=== PATIENT | male | born 1995 | race Caucasian/White ===

== ENCOUNTER 2019-06-08 01:26 | Day surgery (SDC) | payer OTHER, SELFPAY ==
[2019-06-03 10:38] VITALS: BMI 21.7
[2019-06-08 06:44] VITALS: BP 123/73; PULSE 94; RESP 16; TEMP 36.6; O2SAT 100; BMI 21.8
[2019-06-08] MEDS: LACTATED RINGERS 1,000 ML 150 ML IV CONT (07:09)
[2019-06-08 07:13] LABS: Glucose Point of Care 96 (65-105)
--- NOTE | 2019-06-08 07:37 | P.PNAN_ITS ---
Anes - Initial Pre Proc Eval Procedure: Operation Date: 06/08/19 08:00 Proposed Procedures p Esophagogastroduodenoscopy & Colonoscopy - Raj Jara MD Date/Time: 06/08/19 07:37 Surgeon: aRj Jara MD Pre Op Diagnosis: bloody stools, epigastric pain Patient Data Age: 24 Gender: M Height: 5 ft 11 in Weight: 71 kg Last Vital Signs Temp 97.8 F 06/08/19 06:44 Pulse 94 06/08/19 06:44 Resp 16 06/08/19 06:44 BP 123/73 06/08/19 06:44 Pulse Ox 100 06/08/19 06:44 Allergies Allergy/AdvReac Type Severity Reaction Status Date / Time No Known Allergies Allergy Unverified 06/08/19 06:53 Home Medications Medication Instructions Recorded Confirmed Type insulin lispro [Humalog U-100 06/03/19 History Insulin] Laboratory Tests 06/08/19 07:05 POC Capillary Glucose 96 mg/dl mg/dl (65-105) Patient hx anesthesia problems: none Family hx anesthesia problems: none [facility] Past Medical History Medical History (Updated 06/08/19 @ 07:30 by Lamberto Santana MD) Diabetes GERD (gastroesophageal reflux disease) Anes - Eval Final PreProcedure Day of Procedure 06/08/19 07:37 Patient weight: normal Heart: regular rate and rhythm Lungs: clear to auscultation Airway: Mallampati scale class II Neurological: alert and oriented Last oral intake: >/= 8 hours ASA classification: II Emergent: no Anesthetic plan: proceed Anesthesia type and monitoring: general GIVS and standard monitoring Informed Consent: The patient's anesthetic plan and its attendant risks and benefits were discussed with the patient/family/POA. Questions were solicited and answers provided to the satisfaction of the patient/family/POA.
--- NOTE | 2019-06-08 07:52 | WPDGICN ---
Assessment and Plan Additional Plan This is a 24-year-old white male patient seen in evaluation at the request of Kesha Noe. Patient has history of diabetes mellitus. Patient has noticed 2 month history of diffuse abdominal pain associated with elevation of his glucose. He has noticed rectal bleeding initially bright red blood per rectum admixed with stool. States sometimes he has diarrhea. Occasional midepigastric pain. Diarrhea and bleeding has persisted and worsened over the last 2 weeks. He denies a fever. He has had no recent travel. He describes the pain as though it may be a and hunger pain past medical history diabetes mellitus. He had a normal colonoscopy at age 13 because of abdominal pain. Current medications include insulin, Humalog. Family history Is significant his uncle had Crohn's disease. Physical exam reveals patient be alert. Vital signs stable. HEENT exam unremarkable. Lungs are clear to auscultation and percussion. Heart is without murmur or extra sounds. Abdominal exam bowel sounds are present soft mild epigastric tenderness noted. No abdominal masses. Digital external rectal exam normal. Laboratory work reveals ultrasound of the right upper quadrant to be normal. CBC unremarkable. LFTs normal. CT scan was performed results are not available. Stool for wbc's is positive. Impression 1. Bloody stools. 2. Family history of Crohn's disease. 3. Epigastric pain. 4. Insulin-dependent diabetes mellitus. Plan is for GI endoscopy to include both colonoscopy an EGD. Further recommendations will be given after endoscopy. GI Consult Note Consult date/time: 06/08/19 07:52 HPI: Prosper Sosa III is a 24 year old male [facility] Past Medical History Medical History (Updated 06/08/19 @ 07:30 by Lamberto Santana MD) Diabetes GERD (gastroesophageal reflux disease) Meds Home Medications and Allergies Home Medications Medication Instructions Recorded Confirmed Type insulin lispro [Humalog U-100 06/03/19 History Insulin] Allergies Allergy/AdvReac Type Severity Reaction Status Date / Time No Known Allergies Allergy Unverified 06/08/19 06:53 Vital Signs Vital Signs - 24 hr 06/08/19 06:44 Temperature 36.6 C Pulse Rate 94 Respiratory Rate 16 Blood Pressure 123/73 Pulse Oximetry 100
[2019-06-08] MEDS: BENZOCAINE (*SP) 60 ML SPRAY CAN (HURRICAINE) 1 SPRAY MUCOUS MEM (08:03)
[2019-06-08 08:28] VITALS: BP 107/62; PULSE 81; RESP 17; O2SAT 99
[2019-06-08 08:38] VITALS: BP 112/57; PULSE 85; RESP 25; O2SAT 100
[2019-06-08 08:48] VITALS: BP 125/83; PULSE 81; RESP 20; O2SAT 100
[2019-06-08 09:00] LABS: Glucose Point of Care 102 (65-105)
== END 2019-06-08 09:18 | disposition home or self-care (01) ==
PROVIDERS: PCP Nurse Practitioner; Visit Provider Internal Medicine Gastroenterology
PROC: 0DJ08ZZ Inspection of Upper Intestinal Tract, Via Natural or Artificial Opening Endoscopic (ICD-10-PCS; CPT 43235; principal; 2019-06-08 08:00)
DX: K52.9 Noninfective gastroenteritis and colitis, unspecified (principal); K21.9 Gastro-esophageal reflux disease without esophagitis; Z83.79 Family history of other diseases of the digestive system; E11.9 Type 2 diabetes mellitus without complications; Z79.4 Long term (current) use of insulin
CPT/HCPCS: 45380; 43235; 88305; J2704; J7120

== ENCOUNTER 2020-01-12 08:00 | Observation (INO) | payer OTHER, SELFPAY ==
[2020-01-12] VITALS (35 sets, daily range): BP systolic 120–144; BP diastolic 67–79; PULSE 95–134; RESP 15–23; TEMP 36.1–37.1; O2SAT 96–100; BMI 20.6
[2020-01-12 08:15] LABS: Glucose Point of Care 388 (65-105)
--- NOTE | 2020-01-12 08:23 | PC.NURSE ---
Pt states he has been out of his insulin for a while. Hx of insulin dependent diabetes. Pt reports blood sugars have been running in the 200s-300s at home.
[2020-01-12 08:26] LABS: Basophils Absolute Auto 0.1 K/mm3 (0.0-0.1); Basophils Percent Auto 0.9 % (0.2-1.2); Eosinophils Absolute Auto 0.2 K/mm3 (0-0.3); Eosinophils Percent Auto 1.6 % (0-4.4); Hemoglobin 15.6 g/dL (14.0-18.0); Immature Granulocyte Absolute 0.06 K/mm3 (0.00-0.031); Immature Granulocyte Percent A 0.6 % (0-0.5); Lymphocytes Absolute Auto 1.44 K/mm3 (0.9-3.2); Mean Corpuscular HGB Conc 33.9 g/dl (32-36); Mean Corpuscular Hemoglobin 31.3 pg (26-34); Mean Corpuscular Volume 92.2 fl (80-100); Monocytes Absolute Auto 1.4 K/mm3 (0.1-0.6); Monocytes Percent Auto 13.3 % (2.6-8.5); Neutrophils Absolute Auto 7.2 K/mm3 (1.3-6.7); Neutrophils Percent Auto 69.6 % (45.5-73.1); Platelet Count Result 308 k/mm3 (150-375); Red Blood Count 4.99 M/mm3 (4.6-6.20); Red Cell Distribution Width 13.2 % (11.5-14.5); White Blood Count 10.3 K/mm3 (4.5-10.0)
[2020-01-12] MEDS: SODIUM CHLORIDE 0.9% IV 1,000 ML 999 ML IV CONT ×3 (08:33→11:08)
[2020-01-12 08:34] LABS: Add Urine Microscopic? YES; Appearance Urine Clear (Clear); Bilirubin Urine Negative (Negative); Blood Urine Negative (Negative); Color Urine Straw (Yellow); Glucose Urine UA 3+ mg/dL (Negative); Ketones Urine 2+ mg/dL (Negative); Leukocyte Esterase Ur Negative LEU/UL (Negative); Mucus Urine Rare /lpf; Nitrate Urine Negative (Negative); Protein Urine Negative (Negative); Specific Grav Ur 1.025 (1.001-1.035); Squamous Epithelial Cell Urine Rare /hpf (Few); Urobilinogen Urine Negative mg/dL (<2.0); WBC Urine 0-3 /hpf
[2020-01-12 08:35] LABS: Alanine Aminotransferase 40 U/L (4-50); Albumin Level 4.7 g/dL (3.5-5.1); Alkaline Phosphatase 171 U/L (38-126); Anion Gap 22 mmol/L (8-16); Aspartate Amino Transferase 29 U/L (17-59); Bilirubin,Total 0.8 mg/dL (0.2-1.3); Blood Urea Nitrogen 18 mg/dL (9-20); Calcium 9.7 mg/dL (8.4-10.2); Carbon Dioxide 16 mmol/L (22-30); Chloride 97 mmol/L (98-107); Estimated CRCL calculation 99 ml/min; Estimated Glomerular Filt Rate > 60; Glucose 381 mg/dL (75-110); Lipase 74 U/L (23-300); Potassium 4.3 mmol/L (3.4-5.0); Sodium 135 mmol/L (137-145)
[2020-01-12 08:55] LABS: Hemoglobin A1C 10.4 % (<5.7)
[2020-01-12 09:08] LABS: Base Excess ABG -9.4 mEq/l (+/-2.0); Device ROOM AIR; Fractional Inspired Oxygen 21 %; HCO3 ABG 14.6 mEq/l (22.0-26.0); Methemoglobin ABG 0.4 %THb (0-1.5); Oxygen Content ABG 19.4 %vol (16.0-22.0); Oxygen Saturation ABG 97.9 % (95.0-100.0); Oxyhemoglobin 96.1 % THb (90.0-100.0); PCO2 ABG 27.5 mmHg (35.0-45.0); PO2 ABG 109.8 mmHg (80.0-100.0); PO2 FiO2 Ratio Arterial Blood 5.23 %; Reduced Hemoglobin 2.5 %THb (0-5.0); Site Drawn LEFT BRACHIAL; Total Hemoglobin 14.3 g/dL (12.0-18.0); pH ABG 7.343 (7.350-7.450)
--- NOTE | 2020-01-12 09:47 | ED.ABDPAIN ---
HPI - Abdominal Pain General Chief Complaint: Abdominal Pain Stated Complaint: abd pain, bloody stool, hx ulcerative colitis Time Seen by Provider: 01/12/20 08:12 History of Present Illness HPI narrative: Patient is a 24-year-old male who presents ER with concerns for a flare of his ulcerative colitis. Reports over the last week he has been having crampy abdominal pain associated with loose stools that are mixed with blood. He takes mesalamine and is followed by Dr. Jara. No fevers/chills/sweats. He is w/o n/v. Related Data Home Medications Medication Instructions Recorded Confirmed cholecalciferol (vitamin D3) 1,250 mcg PO WEEKLY 01/12/20 01/12/20 mesalamine 1,200 mg PO BID 01/12/20 01/12/20 Allergies Allergy/AdvReac Type Severity Reaction Status Date / Time No Known Allergies Allergy Verified 01/12/20 13:11 Review of Systems Review of Systems: All systems reviewed & are unremarkable except as noted in HPI and below Constitutional: Constitutional: Denies chills, Reports fatigue and Denies fever(s) ENT: Denies nasal congestion and Denies sore throat Respiratory: Respiratory: Denies cough and Denies dyspnea Gastrointestinal: Gastrointestinal: Reports abdominal pain, Reports diarrhea, Denies nausea and Denies vomiting Comments: hematochezia Genitourinary: Genitourinary: Denies oliguria, Denies dysuria and Reports urinary frequency PMFSH Past Medical History Medical History (Updated 01/12/20 @ 19:31 by Damir Vanessa MD) Diabetes type 1 A1c 10.4 on 01/12/2020 Ulcerative colitis Surgical History Surgical History (Updated 01/12/20 @ 14:37 by Eveline Franklin NP) H/O eye surgery right eye H/O hand surgery on the right hand Family History Family History (Updated 01/12/20 @ 14:40 by Eveline Franklin NP) Father Acute myocardial infarction Sibling Asthma Mother Family history of thyroid problem Social History Social History Smoking status: Never smoker Second hand tobacco smoke exposure: Yes Alcohol intake: never Substance use: never Spiritual care concerns: No Exam Narrative: Exam Narrative: GENERAL: Well-appearing, smells of ketones, well-nourished, and in no acute distress. HEAD: Normocephalic, atraumatic. ENT: Mucous membranes moist. CHEST: Clear to auscultation. No respiratory distress. HEART: Tachycardic and regular. Normal peripheral pulses. ABDOMEN: Soft, nontender, nondistended. EXTREMITIES: Normal range of motion. No edema. SKIN: Warm, dry, no rash. NEURO: Alert and oriented x3. Course Course Emergency Course: Acidosis and gap should close with aggressive fluids. Admit to the hospital service. No need for ICU. Vital Signs Vital signs: Vital Signs Temperature 97.2 F L 01/12/20 08:08 Pulse Rate 116 H 01/12/20 08:08 Respiratory Rate 18 01/12/20 08:08 Blood Pressure 131/72 01/12/20 08:08 Pulse Oximetry 100 01/12/20 08:08 Temperature 96.8 F L 01/12/20 19:28 Pulse Rate 77 01/12/20 19:28 Respiratory Rate 20 01/12/20 19:28 Blood Pressure 103/55 L 01/12/20 19:28 Pulse Oximetry 100 01/12/20 19:28 MDM - Abdominal Pain Lab Data Result diagrams: 01/12/20 08:16 01/12/20 10:20 Labs: Lab Results 01/12/20 01/12/20 01/12/20 Range/Units 08:13 08:16 08:16 WBC 10.3 H (4.5-10.0) K/mm3 RBC 4.99 (4.6-6.20) M/mm3 Hgb 15.6 (14.0-18.0) g/dL Hct 46.0 (42.0-52.0) % MCV 92.2 (80-100) fl MCH 31.3 (26-34) pg MCHC 33.9 (32-36) g/dl RDW 13.2 (11.5-14.5) % Plt Count 308 (150-375) k/mm3 MPV 10.0 (7.4-10.4) fl Immature Gran % (Auto) 0.6 H (0-0.5) % Neut % (Auto) 69.6 (45.5-73.1) % Lymph % (Auto) 14.0 L (18.3-44.2) % [place] % (Auto) 13.3 H (2.6-8.5) % Eos % (Auto) 1.6 (0-4.4) % Baso % (Auto) 0.9 (0.2-1.2) % Lymph # (Auto) 1.44 (0.9-3.2) K/mm3 [place] # (Auto) 1.4 H (0.1-0.6) K/mm3 Eos # (Auto) 0.2 (0-0.3) K
[2020-01-12 10:42] LABS: Glucose Point of Care 243 (65-105)
[2020-01-12 10:43] LABS: Anion Gap 13 mmol/L (8-16); Blood Urea Nitrogen 15 mg/dL (9-20); Calcium 7.9 mg/dL (8.4-10.2); Carbon Dioxide 19 mmol/L (22-30); Chloride 103 mmol/L (98-107); Estimated CRCL calculation 122 ml/min; Estimated Glomerular Filt Rate > 60; Glucose 269 mg/dL (75-110); Potassium 3.8 mmol/L (3.4-5.0); Sodium 135 mmol/L (137-145)
--- NOTE | 2020-01-12 13:24 | ADMGEN ---
This patient, Prosper Sosa III, was admitted to IMU Room 201-01 on 01/12/2020 at 1300. Patient/family oriented to hospital policies and general routines including ID bracelet, bed and alarms, visiting hours, pain management, procedures, bathroom and other care routines, personal items, smoking policy, room service/diet, and visiting hours. Information on how to activate the Rapid Response Team has been discussed. Patient/Family are encouraged to report perceived risks to care and to ask questions if they do not understand what they are told or what they should do.
[2020-01-12 13:40] LABS: Glucose Point of Care 261 (65-105)
--- NOTE | 2020-01-12 14:23 | PM.IMHP ---
H&P: HPI History of Present Illness Date/Time: 01/12/20 14:23 Chief complaint: dka,ulcerative colitis flare Narrative: Prosper Sosa III is a 24 year old male Who has a history of diabetes type 1 he was diagnosed when he was 11 years old. The patient typically sees an seamer in [address] [place] [address]. However since the COVID pandemic the patient has not been able to see his seamer. Also the patient was fired from his job and recently started working at another job. He had an insulin pump at 1 time but it was not working correctly. He is been using some Humalog that he has at home. He was also using Lantus but ran out. He has not been able to obtain an appointment with his seamer until next year. The patient has been trying to manage his diabetes with his Humalog only and has been out of Lantus. The patient also had been without insurance for approximately 2 months as well. He states that he sees Dr. márquez for his ulcerative colitis and that his mesalamine seems to work usually. He said that he does have his medication for that at home and he has been taking it routinely. He did have an EGD and colonoscopy for Dr. márquez March of this year. The patient had been on steroids at that time and he said that his oldest diff colitis has been under control since then. However the patient stated the last week he has been having abdominal pain and blood in his stool. He has no fever or chills. He did not have any nausea vomiting down in the emergency room. The patient was given IV fluids and 7 units of regular insulin IV push x1. It looks like he has had 5 normal saline boluses and then a continuous rate on the IV fluids. They have been discontinued since his anion gap was down to 13. His initial blood sugar was 388 and is down to 261 now. His A1c was 10.4. patient is admitted for observation on the date of 01/12/2020. Review of Systems Review of Systems: All systems reviewed & are unremarkable except as noted in HPI and below Constitutional: Constitutional: Reports as per HPI and Reports no additional constitutional complaints Eyes: Eyes: Reports as per HPI and Reports no additional eye complaints ENT: Reports system reviewed and no additional complaints, except as documented and Reports Normal hearing present Cardiovascular: Cardiovascular: Reports no additional cardiovascular complaints Respiratory: Respiratory: Reports no additional respiratory complaints and Reports no additional respiratory complaints Gastrointestinal: Gastrointestinal: Reports as per HPI and Reports no additional gastrointestinal complaints Musculoskeletal: Musculoskeletal: Reports no additional musculoskeletal complaints Integumentary/Breasts: Skin/Breast: Reports system reviewed and no additional complaints, except as docu and Reports as per HPI Neurologic: Reports system reviewed and no additional complaints, except as documented, Reports as per HPI and Reports Normal hearing present Psychiatric: Psychiatric: Reports no additional psychiatric complaints and Reports as per HPI Endocrine: Endocrine: Reports no additional endocrine complaints Hematologic/Lymphatic: Hematologic/Lymphatic: Reports no additional hematologic/lymphatic complaints Allergic/Immunologic: Allergic/Immunologic: Reports no additional allergic/immunologic complaints [facility] Past Medical History Medical History (Updated 01/12/20 @ 14:37 by Eveline Franklin NP) Diabetes type 1 A1c 10.4 on 01/12/2020 Ulcerative colitis Surgical History Surgical History (Updated 01/12/20 @ 14:37 by Eveline Franklin NP) H/O eye surgery right eye H/O hand surgery on the right hand Family History Family History (Updated 01/12/20 @ 14:40 by Eveline Franklin NP) Father Acute myocardial infarction Sibling Asthma Mother Family history of thyroid problem Social History Social History Smoking status: Never smoker Second hand tobacco smoke exposure: Ye
[2020-01-12 17:08] LABS: Glucose Point of Care 432 (65-105)
[2020-01-12] MEDS: MESALAMINE 400 MG DELAYED RELEASE CAPSULE 2400 MG PO (17:28)
[2020-01-12] MEDS: INSULIN ASPART (*BKC) 100 UNITS/ML 10 UNITS SUB-Q (17:28)
[2020-01-12] MEDS: INSULIN GLARGINE (*BKC) 100 UNITS/ML 30 UNITS SUB-Q (20:11)
[2020-01-12 20:16] LABS: Glucose Point of Care 228 (65-105)
[2020-01-13] VITALS (12 sets, daily range): BP systolic 120–147; BP diastolic 75–85; PULSE 88–111; RESP 18–20; TEMP 36.1–37.1; O2SAT 95–100; BMI 20.6
--- NOTE | 2020-01-13 | ECHO_ITS ---
Patient Info Name: Prosper Sosa Age: 24 years : 1995 Gender: Male Ht: 71 in Wt: 148 lbs BSA: 1.83 m2 HR: 105 bpm BP: 137 / 85 mmHg Heart Rhythm: Tachycardia Technical Quality: Fair Exam Date: 01/13/2020 10:03 AM Exam Location: [facility] Patient Status: Inpatient Admit Date: 01/12/2020 Staff Ordering Physician: Cleve Kamara MD Construction Specialist: Efrain Drake RDCS Attending Provider: Shasta Alvarez MD Referring Physician: Asad DE LA PAZ; Exam Type: CA echo doppler color flow Study Info Indications R00.0 - Tachycardia, unspecified Complete two-dimensional, color flow and Doppler transthoracic echocardiogram is performed. History/Risk Factors T1DM w/ DKA and tachycardia. Summary 1. Complete two-dimensional, color flow and Doppler transthoracic echocardiogram is performed. 2. Left ventricular chamber dimension is normal. 3. Left ventricular systolic function is normal, estimated at 60-65%. 4. The left ventricular diastolic function is normal. 5. E/e' 5 is not elevated. 6. The aortic valve is not well visualized. Left Ventricle E/e' 5 is not elevated. Left ventricular chamber dimension is normal. Left ventricular systolic function is normal, estimated at 60-65%. The left ventricular diastolic function is normal. Right Ventricle Right ventricular chamber dimension is normal. Right ventricular systolic function is normal. Left Atria Left atrial chamber dimension is normal. Right Atria Right atrial chamber dimension is normal. Aortic Valve There is no aortic valve stenosis based on valve area and gradients. Cannot determine number of aortic valve leaflets. The aortic valve is not well visualized. There is no aortic valve regurgitation. Pulmonic Valve The pulmonic valve is not well visualized. Mitral Valve There is no mitral valve stenosis. There is no mitral valve regurgitation. Tricuspid Valve The tricuspid valve leaflets are not well visualized. There is no tricuspid valve regurgitation. Pericardium/Pleural There is no pericardial effusion. Inferior Vena Cava Normal inferior vena cava with >50% collapse upon inspiration consistent with normal right atrial pressure, 5 mmHg. Aorta The aortic root size at the sinus of Valsalva is not well visualized. Left Ventricular Outflow Tract Name Value Normal LVOT 2D LVOT Diameter 1.9 cm LVOT Doppler LVOT Peak Gradient 7 mmHg LVOT Mean Gradient 4 mmHg LVOT VTI 20 cm LVOT VTI/AV VTI Ratio 0.9 LVOT Stroke Volume 59 ml LVOT CO 6.4 l/min LVOT CI 3.5 l/min/m2 Mitral Valve Name Value Normal MV Doppler MV Decel [place]
[2020-01-13 03:05] LABS: Glucose Point of Care 301 (65-105)
[2020-01-13] MEDS: INSULIN ASPART (*BKC) 100 UNITS/ML SUB-Q ×4 (03:15→17:52)
[2020-01-13 05:03] LABS: Hematocrit 39.1 % (42.0-52.0); Hemoglobin 13.2 g/dL (14.0-18.0); Mean Corpuscular HGB Conc 33.8 g/dl (32-36); Mean Corpuscular Hemoglobin 30.6 pg (26-34); Mean Corpuscular Volume 90.7 fl (80-100); Platelet Count Result 236 k/mm3 (150-375); Red Blood Count 4.31 M/mm3 (4.6-6.20); Red Cell Distribution Width 12.9 % (11.5-14.5); White Blood Count 7.8 K/mm3 (4.5-10.0)
[2020-01-13 05:17] LABS: Alanine Aminotransferase 21 U/L (4-50); Albumin Level 3.5 g/dL (3.5-5.1); Alkaline Phosphatase 112 U/L (38-126); Anion Gap 14 mmol/L (8-16); Aspartate Amino Transferase 20 U/L (17-59); Bilirubin,Total 0.8 mg/dL (0.2-1.3); Blood Urea Nitrogen 8 mg/dL (9-20); Calcium 8.5 mg/dL (8.4-10.2); Carbon Dioxide 21 mmol/L (22-30); Chloride 100 mmol/L (98-107); Estimated CRCL calculation 115 ml/min; Estimated Glomerular Filt Rate > 60; Glucose 306 mg/dL (75-110); Magnesium 1.9 mg/dL (1.6-2.3); Potassium 3.9 mmol/L (3.4-5.0); Sodium 135 mmol/L (137-145)
[2020-01-13 06:03] LABS: Thyroid Stimulating Hormone Reflex 0.761 uIU/mL (0.465-4.68)
[2020-01-13 07:16] LABS: Band Neutrophils Percent 10 % (0-6); Eosinophils Absolute Manual 0.15 K/mm3 (0.02-0.5); Eosinophils Percent Manual 2 % (0-4); Lymphocytes Absolute Manual 1.95 K/mm3 (1.1-4.5); Monocytes Absolute Manual 0.93 K/mm3 (0.1-0.90); Monocytes Percent Manual 12 % (3-9); Neutrophils Absolute Manual 4.75 K/mm3 (1.3-6.7); Neutrophils Percent Manual 51 % (46-73); Total Cells Counted 100
[2020-01-13 07:18] LABS: Platelet Estimate Adequate (Adequate)
[2020-01-13 08:06] LABS: Glucose Point of Care 261 (65-105)
[2020-01-13] MEDS: MESALAMINE 400 MG DELAYED RELEASE CAPSULE 1200 MG PO ×2 (08:08→17:51)
[2020-01-13 12:10] LABS: Glucose Point of Care 356 (65-105)
[2020-01-13] MEDS: INSULIN ASPART (*BKC) 100 UNITS/ML 6 UNITS SUB-Q ×2 (12:10→17:52)
[2020-01-13] MEDS: METOPROLOL SUCCINATE EXT REL 25 MG TABCR PO (12:11)
--- NOTE | 2020-01-13 13:04 | WPDGICN ---
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 Limited form of ulcerative colitis. Previously good response to Lialda was noted. He has had increasing diarrhea with bloody stools over the last 1 week. Given his admission hospital with DKA and underlying diabetes. Steroids may be contraindicated. Steroids would help with his colitis for a brief interval but may aggravate his poorly controlled diabetes at this time. Plan is to continue Lialda but add rule weight is a enemas at this time as this should be effective in the procto sigmoid region. This will initially be performed daily but may be consider b.i.d. if necessary. Will follow with you during this hospital stay. (2) DKA (diabetic ketoacidosis): Code(s): E11.10 - Type 2 diabetes mellitus with ketoacidosis without coma Status: Acute (3) Diabetes: Code(s): E11.9 - Type 2 diabetes mellitus without complications Status: Chronic GI Consult Note Consult date/time: 01/13/20 13:04 HPI: Prosper Sosa III is a 24 year old male I am asked to see by the hospitalist service. Patient admitted the hospital with poor control of diabetes mellitus felt to have DKA. Patient was identified as having ulcerative colitis in May of 2019. At that time colonoscopy revealed left-sided ulcerative colitis from the sigmoid colon to the rectal area. He was placed on Lialda. This gave him very good response of symptoms. He has had minimal pain or bleeding until the last 1 week. Over the last 1 week has had increasing diarrhea and blood in his stools. He only has pain during a bowel movement described as a crampy in nature. Family history is significant for Crohn's disease Review of Systems Review of Systems: All systems reviewed & are unremarkable except as noted in HPI and below PMFSH Past Medical History Medical History (Updated 01/12/20 @ 19:31 by Damir Vanessa MD) Diabetes type 1 A1c 10.4 on 01/12/2020 Ulcerative colitis Surgical History Surgical History (Updated 01/12/20 @ 14:37 by Eveline Franklin NP) H/O eye surgery right eye H/O hand surgery on the right hand Family History Family History (Updated 01/12/20 @ 14:40 by Eveline Franklin NP) Father Acute myocardial infarction Sibling Asthma Mother Family history of thyroid problem Social History Social History Smoking status: Never smoker Second hand tobacco smoke exposure: Yes Alcohol intake: never Substance use: never Spiritual care concerns: No Meds Home Medications and Allergies Home Medications Medication Instructions Recorded Confirmed Type cholecalciferol (vitamin D3) 1,250 mcg PO WEEKLY 01/12/20 01/12/20 History mesalamine 1,200 mg PO BID 01/12/20 01/12/20 History Allergies Allergy/AdvReac Type Severity Reaction Status Date / Time No Known Allergies Allergy Verified 01/12/20 13:11 Vital Signs Vital Signs - 24 hr 01/12/20 13:10 01/12/20 14:00 01/12/20 16:00 Temperature 98.7 F Pulse Rate 104 H 102 H 106 H Respiratory Rate 20 Blood Pressure 138/67 Pulse Oximetry 98 01/12/20 18:00 01/12/20 19:28 01/12/20 20:00 Temperature 97.5 F L Pulse Rate 99 105 H 97 Respiratory Rate 18 Blood Pressure 144/77 H Pulse Oximetry 100 01/12/20 22:00 01/12/20 23:26 01/13/20 00:00 Temperature 97.0 F L Pulse Rate 95 97 94 Respiratory Rate 18 Blood Pressure 120/70 Pulse Oximetry 100 01/13/20 01:58 01/13/20 03:21 01/13/20 04:00 Temperature 97.5 F L Pulse Rate 88 88 97 Respiratory Rate 18 Blood Pressure 147/79 H Pulse Oximetry 95 01/13/20 06:00 01/13/20 08:00 01/13/20 10:00 Temperature 97.5 F L Pulse Rate 94 102 H 110 H Respiratory Rate 18 Blood Pressure 137/85 Pulse Oximetry 100 01/13/20 12:
[2020-01-13 14:21] LABS: Glucose Point of Care 342 (65-105)
[2020-01-13] MEDS: INSULIN HUMAN REGULAR (*BKC) 100 UNITS/ML 7 UNITS IV PUSH (14:52)
--- NOTE | 2020-01-13 15:11 | PM.IMPN ---
Progress Note: A&P Assessment and Plan (1) Ulcerative colitis: Code(s): K51.90 - Ulcerative colitis, unspecified, without complications Status: Chronic Assessment and Plan: Dr. márquez is evaluating.. The patient has had prednisone in the past. However his blood sugars are extremely high at this point. Will continue with his home medication mesalamine.. (2) Diabetes: Code(s): E11.9 - Type 2 diabetes mellitus without complications Status: Chronic Assessment and Plan: A1C 10.4. Lantus HS with scheduled NovoLog and sliding scalehigh dose sliding scale. Patient will need to follow-up with his pallet assembler. The patient stated that he will need a prescription for Lantus when he goes home. He may even need some Humalog as well. The patient had an insulin pump but had some nonfunctioning with the pump. He is type 1 and was diagnosed at the age of 11. (3) Tachycardia: Code(s): R00.0 - Tachycardia, unspecified Status: Acute Assessment and Plan: patient states that he has had tachycardia for years with minimal exertion. TSH is normal. Blood pressures toward the high side so will start low-dose beta-mathieu and check echo also (4) DKA (diabetic ketoacidosis): Code(s): E11.10 - Type 2 diabetes mellitus with ketoacidosis without coma Status: Acute Assessment and Plan: initial gap was 22 with CO2 of 16 and pH 7.34. No beta hydroxybutyrate was done. Gap is closed and CO2 of to 21 with IV intermittent and subcu heparin. Will continue aggressive treatment that way with the IV insulin intermittently as well as subcu. UC may be worse than he admits which may be aggravating his blood sugar also Subjective Date/time seen: 01/13/20 15:11 Interval history: date of visit 01/12. 24-year-old type 1 diabetic with UC admitted with uncontrolled diabetes when he ran out of his Lantus insulin. admitted and mild DKA and been treating with intermittent IV insulin and subcu insulin with fair response. No nausea no vomiting. Has had some cramping with his UC. No fever no chills feels better this a.m. after insulin and hydration Exam Narrative: Exam Narrative: blood pressure 140/78 pulse 98 afebrile pupil equal reactive to light sclera anicteric lungs clear CV tachy no murmurs abdomen soft nontender bowel sounds normal active extremities without edema distal pulses 2+ neuro alert cooperative no focal deficits Objective Data Vital Signs Vital Signs: Vital Signs - 24 hr 01/12/20 16:00 01/12/20 18:00 01/12/20 19:28 Temperature 37.1 C 36.4 C L Pulse Rate 106 H 99 105 H Respiratory Rate 20 18 Blood Pressure 138/67 144/77 H Pulse Oximetry 98 100 01/12/20 20:00 01/12/20 22:00 01/12/20 23:26 Temperature 36.1 C L Pulse Rate 97 95 97 Respiratory Rate 18 Blood Pressure 120/70 Pulse Oximetry 100 01/13/20 00:00 01/13/20 01:58 01/13/20 03:21 Temperature 36.4 C L Pulse Rate 94 88 88 Respiratory Rate 18 Blood Pressure 147/79 H Pulse Oximetry 95 01/13/20 04:00 01/13/20 06:00 01/13/20 08:00 Temperature 36.4 C L Pulse Rate 97 94 102 H Respiratory Rate 18 Blood Pressure 137/85 Pulse Oximetry 100 01/13/20 10:00 01/13/20 12:00 01/13/20 12:11 Temperature 36.2 C L Pulse Rate 110 H 109 H 101 H Respiratory Rate 18 Blood Pressure 140/78 Pulse Oximetry 99 01/13/20 14:00 Temperature Pulse Rate 99 Respiratory Rate Blood Pressure Pulse Oximetry Intake/Output Intake/Output: Intake & Output 01/10/20 01/11/20 01/12/20 01/13/20 23:59 23:59 23:59 23:59 Intake Total 4620 880 Output Total 700 Balance 3920 880 Meds/Results Medications: Active Medications Generic Name Dose Route Start Last Admin Trade Name Freq PRN Reason Stop Dose Admin Acetaminophen 650 mg 01/12/20 10:30 Acetaminophen 325 Mg Tablet PO Q4H PRN Mild Pain (1-3) or Fever Hydrocodone Bitart/A
[2020-01-13 16:21] LABS: Glucose Point of Care 265 (65-105)
[2020-01-13 16:22] LABS: Albumin Level 3.7 g/dL (3.5-5.1); Anion Gap 8 mmol/L (8-16); Blood Urea Nitrogen 9 mg/dL (9-20); Calcium 8.8 mg/dL (8.4-10.2); Carbon Dioxide 27 mmol/L (22-30); Chloride 103 mmol/L (98-107); Estimated CRCL calculation 131 ml/min; Estimated Glomerular Filt Rate > 60; Glucose 262 mg/dL (75-110); Potassium 4.3 mmol/L (3.4-5.0); Sodium 138 mmol/L (137-145)
--- NOTE | 2020-01-13 18:42 | PC.NURSE ---
This patient, Prosper Soas III, was transferred to [facility] on 01/13/20 at 1840. Personal belongings sent with patient. Report given to CHRISTOPHER George. Appropriate documentation sent with patient.
--- NOTE | 2020-01-13 18:45 | PC.NURSE ---
This patient, Prosper Sosa III, was received from IMU on 01/13/20 at 1845. Report received from Michelle WHITE. Patient/family oriented to unit policies and routines
[2020-01-13] MEDS: SODIUM PHOSPHATE 20 MM in DEXTROSE 5% IN WATER 250 ML 50 MM IVPB (19:04)
[2020-01-13] MEDS: INSULIN GLARGINE (*BKC) 100 UNITS/ML 35 UNITS SUB-Q (20:52)
[2020-01-13] MEDS: MESALAMINE ENEMA 4 GM/60 ML BOTTLE RECTAL (20:53)
[2020-01-13 22:48] LABS: Glucose Point of Care 295 (65-105)
[2020-01-14 06:00] VITALS: BP 122/77; PULSE 92; RESP 20; TEMP 36.6; O2SAT 98
[2020-01-14 06:37] LABS: Albumin Level 3.6 g/dL (3.5-5.1); Anion Gap 8 mmol/L (8-16); Blood Urea Nitrogen 7 mg/dL (9-20); Calcium 8.6 mg/dL (8.4-10.2); Carbon Dioxide 28 mmol/L (22-30); Chloride 104 mmol/L (98-107); Estimated CRCL calculation 131 ml/min; Estimated Glomerular Filt Rate > 60; Glucose 189 mg/dL (75-110); Phosphorus 3.5 mg/dL (2.5-4.5); Potassium 3.4 mmol/L (3.4-5.0); Sodium 140 mmol/L (137-145)
[2020-01-14 08:49] LABS: Glucose Point of Care 138 (65-105)
[2020-01-14] MEDS: POTASSIUM CHLORIDE 20 MEQ TABLET 40 MEQ PO (08:49)
[2020-01-14] MEDS: MESALAMINE 400 MG DELAYED RELEASE CAPSULE 1200 MG PO (08:50)
[2020-01-14] MEDS: MESALAMINE ENEMA 4 GM/60 ML BOTTLE RECTAL (08:50)
[2020-01-14 08:51] VITALS: PULSE 108
[2020-01-14] MEDS: METOPROLOL SUCCINATE EXT REL 25 MG TABCR PO (08:51)
[2020-01-14] MEDS: INSULIN ASPART (*BKC) 100 UNITS/ML 6 UNITS SUB-Q ×2 (08:55→12:21)
--- NOTE | 2020-01-14 08:55 | WPDGIPROGNO ---
Progress Note: A&P Additional Plan Patient feels much better at present. He denies any active rectal bleeding. States his abdominal pain has improved. Physical exam reveals him to be alert. Lungs are clear. Heart without murmur. Abdomen bowel sounds are present soft minimal tenderness. Labs reveal hemoglobin stable. Impression 1. Diabetes mellitus. 2. DKA. Appears resolved. 3. Ulcerative colitis. He has left-sided proctosigmoiditis. Plan is to continue mesalamine orally. Supplement this with mesalamine enema at bedtime. Prednisone will be avoided at this time because of poor control of his diabetes. Asked patient to follow up my office in 2 weeks at which time enema therapy will be reassessed. Subjective Date/time seen: 01/14/20 08:55 Objective Data Vital Signs Vital Signs: Vital Signs - 24 hr 01/13/20 10:00 01/13/20 12:00 01/13/20 12:11 Temperature 97.1 F L Pulse Rate 110 H 109 H 101 H Respiratory Rate 18 Blood Pressure 140/78 Pulse Oximetry 99 01/13/20 14:00 01/13/20 16:00 01/13/20 22:00 Temperature 97 F L 98.7 F Pulse Rate 99 98 94 Respiratory Rate 18 20 Blood Pressure 120/75 127/82 Pulse Oximetry 100 99 01/14/20 06:00 01/14/20 08:51 Temperature 97.8 F Pulse Rate 92 108 H Respiratory Rate 20 Blood Pressure 122/77 Pulse Oximetry 98 Intake/Output Intake/Output: Intake & Output 01/11/20 01/12/20 01/13/20 01/14/20 23:59 23:59 23:59 23:59 Intake Total 4620 1120 1256.7 Output Total 700 Balance 3920 1120 1256.7 Meds/Results Medications: Active Medications Generic Name Dose Route Start Last Admin Trade Name Freq PRN Reason Stop Dose Admin Acetaminophen 650 mg 01/12/20 10:30 Acetaminophen 325 Mg Tablet PO Q4H PRN Mild Pain (1-3) or Fever Dextrose 12.5 gm 01/12/20 14:21 Dextrose 50% 25 Gm/50 Ml Syringe IV PUSH PRN PRN Hypoglycemia Protocol Ergocalciferol 50,000 unit 01/16/20 09:00 Ergocalciferol 50,000 Unit Capsule PO Mo@0900 RADHA Glucagon 1 mg 01/12/20 14:21 Glucagon For Inj 1 Mg Vial IM PRN PRN Hypoglycemia Protocol Glucose 15 gm 01/12/20 14:21 Glucose Oral Gel 15 Gm Of Glucse In 37.5 Gm Tube PO PRN PRN Hypoglycemia Protocol Dextrose 1,000 mls @ 100 mls/hr 01/12/20 14:21 Dextrose 5% 1,000 Ml IVPB PRN PRN Hypoglycemia Protocol Insulin Aspart 6 units 01/13/20 12:00 01/13/20 17:52 Insulin Aspart (*Bkc) 100 Units/Ml 0.083 units/kg (6 units) 6 units SUB-Q Administration [facility] Insulin Aspart 2 - 5 units 01/13/20 12:00 01/14/20 08:54 Insulin Aspart (*Bkc) 100 Units/Ml SUB-Q Not Given [facility] Protocol Insulin Glargine 35 units 01/13/20 21:00 01/13/20 20:52 Insulin Glargine (*Bkc) 100 Units/Ml SUB-Q 35 units HS RADHA Administration Mesalamine 1,200 mg 01/13/20 09:00 01/14/20 08:50 Mesalamine 400 Mg Delayed Release Capsule PO 1,200 mg BID RADHA Administration Mesalamine 4 gm 01/13/20 21:00 01/14/20 08:50 Mesalamine Enema 4 Gm/60 Ml Bottle RECTAL 4 gm Q12HR RADHA Administration Metoprolol Succinate 25 mg 01/13/20 09:00 01/14/20 08:51 Metoprolol Succinate Ext Rel 25 Mg Tabcr PO 25 mg QAM RADHA Administration Morphine Sulfate 4 mg 01/12/20 10:30 Morphine Sulfate (*Crx) 4 Mg/Ml Inj IV PUSH Q2H PRN Pain Rated 7-10 Ondansetron HCl 4 mg 01/12/20 10:30 Ondansetron Inj 4 Mg/2 Ml Vial IV PUSH Q4H PRN Nausea Labs Labs: Laboratory Results - last 24 hr 01/13/20 01/13/20 01/13/20 12:03 14:17 16:02 Sodium 138 Potassium 4.3 Chloride 103 Carbon Dioxide 27 Anion Gap 8 BUN 9 Creatinine 0.70 Estim Creat Clear Calc 131 Estimated GFR > 60 Glucose 262 H POC Capillary Glucose 356 H 342 H Calcium 8.8 Phosphorus 2.0 L Albumin 3.7 01/13/20 01/13/20 01/14/20 16:06 20:51 05:44 Sodium
[2020-01-14 12:25] LABS: Glucose Point of Care 177 (65-105)
--- NOTE | 2020-01-15 18:39 | PM.DS ---
DS: Admitting Diagnosis Admitting Diagnosis Admitting Diagnosis: dka,ulcerative colitis flare DS: Discharge Diagnosis Discharge Diagnosis (1) Ulcerative colitis: Code(s): K51.90 - Ulcerative colitis, unspecified, without complications Status: Chronic Assessment and Plan: Dr. márquez followed while here... The patient has had prednisone in the past. However his blood sugars are extremely high at this point. Will continue with his home medication mesalamine.. And mesalamine enemas were added to his regime also. (2) Diabetes: Code(s): E11.9 - Type 2 diabetes mellitus without complications Status: Chronic Assessment and Plan: A1C 10.4. Lantus HS with scheduled NovoLog and sliding scalehigh dose sliding scale. Patient will need to follow-up with his [employer] senior officer. He was given a script for Lantus and Humalog. The patient had an insulin pump but had some nonfunctioning with the pump. He is type 1 and was diagnosed at the age of 11. Discharge with Lantus 35 units HS and Humalog 6 t.i.d. with meals with his sliding scale. (3) Tachycardia: Code(s): R00.0 - Tachycardia, unspecified Status: Acute Assessment and Plan: patient states that he has had tachycardia for years with minimal exertion. TSH is normal. Blood pressures toward the high side so will start low-dose beta-mathieu and echo Normal with normal EF and no LVH or valve abnormalities (4) DKA (diabetic ketoacidosis): Code(s): E11.10 - Type 2 diabetes mellitus with ketoacidosis without coma Status: Acute Assessment and Plan: initial gap was 22 with CO2 of 16 and ph 7.34 . treated with extra insulin and occasional IV push regular insulin and gap closed. He had no nausea or vomiting. Fasting sugar at discharge 189 with CO2 up to 28 and creatinine 0.7. DS: Summary Hospital Course Hospital Course: 24-year-old type 1 diabetic admitted with elevated blood sugar and mild DKA. Gap was 22 with CO2 the 16 and pH 7.34. Is treated with extra subcu insulin and intermittent IV push insulin and his gap closed and sugar return to reasonable range. DKA was precipitated by the fact that he had ran out of Lantus insulin and was trying to control his blood sugars with Humalog only At discharge the CO2 had climbed to 28. Is taking a diet and feeling much better on Lantus 35 HS with scheduled short-acting insulin with meals. He had had insulin pump in the past and will follow-up with endocrinology for possible restarting that in the future. He can return to work on the in the p.m.. Time Spent with Patient Time attestation: Total time spent providing and/or coordinating discharge services: 35 minutes Exam Narrative: Exam Narrative: condition on discharge blood pressure 122/76 pulse is 90 and regular lungs clear CV regular rate rhythm no murmur abdomen soft nontender bowel sounds normal active extremities without edema good distal pulses he was up in about taking a diet well with nausea feeling much better and stable able to be discharged home return to work on the p.m. Discharge Plan Discharge Attending physician on discharge: Cleve Kamara Consulting providers: Raj Márquez Discharging Clinician: Cleve Kamara Patient Disposition: Home, Self-Care Activity: as tolerated Diet: diabetic Patient Instructions: Antibiotic Form, Mesalamine (Into the rectum), Pain Management (DC), Diabetic Ketoacidosis (DC), Ulcerative Colitis (DC) Stand Alone Forms: General Discharge Information, Work/School Release IP Follow-up/Referrals: Raj Márquez MD [Physician] - 4 Weeks Discharge Medications: New Lantus U-100 Insulin 100 unit/mL Solution 35 units subcut HS Qty: 10 RF: 5 metoprolol succinate [Toprol XL] 25 mg Tablet Extended Release 24 Hr 25 mg PO QAM Qty: 30 RF: 1 mesalamine with cleansing wipe [Rowasa] 4 gram/60 mL Enema Kit 4 g
== END 2020-01-14 13:45 | disposition home or self-care (01) ==
LOC: ANHED 08:34 → ANHIMU 13:30 → ANH3MEDSUR 01-13 23:14 → ANHICU 01-17 13:28 → ANHIMU 01-17 13:28
PROVIDERS: Nurse Practitioner; Admitting Provider Family Medicine; Emergency Provider Emergency Medicine; PCP Nurse Practitioner; Visit Provider Internal Medicine
DX: K51.90 Ulcerative colitis, unspecified, without complications (principal); E10.10 Type 1 diabetes mellitus with ketoacidosis without coma; R00.0 Tachycardia, unspecified; Z79.4 Long term (current) use of insulin
CPT/HCPCS: 36415; 36600; 80048; 80053; 80069; 81001; 82375; 82805; 82948; 83036; 83050; 83690; 83735; 84100; 84443; 85025; 93306; 96360; 96361; 96365; 96366; 99285; A9270; G0378; J1815; J7030; J7060

== ENCOUNTER 2020-01-15 19:15 | Inpatient (IN) | payer OTHER, SELFPAY ==
--- NOTE | ~2020-01-15 | CT_ITS ---
EXAMINATION: CT abdomen pelvis w con EXAM DATE: 01/15/2020 20:42 INDICATION: Ulcerative colitis with lower abdominal pain . TECHNIQUE: Spiral CT of the abdomen and pelvis was performed following intravenous injection of 100 m L Omnipaque 350. Axial, coronal and sagittal images were reviewed. The dose-length product (DLP) fo r this examination was 261.56 mGy-cm. The exposure was tailored according to patient size (auto mA e xposure control), and iterative reconstruction (ASIR) was used as additional dose reduction technique . There is no prior study for comparison. FINDINGS: There is severe diffuse colonic wall edema, cobb colitis. No pneumatosis or abscess. The sma ll bowel is unremarkable. The liver, spleen, adrenal glands and pancreas are unremarkable. Gallblad navdeep is unremarkable. No biliary obstruction. Portal and splenic veins are patent. Kidneys enhance symmetrically. There is no hydronephrosis. The prostate is unremarkable. The bladder is unremarka ble. There is no retroperitoneal or pelvic lymphadenopathy. The appendix is normal. The stomach and small bowel are unremarkable. No free intraperitoneal gas. The heart is normal in size. There are no pericardial or pleural effusions. The lung bases are u nremarkable. The bones are unremarkable. IMPRESSION: Severe pancolitis. Reviewed, dictated and finalized at location A. IMPRESSION: Severe pancolitis.
[2020-01-15 19:20] VITALS: BP 140/98; PULSE 100; RESP 18; TEMP 36.7; O2SAT 100
--- NOTE | 2020-01-15 19:32 | ED.ABDPAIN ---
HPI - Abdominal Pain General Chief Complaint: Abdominal Pain Stated Complaint: bloody stool, abd pain Time Seen by Provider: 01/15/20 19:26 Source: patient Mode of arrival: ambulatory Limitations: no limitations History of Present Illness HPI narrative: 24 years old white male presents with lower abdominal cramps associated with frequent bloody bowel movements at least 4 episodes so far since glove cutter. Patient denies any fever, chills, nausea, vomiting. Patient had history of ulcerative colitis was hospitalized in our hospital for 3 days, got discharged yesterday. He was doing fine at the time of discharge, woke up this morning with the above symptoms. Related Data Home Medications Medication Instructions Recorded Confirmed cholecalciferol (vitamin D3) 1,250 mcg PO WEEKLY 01/12/20 01/12/20 mesalamine 1,200 mg PO BID 01/12/20 01/12/20 Allergies Allergy/AdvReac Type Severity Reaction Status Date / Time No Known Allergies Allergy Verified 01/12/20 13:11 Review of Systems Review of Systems: Narrative: CONSTITUTIONAL: Denies fever, chills, or sweats. EYES: Denies visual changes, redness, or discharge. ENT: Denies rhinorrhea, congestion, sore throat, or otalgia. CARDIOVASCULAR: Denies chest pain, palpitations, or edema. RESPIRATORY: Denies cough or dyspnea. GASTROINTESTINAL: Denies abdominal pain, nausea, vomiting, or diarrhea. GENITOURINARY: Denies dysuria or hematuria. SKIN: Denies rash or itching. MUSCULOSKELETAL: Denies back pain, joint pain, or myalgia. NEUROLOGIC: Denies headache, numbness, or weakness. PSYCHIATRIC: Denies anxiety or depression. [facility] Past Medical History Medical History Diabetes type 1 A1c 10.4 on 01/12/2020 Ulcerative colitis Surgical History Surgical History H/O eye surgery right eye H/O hand surgery on the right hand Family History Family History Father Acute myocardial infarction Sibling Asthma Mother Family history of thyroid problem Social History Social History Smoking status: Never smoker Second hand tobacco smoke exposure: Yes Alcohol intake: never Substance use: never Spiritual care concerns: No Exam Narrative: Exam Narrative: General appearance: Well-developed, well-nourished Skin: Normal color Neck: Supple, nontender Chest and respiratory: Airway patent, no respiratory distress, no accessory muscle use Heart: Regular rate/rhythm Abdomen: Soft, nontender, no organomegaly, hyperactive bowel sounds Vascular: Normal peripheral pulses, normal capillary refill. Musculoskeletal: Normal range of motion, nontender back Neurologic: Alert and oriented ?3, HEAD OF RESEARCH & INSIGHTS is normal as tested, no gross motor deficit Course Course Emergency Course: Stable Consultations Consultation #1: Dr. Jara Admit to hospitalist, start Solu-Medrol 40 mg every 8 hours Date: 01/15/20 Time: 21:42 Vital Signs Vital signs: Vital Signs Temperature 36.7 C 01/15/20 19:20 Pulse Rate 100 01/15/20 19:20 Respiratory Rate 18 01/15/20 19:20 Blood Pressure 140/98 H 01/15/20 19:20 Pulse Oximetry 100 01/15/20 19:20 Temperature 36.7 C 01/15/20 19:20 Pulse Rate 105 H 01/15/20 20:02 Respiratory Rate 18 01/15/20 20:02 Blood Pressure 132/89 01/15/20 20:02 Pulse Oximetry 99 01/15/20 20:02 MDM - Abdominal Pain MDM Narrative Medical decision making narrative: Patient had history of ulcerative colitis, was discharged from our hospital 2 days ago, back to the emergency room w
[2020-01-15 20:02] VITALS: BP 132/89; PULSE 105; RESP 18; O2SAT 99
[2020-01-15 20:08] LABS: Basophils Absolute Auto 0.1 K/mm3 (0.0-0.1); Basophils Percent Auto 0.7 % (0.2-1.2); Eosinophils Absolute Auto 0.2 K/mm3 (0-0.3); Eosinophils Percent Auto 2.2 % (0-4.4); Hematocrit 40.5 % (42.0-52.0); Hemoglobin 13.8 g/dL (14.0-18.0); Immature Granulocyte Absolute 0.03 K/mm3 (0.00-0.031); Immature Granulocyte Percent A 0.3 % (0-0.5); Lymphocytes Absolute Auto 1.23 K/mm3 (0.9-3.2); Lymphocytes Percent Auto 14.1 % (18.3-44.2); Mean Corpuscular HGB Conc 34.1 g/dl (32-36); Mean Corpuscular Hemoglobin 31.3 pg (26-34); Mean Corpuscular Volume 91.8 fl (80-100); Mean Platelet Volume 9.8 fl (7.4-10.4); Monocytes Absolute Auto 1.3 K/mm3 (0.1-0.6); Monocytes Percent Auto 14.5 % (2.6-8.5); Neutrophils Percent Auto 68.2 % (45.5-73.1); Platelet Count Result 255 k/mm3 (150-375); Red Blood Count 4.41 M/mm3 (4.6-6.20); Red Cell Distribution Width 13.2 % (11.5-14.5); White Blood Count 8.8 K/mm3 (4.5-10.0)
[2020-01-15 20:12] LABS: Add Urine Microscopic? YES; Appearance Urine Clear (Clear); Bilirubin Urine Negative (Negative); Blood Urine Negative (Negative); Color Urine Yellow (Yellow); Glucose Urine UA 3+ mg/dL (Negative); Ketones Urine Negative (Negative); Leukocyte Esterase Ur Negative LEU/UL (Negative); Mucus Urine Rare /lpf; Nitrate Urine Negative (Negative); Protein Urine Negative (Negative); RBC Urine 0-2 /hpf (0-2); Urobilinogen Urine Negative mg/dL (<2.0); WBC Urine 0-3 /hpf
[2020-01-15] MEDS: SODIUM CHLORIDE 0.9% IV 1,000 ML 999 ML IV CONT (20:15)
[2020-01-15 20:19] LABS: Alanine Aminotransferase 23 U/L (4-50); Albumin Level 3.7 g/dL (3.5-5.1); Alkaline Phosphatase 106 U/L (38-126); Anion Gap 4 mmol/L (8-16); Aspartate Amino Transferase 30 U/L (17-59); Bilirubin,Total 0.3 mg/dL (0.2-1.3); Blood Urea Nitrogen 10 mg/dL (9-20); Calcium 9.2 mg/dL (8.4-10.2); Carbon Dioxide 35 mmol/L (22-30); Chloride 101 mmol/L (98-107); Estimated CRCL calculation 122 ml/min; Estimated Glomerular Filt Rate > 60; Glucose 127 mg/dL (75-110); Lipase 42 U/L (23-300); Potassium 3.8 mmol/L (3.4-5.0); Sodium 140 mmol/L (137-145)
[2020-01-15 21:10] VITALS: BP 103/85; PULSE 103; RESP 18; O2SAT 100
[2020-01-15] MEDS: methylPREDNISolone SOD SUCC 40 MG VIAL IV PUSH ×2 (21:54→22:22)
--- NOTE | 2020-01-15 22:17 | PM.IMHP ---
H&P: HPI History of Present Illness Date/Time: 01/15/20 22:17 Chief complaint: Pancolitis Narrative: This is a 24 year old Diabetic male who is well known to our Hospitalist service as he was just discharged home yesterday after he was just treated for acute DKA and ulcerative colitis. The patient reports that he started to have worsening diffuse lower abdominal cramping and dark bloody stools today. He reports having 7-8 loose stools. Today he denies any fever, chills, vomiting although he did feel nauseated earlier. CT abd/pelvis obtained in the ER today demonstrated severe pancolitis. Routine labs were unremarkable. ER provider has consulted Senior Procurement Specialist, Dr. Jara and the patient has been started on IV solumedrol. No other complaints. Review of Systems Review of Systems: All systems reviewed & are unremarkable except as noted in HPI and below PMFSH Past Medical History Medical History Diabetes type 1 A1c 10.4 on 01/12/2020 Ulcerative colitis Surgical History Surgical History H/O eye surgery right eye H/O hand surgery on the right hand Family History Family History Father Acute myocardial infarction Sibling Asthma Mother Family history of thyroid problem Social History Social History Smoking status: Never smoker Second hand tobacco smoke exposure: Yes Alcohol intake: never Substance use: never Substance use type: does not use Living arrangements: with friend(s) Occupation/Education: occupation Gender identity (if verbalized by the patient): Male Sexual Orientation (if Verbalized by the Patient): Straight or Heterosexual Spiritual care concerns: No Meds Home Medications and Allergies Home Medications Medication Instructions Recorded Confirmed Type cholecalciferol (vitamin D3) 1,250 mcg PO WEEKLY 01/12/20 01/15/20 History mesalamine 1,200 mg PO BID 01/12/20 01/15/20 History blood sugar diagnostic [Blood #10 ea 01/14/20 01/15/20 Rx Glucose Test] blood sugar diagnostic [OneTouch #1 pkg 01/14/20 01/15/20 Rx Verio test strips] insulin glargine [Lantus U-100 35 units SUBCUT HS #10 ml 01/14/20 01/15/20 Rx Insulin] insulin lispro [Humalog U-100 6 unit SUBCUT TID #10 ml 01/14/20 01/15/20 Rx Insulin] mesalamine with cleansing wipe 4 g MI HS #30 ea 01/14/20 01/15/20 Rx [Rowasa] metoprolol succinate [Toprol XL] 25 mg PO QAM #30 tablet 01/14/20 01/15/20 Rx Allergies Allergy/AdvReac Type Severity Reaction Status Date / Time No Known Allergies Allergy Verified 01/12/20 13:11 Vital Signs Vital Signs - 24 hr 01/15/20 19:20 01/15/20 20:02 01/15/20 21:10 Temperature 36.7 C Pulse Rate 100 105 H 103 H Respiratory Rate 18 18 18 Blood Pressure 140/98 H 132/89 103/85 Pulse Oximetry 100 99 100 Exam Const: General: cooperative, alert and awake Nutritional Appearance: thin Orientation/consciousness: patient oriented x3 HENMT: Head: normal to inspection General nose exam: Normal external nose present Face and sinus: normal facial exam Mouth: Yes Normal oral and palatal mucosa present and Yes oropharynx normal Eyes: Pupils: Equal, round and reactive pupils present EOM: EOMs intact bilaterally Neck: Neck: supple and no JVD Thyroid: thyroid normal Lymphatic: lymphadenopathy not noted Resp: Effort & Inspection: normal respiratory effort Auscultation: clear to auscultation bilaterally Cardio: Rate: regular rate Rhythm: regular rhythm Heart sounds: no murmurs GI: Inspection: normal to inspection GI Palp: Yes abdominal tenderness (Lower abd b/l++ ) Auscultation: normal bowel sounds Rectal Exam: deferred Skin: General skin exam: normal color and no rashes or lesions noted Neuro: General: patient oriented x3 Cranial nerves:
[2020-01-15] MEDS: ONDANSETRON INJ 4 MG/2 ML VIAL IV PUSH (22:28)
[2020-01-15] MEDS: HYDROmorphone HCL INJ (*CRX) 1 MG/ML SYR 0.5 MG IV PUSH (22:28)
[2020-01-15 22:36] VITALS: BP 129/83; PULSE 108; RESP 18; O2SAT 97
[2020-01-15 22:50] VITALS: BP 149/80; PULSE 100; RESP 20; TEMP 37.1; O2SAT 100; BMI 20.9
--- NOTE | 2020-01-15 23:07 | ADMGEN ---
This patient, Prosper Sosa III, was admitted to [facility] Surg Room 303-01. Patient/family oriented to hospital policies and general routines including ID bracelet, bed and alarms, visiting hours, pain management, procedures, bathroom and other care routines, personal items, smoking policy, room service/diet, and visiting hours. Information on how to activate the Rapid Response Team has been discussed. Patient/Family are encouraged to report perceived risks to care and to ask questions if they do not understand what they are told or what they should do.
[2020-01-15] MEDS: SODIUM CHLORIDE 0.9% IV 1,000 ML 125 ML IV CONT (23:16)
[2020-01-15 23:50] LABS: Glucose Point of Care 89 (65-105)
[2020-01-16 02:00] VITALS: BP 119/66; PULSE 89; RESP 20; TEMP 36.2; O2SAT 98
[2020-01-16] MEDS: MORPHINE SULFATE (*CRX) 4 MG/ML INJ IV PUSH (04:09)
[2020-01-16 05:38] VITALS: BP 121/71; PULSE 85; RESP 16; TEMP 36.8; O2SAT 98
[2020-01-16] MEDS: SODIUM CHLORIDE 0.9% IV 1,000 ML 125 ML IV CONT ×3 (05:50→22:09)
[2020-01-16] MEDS: methylPREDNISolone SOD SUCC 40 MG VIAL IV PUSH ×3 (05:50→21:26)
[2020-01-16] MEDS: INSULIN ASPART (*BKC) 100 UNITS/ML SUB-Q ×4 (05:52→23:16)
[2020-01-16 05:54] LABS: Glucose Point of Care 299 (65-105)
[2020-01-16 06:14] LABS: Basophils Percent Auto 0.3 % (0.2-1.2); Hematocrit 37.4 % (42.0-52.0); Hemoglobin 12.6 g/dL (14.0-18.0); Immature Granulocyte Absolute 0.03 K/mm3 (0.00-0.031); Immature Granulocyte Percent A 0.4 % (0-0.5); Lymphocytes Absolute Auto 0.56 K/mm3 (0.9-3.2); Lymphocytes Percent Auto 8.1 % (18.3-44.2); Mean Corpuscular HGB Conc 33.7 g/dl (32-36); Mean Corpuscular Hemoglobin 30.5 pg (26-34); Mean Corpuscular Volume 90.6 fl (80-100); Mean Platelet Volume 10.1 fl (7.4-10.4); Monocytes Absolute Auto 0.2 K/mm3 (0.1-0.6); Monocytes Percent Auto 3.5 % (2.6-8.5); Neutrophils Absolute Auto 6.1 K/mm3 (1.3-6.7); Neutrophils Percent Auto 87.7 % (45.5-73.1); Platelet Count Result 242 k/mm3 (150-375); Red Blood Count 4.13 M/mm3 (4.6-6.20); Red Cell Distribution Width 13.2 % (11.5-14.5); White Blood Count 6.9 K/mm3 (4.5-10.0)
[2020-01-16 06:23] LABS: Anion Gap 7 mmol/L (8-16); Blood Urea Nitrogen 8 mg/dL (9-20); Calcium 8.2 mg/dL (8.4-10.2); Carbon Dioxide 27 mmol/L (22-30); Chloride 102 mmol/L (98-107); Estimated CRCL calculation 153 ml/min; Estimated Glomerular Filt Rate > 60; Glucose 316 mg/dL (75-110); Potassium 4.5 mmol/L (3.4-5.0); Sodium 136 mmol/L (137-145)
--- NOTE | 2020-01-16 09:11 | WPDGICN ---
Assessment and Plan Assessment and plan (1) Ulcerative colitis: Code(s): K51.90 - Ulcerative colitis, unspecified, without complications Status: Acute Assessment and Plan: Patient appears to have an ongoing flare of ulcerative colitis. Manifested by bloody diarrhea and abdominal pain. Patient has not tolerated mesalamine enemas very well. Plan is to start Solu-Medrol intravenously. Continue mesalamine orally. Avoid nonsteroidal anti-inflammatory agents. There is a concern that steroids will cause his glucose level to rise. Plan is for close monitoring of his glucose in treatment with supplemental insulin as needed. Patient is status post recent admission for diabetic ketoacidosis. Will follow with you during his hospital stay. We may need to consider adding Imuran if he were to require steroids long-term however. (2) Diabetes: Qualifiers: Diabetes mellitus type: type 1 Diabetes mellitus complication status: without complication Qualified Code(s): E10.9 - Type 1 diabetes mellitus without complications Code(s): E11.9 - Type 2 diabetes mellitus without complications Status: Chronic GI Consult Note Consult date/time: 01/16/20 09:11 HPI: Prosper Sosa III is a 24 year old male Seen in evaluation at the request of the emergency room. Patient has an history of ulcerative colitis. This was stable until the last several weeks when he began to have loose stools and some blood mixed with stools. He had vague lower abdominal pain. Recently admitted to the hospital with diabetic ketoacidosis. During that hospital stay his mesalamine orally was supplemented with a mesalamine enemas. He was discharged however at home experience prompt recurrence of diarrhea abdominal pain and bloody stools. Last evening he presented the emergency room CT scan revealed cobb colitis. At the present time he no longer is acidotic. Glucose appears under better control. Patient admitted for further evaluation and therapy. Review of Systems Review of Systems: All systems reviewed & are unremarkable except as noted in HPI and below PMFSH Past Medical History Medical History Diabetes type 1 A1c 10.4 on 01/12/2020 Ulcerative colitis Surgical History Surgical History H/O eye surgery right eye H/O hand surgery on the right hand Family History Family History Father Acute myocardial infarction Sibling Asthma Mother Family history of thyroid problem Social History Social History Smoking status: Never smoker Second hand tobacco smoke exposure: Yes Alcohol intake: never Substance use: never Substance use type: does not use Living arrangements: with friend(s) Occupation/Education: occupation Gender identity (if verbalized by the patient): Male Sexual Orientation (if Verbalized by the Patient): Straight or Heterosexual Spiritual care concerns: No Meds Home Medications and Allergies Home Medications Medication Instructions Recorded Confirmed Type cholecalciferol (vitamin D3) 1,250 mcg PO WEEKLY 01/12/20 01/15/20 History mesalamine 1,200 mg PO BID 01/12/20 01/15/20 History blood sugar diagnostic [Blood #10 ea 01/14/20 01/15/20 Rx Glucose Test] blood sugar diagnostic [OneTouch #1 pkg 01/14/20 01/15/20 Rx Verio test strips] insulin glargine [Lantus U-100 35 units SUBCUT HS #10 ml 01/14/20 01/15/20 Rx Insulin] insulin lispro [Humalog U-100 6 unit SUBCUT TID #10 ml 01/14/20 01/15/20 Rx Insulin] mesalamine with cleansing wipe 4 g [place] HS #30 ea 01/14/20 01/15/20 Rx [Rowasa] metoprolol succinate [Toprol XL] 25 mg PO QAM #30 tablet 01/14/20 01/15/20 Rx Allergies Allergy/AdvReac Type Severity Reaction Status Date / Time No Known Allergies Allergy
[2020-01-16] MEDS: MESALAMINE 400 MG DELAYED RELEASE CAPSULE 800 MG PO ×3 (10:14→17:25)
--- NOTE | 2020-01-16 11:07 | PM.IMPN ---
Progress Note: A&P Assessment and Plan (1) Ulcerative colitis: Code(s): K51.90 - Ulcerative colitis, unspecified, without complications Status: Acute Assessment and Plan: Patient presented with bloody diarrhea and abdominal pain. Consistent with acute ulcerative colitis flare. GI has been consulted and recommendations are appreciated. Continue IV solu-medrol. Continue oral mesalamine. Analgesics as needed for pain control. Monitor symptoms closely Continue full liquid diet. (2) Diabetes: Qualifiers: Diabetes mellitus complication status: without complication Diabetes mellitus type: type 1 Qualified Code(s): E10.9 - Type 1 diabetes mellitus without complications Code(s): E11.9 - Type 2 diabetes mellitus without complications Status: Chronic Assessment and Plan: A1c is 10.4 (01/12/20). Patient recently admitted 01/11-01/14/20 for episode of DKA after running out of lantus. Blood sugars are improved from recent admission. No anion gap. Home regimen consists of 35 units lantus HS and 6 units humalog TID. Continue Accuchecks, SSI Coverage, and hypoglycemic protocol. Reduce home lantus by 30%. Begin 25 units lantus. Adjust as needed based on blood sugars. Monitor blood sugars closely in light of IV steroids. Subjective Date/time seen: 01/16/20 11:07 Interval history: Date of service: 01/16/2020 Prosper Sosa III is a 24 year old male with a history of ulcerative colitis and diabetes with recent hospital admission 01/11-01/14 for DKA who is seen in follow up for a UC flare. His abdominal pain is improving and he currently rates it as 5/10. He has had two episodes of painless bright red bleeding per rectum today. Denies abdominal cramping or distention. No nausea or vomiting. No fevers or chills. He has not eaten anything yet today and reports he is hungry and anxiously awaiting to eat. He denies shortness of breath, chest pain, or palpitations. He is a little anxious about being hospitalized and missing work. Review of Systems Review of Systems: Narrative: 12 systems reviewed with pertinent positives and negatives as per HPI. Exam Narrative: Exam Narrative: Mr. Sosa is a thin, well-nourished 24-year-old male who is lying supine in bed. He appears comfortable and is in NARD. HR 85, BP 121/71, RR 16, T 98.3, 98% on room air Neuro: awake, alert and oriented x4, speech clear, no focal neuro deficits noted HEENMT: normocephalic, atraumatic, EOMI, sclerae anicteric, moist oral mucosa, tongue midline, nares patent Neck: supple, no lymphadenopathy Respiratory: clear to auscultation bilaterally, nonlabored breathing Cardio: regular rate, regular rhythm with S1-S2 Abdomen: nondistended, normoactive bowel sounds, soft, nontender to palpation, no rigidity or guarding, no rebound tenderness Extremities: no edema, erythema, cyanosis, clubbing, or tenderness to palpation, DP pulses 2+ bilaterally Skin: no rashes or lesions, warm and dry Psych: appropriate mood and affect, judgment and insight intact Objective Data Vital Signs Vital Signs: Vital Signs - 24 hr 01/15/20 19:20 01/15/20 20:02 01/15/20 21:10 Temperature 98.0 F Pulse Rate 100 105 H 103 H Respiratory Rate 18 18 18 Blood Pressure 140/98 H 132/89 103/85 Pulse Oximetry 100 99 100 01/15/20 22:36 01/15/20 22:50 01/16/20 02:00 Temperature 98.8 F 97.2 F L Pulse Rate 108 H 100 89 Respiratory Rate 18 20 20 Blood Pressure 129/83 149/80 H 119/66 Pulse Oximetry 97 100 98 01/16/20 05:38 Temperature 98.3 F Pulse Rate 85 Respiratory Rate 16 Blood Pressure 121/71 Pulse Oximetry 98 Intake/Output Intake/Output: Intake & Output 01/13/20 01/14/20 01/15/20 01/16/20 23:59 23:59 23:59 23:59 Intake Total 1000 1000 Output Total 750 Balance 1000 250 Meds/Results Medications: Active Medications Generic Name Dose Route Start Last Admin Trade Name Freq PRN Reason Stop
[2020-01-16 12:36] LABS: Glucose Point of Care 225 (65-105)
[2020-01-16 15:00] VITALS: BP 132/74; PULSE 100; RESP 16; TEMP 36.6; O2SAT 97
[2020-01-16 17:35] LABS: Glucose Point of Care 400 (65-105)
[2020-01-16 21:53] VITALS: BP 126/88; PULSE 104; RESP 16; TEMP 36.7; O2SAT 100
[2020-01-16] MEDS: INSULIN GLARGINE (*BKC) 100 UNITS/ML 25 UNITS SUB-Q (23:15)
[2020-01-16 23:30] LABS: Glucose Point of Care 281 (65-105)
[2020-01-17] MEDS: INSULIN ASPART (*BKC) 100 UNITS/ML SUB-Q ×6 (05:41→23:10)
[2020-01-17] MEDS: methylPREDNISolone SOD SUCC 40 MG VIAL IV PUSH (05:43)
[2020-01-17 06:00] VITALS: BP 106/66; PULSE 94; RESP 16; TEMP 36.4; O2SAT 100
[2020-01-17 06:10] LABS: Glucose Point of Care 246 (65-105)
[2020-01-17] MEDS: SODIUM CHLORIDE 0.9% IV 1,000 ML 125 ML IV CONT (06:12)
[2020-01-17 06:29] LABS: Hematocrit 38.2 % (42.0-52.0); Hemoglobin 12.5 g/dL (14.0-18.0); Mean Corpuscular HGB Conc 32.7 g/dl (32-36); Mean Corpuscular Volume 94.8 fl (80-100); Mean Platelet Volume 10.2 fl (7.4-10.4); Platelet Count Result 275 k/mm3 (150-375); Red Blood Count 4.03 M/mm3 (4.6-6.20); Red Cell Distribution Width 13.2 % (11.5-14.5); White Blood Count 7.1 K/mm3 (4.5-10.0)
[2020-01-17 06:36] LABS: Anion Gap 9 mmol/L (8-16); Blood Urea Nitrogen 13 mg/dL (9-20); Calcium 8.7 mg/dL (8.4-10.2); Carbon Dioxide 28 mmol/L (22-30); Chloride 100 mmol/L (98-107); Estimated CRCL calculation 153 ml/min; Estimated Glomerular Filt Rate > 60; Glucose 265 mg/dL (75-110); Potassium 4.6 mmol/L (3.4-5.0); Sodium 137 mmol/L (137-145)
[2020-01-17] MEDS: MESALAMINE 400 MG DELAYED RELEASE CAPSULE 800 MG PO ×3 (08:18→18:03)
--- NOTE | 2020-01-17 11:21 | PM.IMPN ---
Progress Note: A&P Assessment and Plan (1) Ulcerative colitis: Code(s): K51.90 - Ulcerative colitis, unspecified, without complications Status: Acute Assessment and Plan: Patient presented with bloody diarrhea and abdominal pain. Consistent with acute ulcerative colitis flare. He is having loose stools today with no episodes of bleeding. Abdominal pain is improved. GI has been consulted and recommendations are appreciated. Continue IV solu-medrol. Continue oral mesalamine. Analgesics as needed for pain control. Monitor symptoms closely Continue full liquid diet. Advance per GI recommendations. (2) Diabetes: Qualifiers: Diabetes mellitus type: type 1 Diabetes mellitus complication status: without complication Qualified Code(s): E10.9 - Type 1 diabetes mellitus without complications Code(s): E11.9 - Type 2 diabetes mellitus without complications Status: Chronic Assessment and Plan: A1c is 10.4 (01/12/20). Patient recently admitted 01/11-01/14/20 for episode of DKA after running out of lantus. Blood sugars are improved from recent admission. No anion gap. Home regimen consists of 35 units lantus HS and 6 units humalog TID. Blood sugars have been elevated, which is expected due to IV steroids, but generally fair. He had one reading of 400 last night which was promptly corrected. Continue Accuchecks, SSI Coverage, and hypoglycemic protocol. Continue Lantus at 30% reduced dose of 25 units qHS. Adjust as needed based on blood sugars. Will add 5 units novolog scheduled with meals for improved control Monitor blood sugars closely in light of IV steroids. Subjective Date/time seen: 01/17/20 11:21 Interval history: Date of service: 01/17/2020 Prosper Sosa III is a 24 year old male with a history of ulcerative colitis and diabetes with recent hospital admission 01/11-01/14 for DKA who is seen in follow up for a UC flare. He is feeling much better today. He denies abdominal pain. He has had several loose stools but no episodes of bloody stools or rectal bleeding. No abdominal cramping or bloating. He has been tolerating full liquids and denies nausea or vomiting. He is eager to advance to solid foods. He is requesting information for [employer] paperwork. He denies SOB, cough, dizziness, lightheadedness, chest pain, palpitations, or bleeding. Review of Systems Review of Systems: All systems reviewed & are unremarkable except as noted in HPI and below Exam Narrative: Exam Narrative: Mr. Sosa is a thin, well-nourished 24-year-old male who is lying supine in bed. He appears comfortable and is in NARD. HR 94, BP 106/66, RR 16, T 97.6, 100% on room air Neuro: awake, alert and oriented x4, speech clear, no focal neuro deficits noted HEENMT: normocephalic, atraumatic, EOMI, sclerae anicteric, moist oral mucosa, tongue midline, nares patent Neck: supple, no lymphadenopathy Respiratory: clear to auscultation bilaterally, nonlabored breathing Cardio: regular rate, regular rhythm with S1-S2 Abdomen: nondistended, normoactive bowel sounds, soft, nontender to palpation, no rigidity or guarding, no rebound tenderness Extremities: no edema, erythema, cyanosis, clubbing, or tenderness to palpation, DP pulses 2+ bilaterally Skin: no rashes or lesions, warm and dry Psych: appropriate mood and affect, judgment and insight intact Objective Data Vital Signs Vital Signs: Vital Signs - 24 hr 01/16/20 15:00 01/16/20 21:53 01/17/20 06:00 Temperature 97.8 F 98.0 F 97.6 F Pulse Rate 100 104 H 94 Respiratory Rate 16 16 16 Blood Pressure 132/74 126/88 106/66 Pulse Oximetry 97 100 100 Intake/Output Intake/Output: Intake & Output 01/14/20 01/15/20 01/16/20 01/17/20 23:59 23:59 23:59 23:59 Intake Total 1000 4030 1920 Output Total 750 1950 Balance 1000 3280 -30 Meds/Results Medications: Active Medications Generic Name Dose Route Start Last Admin Trade Name
--- NOTE | 2020-01-17 11:31 | WPDGIPROGNO ---
Progress Note: A&P Additional Plan Patient reports feeling better today. He has received several doses of IV Solu-Medrol. States he had a formed stool with no blood. He denies abdominal pain currently. Anxious to eat more than liquid diet. Physical exam reveals Vital Signs Nava to be stable. Lungs are clear. Heart without murmur. Abdomen bowel sounds are present soft nontender no organomegaly. Labs reveal hemoglobin 12.5, hematocrit 38.2 is stable. Impression 1. Ulcerative colitis. Bloody diarrhea noted on admission. Pancolitis on CT scan. Now on IV Solu-Medrol. Plan is to change to oral prednisone with a tapering dose. Continue mesalamine orally as well. Advance diet as tolerated. Outpatient follow-up in my office in 2 weeks advised. 2. Diabetes mellitus. patient had recent admission for DKA. Glucose levels likely to fluctuate as steroid doses adjusted. Patient should monitor glucose closely after discharge as dose of insulin may need to be adjusted. Subjective Date/time seen: 01/17/20 11:31 Objective Data Vital Signs Vital Signs: Vital Signs - 24 hr 01/16/20 15:00 01/16/20 21:53 01/17/20 06:00 Temperature 97.8 F 98.0 F 97.6 F Pulse Rate 100 104 H 94 Respiratory Rate 16 16 16 Blood Pressure 132/74 126/88 106/66 Pulse Oximetry 97 100 100 Intake/Output Intake/Output: Intake & Output 01/14/20 01/15/20 01/16/20 01/17/20 23:59 23:59 23:59 23:59 Intake Total 1000 4030 1920 Output Total 750 1950 Balance 1000 3280 -30 Meds/Results Medications: Active Medications Generic Name Dose Route Start Last Admin Trade Name Freq PRN Reason Stop Dose Admin Dextrose 12.5 gm 01/15/20 22:36 Dextrose 50% 25 Gm/50 Ml Syringe IV PUSH PRN PRN Hypoglycemia Protocol Glucagon 1 mg 01/15/20 22:36 Glucagon For Inj 1 Mg Vial IM PRN PRN Hypoglycemia Protocol Dextrose 1,000 mls @ 100 mls/hr 01/15/20 22:36 Dextrose 5% 1,000 Ml IVPB PRN PRN Hypoglycemia Protocol Insulin Aspart 2 - 5 units 01/16/20 00:00 01/17/20 05:41 Insulin Aspart (*Bkc) 100 Units/Ml SUB-Q 2 units Q6HR RADHA Administration Protocol Insulin Aspart 5 units 01/17/20 12:00 Insulin Aspart (*Bkc) 100 Units/Ml SUB-Q TIDWM RADHA Insulin Glargine 25 units 01/16/20 21:00 01/16/20 23:15 Insulin Glargine (*Bkc) 100 Units/Ml SUB-Q 25 units HS RADHA Administration Mesalamine 800 mg 01/16/20 09:00 01/17/20 08:18 Mesalamine 400 Mg Delayed Release Capsule PO 800 mg TID RADHA Administration Methylprednisolone Sodium Succinate 40 mg 01/15/20 21:45 01/17/20 05:43 Methylprednisolone Sod Succ 40 Mg Vial IV PUSH 40 mg Q8H RADHA Administration Radiology Results: ITS Impressions Abdomen/Pelvis CT 01/15/20 20:45 IMPRESSION: Severe pancolitis. Labs Labs: Laboratory Results - last 24 hr 01/16/20 01/16/20 01/16/20 12:22 17:24 23:14 WBC RBC Hgb Hct MCV MCH MCHC RDW Plt Count MPV Sodium Potassium Chloride Carbon Dioxide Anion Gap BUN Creatinine Estim Creat Clear Calc Estimated GFR Glucose POC Capillary Glucose 225 H 400 H 281 H Calcium 01/17/20 01/17/20 01/17/20 05:39 05:41 05:41 WBC 7.1 RBC 4.03 L Hgb 12.5 L Hct 38.2 L MCV 94.8 MCH 31.0 MCHC 32.7 RDW 13.2 Plt Count 275 MPV 10.2 Sodium 137 Potassium 4.6 Chloride 100 Carbon Dioxide 28 Anion Gap 9 BUN 13 D Creatinine 0.60 L Estim Creat Clear Calc 153 Estimated GFR > 60 Glucose 265 H POC Capillary Glucose 246 H Calcium 8.7
[2020-01-17 12:27] LABS: Glucose Point of Care 261 (65-105)
[2020-01-17 15:00] VITALS: BP 120/69; PULSE 94; RESP 20; TEMP 36.3; O2SAT 99
[2020-01-17 22:00] VITALS: BP 105/56; PULSE 101; RESP 16; TEMP 36.9; O2SAT 100
[2020-01-17 23:05] LABS: Glucose Point of Care 295 (65-105)
[2020-01-17] MEDS: INSULIN GLARGINE (*BKC) 100 UNITS/ML 25 UNITS SUB-Q (23:09)
[2020-01-17 23:53] LABS: Glucose Point of Care 222 (65-105)
[2020-01-18 05:58] VITALS: BP 109/65; PULSE 65; RESP 16; TEMP 36.4; O2SAT 100
[2020-01-18 06:00] LABS: Hematocrit 37.7 % (42.0-52.0); Hemoglobin 12.6 g/dL (14.0-18.0); Mean Corpuscular HGB Conc 33.4 g/dl (32-36); Mean Corpuscular Hemoglobin 31.1 pg (26-34); Mean Corpuscular Volume 93.1 fl (80-100); Platelet Count Result 258 k/mm3 (150-375); Red Blood Count 4.05 M/mm3 (4.6-6.20); Red Cell Distribution Width 13.2 % (11.5-14.5); White Blood Count 8.5 K/mm3 (4.5-10.0)
[2020-01-18 06:12] LABS: Anion Gap 5 mmol/L (8-16); Blood Urea Nitrogen 14 mg/dL (9-20); Calcium 8.5 mg/dL (8.4-10.2); Carbon Dioxide 32 mmol/L (22-30); Chloride 101 mmol/L (98-107); Estimated CRCL calculation 118 ml/min; Estimated Glomerular Filt Rate > 60; Glucose 249 mg/dL (75-110); Potassium 3.8 mmol/L (3.4-5.0); Sodium 138 mmol/L (137-145)
--- NOTE | 2020-01-18 08:12 | WPDGIPROGNO ---
Progress Note: A&P Additional Plan Patient feels better today. Smaller amount of blood noted in stools. Diarrhea has improved. Abdominal pain has improved. Tolerating diet. Physical exam reveals Vital Signs to be stable. He patient is afebrile and anicteric. Lungs are clear. Heart without murmur. Abdomen bowel sounds present soft nontender. No organomegaly. Labs reveal WBC 8.5, hemoglobin 12.6, impression 1. Ulcerative colitis. Pancolitis by CT scan. Plan is for oral prednisone 30 mg p.o. daily. Tapering by 5 mg weekly after discharge. Continue mesalamine orally as well. Follow up in the office in 2 weeks is suggested. We can discharge today if others agree. 2. Diabetes mellitus. Patient may need to adjust insulin dose. Steroids will be decreased. This could change his glucose level. Close monitoring of glucose after discharge. Follow up with primary care or endocrine is suggested for this. Subjective Date/time seen: 01/18/20 08:12 Objective Data Vital Signs Vital Signs: Vital Signs - 24 hr 01/17/20 15:00 01/17/20 22:00 01/18/20 05:58 Temperature 97.4 F L 98.4 F 97.6 F Pulse Rate 94 101 H 65 Respiratory Rate 20 16 16 Blood Pressure 120/69 105/56 L 109/65 Pulse Oximetry 99 100 100 Intake/Output Intake/Output: Intake & Output 01/15/20 01/16/20 01/17/20 01/18/20 23:59 23:59 23:59 23:59 Intake Total 1000 4030 2400 480 Output Total 750 1950 Balance 1000 3280 450 480 Meds/Results Medications: Active Medications Generic Name Dose Route Start Last Admin Trade Name Freq PRN Reason Stop Dose Admin Dextrose 12.5 gm 01/15/20 22:36 Dextrose 50% 25 Gm/50 Ml Syringe IV PUSH PRN PRN Hypoglycemia Protocol Glucagon 1 mg 01/15/20 22:36 Glucagon For Inj 1 Mg Vial IM PRN PRN Hypoglycemia Protocol Dextrose 1,000 mls @ 100 mls/hr 01/15/20 22:36 Dextrose 5% 1,000 Ml IVPB PRN PRN Hypoglycemia Protocol Insulin Aspart 5 units 01/17/20 12:00 01/17/20 18:08 Insulin Aspart (*Bkc) 100 Units/Ml SUB-Q 5 units TIDWM RADHA Administration Insulin Aspart 2 - 5 units 01/18/20 08:00 Insulin Aspart (*Bkc) 100 Units/Ml SUB-Q [facility] Protocol Insulin Glargine 25 units 01/16/20 21:00 01/17/20 23:09 Insulin Glargine (*Bkc) 100 Units/Ml SUB-Q 25 units HS RADHA Administration Mesalamine 800 mg 01/16/20 09:00 01/17/20 18:03 Mesalamine 400 Mg Delayed Release Capsule PO 800 mg TID RADHA Administration Prednisone 20 mg/ Prednisone 30 mg 01/18/20 08:00 10 mg PO DAILY@0800 [facility] Radiology Results: ITS Impressions Abdomen/Pelvis CT 01/15/20 20:45 IMPRESSION: Severe pancolitis. Labs Labs: Laboratory Results - last 24 hr 01/17/20 01/17/20 01/17/20 12:12 18:02 23:07 WBC RBC Hgb Hct MCV MCH MCHC RDW Plt Count MPV Sodium Potassium Chloride Carbon Dioxide Anion Gap BUN Creatinine Estim Creat Clear Calc Estimated GFR Glucose POC Capillary Glucose 261 H 295 H 222 H Calcium 01/18/20 01/18/20 05:41 05:41 WBC 8.5 RBC 4.05 L Hgb 12.6 L Hct 37.7 L MCV 93.1 MCH 31.1 MCHC 33.4 RDW 13.2 Plt Count 258 MPV 10.0 Sodium 138 Potassium 3.8 Chloride 101 Carbon Dioxide 32 H Anion Gap 5 L BUN 14 Creatinine 0.80 Estim Creat Clear Calc 118 Estimated GFR > 60 Glucose 249 H POC Capillary Glucose Calcium 8.5
[2020-01-18 09:01] LABS: Glucose Point of Care 209 (65-105)
[2020-01-18 09:17] LABS: Glucose Point of Care 244 (65-105)
[2020-01-18] MEDS: MESALAMINE 400 MG DELAYED RELEASE CAPSULE 800 MG PO ×2 (09:20→12:33)
[2020-01-18] MEDS: INSULIN ASPART (*BKC) 100 UNITS/ML SUB-Q ×3 (09:20→12:36)
--- NOTE | 2020-01-18 10:22 | PM.DS ---
DS: Admitting Diagnosis Admitting Diagnosis Admitting Diagnosis: Pancolitis DS: Discharge Diagnosis Discharge Diagnosis (1) Ulcerative colitis: Code(s): K51.90 - Ulcerative colitis, unspecified, without complications Status: Acute Assessment and Plan: Patient presented with bloody diarrhea and abdominal pain. CT a/p showed severe pancolitis. Consistent with acute ulcerative colitis flare. He was seen by Dr. Jara (GI). He was started on IV solu-medrol which was tapered to oral prednisone. He will continue with an oral prednisone taper starting at 30mg and decreasing by 5 mg weekly. Oral mesalamine dose was adjusted to 800 mg tid. Diet was advanced to regular solids and he tolerated it well. His abdominal pain resolved and his rectal bleeding improved. He will follow up with Dr. Jara in 2 weeks. (2) Diabetes: Qualifiers: Diabetes mellitus complication status: without complication Diabetes mellitus type: type 1 Qualified Code(s): E10.9 - Type 1 diabetes mellitus without complications Code(s): E11.9 - Type 2 diabetes mellitus without complications Status: Chronic Assessment and Plan: A1c is 10.4 (01/12/20). Patient recently admitted 01/11-01/14/20 for episode of DKA after running out of lantus. Blood sugars improved from recent admission. No anion gap. His blood sugars were elevated which was expected in light of IV steroids. He was covered with SSI in addition to basal and bolus regimen. Home regimen consists of 35 units lantus HS and 6 units humalog TID which he should continue. We discussed the importance of closely monitoring blood sugars, especially while on extended steroid taper. He is in the process of being referred to endocrinology. (3) Tachycardia: Code(s): R00.0 - Tachycardia, unspecified Status: Acute Assessment and Plan: Upon last admission, patient was in sinus tachycardia and reported that he was frequently tachycardic for many years. TSH was normal. He had a normal echo with no LVH or valvular disease. He was started on metoprolol succinate at his last discharge on 01/13. His heart rate was generally well controlled throughout stay. He should continue metoprolol. DS: Summary Hospital Course Hospital Course: Date of admission: 01/15/2020 Date of discharge: 01/18/2020 Prosper Sosa III is a 24 year old male with a history of ulcerative colitis and diabetes with recent hospital admission 01/11-01/14 for DKA who presented to the emergency department on 01/15/2020 with complaints of lower abdominal cramping and bloody stools. At presentation, vital signs stable, he was afebrile, H&H slightly low at 13.8 and 40.5, electrolytes stable, glucose 127, and CT a/p showed severe pancolitis. She was admitted to the hospitalist service and was seen in consultation by gastroenterology. He was treated with IV steroids and oral mesalamine. His abdominal pain resolved and his bloody stools lessened. His blood sugars were monitored closely in light of IV steroids and were generally well controlled. He will continue his home insulin regimen and we discussed the importance of careful glucose monitoring, especially while on slow steroid taper. He began feeling much better and was eager for discharge home. Given his overall improvement, he was determined to no longer require inpatient care and was felt to be stable for discharge. He is in the process of completing [facility] paperwork and requested a note for work that expressly disclosed his medical diagnoses with his employer, which was provided. We discussed worrisome signs and symptoms for which to return and he was educated on his medications. He will follow-up with Dr. Jara in 2 weeks. He was discharged in hemodynamically stable condition on 01/18/2020. Status at Discharge Functional status at discharge: independent ambulation Overall status at discharge: patient is progressing back to baseline Time Spent with Pat
[2020-01-18 12:00] VITALS: BP 145/62; PULSE 76; RESP 18; TEMP 36.7; O2SAT 100
[2020-01-18] MEDS: predniSONE 20 MG, predniSONE 10 MG 30 MG PO (12:33)
[2020-01-18 12:47] LABS: Glucose Point of Care 172 (65-105)
--- NOTE | 2020-01-18 14:34 | PC.NURSE ---
Pt is A&O x 4. Pt has had IV removed, and discharge paperwork reviewed. Pt exhibited a good understanding of discharge instructions and had no questions. Pt taken to the front of the building to meet his ride.
== END 2020-01-18 14:00 | disposition home or self-care (01) | DRG 387 ==
LOC: ANHED 21:39 → ANH3MEDSUR 22:31
PROVIDERS: Physician Assistant; Admitting Provider Family Medicine; Emergency Provider Emergency Medicine; PCP Nurse Practitioner; Visit Provider Family Medicine
DX: K51.00 Ulcerative (chronic) pancolitis without complications (principal); E10.9 Type 1 diabetes mellitus without complications; R00.0 Tachycardia, unspecified
CPT/HCPCS: 36415; 74177; 80048; 80053; 81001; 83690; 85025; 85027; 96361; 96374; 96375; 96376; 99285; A9270; G0378; J1170; J1815; J2270; J2405; J2920; J7030; J7512; Q9967

== ENCOUNTER 2020-03-19 07:18 | Emergency (ER) | payer OTHER, SELFPAY ==
--- NOTE | ~2020-03-19 | CT_ITS ---
EXAMINATION: CT abdomen pelvis w con EXAM DATE: 03/19/2020 08:39 INDICATION: Ulcerative colitis, abdominal pain, diarrhea for several days. TECHNIQUE: Spiral CT of the abdomen and pelvis was performed following intravenous injection of 100 m L Omnipaque 350. Axial, coronal and sagittal images were reviewed. The dose-length product (DLP) fo r this examination was 260.56 mGy-cm. The exposure was tailored according to patient size (auto mA e xposure control), and iterative reconstruction (ASIR) was used as additional dose reduction technique . Comparison is made to prior examination from 01/15/2020. FINDINGS: The liver, spleen, adrenal glands and pancreas are unremarkable. Gallbladder is unremarkab le. No biliary obstruction. Portal and splenic veins are patent. Kidneys enhance symmetrically. T here is no hydronephrosis. The prostate is unremarkable. The bladder is unremarkable. There is no retroperitoneal or pelvic lymphadenopathy. The appendix is normal. The stomach and small bowel are unremarkable. There is moderate diffuse col onic wall edema (was severely edematous 2 months ago). Consider inflammatory bowel disease, infectiou s colitis is possible etiologies. Small pericecal lymph nodes. No evidence of abdominal abscess. Ruston dyan fluid, diarrhea. No free intraperitoneal gas. The heart is normal in size. There are no tenzin cardial or pleural effusions. The lung bases are unremarkable. There are no osteoblastic or osteoly tic lesions identified. IMPRESSION: Moderate pancolitis. Diarrhea. Reviewed, dictated and finalized at location [facility]
[2020-03-19 07:42] VITALS: BP 142/92; PULSE 87; RESP 14; TEMP 36.9; O2SAT 96
[2020-03-19] MEDS: SODIUM CHLORIDE 0.9% IV 1,000 ML 999 ML IV CONT (07:58)
[2020-03-19 08:00] LABS: Basophils Percent Auto 0.3 % (0.2-1.2); Eosinophils Absolute Auto 0.3 K/mm3 (0-0.3); Eosinophils Percent Auto 2.6 % (0-4.4); Hematocrit 44.9 % (42.0-52.0); Hemoglobin 15.4 g/dL (14.0-18.0); Immature Granulocyte Absolute 0.05 K/mm3 (0.00-0.031); Immature Granulocyte Percent A 0.4 % (0-0.5); Lymphocytes Absolute Auto 1.05 K/mm3 (0.9-3.2); Lymphocytes Percent Auto 7.9 % (18.3-44.2); Mean Corpuscular HGB Conc 34.3 g/dl (32-36); Mean Corpuscular Hemoglobin 30.6 pg (26-34); Mean Corpuscular Volume 89.3 fl (80-100); Mean Platelet Volume 10.1 fl (7.4-10.4); Monocytes Absolute Auto 1.4 K/mm3 (0.1-0.6); Monocytes Percent Auto 10.8 % (2.6-8.5); Neutrophils Absolute Auto 10.3 K/mm3 (1.3-6.7); Platelet Count Result 281 k/mm3 (150-375); Red Blood Count 5.03 M/mm3 (4.6-6.20); Red Cell Distribution Width 11.8 % (11.5-14.5); White Blood Count 13.2 K/mm3 (4.5-10.0)
[2020-03-19 08:03] LABS: Add Urine Microscopic? YES; Appearance Urine Clear (Clear); Bilirubin Urine Negative (Negative); Blood Urine Negative (Negative); Color Urine Yellow (Yellow); Glucose Urine UA 3+ mg/dL (Negative); Ketones Urine Negative (Negative); Leukocyte Esterase Ur Negative LEU/UL (Negative); Mucus Urine Rare /lpf; Nitrate Urine Negative (Negative); Protein Urine 1+ mg/dL (Negative); RBC Urine 0-2 /hpf (0-2); Specific Grav Ur 1.023 (1.001-1.035); Urobilinogen Urine Negative mg/dL (<2.0); WBC Urine 0-3 /hpf
[2020-03-19 08:12] LABS: Platelet Estimate Adequate (Adequate); Stomatocytes 1+ (NORMAL)
[2020-03-19 08:15] LABS: Alanine Aminotransferase 14 U/L (4-50); Albumin Level 4.1 g/dL (3.5-5.1); Alkaline Phosphatase 82 U/L (38-126); Anion Gap 9 mmol/L (8-16); Aspartate Amino Transferase 42 U/L (17-59); Bilirubin,Total 0.5 mg/dL (0.2-1.3); Blood Urea Nitrogen 10 mg/dL (9-20); Calcium 9.3 mg/dL (8.4-10.2); Carbon Dioxide 30 mmol/L (22-30); Chloride 98 mmol/L (98-107); Estimated Glomerular Filt Rate > 60; Glucose 322 mg/dL (75-110); Lipase 93 U/L (23-300); Potassium 4.2 mmol/L (3.4-5.0); Sodium 137 mmol/L (137-145)
[2020-03-19] MEDS: MORPHINE SULFATE (*CRX) 4 MG/ML INJ IV PUSH (08:23)
[2020-03-19] MEDS: ONDANSETRON INJ 4 MG/2 ML VIAL IV PUSH (08:23)
--- NOTE | 2020-03-19 08:57 | ED.ABDPAIN ---
HPI - Abdominal Pain General Chief Complaint: Abdominal Pain Stated Complaint: ulcerative colititis acting up Time Seen by Provider: 03/19/20 07:34 Source: patient Mode of arrival: ambulatory Limitations: no limitations History of Present Illness HPI narrative: 25 years old white male presents with diffuse abdominal pain started 7 days ago, intermittent, associated with diarrhea, lately with diarrhea become more bloody than usual. History of ulcerative colitis. Patient denies any fever, chills, nausea, vomiting, exposure to anybody known having COVID-19 Related Data Home Medications Medication Instructions Recorded Confirmed cholecalciferol (vitamin D3) 1,250 mcg PO WEEKLY 01/12/20 01/15/20 Allergies Allergy/AdvReac Type Severity Reaction Status Date / Time No Known Allergies Allergy Verified 01/17/20 10:54 Review of Systems Review of Systems: Narrative: CONSTITUTIONAL: Denies fever, chills, or sweats. EYES: Denies visual changes, redness, or discharge. ENT: Denies rhinorrhea, congestion, sore throat, or otalgia. CARDIOVASCULAR: Denies chest pain, palpitations, or edema. RESPIRATORY: Denies cough or dyspnea. GASTROINTESTINAL: Denies abdominal pain, nausea, vomiting, or diarrhea. GENITOURINARY: Denies dysuria or hematuria. SKIN: Denies rash or itching. MUSCULOSKELETAL: Denies back pain, joint pain, or myalgia. NEUROLOGIC: Denies headache, numbness, or weakness. PSYCHIATRIC: Denies anxiety or depression. [facility] Past Medical History Medical History Diabetes type 1 A1c 10.4 on 01/12/2020 Ulcerative colitis Surgical History Surgical History H/O eye surgery right eye H/O hand surgery on the right hand Family History Family History Father Acute myocardial infarction Sibling Asthma Mother Family history of thyroid problem Social History Social History Smoking status: Never smoker Second hand tobacco smoke exposure: Yes Alcohol intake: never Substance use: never Substance use type: does not use Gender identity (if verbalized by the patient): Male Spiritual care concerns: No Exam Narrative: Exam Narrative: General appearance: Well-developed, well-nourished Skin: Normal color Head: Normocephalic, nontraumatic Eyes: Clear conjunctiva ENT: Oropharynx normal, ears normal, nose normal Neck: Supple, nontender Chest and respiratory: Airway patent, no respiratory distress, no accessory muscle use Heart: Regular rate/rhythm Abdomen: Soft, slight diffuse tenderness, no organomegaly, quiet bowel sounds Vascular: Normal peripheral pulses, normal capillary refill. Musculoskeletal: Normal range of motion, nontender back Neurologic: Alert and oriented ?3, PATTERN GRADER is normal as tested, no gross motor deficit Course Course Emergency Course: Stable Consultations Consultation #1: Dr. Clement. Patient can go home on prednisone 40 mg once a day for 7 days. To follow-up with Dr. Jara. Date: 03/19/20 Time: 09:28 Vital Signs Vital signs: Vital Signs Temperature 36.9 C 03/19/20 07:42 Pulse Rate 87 03/19/20 07:42 Respiratory Rate 14 03/19/20 07:42 Blood Pressure 142/92 H 03/19/20 07:42 Pulse Oximetry 96 03/19/20 07:42 Temperature 36.9 C 03/19/20 07:42 Pulse Rate 87 03/19/20 07:42 Respiratory Rate 14 03/19/20 07:42 Blood Pressure 142/92 H 03/19/20 07:42 Pulse Oximetry 96 03/19/20 07:42 MDM - Abdominal Pain MDM Narrative Medical decision making narrative: History of ulcerative
[2020-03-19 09:25] VITALS: BP 114/65; PULSE 89; RESP 12; O2SAT 96
== END 2020-03-19 09:48 | disposition home or self-care (01) ==
PROVIDERS: Emergency Provider Emergency Medicine
DX: K51.919 Ulcerative colitis, unspecified with unspecified complications (principal); E10.9 Type 1 diabetes mellitus without complications; Z79.4 Long term (current) use of insulin
CPT/HCPCS: 36415; 74177; 80053; 81001; 83690; 85025; 96361; 96374; 96375; 99284; J2270; J2405; J7030; Q9967

== ENCOUNTER 2020-03-27 22:48 | Inpatient (IN) | payer OTHER, SELFPAY ==
[2020-03-27 22:58] VITALS: BP 140/76; PULSE 100; RESP 18; TEMP 36.5; O2SAT 98
--- NOTE | 2020-03-27 23:17 | ED.NAVMDI ---
HPI - Nausea/Vomiting/Diarrhea General Chief complaint: Nausea/Vomiting/Diarrhea Stated complaint: UC flair Time Seen by Provider: 03/27/20 23:07 Source: patient Mode of arrival: ambulatory Limitations: no limitations History of Present Illness HPI Narrative: A 25-year-old male presents to the ED tonight with complaints of abdominal pain and diarrhea. Patient does endorse a history of ulcerative colitis. He states that this has been uncontrolled for the last several weeks. Patient was recently hospitalized for this. He states that at that time he was discharged with a prednisone taper. Patient stated that worked for a brief while but then very quickly stopped working. He states that he has had several bloody bowel movements today. Patient notes to have again he went to the restroom and had a large bloody bowel movement. Related Data Home Medications Medication Instructions Recorded Confirmed cholecalciferol (vitamin D3) 1,250 mcg PO WEEKLY 01/12/20 01/15/20 Allergies Allergy/AdvReac Type Severity Reaction Status Date / Time No Known Allergies Allergy Verified 03/27/20 23:02 Review of Systems Review of Systems: Narrative: CONSTITUTIONAL: Denies fever, chills, or sweats. EYES: Denies visual changes, redness, or discharge. ENT: Denies rhinorrhea, congestion, sore throat, or otalgia. CARDIOVASCULAR: Denies chest pain, palpitations, or edema. RESPIRATORY: Denies cough or dyspnea. GASTROINTESTINAL: Patient endorses generalized abdominal pain and hematochezia. GENITOURINARY: Denies dysuria or hematuria. SKIN: Denies rash or itching. MUSCULOSKELETAL: Denies back pain, joint pain, or myalgia. NEUROLOGIC: Denies headache, numbness, dizziness, or weakness. PSYCHIATRIC: Denies anxiety or depression. [facility] Past Medical History Medical History Diabetes type 1 A1c 10.4 on 01/12/2020 Ulcerative colitis Surgical History Surgical History H/O eye surgery right eye H/O hand surgery on the right hand Family History Family History Father Acute myocardial infarction Sibling Asthma Mother Family history of thyroid problem Social History Social History Smoking status: Never smoker Second hand tobacco smoke exposure: Yes Alcohol intake: never Substance use: never Substance use type: does not use Gender identity (if verbalized by the patient): Male Sexual Orientation (if Verbalized by the Patient): Straight or Heterosexual Spiritual care concerns: No Exam Narrative: Exam Narrative: GENERAL: Well-appearing, well-nourished, and in no acute distress. HEAD: Normocephalic, atraumatic. EYES: PERRLA and EOMI. ENT: Nares clear, no rhinorrhea or epistaxis. Mucous membranes moist. Oropharynx without tonsillar hypertrophy exudate or other lesions. Bilateral TMs pearly damon nonbulging NECK: Supple. No adenopathy or masses. No carotid bruits or JVD CHEST: Clear to auscultation. No respiratory distress. No wheezes rales or rhonchi HEART: Regular rate and rhythm. No murmur heard. Normal peripheral pulses. ABDOMEN: Soft, nontender, generalized tenderness, normal active bowel sounds. EXTREMITIES: Normal range of motion. No edema. SKIN: Warm, dry, no rash. NEURO: No focal deficits. Alert and oriented x3. PSYCH: Normal mood and affect. Course Consultations Consultation #1: Case presentation, work-up and labs discussed with patient's home care scheduler, Dr. Jara. He recommends admitting the patient for IV steroids and he will see the patient in the morning. Date: 03/28/20 Time: 00:57 Consultation #2: Case discussed with Dr Thurman, hospitalist who agrees to accept the patient for observation. Dr Jara to consult. Date: 03/28/20 Time: 01:01 Vital Signs Vital signs: Vital Signs Temperature 36.5 C
[2020-03-27] MEDS: ONDANSETRON INJ 4 MG/2 ML VIAL IV PUSH (23:28)
[2020-03-27] MEDS: methylPREDNISolone SOD SUCC 125 MG VIAL IV PUSH (23:29)
[2020-03-27] MEDS: MORPHINE SULFATE (*CRX) 4 MG/ML INJ IV PUSH (23:29)
[2020-03-27 23:43] LABS: Basophils Absolute Auto 0.1 K/mm3 (0.0-0.1); Basophils Percent Auto 0.3 % (0.2-1.2); Eosinophils Absolute Auto 0.3 K/mm3 (0-0.3); Eosinophils Percent Auto 2.2 % (0-4.4); Hematocrit 37.4 % (42.0-52.0); Hemoglobin 12.4 g/dL (14.0-18.0); Immature Granulocyte Absolute 0.06 K/mm3 (0.00-0.031); Immature Granulocyte Percent A 0.4 % (0-0.5); Lymphocytes Absolute Auto 1.32 K/mm3 (0.9-3.2); Lymphocytes Percent Auto 8.6 % (18.3-44.2); Mean Corpuscular HGB Conc 33.2 g/dl (32-36); Mean Corpuscular Hemoglobin 29.7 pg (26-34); Mean Corpuscular Volume 89.7 fl (80-100); Monocytes Absolute Auto 1.3 K/mm3 (0.1-0.6); Monocytes Percent Auto 8.3 % (2.6-8.5); Neutrophils Absolute Auto 12.3 K/mm3 (1.3-6.7); Neutrophils Percent Auto 80.2 % (45.5-73.1); Platelet Count Result 268 k/mm3 (150-375); Red Blood Count 4.17 M/mm3 (4.6-6.20); Red Cell Distribution Width 11.4 % (11.5-14.5); White Blood Count 15.3 K/mm3 (4.5-10.0)
[2020-03-27 23:53] LABS: Alanine Aminotransferase 11 U/L (4-50); Albumin Level 3.3 g/dL (3.5-5.1); Alkaline Phosphatase 74 U/L (38-126); Anion Gap 3 mmol/L (8-16); Aspartate Amino Transferase 15 U/L (17-59); Bilirubin,Total 0.3 mg/dL (0.2-1.3); Blood Urea Nitrogen 10 mg/dL (9-20); Calcium 8.2 mg/dL (8.4-10.2); Carbon Dioxide 33 mmol/L (22-30); Chloride 97 mmol/L (98-107); Estimated CRCL calculation 122 ml/min; Estimated Glomerular Filt Rate > 60; Glucose 328 mg/dL (75-110); Lipase 123 U/L (23-300); Potassium 3.8 mmol/L (3.4-5.0); Sodium 133 mmol/L (137-145)
[2020-03-28 00:20] LABS: Fractional Inspired Oxygen 21 %; PCO2 VBG 46.8 mmHg (42.0-48.0); PO2 VBG 29.9 mmHg (35.0-45.0); pH VBG 7.362 (7.300-7.400)
[2020-03-28 00:21] LABS: Device ROOM AIR
[2020-03-28 00:26] LABS: Beta-Hydroxybutyrate/Acetoacetate 0.35 mmol/L (0.02-0.27)
[2020-03-28 00:38] LABS: Add Urine Microscopic? YES; Appearance Urine Clear (Clear); Bilirubin Urine Negative (Negative); Blood Urine Negative (Negative); Color Urine Straw (Yellow); Glucose Urine UA 3+ mg/dL (Negative); Ketones Urine Trace mg/dL (Negative); Leukocyte Esterase Ur Negative LEU/UL (Negative); Mucus Urine Rare /lpf; Nitrate Urine Negative (Negative); Protein Urine Negative (Negative); RBC Urine 0-2 /hpf (0-2); Specific Grav Ur 1.026 (1.001-1.035); Urobilinogen Urine Negative mg/dL (<2.0); WBC Urine 0-3 /hpf
[2020-03-28 01:11] VITALS: BP 138/84; PULSE 94; RESP 18; TEMP 36.7; O2SAT 100
--- NOTE | 2020-03-28 01:45 | ADMGEN ---
This patient, Prosper Sosa III, was admitted to Medical Room 346-01. Patient/family oriented to hospital policies and general routines including ID bracelet, bed and alarms, visiting hours, pain management, procedures, bathroom and other care routines, personal items, smoking policy, room service/diet, and visiting hours. Information on how to activate the Rapid Response Team has been discussed. Patient/Family are encouraged to report perceived risks to care and to ask questions if they do not understand what they are told or what they should do.
[2020-03-28 01:51] VITALS: BP 143/82; PULSE 88; RESP 16; TEMP 36.7; O2SAT 100
[2020-03-28 02:05] VITALS: BMI 20.3
--- NOTE | 2020-03-28 02:11 | PM.IMHP ---
H&P: HPI History of Present Illness Date/Time: 03/28/20 02:11 Chief Complaint: abdominal pain Narrative: This is a 24 year old Diabetic male who is well known to our Hospitalist service due to previous admissions for acute DKA and ulcerative colitis. The patient tonight return to the emergency room with severe mid and lower abdominal pain with associated bloody bowel movements. The patient has had the symptoms for approximately 1 week now and was last seen in the emergency room on the 19 of March when he was diagnosed with pancolitis on CT scan. The patient tells me he was sent home with oral prednisone and believes that his not been effective. Since he has been home now he continues to have 6-7 loose bloody bowel stools daily and significant abdominal pain. He denies any fevers or chills as well as chest pain, shortness of breath, vomiting, dysuria, hematuria, syncope, palpitations, lightheadedness, lower extremity pain, swelling, or focal neurological symptoms. He has been eating very little during the day this past week and has had mild nausea but denies any vomiting. He called his sporting goods salesperson, Dr. Jimenez a office yesterday and was told to come to the hospital for evaluation. The patient was evaluated emergency room this evening and his pain responded very well to IV narcotic medication. The patient verbalized that he did not want to go home because he was afraid that the pain would come back. Routine labs were obtained in the emergency room today which demonstrated an elevation in his white blood cell count which is to be expected since he has been on prednisone. ER provider did not perform a CT abdomen pelvis. On my encounter with the patient he is currently asymptomatic and states he feels much better. ER provider treated the patient emergency room with 1 dose of morphine, Zofran, and Solu-Medrol. Dr. Jara was consulted by ER provider and has specifically asked that we admit the patient to the hospital and he will evaluate the patient in the morning. Review of Systems Review of Systems: All systems reviewed & are unremarkable except as noted in HPI and below PMFSH Past Medical History Medical History Diabetes type 1 A1c 10.4 on 01/12/2020 Ulcerative colitis Surgical History Surgical History H/O eye surgery right eye H/O hand surgery on the right hand Family History Family History Father Acute myocardial infarction Sibling Asthma Diabetes mellitus Mother Family history of thyroid problem Grandparent Acute Crohn's disease Diabetes mellitus Social History Social History Smoking status: Never smoker Second hand tobacco smoke exposure: Yes Alcohol intake: never Substance use: never Substance use type: does not use Gender identity (if verbalized by the patient): Male Sexual Orientation (if Verbalized by the Patient): Straight or Heterosexual Spiritual care concerns: No Meds Home Medications and Allergies Home Medications Medication Instructions Recorded Confirmed Type Lantus U-100 Insulin 35 units SUBCUT HS #10 ml 01/14/20 03/28/20 Rx insulin lispro [Humalog U-100 6 unit SUBCUT TID #10 ml 01/14/20 03/28/20 Rx Insulin] mesalamine [Delzicol] 1,200 mg PO BID 03/28/20 03/28/20 History Allergies Allergy/AdvReac Type Severity Reaction Status Date / Time No Known Allergies Allergy Verified 03/28/20 02:12 Vital Signs Vital Signs - 24 hr 03/27/20 22:58 03/28/20 01:11 03/28/20 01:51 Temperature 36.5 C 36.7 C 36.7 C Pulse Rate 100 94 88 Respiratory Rate 18 18 16 Blood Pressure 140/76 138/84 143/82 H Pulse Oximetry 98 100 100 Exam Const: General: cooperative, no acute distress, alert, awake and other (pale appearing) Nut
[2020-03-28 02:26] LABS: Glucose Point of Care 229 (65-105)
[2020-03-28] MEDS: SODIUM CHLORIDE 0.9% IV 1,000 ML 150 ML IV CONT (02:27)
[2020-03-28] MEDS: INSULIN ASPART (*BKC) 100 UNITS/ML SUB-Q ×3 (06:41→17:11)
[2020-03-28] MEDS: methylPREDNISolone SOD SUCC 125 MG VIAL 60 MG IV PUSH (06:41)
[2020-03-28 06:46] VITALS: BP 123/67; PULSE 90; RESP 16; TEMP 36.2; O2SAT 98
--- NOTE | 2020-03-28 09:52 | WPDGICN ---
Assessment and Plan Assessment and plan (1) Ulcerative colitis: Code(s): K51.90 - Ulcerative colitis, unspecified, without complications Status: Chronic Assessment and Plan: Patient with known history of ulcerative colitis. 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 Most recent CT scan 1 week ago in the emergency room suggested pancolitis. Patient has been maintained on mesalamine. Previously improved with oral steroids. But has not followed up in the office. Plan is to change IV Solu-Medrol which was begun in the emergency room to oral prednisone start with 40 mg and taper by 5 mg weekly. Mesalamine will be continued. TPMT level will be obtained in anticipation that he may require Imuran therapy. Should patient fail to improve with steroids he may require biologic agents such as Humira this can be arranged as an outpatient in the office. Patient should follow up in the GI office approximately 2 weeks after discharge. current leukocytosis likely related to steroid therapy. Should diarrhea persists stool cultures are also advised. (2) Diabetes: Qualifiers: Diabetes mellitus type: type 1 Diabetes mellitus complication status: without complication Qualified Code(s): E10.9 - Type 1 diabetes mellitus without complications Code(s): E11.9 - Type 2 diabetes mellitus without complications Status: Chronic Assessment and Plan: Patient has a history of diabetes. Previous admission with diabetic ketoacidosis. This may be a concern with his current steroid use. Close monitoring of his blood sugar is advised. Primary care service will need to follow this closely as well after discharge per GI Consult Note Consult date/time: 03/28/20 09:52 HPI: Prosper Sosa III is a 25 year old male Seen in evaluation at the request of the emergency room. Patient admitted with bloody diarrhea stools. Patient initially presented in May of 2019. At that time endoscopy confirmed proctosigmoiditis. Consistent with ulcerative colitis. Patient given mesalamine enemas and started on Lialda. In December of 2019 patient mid the hospital with DKA. Also identified as having a flare of ulcerative colitis. His diabetes treatment was adjusted. He was given a steroid taper with oral prednisone and continued on mesalamine orally. He was instructed to follow up in the office several weeks after discharge but this was not accomplished. Patient apparently did well remaining on Lialda type mesalamine until the last several weeks. He presented to the emergency room 1 week ago with bloody stools that have been present for 1 week. Given prednisone 40 mg p.o. daily which was taken for 1 week. But diarrhea is and bloody stools probably recurred upon stopping this medication. Last evening he presented to the emergency room with abdominal pain and bloody stools. He was noted to have elevated WBC related to his steroids. His hemoglobin is relatively stable. He was admitted for evaluation and further therapy. Patient has intermittent abdominal pain. Not present at time of examination this morning. Patient denies any fevers. No one else in the hospital has been ill. He does relate up to 6 stools a day over the last week. Review of Systems Review of Systems: All systems reviewed & are unremarkable except as noted in HPI and below PMFSH Past Medical History Medical History Diabetes type 1 A1c 10.4 on 01/12/2020 Ulcerative colitis Surgical History Surgical History H/O eye surgery right eye H/O hand surgery on the right hand Family History Family History Father Acute myocardial infarction Sibling Asthma Diabetes mellitus Mother Family history of thyroid problem Grandparent Acute Crohn's disease Diabetes mellitus So
[2020-03-28] MEDS: predniSONE 20 MG TABLET 40 MG PO (10:16)
[2020-03-28 10:19] LABS: Hematocrit 36.6 % (42.0-52.0); Hemoglobin 12.4 g/dL (14.0-18.0)
--- NOTE | 2020-03-28 12:04 | PM.IMPN ---
Progress Note: A&P Assessment and Plan (1) Pancolitis: Code(s): K51.00 - Ulcerative (chronic) pancolitis without complications Status: Acute Assessment and Plan: Patient has a history of UC and appears to be in a flare -he was not tolerating oral prednisone outpatient and was admitted for IV Solu-Medrol -today he is feeling much better and we are going to try to transition him to oral steroids -continue mesalamine -he is starting a full liquid diet at lunch and will see how he does with that -the diarrhea has resolved, no signs of infection -leukocytosis likely due to steroid therapy -he plans to follow Dr. Jara who is going to see him in the office and possibly start a biologic -hopefully discharge in 1-2 days (2) Diabetes mellitus with hyperglycemia: Qualifiers: Diabetes mellitus type: type 1 Qualified Code(s): E10.65 - Type 1 diabetes mellitus with hyperglycemia Code(s): E11.65 - Type 2 diabetes mellitus with hyperglycemia Status: Chronic Assessment and Plan: Patient has type 1 diabetes last glucose 229 -he is usually on 6 units of Humalog with meals and 35 units of long-acting -will restart Lantus tonight -increase sliding scale (3) Leukocytosis: Qualifiers: Leukocytosis type: unspecified Qualified Code(s): D72.829 - Elevated white blood cell count, unspecified Code(s): D72.829 - Elevated white blood cell count, unspecified Status: Acute Assessment and Plan: Secondary to colitis and steroid therapy. Monitor CBCd. (4) Normocytic anemia: Code(s): D64.9 - Anemia, unspecified Status: Acute Assessment and Plan: Last hemoglobin 12.4 -stable, likely worsened due to bloody diarrhea (5) Dehydration: Code(s): E86.0 - Dehydration Status: Acute Assessment and Plan: Resolved Time Spent With Patient Time with patient: 25 - 35 minutes Subjective Date/time seen: 03/28/20 12:04 Interval history: Pt is a 25-year-old male here for ulcerative colitis. Patient is feeling much better today than he did yesterday. He has intermittent cramps but overall doing okay. He has not had any diarrhea today. He has not eaten but plans to try a full liquid for lunch. He denies nausea, vomiting, fevers, chills, chest pain, shortness of breath or leg swelling. Review of Systems Review of Systems: All systems reviewed & are unremarkable except as noted in HPI and below Exam Narrative: Exam Narrative: General: Well developed well nourished patient in NAD HEENT: normocephalic Neck: supple Neuro: Alert and oriented x4 CV:RRR Resp:CTA Abd: Pain to palpation diffusely through the abdomen. No acute abdomen signs or symptoms. Extremities: No swelling, erythema, or pain to palpation. Objective Data Vital Signs Vital Signs: Vital Signs - 24 hr 03/27/20 22:58 03/28/20 01:11 03/28/20 01:51 Temperature 97.7 F 98.0 F 98.0 F Pulse Rate 100 94 88 Respiratory Rate 18 18 16 Blood Pressure 140/76 138/84 143/82 H Pulse Oximetry 98 100 100 03/28/20 06:46 Temperature 97.1 F L Pulse Rate 90 Respiratory Rate 16 Blood Pressure 123/67 Pulse Oximetry 98 Intake/Output Intake/Output: Intake & Output 03/25/20 03/26/20 03/27/20 03/28/20 23:59 23:59 23:59 23:59 Intake Total 543 Output Total 550 Balance -7 Meds/Results Medications: Active Medications Generic Name Dose Route Start Last Admin Trade Name Freq PRN Reason Stop Dose Admin Dextrose 12.5 gm 03/28/20 02:22 Dextrose 50% 25 Gm/50 Ml Syringe IV PUSH PRN PRN Hypoglycemia Protocol Glucagon 1 mg 03/28/20 02:22 Glucagon For Inj 1 Mg Vial IM PRN PRN Hypoglycemia Protocol Dextrose 1,000 mls @ 100 mls/hr 03/28/20 02:22 Dextrose 5% 1,000 Ml IVPB PRN PRN Hypoglycemia Protocol Acetaminophen 1,000 mg in 100 mls @ 400 mls/hr 03/28/20 02:24 Shahzad
[2020-03-28 12:10] LABS: Glucose Point of Care 274 (65-105)
[2020-03-28 12:10] LABS: Glucose Point of Care 315 (65-105)
[2020-03-28] MEDS: MESALAMINE 400 MG DELAYED RELEASE CAPSULE 800 MG PO ×2 (12:15→17:10)
[2020-03-28 14:36] VITALS: BP 119/63; PULSE 86; RESP 16; TEMP 36.4; O2SAT 100
[2020-03-28 16:10] LABS: Hematocrit 38.4 % (42.0-52.0); Hemoglobin 12.8 g/dL (14.0-18.0)
[2020-03-28 17:09] LABS: Glucose Point of Care 369 (65-105)
[2020-03-28] MEDS: INSULIN GLARGINE (*BKC) 100 UNITS/ML 15 UNITS SUB-Q (21:37)
[2020-03-28 21:55] LABS: Glucose Point of Care 457 (65-105)
[2020-03-28 22:00] VITALS: BP 119/85; PULSE 103; RESP 21; TEMP 36.6; O2SAT 100
[2020-03-28 22:03] LABS: Hematocrit 37.8 % (42.0-52.0); Hemoglobin 12.6 g/dL (14.0-18.0)
[2020-03-28] MEDS: INSULIN ASPART (*BKC) 100 UNITS/ML 6 UNITS SUB-Q (22:17)
[2020-03-28] MEDS: DICYCLOMINE HCL 10 MG CAPSULE 20 MG PO (22:18)
[2020-03-29 00:49] LABS: Glucose Point of Care 362 (65-105)
[2020-03-29 02:13] LABS: Glucose Point of Care 362 (65-105)
[2020-03-29] MEDS: INSULIN ASPART (*BKC) 100 UNITS/ML SUB-Q ×5 (02:25→16:58)
[2020-03-29 06:00] VITALS: BP 131/73; PULSE 93; RESP 21; TEMP 36.1; O2SAT 100
[2020-03-29 06:51] LABS: Glucose Point of Care 296 (65-105)
[2020-03-29 06:52] LABS: Basophils Percent Auto 0.2 % (0.2-1.2); Eosinophils Absolute Auto 0.1 K/mm3 (0-0.3); Eosinophils Percent Auto 0.9 % (0-4.4); Hematocrit 39.5 % (42.0-52.0); Hemoglobin 13.1 g/dL (14.0-18.0); Immature Granulocyte Absolute 0.11 K/mm3 (0.00-0.031); Immature Granulocyte Percent A 0.7 % (0-0.5); Lymphocytes Absolute Auto 1.73 K/mm3 (0.9-3.2); Lymphocytes Percent Auto 10.6 % (18.3-44.2); Mean Corpuscular HGB Conc 33.2 g/dl (32-36); Mean Corpuscular Hemoglobin 29.8 pg (26-34); Mean Corpuscular Volume 89.8 fl (80-100); Monocytes Absolute Auto 1.9 K/mm3 (0.1-0.6); Monocytes Percent Auto 11.5 % (2.6-8.5); Neutrophils Absolute Auto 12.5 K/mm3 (1.3-6.7); Neutrophils Percent Auto 76.1 % (45.5-73.1); Platelet Count Result 375 k/mm3 (150-375); Red Cell Distribution Width 11.4 % (11.5-14.5); White Blood Count 16.4 K/mm3 (4.5-10.0)
--- NOTE | 2020-03-29 07:04 | WPDGIPROGNO ---
Progress Note: A&P Assessment and Plan (1) Ulcerative colitis: Code(s): K51.90 - Ulcerative colitis, unspecified, without complications Status: Chronic Assessment and Plan: Ulcerative colitis known because of recent colonoscopy in May. Also confirmed by CT scan suggesting pancolitis. Bloody diarrhea suggest exacerbation of his ulcerative colitis. Plan to culture stool to exclude infection precipitating flare. Will continue oral steroids. 40 mg of prednisone p.o. daily taper by 5 mg each week after bleeding has subsided. Mesalamine will be continued. Currently on Delzicol variety of mesalamine. Patient previously has failed to follow-up for his ulcerative colitis after recent discharge. Close follow-up after discharge will be strongly encouraged. (2) Diabetes: Qualifiers: Diabetes mellitus type: type 1 Diabetes mellitus complication status: without complication Qualified Code(s): E10.9 - Type 1 diabetes mellitus without complications Code(s): E11.9 - Type 2 diabetes mellitus without complications Status: Chronic Assessment and Plan: Patient has underlying history of diabetes mellitus. Has a prior history of diabetic ketoacidosis. Patient now on steroids. We need to watch for signs of elevation of his serum glucose. He appears to have had poor control of his diabetes in the past. Subjective Date/time seen: 03/29/20 07:04 Patient remains anxious this morning. Continues to describe blood admixed with stool. States it is liquidy. Perhaps are 6 or 7 during the days time period he denies abdominal pain at present. But notes some vague abdominal discomfort in the epigastric area variously described as cramping and burning. Not related to diet. He is tolerating low residue diet without difficulty. Able to ambulate in the room without difficulty. Denies any weakness. Exam Narrative: Exam Narrative: Physical exam reveals patient's vital signs to be stable. He is afebrile. Anicteric. Lungs are clear. Heart without murmur. Abdomen bowel sounds are present soft nontender no organomegaly noted. Rectal exam deferred at this time. Objective Data Vital Signs Vital Signs: Vital Signs - 24 hr 03/28/20 14:36 03/28/20 22:00 Temperature 97.5 F L 97.8 F Pulse Rate 86 103 H Respiratory Rate 16 21 H Blood Pressure 119/63 119/85 Pulse Oximetry 100 100 Intake/Output Intake/Output: Intake & Output 01/07/1103/27/20 03/28/20 03/29/20 23:59 23:59 23:59 23:59 Intake Total 1573 Output Total 1500 550 Balance 73 -550 Meds/Results Medications: Active Medications Generic Name Dose Route Start Last Admin Trade Name Freq PRN Reason Stop Dose Admin Dextrose 12.5 gm 03/28/20 02:22 Dextrose 50% 25 Gm/50 Ml Syringe IV PUSH PRN PRN Hypoglycemia Protocol Dicyclomine HCl 20 mg 03/28/20 21:43 03/28/20 22:18 Dicyclomine Hcl 10 Mg Capsule PO 20 mg QID PRN Administration Abdominal Cramping Glucagon 1 mg 03/28/20 02:22 Glucagon For Inj 1 Mg Vial IM PRN PRN Hypoglycemia Protocol Dextrose 1,000 mls @ 100 mls/hr 03/28/20 02:22 Dextrose 5% 1,000 Ml IVPB PRN PRN Hypoglycemia Protocol Insulin Aspart 3 - 6 units 03/28/20 17:00 03/28/20 17:11 Insulin Aspart (*Bkc) 100 Units/Ml SUB-Q 6 units TIDWM RADHA Administration Protocol Insulin Glargine 15 units 03/28/20 21:00 03/28/20 21:37 Insulin Glargine (*Bkc) 100 Units/Ml SUB-Q 15 units HS RADHA Administration Mesalamine 800 mg 03/28/20 13:00 03/28/20 17:10 Mesalamine 400 Mg Delayed Release Capsule PO 800 mg TID RADHA Administration Prednisone 40 mg 03/29/20 08:00 Prednisone 20 Mg Tablet PO DAILY@0800 [facility] Labs Labs: Laboratory Results - last 24 hr 03/28/20 03/28/20 03/28/20 06:37 09:57 12:08 WBC RBC Hgb 12.4 L Hct 36.6 L MCV MCH MCHC RDW Plt Count MPV Immature
[2020-03-29 07:12] LABS: Anion Gap 12 mmol/L (8-16); Blood Urea Nitrogen 19 mg/dL (9-20); CRP 2.3 mg/dL (<1.0); Calcium 8.6 mg/dL (8.4-10.2); Carbon Dioxide 21 mmol/L (22-30); Chloride 102 mmol/L (98-107); Estimated CRCL calculation 113 ml/min; Estimated Glomerular Filt Rate > 60; Glucose 292 mg/dL (75-110); Sodium 135 mmol/L (137-145)
[2020-03-29] MEDS: predniSONE 20 MG TABLET 40 MG PO (07:25)
[2020-03-29] MEDS: SODIUM CHLORIDE 0.9% IV 1,000 ML 100 ML IV CONT ×2 (08:12→18:17)
[2020-03-29] MEDS: MESALAMINE 400 MG DELAYED RELEASE CAPSULE 800 MG PO ×3 (08:15→16:56)
[2020-03-29] MEDS: DICYCLOMINE HCL 10 MG CAPSULE 20 MG PO (08:16)
[2020-03-29 12:39] LABS: Glucose Point of Care 431 (65-105)
[2020-03-29] MEDS: INSULIN ASPART (*BKC) 100 UNITS/ML 10 UNITS SUB-Q (13:08)
--- NOTE | 2020-03-29 13:33 | PM.IMPN ---
Progress Note: A&P Assessment and Plan (1) Pancolitis: Code(s): K51.00 - Ulcerative (chronic) pancolitis without complications Status: Acute Assessment and Plan: Patient has a history of UC and appears to be in a flare -he was not tolerating oral prednisone outpatient and was admitted for IV Solu-Medrol -today he is feeling much better and has transitioned to oral steroids. -continue mesalamine -he is tolerating his diet. -the diarrhea has resolved, no signs of infection -leukocytosis likely due to steroid therapy -he plans to follow Dr. Jara who is going to see him in the office and possibly start a biologic -hopefully discharge in 1-2 days (2) Diabetes mellitus with hyperglycemia: Qualifiers: Diabetes mellitus type: type 1 Qualified Code(s): E10.65 - Type 1 diabetes mellitus with hyperglycemia Code(s): E11.65 - Type 2 diabetes mellitus with hyperglycemia Status: Chronic Assessment and Plan: Patient has type 1 diabetes last glucose 431 -pt in transition to a new insulin pump regimen -Will restart lantus at home dose since he is getting steroids and will likely run high -Will do scheduled insulin with meals in addition to SSI -I have added a diabetic diet to his regimen as well -gap 12 this AM. Fluids started. Repeat again at 1330. -Pt has a hx of DKA, will monitor for reoccurrence -will watch overnight and can be discharged once glucose is more stable (3) Leukocytosis: Qualifiers: Leukocytosis type: unspecified Qualified Code(s): D72.829 - Elevated white blood cell count, unspecified Code(s): D72.829 - Elevated white blood cell count, unspecified Status: Acute Assessment and Plan: Secondary to colitis and steroid therapy. Monitor CBCd. (4) Normocytic anemia: Code(s): D64.9 - Anemia, unspecified Status: Acute Assessment and Plan: Last hemoglobin 13.1 -Stable (5) Dehydration: Code(s): E86.0 - Dehydration Status: Acute Assessment and Plan: Resolved Subjective Date/time seen: 03/29/20 13:33 Interval history: Pt is a 25-year-old male here for ulcerative colitis. Pt continues to do well with no complaints today. He is eating and drinking okay without any issue and his appetite is back and he is eating regularly. He states he was just placed back on his insulin pump at home but doesn't know his new settings but his old basal was 1.4u/hr. He isn't sure how much bolus insulin he takes since it varies depending on what he eats. He understands the steroids are making it worse. He has no further abdominal pain or diarrhea. He denies nausea, vomiting, fevers, chills, chest pain, shortness of breath or leg swelling. Exam Narrative: Exam Narrative: General: Well developed well nourished patient in NAD HEENT: normocephalic Neck: supple Neuro: Alert and oriented x4 CV:RRR Resp:CTA Abd: No pain to palpation to the abdomen. No distention or guarding. No acute abdomen signs or symptoms. Extremities: No swelling, erythema, or pain to palpation. Objective Data Vital Signs Vital Signs: Vital Signs - 24 hr 03/28/20 14:36 03/28/20 22:00 03/29/20 06:00 Temperature 97.5 F L 97.8 F 97.0 F L Pulse Rate 86 103 H 93 Respiratory Rate 16 21 H 21 H Blood Pressure 119/63 119/85 131/73 Pulse Oximetry 100 100 100 Intake/Output Intake/Output: Intake & Output 03/26/20 03/27/20 03/28/20 03/29/20 23:59 23:59 23:59 23:59 Intake Total 1573 1440 Output Total 1500 1050 Balance 73 390 Meds/Results Medications: Active Medications Generic Name Dose Route Start Last Admin Trade Name Freq PRN Reason Stop Dose Admin Dextrose 12.5 gm 03/28/20 02:22 Dextrose 50% 25 Gm/50 Ml Syringe IV PUSH PRN PRN Hypoglycemia Protocol Dicyclomine HCl 20 mg 03/28/20 21:43 03/29/20 08:16 Dicyclomine Hcl 10 Mg Capsule PO 20 mg QID PRN Administration
[2020-03-29 13:42] VITALS: BP 126/73; PULSE 93; RESP 18; TEMP 36.4; O2SAT 100
[2020-03-29 14:32] LABS: Anion Gap 11 mmol/L (8-16); Blood Urea Nitrogen 17 mg/dL (9-20); Calcium 8.3 mg/dL (8.4-10.2); Carbon Dioxide 25 mmol/L (22-30); Chloride 97 mmol/L (98-107); Estimated CRCL calculation 101 ml/min; Estimated Glomerular Filt Rate > 60; Glucose 493 mg/dL (75-110); Sodium 133 mmol/L (137-145)
[2020-03-29 16:14] LABS: Glucose Point of Care 280 (65-105)
[2020-03-29 16:15] VITALS: BP 134/78; PULSE 89; RESP 22; TEMP 36.8; O2SAT 100
[2020-03-29] MEDS: INSULIN ASPART (*BKC) 100 UNITS/ML 6 UNITS SUB-Q (16:59)
[2020-03-29 17:20] LABS: Glucose Point of Care 269 (65-105)
[2020-03-29 20:01] VITALS: BP 121/70; PULSE 86; RESP 14; TEMP 36.4; O2SAT 99
[2020-03-29] MEDS: INSULIN GLARGINE (*BKC) 100 UNITS/ML 35 UNITS SUB-Q (20:01)
[2020-03-29 20:12] LABS: Glucose Point of Care 248 (65-105)
[2020-03-30] MEDS: SODIUM CHLORIDE 0.9% IV 1,000 ML 100 ML IV CONT (04:17)
[2020-03-30 05:22] VITALS: BP 131/73; PULSE 82; RESP 16; TEMP 36.2; O2SAT 99
[2020-03-30 05:47] LABS: Basophils Percent Auto 0.3 % (0.2-1.2); Eosinophils Absolute Auto 0.2 K/mm3 (0-0.3); Eosinophils Percent Auto 1.4 % (0-4.4); Hematocrit 38.4 % (42.0-52.0); Hemoglobin 12.5 g/dL (14.0-18.0); Immature Granulocyte Absolute 0.04 K/mm3 (0.00-0.031); Immature Granulocyte Percent A 0.4 % (0-0.5); Lymphocytes Absolute Auto 1.62 K/mm3 (0.9-3.2); Mean Corpuscular HGB Conc 32.6 g/dl (32-36); Mean Corpuscular Hemoglobin 29.8 pg (26-34); Mean Corpuscular Volume 91.6 fl (80-100); Mean Platelet Volume 9.7 fl (7.4-10.4); Monocytes Absolute Auto 1.4 K/mm3 (0.1-0.6); Monocytes Percent Auto 12.7 % (2.6-8.5); Neutrophils Absolute Auto 7.6 K/mm3 (1.3-6.7); Neutrophils Percent Auto 70.2 % (45.5-73.1); Platelet Count Result 296 k/mm3 (150-375); Red Blood Count 4.19 M/mm3 (4.6-6.20); Red Cell Distribution Width 11.5 % (11.5-14.5); White Blood Count 10.8 K/mm3 (4.5-10.0)
[2020-03-30 06:08] LABS: Anion Gap 5 mmol/L (8-16); Blood Urea Nitrogen 13 mg/dL (9-20); Calcium 7.8 mg/dL (8.4-10.2); Carbon Dioxide 27 mmol/L (22-30); Chloride 104 mmol/L (98-107); Estimated CRCL calculation 128 ml/min; Estimated Glomerular Filt Rate > 60; Glucose 235 mg/dL (75-110); Potassium 3.6 mmol/L (3.4-5.0); Sodium 136 mmol/L (137-145)
--- NOTE | 2020-03-30 06:59 | WPDGIPROGNO ---
Progress Note: A&P Assessment and Plan (1) Ulcerative colitis: Qualifiers: Digestive disease complication type: with rectal bleeding Ulcerative colitis location: ulcerative pancolitis Qualified Code(s): K51.011 - Ulcerative (chronic) pancolitis with rectal bleeding Code(s): K51.90 - Ulcerative colitis, unspecified, without complications Status: Acute Assessment and Plan: Patient with exacerbation of ulcerative colitis. Stool cultures negative to date. Currently on prednisone and mesalamine. Plan to continue mesalamine after discharge. Prednisone 40 mg p.o. daily to be tapered by 5 mg every week. I will have patient follow up in the office in 3-4 weeks. We may need to consider adding Imuran. To this end TPMT level is obtained. This will be considered as an outpatient follow-up. Additionally I have discussed with possible implementation of biologic agents such as Humira. that will be implemented in the office should he fail to respond to steroids. (2) Diabetes: Qualifiers: Diabetes mellitus type: type 1 Diabetes mellitus complication status: without complication Qualified Code(s): E10.9 - Type 1 diabetes mellitus without complications Code(s): E11.9 - Type 2 diabetes mellitus without complications Status: Chronic Assessment and Plan: Patient has underlying diabetes mellitus. Elevated glucose noted with his current steroid dose. Dose of insulin will need to be adjusted and monitor during his treatment with steroids. Additional Plan Hopefully patient can be discharged today fall agree. Plan to increase diet and activity. Outpatient follow-up in 3-4 weeks. Subjective Date/time seen: 03/30/20 06:59 Patient feeling better today. Anxious to increase his activity. He states his diarrhea has subsided. Continues to notice a small amount of blood in his stool. He denies any abdominal pain. Review of Systems Review of Systems: All systems reviewed & are unremarkable except as noted in HPI and below Exam Narrative: Exam Narrative: Physical exam reveals patient to be alert comfortable at rest. HEENT exam unremarkable. Lungs are clear. Heart without murmur. Abdomen bowel sounds present soft nontender with no organomegaly. Rectal exam deferred today. Extremities reveal significant tattoos. Objective Data Vital Signs Vital Signs: Vital Signs - 24 hr 03/29/20 13:42 03/29/20 16:15 03/29/20 20:01 Temperature 97.6 F 98.2 F 97.6 F Pulse Rate 93 89 86 Respiratory Rate 18 22 H 14 Blood Pressure 126/73 134/78 121/70 Pulse Oximetry 100 100 99 03/30/20 05:22 Temperature 97.2 F L Pulse Rate 82 Respiratory Rate 16 Blood Pressure 131/73 Pulse Oximetry 99 Intake/Output Intake/Output: Intake & Output 03/27/20 03/28/20 03/29/20 03/30/20 23:59 23:59 23:59 23:59 Intake Total 1573 3520 1250 Output Total 1500 2500 Balance 73 1020 1250 Meds/Results Medications: Active Medications Generic Name Dose Route Start Last Admin Trade Name Freq PRN Reason Stop Dose Admin Acetaminophen 650 mg 03/29/20 16:41 Acetaminophen 325 Mg Tablet PO Q6H PRN Mild Pain (1-3) or Headache Dextrose 12.5 gm 03/28/20 02:22 Dextrose 50% 25 Gm/50 Ml Syringe IV PUSH PRN PRN Hypoglycemia Protocol Dicyclomine HCl 20 mg 03/28/20 21:43 03/29/20 08:16 Dicyclomine Hcl 10 Mg Capsule PO 20 mg QID PRN Administration Abdominal Cramping Glucagon 1 mg 03/28/20 02:22 Glucagon For Inj 1 Mg Vial IM PRN PRN Hypoglycemia Protocol Dextrose 1,000 mls @ 100 mls/hr 03/28/20 02:22 Dextrose 5% 1,000 Ml IVPB PRN PRN Hypoglycemia Protocol Sodium Chloride 1,000 mls @ 100 mls/hr 03/29/20 07:55 03/30/20 04:17 Normal Saline Iv IV CONT 100 mls/hr .Q10H RADHA Administration Insulin Aspart 2 - 5 units 03/29/20 08:00 03/29/20 16:58 Insulin Aspart (*Bkc) 100 Units/Ml SUB-Q 3 units TIDWM RADHA
[2020-03-30] MEDS: INSULIN ASPART (*BKC) 100 UNITS/ML SUB-Q (07:21)
[2020-03-30] MEDS: INSULIN ASPART (*BKC) 100 UNITS/ML 6 UNITS SUB-Q (07:21)
[2020-03-30] MEDS: predniSONE 20 MG TABLET 40 MG PO (07:22)
[2020-03-30 07:23] LABS: Glucose Point of Care 235 (65-105)
[2020-03-30] MEDS: MESALAMINE 400 MG DELAYED RELEASE CAPSULE 800 MG PO (09:05)
--- NOTE | 2020-03-30 09:26 | PM.DS ---
DS: Admitting Diagnosis Admitting Diagnosis Admitting Diagnosis: Ulcerative colitis flare DS: Discharge Diagnosis Discharge Diagnosis (1) Pancolitis: Code(s): K51.00 - Ulcerative (chronic) pancolitis without complications Status: Acute Assessment and Plan: Patient has a history of UC and appears to be in a flare -he was not tolerating oral prednisone outpatient and was admitted for IV Solu-Medrol -today he is feeling much better and has transitioned to oral steroids -he is to continue 40 mg p.o. daily and decrease by 5 mg every week -continue mesalamine -he is tolerating his diet. -the diarrhea has resolved, no signs of infection -leukocytosis likely due to steroid therapy -he plans to follow Dr. Jara who is going to see him in the office and possibly start a biologic (2) Diabetes mellitus with hyperglycemia: Qualifiers: Diabetes mellitus type: type 1 Qualified Code(s): E10.65 - Type 1 diabetes mellitus with hyperglycemia Code(s): E11.65 - Type 2 diabetes mellitus with hyperglycemia Status: Chronic Assessment and Plan: Patient has type 1 diabetes last glucose 235 -anion gap 5 -pt in transition to a new insulin pump regimen -patient educated that steroids will likely worsen his glucose at home and he may need higher levels of insulin. He understands as he has been on steroids in the past (3) Leukocytosis: Qualifiers: Leukocytosis type: unspecified Qualified Code(s): D72.829 - Elevated white blood cell count, unspecified Code(s): D72.829 - Elevated white blood cell count, unspecified Status: Acute Assessment and Plan: Secondary to colitis and steroid therapy. Monitor CBCd. (4) Normocytic anemia: Code(s): D64.9 - Anemia, unspecified Status: Acute Assessment and Plan: Last hemoglobin 12.5 -Stable (5) Dehydration: Code(s): E86.0 - Dehydration Status: Acute Assessment and Plan: Resolved DS: Summary Hospital Course Hospital Course: Patient is a 25-year-old male with a past medical history of type 1 diabetes and ulcerative colitis who presented emergency room for worsening abdominal pain and bloody diarrhea with inability to take oral prednisone. Vitals in the ER were stable. Initial white blood cell count 15.3, hemoglobin 12.4, hematocrit 37.4, platelets 268. BMP showed sodium 133, potassium 3.8, chloride 97, carbon dioxide 33, BUN 10, creatinine 0.8, glucose 328. He had a CT prior to admission which showed cobb colitis and diarrhea on 03/19/2020. No further imaging was required. Patient was admitted to the hospitalist service on 03/27/20 for IV steroids and IV fluids. The patient improved on this treatment. Day of discharge he no longer had any abdominal pain, bloody diarrhea, or uncontrolled glucose levels. He was able to transition to a regular diet during his stay and was able to tolerate multiple days of oral steroids. He understands that his glucose will run higher during the prednisone taper but has done this in the past and will adjust his insulin at home. He plans to follow-up with Dr. Jara outpatient although he has a history of noncompliance with this. Overall, the patient had much improvement and was ready to go home. He was educated about the worrisome signs and symptoms to come back to emergency room for was discharged stable condition. He is to follow-up with GI in 3-4 weeks and call their office for an appointment. Status at Discharge Functional status at discharge: independent ambulation Overall status at discharge: patient is back to baseline Time Spent with Patient Time attestation: Total time spent providing and/or coordinating discharge services:40 min Exam Narrative: Exam Narrative: General: Well developed well nourished patient in NAD HEENT: normocephalic Neck: supple Neuro: Alert and oriented x4 CV:RRR Resp:CTA Abd: No pain to palpatio
[2020-03-30 09:55] VITALS: O2SAT 98
--- NOTE | 2020-04-03 13:16 | PC.NURSE ---
Stool cx is negative.
[2020-04-06 12:47] LABS: TPMT Activity 16
== END 2020-03-30 11:21 | disposition home or self-care (01) | DRG 387 ==
LOC: ANHED 03-28 01:11 → ANH3MED 03-28 01:20
PROVIDERS: Internal Medicine Gastroenterology; Physician Assistant; Admitting Provider Family Medicine; Emergency Provider Emergency Medicine; PCP Physician Assistant; Visit Provider Internal Medicine
DX: K51.011 Ulcerative (chronic) pancolitis with rectal bleeding (principal); E10.65 Type 1 diabetes mellitus with hyperglycemia; E86.0 Dehydration; D64.9 Anemia, unspecified; D72.829 Elevated white blood cell count, unspecified; T38.0X5A Adverse effect of glucocorticoids and synthetic analogues, initial encounter; Z28.21 Immunization not carried out because of patient refusal; Z79.4 Long term (current) use of insulin
CPT/HCPCS: 36415; 80048; 80053; 81001; 82010; 82657; 82803; 83690; 85014; 85018; 85025; 86140; 87045; 87046; 87427; 89055; 96361; 96374; 96375; 99285; A9270; G0378; J1815; J2270; J2405; J2930; J7030; J7512

== ENCOUNTER 2020-04-08 07:08 | Inpatient (IN) | payer OTHER, SELFPAY ==
[2020-04-08] VITALS (8 sets, daily range): BP systolic 115–133; BP diastolic 66–93; PULSE 55–105; RESP 16–20; TEMP 36.5–37.3; O2SAT 98–100; BMI 19.3
--- NOTE | ~2020-04-08 | CT_ITS ---
EXAMINATION: CT abdomen pelvis w con DATE: 04/08/2020 08:50 INDICATION: Abdomen pain TECHNIQUE: Computed tomography (CT) of the abdomen and pelvis was performed with 100 cc Omnipaque 350 intravenous contrast. The dose-length product was 190.20 mGy-cm. Automated exposure control and iter ative reconstruction technique were employed. COMPARISON: CT dated 03/19/2020. FINDINGS: Lung bases are unremarkable. Heart size normal. No pleural or pericardial effusion. No sign ificant vascular abnormality. The liver, spleen, pancreas, adrenal glands are unremarkable. There are nonobstructing bilateral izabel l stones. No hydronephrosis. Gallbladder is contracted. There is diffuse abnormal thickening of the colon. Mildly prominent pericecal lymph nodes, likely ashley ctive. No evidence for perforation or abscess. No acute osseous abnormality. IMPRESSION: 1. Progression of diffuse abnormal thickening of the colon, compatible with pancolitis. Reviewed, dictated and finalized at location A. UNT MANAGER B2B IMPRESSION: 1. Progression of diffuse abnormal thickening of the colon, compatible with cobb colitis.
[2020-04-08 07:28] LABS: Hematocrit 40.5 % (42.0-52.0); Hemoglobin 13.4 g/dL (14.0-18.0); Mean Corpuscular HGB Conc 33.1 g/dl (32-36); Mean Corpuscular Hemoglobin 29.9 pg (26-34); Mean Corpuscular Volume 90.4 fl (80-100); Mean Platelet Volume 9.3 fl (7.4-10.4); Platelet Count Result 460 k/mm3 (150-375); Red Blood Count 4.48 M/mm3 (4.6-6.20); Red Cell Distribution Width 11.7 % (11.5-14.5); White Blood Count 17.9 K/mm3 (4.5-10.0)
--- NOTE | 2020-04-08 07:29 | ED.ABDPAIN ---
HPI - Abdominal Pain General Chief Complaint: Abdominal Pain Stated Complaint: abd pain Time Seen by Provider: 04/08/20 07:15 Source: patient History of Present Illness HPI narrative: Patient is a 25 y/o male complaining of intermittent generalized abdominal pain for last 1-2 weeks. He describes his pain as sharp and rates it as 10/10, but has no pain at this time. Eating aggravates his pain. He also has nause, but no vomiting. He has been having bloody diarrhea. Related Data Home Medications Medication Instructions Recorded Confirmed mesalamine [Delzicol] 1,200 mg PO BID 03/28/20 04/08/20 Allergies Allergy/AdvReac Type Severity Reaction Status Date / Time No Known Allergies Allergy Verified 04/08/20 07:16 Review of Systems Constitutional: Constitutional: Denies chills, Denies fever(s), Denies headache(s) and Denies weakness Eyes: Eyes: Denies blurry vision ENT: Denies headache(s) and Denies neck pain Cardiovascular: Cardiovascular: Denies chest pain and Denies dyspnea Respiratory: Respiratory: Denies cough and Denies dyspnea Gastrointestinal: Gastrointestinal: Reports abdominal pain, Reports hematochezia, Reports diarrhea, Reports nausea and Denies vomiting Genitourinary: Genitourinary: Denies hematuria and Denies dysuria Musculoskeletal: Musculoskeletal: Denies back pain and Denies neck pain Neurologic: Denies headache(s) and Denies weakness PMFSH Past Medical History Medical History Diabetes type 1 A1c 10.4 on 01/12/2020 Ulcerative colitis Surgical History Surgical History H/O eye surgery right eye H/O hand surgery on the right hand Family History Family History Father Acute myocardial infarction Sibling Asthma Diabetes mellitus Mother Family history of thyroid problem Grandparent Acute Crohn's disease Diabetes mellitus Social History Social History Smoking status: Never smoker Second hand tobacco smoke exposure: Yes Alcohol intake: never Substance use: never Substance use type: does not use Gender identity (if verbalized by the patient): Male Spiritual care concerns: No Exam Const: General: no acute distress and well developed Orientation/consciousness: oriented to person, oriented to place, oriented to time and patient oriented x3 HENMT: Head: normocephalic Ears: external ears normal General nose exam: Normal external nose present Eyes: General: appearance normal, both eyes and all related structures Conjunctivae: conjunctivae normal Neck: Neck: normal visual inspection and full ROM Chest: Chest palpation & inspection: normal inspection of the chest and no tenderness Resp: Effort & Inspection: normal respiratory effort Auscultation: clear to auscultation bilaterally Cardio: Rate: tachycardic Rhythm: regular rhythm GI: GI Palp: No abdominal tenderness and Yes Soft to palpation Skin: General skin exam: normal color and turgor normal Neuro: General: oriented to person, oriented to place, oriented to time and patient oriented x3 Cognition (Neuro): normal cognition Extrem: General: normal to inspection, full ROM and no pedal edema Psych: Appearance: grossly normal Mental Status: mental status grossly normal Affect: normal affect Course Consultations Consultation #1: Discussed with Dr. Diaz, who agrees to admit. Date: 04/08/20 Time: 09:55 Consultation #2: Discussed with Dr. Jara, who agrees to consult. Date: 04/08/20 Time: 10:24 Vital Signs Vital signs: Vital Signs Temperature 36.5 C 04/08/20 07:13 Pulse Rate 105 H 04/08/20 07:13 Respiratory Rate 20 04/08/20 07:13 Blood Pressure 133/93 H 04/08/20 07:13 Pulse Oximetry 100 04/08/20 07:13 Temperature 36.5 C 04/08/20 07:13 Pulse Rate 86 04/08/20 10:13
[2020-04-08 07:41] LABS: Add Urine Microscopic? YES; Appearance Urine Clear (Clear); Bilirubin Urine Negative (Negative); Blood Urine Negative (Negative); Color Urine Yellow (Yellow); Glucose Urine UA 1+ mg/dL (Negative); Ketones Urine Negative (Negative); Leukocyte Esterase Ur 1+ LEU/UL (Negative); Mucus Urine Few /lpf; Nitrate Urine Negative (Negative); Protein Urine 1+ mg/dL (Negative); Specific Grav Ur 1.014 (1.001-1.035); Squamous Epithelial Cell Urine Rare /hpf (Few); Urobilinogen Urine Negative mg/dL (<2.0); WBC Urine 31-50 /hpf
[2020-04-08 07:42] LABS: Alanine Aminotransferase 12 U/L (4-50); Albumin Level 3.6 g/dL (3.5-5.1); Alkaline Phosphatase 69 U/L (38-126); Anion Gap 4 mmol/L (8-16); Aspartate Amino Transferase 13 U/L (17-59); Band Neutrophils Percent 6 % (0-6); Bilirubin,Total 0.5 mg/dL (0.2-1.3); Blood Urea Nitrogen 9 mg/dL (9-20); CRP 2.3 mg/dL (<1.0); Calcium 9.1 mg/dL (8.4-10.2); Carbon Dioxide 35 mmol/L (22-30); Chloride 94 mmol/L (98-107); Eosinophils Absolute Manual 0.53 K/mm3 (0.02-0.5); Eosinophils Percent Manual 3 % (0-4); Estimated CRCL calculation 109 ml/min; Estimated Glomerular Filt Rate > 60; Glucose 219 mg/dL (75-110); Lymphocytes Absolute Manual 2.14 K/mm3 (1.1-4.5); Monocytes Absolute Manual 1.43 K/mm3 (0.1-0.90); Monocytes Percent Manual 8 % (3-9); Neutrophils Absolute Manual 13.78 K/mm3 (1.3-6.7); Neutrophils Percent Manual 71 % (46-73); Platelet Estimate Adequate (Adequate); Potassium 3.8 mmol/L (3.4-5.0); Sodium 133 mmol/L (137-145); Total Cells Counted 100
[2020-04-08 07:43] LABS: Anisocytosis 1+ (NORMAL); Stomatocytes 1+ (NORMAL)
[2020-04-08 07:56] LABS: Erythrocyte Sedimentation Rate 39 mm/hr (0-20)
[2020-04-08] MEDS: SODIUM CHLORIDE 0.9% IV 1,000 ML 999 ML IV CONT (08:11)
[2020-04-08] MEDS: MORPHINE SULFATE (*CRX) 2 MG/ML INJ IV PUSH (10:08)
[2020-04-08] MEDS: methylPREDNISolone SOD SUCC 40 MG VIAL IV PUSH ×3 (10:08→20:43)
[2020-04-08] MEDS: metroNIDAZOLE 500 MG/ISO 100ML 500 MG/100 ML BAG 100 MG IVPB (10:10)
--- NOTE | 2020-04-08 11:05 | ADMGEN ---
This patient, Prosper Sosa III, was admitted to Medical Room 348-01. Patient/family oriented to hospital policies and general routines including ID bracelet, bed and alarms, visiting hours, pain management, procedures, bathroom and other care routines, personal items, smoking policy, room service/diet, and visiting hours. Information on how to activate the Rapid Response Team has been discussed. Patient/Family are encouraged to report perceived risks to care and to ask questions if they do not understand what they are told or what they should do.
[2020-04-08] MEDS: CIPROFLOXACIN 400 MG/D5W 200ML 200 ML 200 MG IVPB (11:10)
[2020-04-08 12:09] LABS: Glucose Point of Care 120 (65-105)
--- NOTE | 2020-04-08 14:05 | PM.IMHP ---
H&P: HPI History of Present Illness Date/Time: 04/08/20 14:05 Chief Complaint: Abdominal pain Narrative: Prosper Sosa III is a 25 year old male who has a history of ulcerative colitis. The patient was discharged from here on 03/30/2020. With ulcerative pancolitis. The patient was given steroids IV here at the time and then he was sent home on oral prednisone and was wean down on his prednisone at home. He also was taken his mesalamine without any problems. The patient has not yet seen his GI specialist outpatient blair. There was some talk about the patient getting started on Humira and Imuran but has not yet been prescribed that. The patient does have diabetes type 1 so his blood sugars to become affected by the steroids at times. 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 The patient stated that his pain was so severe last night that he had to leave work. The more that he moves the worse that he gets. He noticed blood in his stool as well. The patient stated he has an appointment with Dr. márquez for later on but could not wait until that appointment. The patient stated that he cannot eat or drink anything without causing some discomfort. The patient stated that he tried to eat bland food in that still did not help. As progression of diffuse abdominal thickening of the colon compatible with pancolitis. The patient was given Cipro and Flagyl IV fluids and morphine. The patient stated that his blood sugars have been in the lower 100s. That is why he took his insulin pump off. He has had DKA in the past. Patient is being admitted to observation on the date of service of 04/08/2020. Review of Systems Review of Systems: All systems reviewed & are unremarkable except as noted in HPI and below Constitutional: Constitutional: Reports as per HPI and Reports no additional constitutional complaints Eyes: Eyes: Reports as per HPI and Reports no additional eye complaints ENT: Reports system reviewed and no additional complaints, except as documented and Reports Normal hearing present Cardiovascular: Cardiovascular: Reports no additional cardiovascular complaints Respiratory: Respiratory: Reports no additional respiratory complaints and Reports no additional respiratory complaints Gastrointestinal: Gastrointestinal: Reports as per HPI and Reports no additional gastrointestinal complaints Musculoskeletal: Musculoskeletal: Reports no additional musculoskeletal complaints Integumentary/Breasts: Skin/Breast: Reports system reviewed and no additional complaints, except as docu and Reports as per HPI Neurologic: Reports system reviewed and no additional complaints, except as documented, Reports as per HPI and Reports Normal hearing present Psychiatric: Psychiatric: Reports no additional psychiatric complaints and Reports as per HPI Endocrine: Endocrine: Reports no additional endocrine complaints Hematologic/Lymphatic: Hematologic/Lymphatic: Reports no additional hematologic/lymphatic complaints Allergic/Immunologic: Allergic/Immunologic: Reports no additional allergic/immunologic complaints [facility] Past Medical History Medical History Diabetes type 1 A1c 10.4 on 01/12/2020 Ulcerative colitis Surgical History Surgical History H/O eye surgery right eye H/O hand surgery on the right hand Family History Family History Father Acute myocardial infarction Sibling Asthma Diabetes mellitus Mother Family history of thyroid problem Grandparent Acute Crohn's disease Diabetes mellitus Social History Social History (Updated 04/08/20 @ 14:18 by Eveline Franklin NP) Social History: [employer]
[2020-04-08] MEDS: SODIUM CHLORIDE 0.9% IV 1,000 ML 100 ML IV CONT (14:54)
[2020-04-08] MEDS: INSULIN ASPART (*BKC) 100 UNITS/ML SUB-Q (17:05)
[2020-04-08 17:06] LABS: Glucose Point of Care 286 (65-105)
[2020-04-08] MEDS: MESALAMINE 400 MG DELAYED RELEASE CAPSULE 1200 MG PO (17:07)
[2020-04-08 20:48] LABS: Glucose Point of Care 396 (65-105)
[2020-04-09] MEDS: methylPREDNISolone SOD SUCC 40 MG VIAL IV PUSH ×5 (00:27→23:16)
[2020-04-09] MEDS: INSULIN GLARGINE (*BKC) 100 UNITS/ML 35 UNITS SUB-Q ×2 (00:35→20:10)
[2020-04-09] MEDS: SODIUM CHLORIDE 0.9% IV 1,000 ML 100 ML IV CONT ×3 (01:01→21:23)
[2020-04-09 06:00] VITALS: BP 118/63; PULSE 89; RESP 16; TEMP 36.9; O2SAT 100
[2020-04-09 06:07] LABS: Basophils Absolute Auto 0.1 K/mm3 (0.0-0.1); Basophils Percent Auto 0.4 % (0.2-1.2); Eosinophils Percent Auto 0.1 % (0-4.4); Hematocrit 35.5 % (42.0-52.0); Hemoglobin 11.4 g/dL (14.0-18.0); Immature Granulocyte Absolute 0.05 K/mm3 (0.00-0.031); Immature Granulocyte Percent A 0.4 % (0-0.5); Lymphocytes Absolute Auto 0.73 K/mm3 (0.9-3.2); Lymphocytes Percent Auto 6.5 % (18.3-44.2); Mean Corpuscular HGB Conc 32.1 g/dl (32-36); Mean Corpuscular Hemoglobin 29.5 pg (26-34); Mean Corpuscular Volume 91.7 fl (80-100); Mean Platelet Volume 9.6 fl (7.4-10.4); Monocytes Percent Auto 8.7 % (2.6-8.5); Neutrophils Absolute Auto 9.4 K/mm3 (1.3-6.7); Neutrophils Percent Auto 83.9 % (45.5-73.1); Platelet Count Result 371 k/mm3 (150-375); Red Blood Count 3.87 M/mm3 (4.6-6.20); Red Cell Distribution Width 11.6 % (11.5-14.5); White Blood Count 11.2 K/mm3 (4.5-10.0)
[2020-04-09 06:18] LABS: Alanine Aminotransferase 9 U/L (4-50); Albumin Level 2.9 g/dL (3.5-5.1); Alkaline Phosphatase 75 U/L (38-126); Anion Gap 5 mmol/L (8-16); Aspartate Amino Transferase 13 U/L (17-59); Bilirubin,Total 0.2 mg/dL (0.2-1.3); Blood Urea Nitrogen 10 mg/dL (9-20); Carbon Dioxide 27 mmol/L (22-30); Chloride 103 mmol/L (98-107); Estimated CRCL calculation 140 ml/min; Estimated Glomerular Filt Rate > 60; Glucose 256 mg/dL (75-110); Magnesium 2.1 mg/dL (1.6-2.3); Potassium 4.1 mmol/L (3.4-5.0); Sodium 135 mmol/L (137-145)
[2020-04-09 07:07] LABS: Thyroid Stimulating Hormone Reflex 0.131 uIU/mL (0.465-4.68)
[2020-04-09 07:35] LABS: Glucose Point of Care 240 (65-105)
[2020-04-09 07:54] LABS: Free T4 Free Thyroxine Reflex 1.21 ng/dL (0.78-2.19)
[2020-04-09] MEDS: MESALAMINE 400 MG DELAYED RELEASE CAPSULE 1200 MG PO ×2 (08:16→17:29)
[2020-04-09] MEDS: ENOXAPARIN 40 MG/0.4 ML SYRINGE SUB-Q (08:17)
[2020-04-09] MEDS: INSULIN ASPART (*BKC) 100 UNITS/ML SUB-Q ×3 (08:17→21:39)
--- NOTE | 2020-04-09 08:30 | WPDGICN ---
Assessment and Plan Assessment and plan (1) Ulcerative colitis: Code(s): K51.90 - Ulcerative colitis, unspecified, without complications Status: Chronic Assessment and Plan: Patient with ongoing flare of ulcerative colitis. He recently has been started on prednisone with tapering results. He continues mesalamine orally. He has ongoing diarrhea and rectal bleeding. Plan will be to start Humira. In the interim patient will be started on Imuran 100 mg p.o. daily. TMP T level suggesting would tolerate this well. But intermittent monitoring of WBC count is suggested. Stool cultures will be obtained to exclude concomitant infection. And a brief trial of antibiotics may have some benefit. (2) Diabetes mellitus with hyperglycemia: Qualifiers: Diabetes mellitus type: type 1 Qualified Code(s): E10.65 - Type 1 diabetes mellitus with hyperglycemia Code(s): E11.65 - Type 2 diabetes mellitus with hyperglycemia Status: Chronic Assessment and Plan: Patient has underlying history of diabetes mellitus. Steroid therapy has been associated with poor glucose control. Plan to monitor glucose closely after during hospital stay. Consider endocrinology consult this patient. GI Consult Note Consult date/time: 04/09/20 08:30 HPI: Prosper Sosa III is a 25 year old male I am asked to see because of bloody diarrhea and abdominal pain. Patient known to me from recent admissions. He initially was diagnosed as having ulcerative colitis since May of 2019. 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 He was initially started on mesalamine enemas as well as Lialda. He did have a flare of his diabetes with DKA. And discontinued the steroid therapy. He recently was admitted the hospital and restarted on Delzicol along with prednisone currently being tapered. Discharge from the hospital about 1 week ago. He continues to have bloody stools at home. He presented to the emergency room last evening complaining of rather vague diffuse abdominal pain and ongoing blood in his stools. Patient's current medications include prednisone 35 mg p.o. daily with tells a call type mesalamine product. At the time of last admission TMPT level was performed found to be normal. It was discussed starting Humira. Was anticipated this would be started as an outpatient and has not yet been implemented. Patient's family history is noncontributory. Review of Systems Review of Systems: All systems reviewed & are unremarkable except as noted in HPI and below PMFSH Past Medical History Medical History Diabetes type 1 A1c 10.4 on 01/12/2020 Ulcerative colitis Surgical History Surgical History H/O eye surgery right eye H/O hand surgery on the right hand Family History Family History Father Acute myocardial infarction Sibling Asthma Diabetes mellitus Mother Family history of thyroid problem Grandparent Acute Crohn's disease Diabetes mellitus Social History Social History (Updated 04/08/20 @ 14:18 by Eveline Franklin NP) Social History: The patient lives with his girlfriend and they are expecting a child in about 4 months. He has no other children. 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 The patient is a full code and he would like for his mother to be the durable power civil attorney for healthcare. Smoking status: Never smoker Second hand tobacco smoke exposure: Yes Alcohol intake: never Substance use: never Substance use type: does not use Gender identity (if verbalized by the patient): Male Spiritual care concerns: No Meds Home Medications and Allergies Home Medications Medication Instructions Recorded Confirmed Type Lantus U-100 Insulin 35 units SUBCUT HS #10 ml 01/14/20 04/08/20 Rx insulin lispro [Humalog
[2020-04-09 08:35] LABS: Total Triiodothyronine (T3) 1.18 NG/ML (0.97-1.69)
[2020-04-09] MEDS: azaTHIOprine 50 MG TABLET 100 MG PO (09:55)
[2020-04-09] MEDS: TUBERCULIN, PPD INJ 5 TU/0.1 ML INTRADERM (09:55)
--- NOTE | 2020-04-09 10:22 | PM.IMPN ---
Progress Note: A&P Assessment and Plan (1) Ulcerative (chronic) pancolitis with rectal bleeding: Code(s): K51.011 - Ulcerative (chronic) pancolitis with rectal bleeding Status: Acute Assessment and Plan: Evidence of progression of diffuse abnormal thickening of the colon, compatible with pancolitis. Patient had associated bloody stools and diffuse abdominal pain with poor PO intake prior to arrival. Symptoms have improved today. Dr. Jara consulted and appreciate recommendations. Appears he has been started on Imuran and Humira has been ordered. He continues on IV steroids and mesalamine. Diabetic diet has been ordered, but patient reluctant to advancing diet too fast; appetite has not been ideal either. Clinically appears to have improved Continue mesalamine and steroids for now Imuran and Humira have been ordered per GI recommendations Will defer antibiotics and further steroid therapy to GI Diet per GI recommendations [employer] consulted given low-normal BMI Lovenox for VTE ppx given hypercoagulable state Continue with pain control as needed. Will transition to PO tylenol; will try to limit narcotics if tolerable - IV morphine for breakthrough pain. 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 He was started on his long acting 35 units QHS and a correctional insulin. Continue with lantus 35 u QHS Accuchecks ACHS, hypoglycemia protocol, correctional insulin, diabetic diet A1c ordered Monitor and adjust regimen as oral intake increases (3) Normocytic anemia: Code(s): D64.9 - Anemia, unspecified Status: Acute Assessment and Plan: Hgb 11.4 this morning; near his baseline. He notes his bloody stools have improved since admission Continue to monitor transfuse Prn Subjective Date/time seen: 04/09/20 10:22 Interval history: Patient is a 25 yo M with history of DMI and UC recently admitted and discharged here from 03/27-03/30 for UC flare who is seen in follow up for persistent symptoms related to UC and evidence of pancolitis on CT imaging. Patient states he feels better today. Pain has significantly improved. BMs without blood this morning. States his pain is diffuse and intermittent. His appetite has been poor recently, as well. No other complaints at the moment. Denies current f/c/s, headaches, dizziness, lightheadedness, cp/palpitations, sob/cough, n/v, dysuria, hematuria, cloudy urine, calf pain/swelling. Review of Systems Review of Systems: All systems reviewed & are unremarkable except as noted in HPI and below Exam Narrative: Exam Narrative: General: Patient resting supine in bed in no acute distress. HEENT: Normocephalic, EOMI, oral mucosa moist. Cardiovascular: Rate and rhythm are regular. No notable murmur, rub, or gallop. Respiratory: Lungs clear to auscultation all gusman. Non-labored breathing. Abdomen: Soft, mild ttp diffusely, slightly guarding, non-distended, bowel sounds present. Extremities: Peripheral pulses intact. No edema. NTTP b/l calves Neuro: No focal neurological deficits. Speech is clear. Objective Data Vital Signs Vital Signs: Last Vital Signs Temp 98.5 F 04/09/20 06:00 Pulse 89 04/09/20 06:00 Resp 16 04/09/20 06:00 BP 118/63 04/09/20 06:00 Pulse Ox 97 04/09/20 10:27 Intake/Output Intake/O
[2020-04-09 10:27] VITALS: O2SAT 97
[2020-04-09 10:28] LABS: Hepatitis B Surface Antigen Negative (Negative)
[2020-04-09 11:56] LABS: Glucose Point of Care 293 (65-105)
[2020-04-09 13:12] VITALS: BMI 19.3
[2020-04-09 14:00] VITALS: BP 115/63; PULSE 85; RESP 16; TEMP 36.7; O2SAT 99
[2020-04-09 16:47] LABS: Glucose Point of Care 406 (65-105)
[2020-04-09] MEDS: INSULIN ASPART (*BKC) 100 UNITS/ML 15 UNITS SUB-Q (17:29)
[2020-04-09 20:46] LABS: Glucose Point of Care 302 (65-105)
[2020-04-09 21:56] VITALS: BP 129/64; PULSE 79; RESP 16; TEMP 36.3; O2SAT 98
[2020-04-10] MEDS: methylPREDNISolone SOD SUCC 40 MG VIAL IV PUSH (05:31)
[2020-04-10 05:50] LABS: Hematocrit 33.6 % (42.0-52.0); Hemoglobin 10.8 g/dL (14.0-18.0); Mean Corpuscular HGB Conc 32.1 g/dl (32-36); Mean Corpuscular Hemoglobin 28.9 pg (26-34); Mean Corpuscular Volume 89.8 fl (80-100); Mean Platelet Volume 9.5 fl (7.4-10.4); Platelet Count Result 388 k/mm3 (150-375); Red Blood Count 3.74 M/mm3 (4.6-6.20); Red Cell Distribution Width 11.4 % (11.5-14.5); White Blood Count 9.9 K/mm3 (4.5-10.0)
[2020-04-10 06:00] VITALS: BP 135/72; PULSE 70; RESP 16; TEMP 36.3; O2SAT 99
[2020-04-10 06:03] LABS: Hemoglobin A1C 9.8 % (<5.7)
[2020-04-10 06:11] LABS: Anion Gap 0 mmol/L (8-16); Blood Urea Nitrogen 9 mg/dL (9-20); Calcium 8.1 mg/dL (8.4-10.2); Carbon Dioxide 32 mmol/L (22-30); Chloride 103 mmol/L (98-107); Estimated CRCL calculation 122 ml/min; Estimated Glomerular Filt Rate > 60; Glucose 231 mg/dL (75-110); Magnesium 2.1 mg/dL (1.6-2.3); Potassium 4.3 mmol/L (3.4-5.0); Sodium 135 mmol/L (137-145)
[2020-04-10 06:40] LABS: Band Neutrophils Percent 12 % (0-6); Lymphocytes Absolute Manual 0.39 K/mm3 (1.1-4.5); Metamyelocytes Percent 1 %; Monocytes Absolute Manual 0.19 K/mm3 (0.1-0.90); Monocytes Percent Manual 2 % (3-9); Neutrophils Percent Manual 81 % (46-73); Platelet Estimate Adequate (Adequate); Total Cells Counted 100
[2020-04-10] MEDS: SODIUM CHLORIDE 0.9% IV 1,000 ML 100 ML IV CONT ×2 (06:51→16:21)
[2020-04-10 06:58] LABS: Glucose Point of Care 190 (65-105)
--- NOTE | 2020-04-10 07:58 | WPDGIPROGNO ---
Progress Note: A&P Assessment and Plan (1) Ulcerative colitis: Qualifiers: Digestive disease complication type: with rectal bleeding Ulcerative colitis location: ulcerative pancolitis Qualified Code(s): K51.011 - Ulcerative (chronic) pancolitis with rectal bleeding Code(s): K51.90 - Ulcerative colitis, unspecified, without complications Status: Acute Assessment and Plan: Patient with known ulcerative colitis. Pancolitis by CT scan. Patient has had some rectal bleeding and intermittent abdominal pain. I have discussed this with the patient. It is expected that the bleeding and pain will slowly resolve but not immediately. Patient remains on mesalamine with steroids. IV Solu-Medrol will be changed to oral prednisone today. Imuran will be started. We have started the process to place patient on Humira however this will likely not be accomplished till he is an outpatient. Outpatient follow-up strongly encourage for this patient. (2) Diabetes mellitus with hyperglycemia: Qualifiers: Diabetes mellitus type: type 1 Qualified Code(s): E10.65 - Type 1 diabetes mellitus with hyperglycemia Code(s): E11.65 - Type 2 diabetes mellitus with hyperglycemia Status: Chronic Assessment and Plan: Patient with underlying diabetes. History of DKA. Now the patient is on steroids close monitoring of glucose advised. As steroids will make his glucose level high. Subjective Date/time seen: 04/10/20 07:58 Patient remains quite anxious. Passing less stool. Had small amount of abdominal pain last night. Review of Systems Review of Systems: All systems reviewed & are unremarkable except as noted in HPI and below Exam Narrative: Exam Narrative: Physical exam reveals patient be somewhat anxious. HEENT exam reveals no icterus. Lungs are clear. Heart without murmur. Abdomen scaphoid flat bowel sounds are present soft nontender no organomegaly. Rectal exam deferred at this time. Extremities with many tattoos. Objective Data Vital Signs Vital Signs: Vital Signs - 24 hr 04/09/20 10:27 04/09/20 14:00 04/09/20 21:56 Temperature 98.0 F 97.4 F L Pulse Rate 85 79 Respiratory Rate 16 16 Blood Pressure 115/63 129/64 Pulse Oximetry 97 99 98 04/10/20 06:00 Temperature 97.3 F L Pulse Rate 70 Respiratory Rate 16 Blood Pressure 135/72 Pulse Oximetry 99 Intake/Output Intake/Output: Intake & Output 01/04/08/20 04/09/20 04/10/20 23:59 23:59 23:59 23:59 Intake Total 2330 5140 1000 Output Total 600 900 Balance 1730 4240 1000 Meds/Results Medications: Active Medications Generic Name Dose Route Start Last Admin Trade Name Freq PRN Reason Stop Dose Admin Acetaminophen 650 mg 04/09/20 10:42 Acetaminophen 325 Mg Tablet PO Q6H PRN Pain or Fever Azathioprine 100 mg 04/09/20 09:00 04/09/20 09:55 Azathioprine 50 Mg Tablet PO 100 mg DAILY RADHA Administration Dextrose 12.5 gm 04/08/20 14:11 Dextrose 50% 25 Gm/50 Ml Syringe IV PUSH PRN PRN Hypoglycemia Protocol Dicyclomine HCl 20 mg 04/08/20 14:28 Dicyclomine Hcl 10 Mg Capsule PO QID PRN Abdominal Cramping Enoxaparin Sodium 40 mg 04/09/20 09:00 04/09/20 08:17 Enoxaparin 40 Mg/0.4 Ml Syringe SUB-Q 40 mg DAILY RADHA Administration Glucagon 1 mg 04/08/20 14:11 Glucagon For Inj 1 Mg Vial IM PRN PRN Hypoglycemia Protocol Glucose 15 gm 04/08/20 14:11 Glucose Oral Gel 15 Gm Of Glucse In 37.5 Gm Tube PO PRN PRN Hypoglycemia Protocol Dextrose 1,000 mls @ 100 mls/hr 04/08/20 14:11 Dextrose 5% 1,000 Ml IVPB PRN PRN Hypoglycemia Protocol Sodium Chloride 1,000 mls @ 100 mls/hr 04/08/20 14:35 04/10/20 06:51 Normal Saline Iv IV CONT 100 mls/hr .Q10H RADHA Administration Insulin Aspart 3 - 6 units 04/09/20 17:00 04/10/20 06:54 Insulin Aspart (*Bkc) 100 Units/Ml SUB-Q Not
[2020-04-10] MEDS: azaTHIOprine 50 MG TABLET 100 MG PO (08:16)
[2020-04-10] MEDS: MESALAMINE 400 MG DELAYED RELEASE CAPSULE 1200 MG PO ×2 (08:16→16:17)
[2020-04-10] MEDS: ENOXAPARIN 40 MG/0.4 ML SYRINGE SUB-Q (08:16)
[2020-04-10 11:32] LABS: Glucose Point of Care 378 (65-105)
--- NOTE | 2020-04-10 11:36 | PM.IMPN ---
Progress Note: A&P Assessment and Plan (1) Ulcerative (chronic) pancolitis with rectal bleeding: Code(s): K51.011 - Ulcerative (chronic) pancolitis with rectal bleeding Status: Acute Assessment and Plan: Evidence of progression of diffuse abnormal thickening of the colon, compatible with pancolitis. Patient with history of ulcerative colitis. He was just discharged on 03/30/2020 with similar symptoms. Patient reports a few days after discharge he had recurrence of his pain with associated bloody stools and poor PO intake worsening prior to arrival. Dr. Jara consulted and switched IV Solu-Medrol to oral prednisone today. He started the patient on Imuran. Plan is to put the patient on Humira as an outpatient which will be set up through his office. At this time will continue oral prednisone, mesalamine and Imuran. Will recheck CBC in the morning since starting Imuran. Diet per GI recommendations Oil Extractor consulted given low-normal BMI Lovenox for VTE ppx given hypercoagulable state Continue with pain control as needed. Will transition to PO tylenol; will try to limit narcotics if tolerable - IV morphine for breakthrough pain. Monitor closely (2) Diabetes: Qualifiers: Diabetes mellitus type: type 1 Diabetes mellitus complication status: without complication Qualified Code(s): E10.9 - Type 1 diabetes mellitus without complications Code(s): E11.9 - Type 2 diabetes mellitus without complications Status: Chronic Assessment and Plan: Patient follows an operations examiner and has an insulin pump, although he has removed this given his poor appetite recently and has been managing his diabetes with injectable insulin regimen with short acting and long acting insulin. He was started on his long acting 35 units QHS and a correctional insulin. Continue with lantus 35 u QHS Accuchecks ACHS, hypoglycemia protocol, correctional insulin, diabetic diet A1c is 9.8%, not well controlled, but has been on steroids for UC. Needs follow up with Field Service Coordinator after discharge. Monitor and adjust regimen as oral intake increases (3) Normocytic anemia: Code(s): D64.9 - Anemia, unspecified Status: Acute Assessment and Plan: Hgb 10.8 this morning; near his baseline. He notes his bloody stools have improved since admission Continue to monitor transfuse Prn Time Spent With Patient Time with patient: 25 - 35 minutes Subjective Date/time seen: 04/10/20 11:36 Interval history: Patient is a 25 yo M with history of DMI and UC recently admitted and discharged here from 03/27-03/30 for UC flare who is seen in follow up for persistent symptoms related to UC and evidence of pancolitis on CT imaging. Date of Service 04/10/2020: Patient states he is feeling better today. He reports having bowel movements x5 so far this morning, with pain with having a bowel movement. He denies any more blood or melena in his stools at this time. Abdominal pain has improved and has been able to eat some food today. But eating does increases abdominal pain. No other complaints at the moment. Denies current f/c/s, headaches, dizziness, lightheadedness, cp/palpitations, sob/cough, n/v, dysuria, hematuria, cloudy urine, calf pain/swelling. Review of Systems Review of Systems: All systems reviewed & are unremarkable except as noted in HPI and below Exam Narrative: Exam Narrative: General: 25-year-old man laying flat in bed, watching TV. Appears comfortable. In no acute distress. Skin: No jaundice or cyanosis. Good skin turgor. Neck: Full range of motion. Supple. Respiratory: Lungs are clear to auscultation bilaterally. No bony chest wall tenderness. Cardiovascular: The heart has a regular rate and rhythm without murmur. Lower extremities: No lower extremity edema. Distal pulses are easily p
[2020-04-10] MEDS: INSULIN ASPART (*BKC) 100 UNITS/ML SUB-Q ×2 (11:55→16:54)
[2020-04-10 14:00] VITALS: BP 116/69; PULSE 77; RESP 16; TEMP 36.4; O2SAT 99
[2020-04-10] MEDS: ACETAMINOPHEN 325 MG TABLET 650 MG PO (16:20)
[2020-04-10] MEDS: DICYCLOMINE HCL 10 MG CAPSULE 20 MG PO (16:20)
[2020-04-10 16:36] LABS: Glucose Point of Care 290 (65-105)
[2020-04-10 21:30] VITALS: BP 117/73; PULSE 80; RESP 16; TEMP 36.4; O2SAT 100
[2020-04-10 21:37] LABS: Glucose Point of Care 310 (65-105)
[2020-04-10] MEDS: INSULIN GLARGINE (*BKC) 100 UNITS/ML 35 UNITS SUB-Q (21:38)
[2020-04-11] MEDS: INSULIN ASPART (*BKC) 100 UNITS/ML SUB-Q ×3 (00:06→17:41)
[2020-04-11] MEDS: DICYCLOMINE HCL 10 MG CAPSULE 20 MG PO ×2 (00:08→06:24)
[2020-04-11] MEDS: ACETAMINOPHEN 325 MG TABLET 650 MG PO ×2 (00:09→06:24)
[2020-04-11] MEDS: SODIUM CHLORIDE 0.9% IV 1,000 ML 100 ML IV CONT (02:23)
[2020-04-11 05:27] VITALS: BP 121/68; PULSE 89; RESP 17; TEMP 36.8; O2SAT 100
[2020-04-11 05:55] LABS: Hematocrit 36.6 % (42.0-52.0); Hemoglobin 11.7 g/dL (14.0-18.0); Mean Corpuscular Hemoglobin 29.2 pg (26-34); Mean Corpuscular Volume 91.3 fl (80-100); Mean Platelet Volume 9.3 fl (7.4-10.4); Platelet Count Result 339 k/mm3 (150-375); Red Blood Count 4.01 M/mm3 (4.6-6.20); Red Cell Distribution Width 11.7 % (11.5-14.5); White Blood Count 12.6 K/mm3 (4.5-10.0)
[2020-04-11 07:47] LABS: Glucose Point of Care 66 (65-105)
--- NOTE | 2020-04-11 07:53 | WPDGIPROGNO ---
Progress Note: A&P Assessment and Plan (1) Ulcerative (chronic) pancolitis with rectal bleeding: Code(s): K51.011 - Ulcerative (chronic) pancolitis with rectal bleeding Status: Acute Assessment and Plan: Patient with ulcerative pancolitis. Patient now on steroids. Will increase dose to60mg of prednisone p.o. daily. Taper as tolerated. Continue mesalamine daily. Imuran 100 mg p.o. daily was added yesterday. It will take some time for the effect of these medicines to be clear. Humira is anticipated but likely will take some time for approval. Anticipate that this will get started as an outpatient. Frequent monitoring of CBC anticipated We will add mesalamine enemas because of patient's anxiety about blood in his stool. (2) Diabetes mellitus with hyperglycemia: Qualifiers: Diabetes mellitus type: type 1 Qualified Code(s): E10.65 - Type 1 diabetes mellitus with hyperglycemia Code(s): E11.65 - Type 2 diabetes mellitus with hyperglycemia Status: Chronic Assessment and Plan: Need to closely watch his serum glucose given his steroid use. Patient does have a history of poorly controlled diabetes. Had DKA 1 time the past. (3) Anxiety: Code(s): F41.9 - Anxiety disorder, unspecified Status: Acute Assessment and Plan: Patient exhibits rather significant anxiety. May benefit from anxiolytics Subjective Date/time seen: 04/11/20 07:53 Patient remains quite anxious. Continues to have intermittent blood in his stools. Intermittent abdominal pain. Review of Systems Review of Systems: All systems reviewed & are unremarkable except as noted in HPI and below Exam Narrative: Exam Narrative: Physical exam reveals patient be quite anxious. HEENT exam unremarkable. Vital signs are stable. Lungs are clear. Heart without murmur. Abdomen soft flat nontender. No masses appreciated. Extremities with many tattoos. Objective Data Vital Signs Vital Signs: Vital Signs - 24 hr 04/10/20 14:00 04/10/20 21:30 04/11/20 05:27 Temperature 97.6 F 97.6 F 98.2 F Pulse Rate 77 80 89 Respiratory Rate 16 16 17 Blood Pressure 116/69 117/73 121/68 Pulse Oximetry 99 100 100 Intake/Output Intake/Output: Intake & Output 04/08/20 04/09/20 04/10/20 04/11/20 23:59 23:59 23:59 23:59 Intake Total 2330 5140 3520 1753 Output Total 600 900 Balance 1730 4240 3520 1753 Meds/Results Medications: Active Medications Generic Name Dose Route Start Last Admin Trade Name Freq PRN Reason Stop Dose Admin Acetaminophen 650 mg 04/09/20 10:42 04/11/20 06:24 Acetaminophen 325 Mg Tablet PO 650 mg Q6H PRN Administration Pain or Fever Azathioprine 100 mg 04/09/20 09:00 04/10/20 08:16 Azathioprine 50 Mg Tablet PO 100 mg DAILY RADHA Administration Dextrose 12.5 gm 04/08/20 14:11 Dextrose 50% 25 Gm/50 Ml Syringe IV PUSH PRN PRN Hypoglycemia Protocol Dicyclomine HCl 20 mg 04/08/20 14:28 04/11/20 06:24 Dicyclomine Hcl 10 Mg Capsule PO 20 mg QID PRN Administration Abdominal Cramping Enoxaparin Sodium 40 mg 04/09/20 09:00 04/10/20 08:16 Enoxaparin 40 Mg/0.4 Ml Syringe SUB-Q 40 mg DAILY RADHA Administration Glucagon 1 mg 04/08/20 14:11 Glucagon For Inj 1 Mg Vial IM PRN PRN Hypoglycemia Protocol Glucose 15 gm 04/08/20 14:11 Glucose Oral Gel 15 Gm Of Glucse In 37.5 Gm Tube PO PRN PRN Hypoglycemia Protocol Dextrose 1,000 mls @ 100 mls/hr 04/08/20 14:11 Dextrose 5% 1,000 Ml IVPB PRN PRN Hypoglycemia Protocol Sodium Chloride 1,000 mls @ 100 mls/hr 04/08/20 14:35 04/11/20 06:26 Normal Saline Iv IV CONT 100 mls/hr .Q10H RADHA Infusion Insulin Aspart 6 - 9 units 04/10/20 12:00 04/10/20 16:54 Insulin Aspart (*Bkc) 100 Units/Ml SUB-Q 7 units TIDWM RADHA Administration Protocol Insulin Glargine 35 units 04/09/20 21:00 04/10/20 21:38
[2020-04-11] MEDS: azaTHIOprine 50 MG TABLET 100 MG PO (08:32)
[2020-04-11] MEDS: ENOXAPARIN 40 MG/0.4 ML SYRINGE SUB-Q (08:32)
[2020-04-11] MEDS: predniSONE 20 MG TABLET 60 MG PO (08:32)
[2020-04-11] MEDS: MESALAMINE 400 MG DELAYED RELEASE CAPSULE 1200 MG PO ×2 (08:33→17:42)
[2020-04-11 08:45] LABS: Glucose Point of Care 160 (65-105)
--- NOTE | 2020-04-11 11:04 | PM.IMPN ---
Progress Note: A&P Assessment and Plan (1) Ulcerative (chronic) pancolitis with rectal bleeding: Code(s): K51.011 - Ulcerative (chronic) pancolitis with rectal bleeding Status: Acute Assessment and Plan: Evidence of progression of diffuse abnormal thickening of the colon, compatible with pancolitis. Patient with history of ulcerative colitis. He was just discharged on 03/30/2020 with similar symptoms. Patient reports a few days after discharge he had recurrence of his pain with associated bloody stools and poor PO intake worsening prior to arrival. 04/10/2020: Dr. Jara consulted and switched IV Solu-Medrol to oral prednisone. He started the patient on Imuran. Plan is to put the patient on Humira as an outpatient which will be set up through his office. 04/11/2020: Patient's bloody diarrhea returned as well as abdominal discomfort. GI increased his oral prednisone to 60 mg daily, continue Imuran, continued Mesalamine PO BID and added Mesalamine to Rectal HS. Diet per GI recommendations Adaptive Physical Education Specialist consulted given low-normal BMI Lovenox for VTE ppx given hypercoagulable state Continue with pain control as needed. Will transition to PO tylenol; will try to limit narcotics if tolerable - IV morphine for breakthrough pain. 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 He was started on his long acting 35 units QHS and a correctional insulin. Glucose this morning was 66, he was asymptomatic. Will decrease Lantus to 25 Units HS to prevent hypoglycemia in the AM. Accuchecks ACHS, hypoglycemia protocol, correctional insulin, diabetic diet A1c is 9.8%, not well controlled, but has been on steroids for UC. Needs follow up with Urologic Nurse after discharge. Monitor and adjust regimen as oral intake increases (3) Normocytic anemia: Code(s): D64.9 - Anemia, unspecified Status: Acute Assessment and Plan: Hgb 11.7 this morning; near his baseline. He notes his bloody stools have improved since admission Continue to monitor transfuse Prn Time Spent With Patient Time with patient: 25 - 35 minutes Subjective Date/time seen: 04/11/20 11:04 Interval history: Patient is a 25 yo M with history of DMI and UC recently admitted and discharged here from 03/27-03/30 for UC flare who is seen in follow up for persistent symptoms related to UC and evidence of pancolitis on CT imaging. Date of Service 04/11/2020: Patient state last night he began developing recurrence of his abdominal pain and hematochezia. He reports having multiple bowel movements overnight with these symptoms. He has been eating some this morning but it is decreased. No other complaints at the moment. Denies current f/c/s, headaches, dizziness, lightheadedness, cp/palpitations, sob/cough, n/v, dysuria, hematuria, cloudy urine, calf pain/swelling. Review of Systems Review of Systems: All systems reviewed & are unremarkable except as noted in HPI and below Exam Narrative: Exam Narrative: General: 25-year-old man laying flat in bed on his right side taking a nap. Appears comfortable. In no acute distress. Skin: No jaundice or cyanosis. Good skin turgor. Neck: Full range of motion. Supple. Respiratory: Lungs are clear to auscultation bilaterally. No bony chest wall tenderness. Cardiovascular: The heart has a reg
[2020-04-11 11:50] LABS: Glucose Point of Care 210 (65-105)
[2020-04-11 14:00] VITALS: BP 118/70; PULSE 85; RESP 18; TEMP 36.7; O2SAT 100
[2020-04-11 17:15] LABS: Glucose Point of Care 317 (65-105)
[2020-04-11 20:42] VITALS: BP 124/70; PULSE 86; RESP 18; TEMP 36.8; O2SAT 100
[2020-04-11 20:47] LABS: Glucose Point of Care 313 (65-105)
[2020-04-11] MEDS: INSULIN GLARGINE (*BKC) 100 UNITS/ML 25 UNITS SUB-Q (20:48)
[2020-04-11] MEDS: MESALAMINE ENEMA 4 GM/60 ML BOTTLE RECTAL (21:41)
[2020-04-12 04:32] VITALS: BP 109/63; PULSE 84; RESP 18; TEMP 36.3; O2SAT 98
[2020-04-12 05:40] LABS: Hematocrit 34.7 % (42.0-52.0); Hemoglobin 11.2 g/dL (14.0-18.0)
--- NOTE | 2020-04-12 07:27 | WPDGIPROGNO ---
Progress Note: A&P Assessment and Plan (1) Anxiety: Code(s): F41.9 - Anxiety disorder, unspecified Status: Acute (2) Ulcerative colitis: Code(s): K51.90 - Ulcerative colitis, unspecified, without complications Status: Chronic Assessment and Plan: Ulcerative colitis with some rectal bleeding. Pain appears to be spastic in nature. Plan is to stop the morphine. Continue antispasmodic agents. Will taper prednisone. Continue mesalamine. Imuran recently started will continue. Humira will need to be started as an outpatient. Plan to see in the office as soon as he can be discharged to arrange this. (3) Diabetes: Qualifiers: Diabetes mellitus type: type 1 Diabetes mellitus complication status: without complication Qualified Code(s): E10.9 - Type 1 diabetes mellitus without complications Code(s): E11.9 - Type 2 diabetes mellitus without complications Status: Chronic Assessment and Plan: Continue to monitor glucose closely. Steroid use will undoubtedly cause elevated glucose. Patient does have a history of DKA. Subjective Date/time seen: 04/12/20 07:27 Patient continues to notice intermittent abdominal pain. Appears to be intermittent. He continues to take morphine. Only a small amount of bright red blood noted on stools. Denies any fever. Ambulating in room. Tolerating diet. Review of Systems Review of Systems: All systems reviewed & are unremarkable except as noted in HPI and below Exam Narrative: Exam Narrative: Physical exam reveals patient be alert. Comfortable at rest. He is anicteric. Lungs are clear. Heart without murmur. Abdomen is scaphoid flat nontender with no organomegaly. Objective Data Vital Signs Vital Signs: Vital Signs - 24 hr 04/11/20 14:00 04/11/20 20:42 04/12/20 04:32 Temperature 98.0 F 98.2 F 97.3 F L Pulse Rate 85 86 84 Respiratory Rate 18 18 18 Blood Pressure 118/70 124/70 109/63 Pulse Oximetry 100 100 98 Intake/Output Intake/Output: Intake & Output 04/09/20 04/10/20 04/11/20 04/12/20 23:59 23:59 23:59 23:59 Intake Total 5140 3520 4780 350 Output Total 900 1800 Balance 4240 3520 2980 350 Meds/Results Medications: Active Medications Generic Name Dose Route Start Last Admin Trade Name Freq PRN Reason Stop Dose Admin Acetaminophen 650 mg 04/09/20 10:42 04/11/20 06:24 Acetaminophen 325 Mg Tablet PO 650 mg Q6H PRN Administration Pain or Fever Azathioprine 100 mg 04/09/20 09:00 04/11/20 08:32 Azathioprine 50 Mg Tablet PO 100 mg DAILY RADHA Administration Dextrose 12.5 gm 04/08/20 14:11 Dextrose 50% 25 Gm/50 Ml Syringe IV PUSH PRN PRN Hypoglycemia Protocol Dicyclomine HCl 20 mg 04/08/20 14:28 04/11/20 06:24 Dicyclomine Hcl 10 Mg Capsule PO 20 mg QID PRN Administration Abdominal Cramping Enoxaparin Sodium 40 mg 04/09/20 09:00 04/11/20 08:32 Enoxaparin 40 Mg/0.4 Ml Syringe SUB-Q 40 mg DAILY RADHA Administration Glucagon 1 mg 04/08/20 14:11 Glucagon For Inj 1 Mg Vial IM PRN PRN Hypoglycemia Protocol Glucose 15 gm 04/08/20 14:11 Glucose Oral Gel 15 Gm Of Glucse In 37.5 Gm Tube PO PRN PRN Hypoglycemia Protocol Dextrose 1,000 mls @ 100 mls/hr 04/08/20 14:11 Dextrose 5% 1,000 Ml IVPB PRN PRN Hypoglycemia Protocol Insulin Aspart 6 - 9 units 04/10/20 12:00 04/11/20 17:41 Insulin Aspart (*Bkc) 100 Units/Ml SUB-Q 8 units TIDWM RADHA Administration Protocol Insulin Glargine 25 units 04/11/20 21:00 04/11/20 20:48 Insulin Glargine (*Bkc) 100 Units/Ml SUB-Q 25 units HS RADHA Administration Mesalamine 1,200 mg 04/08/20 17:00 04/11/20 17:42 Mesalamine 400 Mg Delayed Release Capsule PO 1,200 mg BID RADHA Administration Mesalamine 4 gm 04/11/20 21:00 04/11/20 21:41 Mesalamine Enema 4 Gm/60 Ml Bottle RECTAL 4 gm HS RADHA Administration Morphin
[2020-04-12 07:41] LABS: Glucose Point of Care 129 (65-105)
[2020-04-12] MEDS: MESALAMINE 400 MG DELAYED RELEASE CAPSULE 1200 MG PO (08:42)
[2020-04-12] MEDS: ENOXAPARIN 40 MG/0.4 ML SYRINGE SUB-Q (08:43)
[2020-04-12] MEDS: predniSONE 20 MG TABLET 40 MG PO (08:43)
[2020-04-12] MEDS: DICYCLOMINE HCL 10 MG CAPSULE 20 MG PO (08:43)
[2020-04-12] MEDS: azaTHIOprine 50 MG TABLET 100 MG PO (08:44)
--- NOTE | 2020-04-12 11:03 | PM.DS ---
DS: Admitting Diagnosis Admitting Diagnosis Admitting Diagnosis: Abdominal pain DS: Discharge Diagnosis Discharge Diagnosis (1) Ulcerative (chronic) pancolitis with rectal bleeding: Code(s): K51.011 - Ulcerative (chronic) pancolitis with rectal bleeding Status: Acute Assessment and Plan: Evidence of progression of diffuse abnormal thickening of the colon, compatible with pancolitis. Patient with history of ulcerative colitis. He was just discharged on 03/30/2020 with similar symptoms. Patient reports a few days after discharge he had recurrence of his pain with associated bloody stools and poor PO intake worsening prior to arrival. 04/10/2020: Dr. Jara consulted and switched IV Solu-Medrol to oral prednisone. He started the patient on Imuran. Plan is to put the patient on Humira as an outpatient which will be set up through his office. 04/11/2020: Patient's bloody diarrhea returned as well as abdominal discomfort. GI increased his oral prednisone to 60 mg daily, continue Imuran, continued Mesalamine PO BID and added Mesalamine to Rectal HS. 04/12/2020: Patient is feeling better today. He continues to have symptoms but they are tolerable and able for him to go home and continue on oral medications. He will be discharged on prednisone taper 40 mg for 7 days, then to continue his prednisone taper that after leaving the hospital 03/30/2020. He will be given Imuran, mesalamine, Bentyl for pain Dr. kellogg as an outpatient next week to trying get on Humira. Patient understands and agrees the plan all questions answered. 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 He was started on his long acting 35 units QHS and a correctional insulin. Glucose this morning was 129, improved. Will have him continue on his home regimen and following up with his surface grinding machine hand so that he can set up his insulin pump which is not use for 1 year. A1c is 9.8% (3) Normocytic anemia: Code(s): D64.9 - Anemia, unspecified Status: Acute Assessment and Plan: Hgb 11.2 this morning; near his baseline. He notes his bloody stools have improved since admission DS: Summary Hospital Course Hospital Course: Patient is a 25-year-old man with a history of ulcerative colitis and diabetes, presented to the emergency department with continued abdominal pain, hematochezia, and diarrhea which has been ongoing since being discharged from the hospital with an ulcerative colitis flare on 03/30/2020. At that time he did see the GI specialist and he was started on more medications. He states after being discharged his pain returned within 24 hours and he was trying to control at home but his symptoms became worse and he returned back to the ER. Initial vitals showed he was afebrile, slightly tachycardic at 105, respiratory rate 20, blood pressure 133/93, oxygen saturation 100% on room air. Initial labs showed leukocytosis at 17,900 (most likely from steroids), normocytic anemia with a hemoglobin of 13, hematocrit 40%, slight hyponatremia at 133, glucose 219, normal LFTs, CRP elevated at 2.3. Urine showed no signs of acute infection. CT abdomen showed progression of diffuse abnormal thickening of the colon, compatible with cobb colitis. He was admitted into the hospital and started on IV prednisone and consult to GI specialist. Stool cultures
[2020-04-12 23:22] LABS: Lactoferrin, Stool Positive (Negative)
[2020-04-14 18:52] LABS: Calprotectin, Stool 3330 mcg/g
== END 2020-04-12 14:00 | disposition home or self-care (01) | DRG 387 ==
LOC: ANHED 07:34 → ANH3MED 10:42
PROVIDERS: Internal Medicine Gastroenterology; Nurse Practitioner; Physician Assistant; Admitting Provider Family Medicine; Emergency Provider Emergency Medicine; PCP Physician Assistant; Visit Provider Physician Assistant
DX: K51.011 Ulcerative (chronic) pancolitis with rectal bleeding (principal); E10.65 Type 1 diabetes mellitus with hyperglycemia; D64.9 Anemia, unspecified; F41.9 Anxiety disorder, unspecified
CPT/HCPCS: 36415; 74177; 80048; 80053; 81001; 83036; 83630; 83735; 83993; 84439; 84443; 84480; 85014; 85018; 85025; 85027; 85652; 86140; 87045; 87046; 87086; 87324; 87340; 87427; 96361; 96365; 96367; 96372; 96374; 96375; 96376; 99285; A9270; G0378; J0744; J1650; J1815; J2270; J2920; J7030; J7512; Q9967

== ENCOUNTER 2020-09-12 11:56 | Emergency (ER) | payer OTHER, SELFPAY ==
[2020-09-12 11:59] VITALS: BP 138/99; PULSE 104; RESP 18; O2SAT 98
[2020-09-12 12:05] LABS: Glucose Point of Care 499 mg/dl (65-105)
[2020-09-12] MEDS: SODIUM CHLORIDE 0.9% IV 1,000 ML 999 ML IV CONT ×2 (12:15→13:05)
[2020-09-12] MEDS: TETANUS,DIPHTHERIA,AC PERTUSSIS ADULT (0.5 ML) BOOSTRIX IM (12:19)
[2020-09-12] MEDS: LIDOCAINE, EPINEPHRINE, TETRACAINE VISCOUS SOLN 3 ML TOPICAL (12:20)
[2020-09-12 12:43] LABS: Basophils Percent Auto 0.7 % (0.2-1.2); Eosinophils Absolute Auto 0.1 K/mm3 (0-0.3); Eosinophils Percent Auto 1.8 % (0-4.4); Hematocrit 40.4 % (42.0-52.0); Hemoglobin 12.8 g/dL (14.0-18.0); Immature Granulocyte Absolute 0.01 K/mm3 (0.00-0.031); Immature Granulocyte Percent A 0.2 % (0-0.5); Lymphocytes Absolute Auto 1.03 K/mm3 (0.9-3.2); Lymphocytes Percent Auto 22.8 % (18.3-44.2); Mean Corpuscular HGB Conc 31.7 g/dl (32-36); Mean Corpuscular Volume 78.9 fl (80-100); Mean Platelet Volume 10.6 fl (7.4-10.4); Monocytes Absolute Auto 0.3 K/mm3 (0.1-0.6); Monocytes Percent Auto 7.5 % (2.6-8.5); Platelet Count Result 208 k/mm3 (150-375); Red Blood Count 5.12 M/mm3 (4.6-6.20); Red Cell Distribution Width 20.1 % (11.5-14.5); White Blood Count 4.5 K/mm3 (4.5-10.0)
[2020-09-12 12:45] LABS: Add Urine Microscopic? YES; Appearance Urine Clear (Clear); Bilirubin Urine Negative (Negative); Blood Urine Negative (Negative); Color Urine Colorless (Yellow); Glucose Urine UA 3+ mg/dL (Negative); Ketones Urine 2+ mg/dL (Negative); Leukocyte Esterase Ur Negative LEU/UL (Negative); Mucus Urine Rare /lpf; Nitrate Urine Negative (Negative); Protein Urine Negative (Negative); Specific Grav Ur 1.024 (1.001-1.035); Urobilinogen Urine Negative mg/dL (<2.0); WBC Urine 0-3 /hpf
[2020-09-12 12:51] LABS: Alanine Aminotransferase 18 U/L (4-50); Alkaline Phosphatase 91 U/L (38-126); Anion Gap 14 mmol/L (8-16); Aspartate Amino Transferase 26 U/L (17-59); Bilirubin,Total 0.7 mg/dL (0.2-1.3); Blood Urea Nitrogen 14 mg/dL (9-20); Carbon Dioxide 21 mmol/L (22-30); Chloride 99 mmol/L (98-107); Estimated CRCL calculation 109 ml/min; Estimated Glomerular Filt Rate > 60; Glucose 537 mg/dL (75-110); Sodium 134 mmol/L (137-145)
[2020-09-12] MEDS: INSULIN HUMAN REGULAR (*BKC) 100 UNITS/ML 10 UNITS SUB-Q (13:05)
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
[2020-09-12 14:17] VITALS: BP 140/93; PULSE 74; RESP 19; O2SAT 98
[2020-09-12 14:21] LABS: Glucose Point of Care 426 mg/dl (65-105)
[2020-09-12 15:52] VITALS: BP 132/89; PULSE 87; RESP 16; O2SAT 99
== END 2020-09-12 15:53 | disposition home or self-care (01) ==
PROVIDERS: Emergency Medicine Emergency Medical Services; Emergency Provider Emergency Medicine; PCP Physician Assistant
DX: S01.511A Laceration without foreign body of lip, initial encounter (principal); E10.9 Type 1 diabetes mellitus without complications; Z23 Encounter for immunization; V49.40XA Driver injured in collision with unspecified motor vehicles in traffic accident, initial encounter
CPT/HCPCS: 12013; 36415; 80053; 81001; 82948; 85025; 90471; 90715; 96361; 96365; 99284; J0131; J1815; J7030

== ENCOUNTER 2021-01-05 11:26 | Emergency (ER) | payer OTHER, SELFPAY ==
[2021-01-05 11:33] VITALS: BP 138/87; PULSE 104; RESP 18; TEMP 37.1; O2SAT 100
[2021-01-05 11:53] LABS: Glucose Point of Care 55 mg/dl (65-105)
--- NOTE | 2021-01-05 12:03 | PC.NURSE ---
pt notes that he is T1D, pt stated that he has not been eating for the last few days and has not been checking his BG. bedside BG completed, pt hypoglycemic, given two cups of orange juice.
[2021-01-05 12:29] LABS: Basophils Percent Auto 0.4 % (0.2-1.2); Eosinophils Absolute Auto 0.2 K/mm3 (0-0.3); Eosinophils Percent Auto 2.5 % (0-4.4); Hematocrit 43.6 % (42.0-52.0); Hemoglobin 15.1 g/dL (14.0-18.0); Immature Granulocyte Absolute 0.03 K/mm3 (0.00-0.031); Immature Granulocyte Percent A 0.3 % (0-0.5); Lymphocytes Absolute Auto 1.33 K/mm3 (0.9-3.2); Lymphocytes Percent Auto 14.2 % (18.3-44.2); Mean Corpuscular HGB Conc 34.6 g/dl (32-36); Mean Corpuscular Hemoglobin 30.3 pg (26-34); Mean Corpuscular Volume 87.6 fl (80-100); Mean Platelet Volume 10.1 fl (7.4-10.4); Monocytes Absolute Auto 0.9 K/mm3 (0.1-0.6); Neutrophils Absolute Auto 6.8 K/mm3 (1.3-6.7); Neutrophils Percent Auto 72.6 % (45.5-73.1); Platelet Count Result 237 k/mm3 (150-375); Red Blood Count 4.98 M/mm3 (4.6-6.20); Red Cell Distribution Width 11.3 % (11.5-14.5); White Blood Count 9.4 K/mm3 (4.5-10.0)
[2021-01-05 12:40] LABS: Alanine Aminotransferase 20 U/L (4-50); Albumin Level 4.7 g/dL (3.5-5.1); Alkaline Phosphatase 67 U/L (38-126); Anion Gap 12 mmol/L (8-16); Aspartate Amino Transferase 25 U/L (17-59); Bilirubin,Total 0.4 mg/dL (0.2-1.3); Blood Urea Nitrogen 8 mg/dL (9-20); Calcium 9.3 mg/dL (8.4-10.2); Carbon Dioxide 28 mmol/L (22-30); Chloride 103 mmol/L (98-107); Estimated CRCL calculation 135 ml/min; Estimated Glomerular Filt Rate > 60; Glucose 72 mg/dL (65-110); Potassium 3.5 mmol/L (3.4-5.0); Sodium 143 mmol/L (137-145)
--- NOTE | 2021-01-05 13:11 | ED.GENADULT ---
HPI - General Adult General Chief complaint: Unspecified Stated complaint: left sided body pain Time Seen by Provider: 01/05/21 12:21 Source: patient Mode of arrival: ambulatory Limitations: no limitations History of Present Illness HPI narrative: Patient is 25 years old white male presented to the ED complaining of waking up this morning with left hand pain, left hip pain and pain at the back of the neck. Patient denies any trauma. 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 Patient denies any new physical activity lately. Patient also denies any fever, chills, nausea, vomiting, diarrhea, constipation, headache. History of type 1 diabetes and ulcerative colitis patient on insulin shots, history of fluctuation of the blood glucose, scheduled to see an pediatric care coordinator in 2 days. Blood glucose on arrival to the emergency room is 50. Related Data Home Medications Medication Instructions Recorded Confirmed ferrous gluconate 324 mg PO DAILY 01/05/21 01/05/21 fluoxetine 40 mg PO DAILY 01/05/21 01/05/21 Allergies Allergy/AdvReac Type Severity Reaction Status Date / Time No Known Allergies Allergy Verified 01/05/21 11:35 Review of Systems Review of Systems: CONSTITUTIONAL: Denies fever, chills, or sweats. EYES: Denies visual changes, redness, or discharge. ENT: Denies rhinorrhea, congestion, sore throat, or otalgia. CARDIOVASCULAR: Denies chest pain, palpitations, or edema. RESPIRATORY: Denies cough or dyspnea. GASTROINTESTINAL: Denies abdominal pain, nausea, vomiting, or diarrhea. GENITOURINARY: Denies dysuria or hematuria. SKIN: Denies rash or itching. MUSCULOSKELETAL: Denies back pain, joint pain, or myalgia. NEUROLOGIC: Denies headache, numbness, or weakness. PSYCHIATRIC: Denies anxiety or depression. [facility] Past Medical History Medical History Diabetes type 1 A1c 10.4 on 01/12/2020 Ulcerative colitis Surgical History Surgical History H/O eye surgery right eye H/O hand surgery on the right hand Family History Family History Father Acute myocardial infarction Sibling Asthma Diabetes mellitus Mother Family history of thyroid problem Grandparent Acute Crohn's disease Diabetes mellitus Social History Social History Social History: The patient lives with his girlfriend and they are expecting a child in about 4 months. He has no other children. 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 The patient is a full code and he would like for his mother to be the durable power securities attorney for healthcare. Smoking status: Never smoker Second hand tobacco smoke exposure: Yes Alcohol intake: never Substance use: never Substance use type: does not use Gender identity (if verbalized by the patient): Male Sexual Orientation (if Verbalized by the Patient): Straight or Heterosexual Spiritual care concerns: No Exam Narrative: General appearance: Well-developed, well-nourished Skin: Normal color Head: Normocephalic, nontraumatic Eyes: Clear conjunctiva ENT: Oropharynx normal, ears normal, nose normal Neck: Supple, nontender Chest and respiratory: Airway patent, no respiratory distress, no accessory muscle use Heart: Regular rate/rhythm Abdomen: Soft, nontender, no organomegaly, quiet bowel sounds Vascular: Normal peripheral pulses, normal capillary refill. Musculoskeletal: Normal range of motion, nontender back Neurologic: Alert and oriented ?3, TIRE DUSTER is normal as tested, no gross motor deficit
[2021-01-05 14:50] VITALS: BP 129/84; PULSE 84; RESP 18; O2SAT 99
== END 2021-01-05 14:51 | disposition home or self-care (01) ==
PROVIDERS: Emergency Provider Emergency Medicine; PCP Physician Assistant
DX: M79.642 Pain in left hand (principal); E10.649 Type 1 diabetes mellitus with hypoglycemia without coma; Z79.4 Long term (current) use of insulin
CPT/HCPCS: 36415; 80053; 82948; 85025; 99283

== ENCOUNTER 2021-01-21 03:51 | Emergency (ER) | payer OTHER, SELFPAY ==
--- NOTE | ~2021-01-21 | CT_ITS ---
EXAMINATION: CT brain wo con EXAM DATE: 01/21/2021 05:27 INDICATION: Headache. TECHNIQUE: Spiral CT of the head was performed without contrast. Axial, coronal and sagittal images were reviewed. The dose-length product (DLP) for this examination was 605.33 mGy-cm. The exposure w as tailored according to patient size, and iterative reconstruction (ASIR) was used as additional dos e reduction technique. There is no prior study for comparison. FINDINGS: There is no acute intraparenchymal hemorrhage. No evidence of intraparenchymal brain mass lesion. No evidence of acute infarction. There is no mass effect or midline shift. The ventricles are normal in size. There are no extra-axial collections. There are no acute calvarial fractures. T he orbits are unremarkable. Soft tissue is unremarkable. Early completely opacified ethmoid sinuses . Most of the left maxillary sinus is opacified. There is moderate opacity within the frontal sinuses , sphenoid sinuses, right maxillary sinus. Fluid is seen within most of the sinuses. Clinical correla te for sinusitis. IMPRESSION: 1. No acute intracranial findings. 2. Extensive sinus opacity with air-fluid levels, suspicious for sinusitis. Reviewed, dictated and finalized at location A.
[2021-01-21 03:57] VITALS: BP 143/92; PULSE 104; RESP 18; TEMP 36.4; O2SAT 99
[2021-01-21] MEDS: SODIUM CHLORIDE 0.9% IV 1,000 ML 999 ML IV CONT (04:20)
[2021-01-21] MEDS: METOCLOPRAMIDE HCL INJ 10 MG/2 ML VIAL IV PUSH (04:21)
[2021-01-21] MEDS: KETOROLAC 30 MG/ML VIAL (*BKC) IV PUSH (04:22)
[2021-01-21] MEDS: diphenhydrAMINE HCl INJ 50 MG/ML VIAL 25 MG IV PUSH (04:22)
[2021-01-21 05:59] VITALS: BP 132/89; PULSE 74; RESP 16; O2SAT 98
--- NOTE | 2021-01-21 06:33 | ED.HA ---
HPI - Headache General Chief Complaint: Headache Stated Complaint: pain behind left eye/headache x 3 days Time Seen by Provider: 01/21/21 04:06 History of Present Illness HPI Narrative: Patient is a 25-year-old male who presents ER with headache. Left-sided. Has had pain behind his eye associate with this. Takes Tylenol with improvement but tonight it worsened. No fevers or chills or sweats. Does have sinus congestion. No cough. Reports he had similar headaches about a month ago and at that time he had some weakness in his left arm. He is unsure if it is related. No previous CT scan of the brain. No formal diagnosis of migraine headache. Related Data Home Medications Medication Instructions Recorded Confirmed ferrous gluconate 324 mg PO DAILY 01/05/21 01/05/21 fluoxetine 40 mg PO DAILY 01/05/21 01/05/21 Allergies Allergy/AdvReac Type Severity Reaction Status Date / Time No Known Allergies Allergy Verified 01/05/21 11:35 Review of Systems Review of Systems: All systems reviewed & are unremarkable except as noted in HPI and below Constitutional: Constitutional: Denies chills, Denies fever(s) and Denies weakness Eyes: Eyes: Denies change in vision and Reports photophobia ENT: Reports nasal congestion and Denies sore throat Gastrointestinal: Gastrointestinal: Reports nausea and Denies vomiting Neurologic: Denies syncope, Reports headache(s), Denies focal weakness and Denies numbness PMFSH Past Medical History Medical History Diabetes type 1 A1c 10.4 on 01/12/2020 Ulcerative colitis Surgical History Surgical History H/O eye surgery right eye H/O hand surgery on the right hand Family History Family History Father Acute myocardial infarction Sibling Asthma Diabetes mellitus Mother Family history of thyroid problem Grandparent Acute Crohn's disease Diabetes mellitus Social History Social History Social History: The patient lives with his girlfriend and they are expecting a child in about 4 months. He has no other children. 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 The patient is a full code and he would like for his mother to be the durable power dog handler for healthcare. Smoking status: Never smoker Second hand tobacco smoke exposure: Yes Alcohol intake: never Substance use: never Substance use type: does not use Gender identity (if verbalized by the patient): Male Sexual Orientation (if Verbalized by the Patient): Straight or Heterosexual Spiritual care concerns: No Exam Narrative: GENERAL: Uncomforatble-appearing, well-nourished, and in no acute distress. HEAD: Normocephalic, atraumatic. ENT: Mucous membranes moist. CHEST: Clear to auscultation. No respiratory distress. HEART: Regular rate and rhythm. Normal peripheral pulses. EXTREMITIES: Normal range of motion. No edema. NEURO: No focal deficits. Alert and oriented x3. PSYCH: Normal mood and affect. Course Course Emergency Course: Headache resolved with Reglan/Benadryl/Toradol. Informed results and discussed that symptoms are likely related to his sinusitis. Discussed treatment plan and patient verbalized understanding. Vital Signs Vital signs: Vital Signs Temperature 97.6 F 01/21/21 03:57 Pulse Rate 104 H 01/21/21 03:57 Respiratory Rate 18 01/21/21 03:57 Blood Pressure 143/92 H 01/21/21 03:57 Pulse Oximetry 99 01/21/21 03:57 Temperature 97.6 F 01/21/21 03:57 Pulse Rate 74 01/21/21 05:59 Respiratory Rate 16 01/21/21 05:59 Blood Pressure 132/89 01/21/21 05:59 Pulse Oximetry 98 01/21/21 05:59 MDM - Headache Imaging Data Radiologist's impression: CT brain: No evidence of acute intracranial hemorrhage. No mass-effect or midline shift. Ventricular vol
[2021-01-21 06:45] VITALS: BP 122/89; PULSE 73; RESP 16; O2SAT 98
== END 2021-01-21 06:46 | disposition home or self-care (01) ==
PROVIDERS: Emergency Provider Emergency Medicine; PCP Physician Assistant
DX: J32.9 Chronic sinusitis, unspecified (principal); E10.9 Type 1 diabetes mellitus without complications; K51.90 Ulcerative colitis, unspecified, without complications; Z79.4 Long term (current) use of insulin
CPT/HCPCS: 70450; 96361; 96374; 96375; 99284; J1200; J1885; J2765; J7030

== ENCOUNTER 2021-04-12 13:28 | Inpatient (IN) | payer OTHER, SELFPAY ==
--- NOTE | ~2021-04-12 | CT_ITS ---
EXAMINATION: CT abdomen pelvis w con EXAM DATE: 04/12/2021 16:05 INDICATION: Ulcerative colitis. Diffuse pain with hematochezia. TECHNIQUE: Spiral CT of the abdomen and pelvis was performed following intravenous injection of 100 m L Omnipaque 350. Axial, coronal and sagittal images of the abdomen and pelvis were reviewed. The do se-length product (DLP) for this examination was 221.92 mGy-cm. The exposure was tailored according to patient size (auto mA exposure control), and iterative reconstruction (ASIR) was used as additiona l dose reduction technique. Comparison is made to prior examination from 04/08/2020. FINDINGS: The liver, spleen, adrenal glands and pancreas are unremarkable. Gallbladder is unremarkab le. No biliary obstruction. Portal and splenic veins are patent. Kidneys enhance symmetrically. T here is no hydronephrosis. There are punctate bilateral nonobstructing calyceal stones. The prostate is unremarkable. The bladder is unremarkable. There is no retroperitoneal or pelvic lymphadenopath y. There is pancolitis, moderately thickened colonic wall to the rectosigmoid, along with colonic fluid. Prior study also had pancolitis, with the colon more edematous than the on today's exam. The appendi x is normal. The stomach and small bowel are unremarkable. No free intraperitoneal gas. The hear t is normal in size. There are no pericardial or pleural effusions. The lung bases are unremarkable . There are no osteoblastic or osteolytic lesions identified. IMPRESSION: Recurrent pancolitis and diarrhea. Could be ulcerative colitis given history provided. Reviewed, dictated and finalized at location B. PATIONAL HEALTH NURSING DIRECTOR IMPRESSION: Recurrent pancolitis and diarrhea. Could be ulcerative colitis give n history provided.
[2021-04-12 13:36] VITALS: BP 96/62; PULSE 107; RESP 24; TEMP 41.6; O2SAT 100
[2021-04-12 13:41] LABS: Glucose Point of Care 450 mg/dl (65-105)
[2021-04-12 14:13] LABS: Basophils Percent Auto 0.2 % (0.2-1.2); Hematocrit 43.8 % (42.0-52.0); Hemoglobin 14.3 g/dL (14.0-18.0); Immature Granulocyte Absolute 0.06 K/mm3 (0.00-0.031); Immature Granulocyte Percent A 0.5 % (0-0.5); Lymphocytes Absolute Auto 0.97 K/mm3 (0.9-3.2); Lymphocytes Percent Auto 7.6 % (18.3-44.2); Mean Corpuscular HGB Conc 32.6 g/dl (32-36); Mean Corpuscular Hemoglobin 29.1 pg (26-34); Mean Corpuscular Volume 89.2 fl (80-100); Mean Platelet Volume 10.1 fl (7.4-10.4); Monocytes Absolute Auto 0.8 K/mm3 (0.1-0.6); Monocytes Percent Auto 6.1 % (2.6-8.5); Neutrophils Absolute Auto 10.9 K/mm3 (1.3-6.7); Neutrophils Percent Auto 85.6 % (45.5-73.1); Platelet Count Result 424 k/mm3 (150-375); Red Blood Count 4.91 M/mm3 (4.6-6.20); Red Cell Distribution Width 13.2 % (11.5-14.5); White Blood Count 12.7 K/mm3 (4.5-10.0)
--- NOTE | 2021-04-12 14:19 | ED.NAVMDI ---
HPI - Nausea/Vomiting/Diarrhea General Chief complaint: Nausea/Vomiting/Diarrhea Stated complaint: dont feel good Time Seen by Provider: 04/12/21 14:06 Source: patient Mode of arrival: ambulatory Limitations: no limitations History of Present Illness HPI Narrative: 26-year-old male with a history of T1DM and ulcerative colitis presents to the ED with diffuse abdominal pain, nausea, vomiting, tenesmus, and bright red blood per rectum. The patient states his appetite has been very minimal for approximately 2 weeks. He experiences the frequent urge to have a bowel movement however only passes a small amount of blood. He believes the last time he passed any actual stool material was 1 week ago. He began to experience worsening diffuse abdominal pain upon waking today. Patient recently lost his job and has been out of insurance, therefore has not taken his Lantus in 2 to 3 days. Given decreased oral intake he has been using his NovoLog very sporadically as well. He last underwent Remicade infusion several months ago. He is currently only taking Xeljanz for ulcerative colitis at this time. No recent history of documented fever, hematemesis, dysuria, or hematuria. No abdominal surgical history. Related Data Home Medications Medication Instructions Recorded Confirmed ferrous gluconate 324 mg PO DAILY 01/05/21 01/05/21 fluoxetine 40 mg PO DAILY 01/05/21 01/05/21 Lantus U-100 Insulin 40 units SUBCUT HS 04/12/21 Allergies Allergy/AdvReac Type Severity Reaction Status Date / Time No Known Allergies Allergy Verified 04/12/21 14:13 Review of Systems Review of Systems: CONSTITUTIONAL: Fatigue, decreased appetite EYES: Denies visual changes, redness, or discharge. ENT: Denies rhinorrhea, congestion, sore throat, or otalgia. CARDIOVASCULAR: Denies chest pain, palpitations, or edema. RESPIRATORY: Denies cough or dyspnea. GASTROINTESTINAL: Diffuse abdominal pain, blood in stool, nausea, vomiting. GENITOURINARY: Denies dysuria or hematuria. SKIN: Denies rash or itching. MUSCULOSKELETAL: Denies back pain, joint pain, or myalgia. NEUROLOGIC: Denies headache, numbness, dizziness, or weakness. PSYCHIATRIC: Denies anxiety or depression. All systems reviewed & are unremarkable except as noted in HPI and below PMFSH Past Medical History Medical History Diabetes type 1 A1c 10.4 on 01/12/2020 Ulcerative colitis Surgical History Surgical History H/O eye surgery right eye H/O hand surgery on the right hand Family History Family History Father Acute myocardial infarction Sibling Asthma Diabetes mellitus Mother Family history of thyroid problem Grandparent Acute Crohn's disease Diabetes mellitus Social History Social History Social History: The patient lives with his girlfriend and they are expecting a child in about 4 months. He has no other children. 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 The patient is a full code and he would like for his mother to be the durable power workers compensation attorney for healthcare. Smoking status: Never smoker Second hand tobacco smoke exposure: Yes Alcohol intake: never Substance use: never Substance use type: does not use Gender identity (if verbalized by the patient): Male Sexual Orientation (if Verbalized by the Patient): Straight or Heterosexual Spiritual care concerns: No Exam Narrative: GENERAL: Thin; mildly fatigued appearing. HEAD: Normocephalic, atraumatic. EYES: PERRLA and EOMI. ENT: Tacky mucous membranes. Nares clear, no rhinorrhea or epistaxis. Oropharynx without tonsillar hypertrophy exudate or other lesions. Bilateral TMs pearly damon nonbulging NECK: Supple. No adenopathy or masses. No carotid bruits or JVD CHEST: Clear to auscult
[2021-04-12] MEDS: SODIUM CHLORIDE 0.9% IV 1,000 ML 999 ML IV CONT (14:23)
[2021-04-12] MEDS: ONDANSETRON INJ 4 MG/2 ML VIAL IV PUSH (14:23)
[2021-04-12 15:33] LABS: Fractional Inspired Oxygen 21 %; HCO3 VBG 10.5 mEq/l (24.0-30.0); PCO2 VBG 45.5 mmHg (42.0-48.0); PO2 VBG 38.1 mmHg (35.0-45.0)
[2021-04-12 15:34] LABS: Device ROOM AIR; pH VBG 6.979 (7.300-7.400)
[2021-04-12 15:46] LABS: Alanine Aminotransferase 14 U/L (4-50); Albumin Level 3.9 g/dL (3.5-5.1); Alkaline Phosphatase 114 U/L (38-126); Anion Gap 20 mmol/L (8-16); Aspartate Amino Transferase 19 U/L (17-59); Bilirubin,Total 0.5 mg/dL (0.2-1.3); Blood Urea Nitrogen 15 mg/dL (9-20); Calcium 8.2 mg/dL (8.4-10.2); Carbon Dioxide 14 mmol/L (22-30); Chloride 100 mmol/L (98-107); Estimated CRCL calculation 95 ml/min; Estimated Glomerular Filt Rate > 60; Glucose 365 mg/dL (65-110); Lipase 27 U/L (23-300); Potassium 4.8 mmol/L (3.4-5.0); Sodium 134 mmol/L (137-145)
[2021-04-12 16:21] LABS: Add Urine Microscopic? YES; Appearance Urine Clear (Clear); Bilirubin Urine Negative (Negative); Blood Urine Negative (Negative); Color Urine Straw (Yellow); Glucose Urine UA 3+ mg/dL (Negative); Ketones Urine 2+ mg/dL (Negative); Leukocyte Esterase Ur Negative LEU/UL (Negative); Mucus Urine Rare /lpf; Nitrate Urine Negative (Negative); Protein Urine Negative (Negative); RBC Urine 0-2 /hpf (0-2); Specific Grav Ur 1.018 (1.001-1.035); Urobilinogen Urine Negative mg/dL (<2.0)
[2021-04-12 16:28] LABS: Glucose Point of Care 341 mg/dl (65-105)
[2021-04-12] MEDS: INSULIN HUMAN REGULAR (*BKC) 100 UNITS in SODIUM CHLORIDE 0.9% IV 99 ML 6.1 UNITS IV CONT (16:32)
[2021-04-12] MEDS: SODIUM CHLORIDE 0.9% IV 1,000 ML 150 ML IV CONT (16:33)
[2021-04-12 17:02] LABS: Beta-Hydroxybutyrate/Acetoacetate 7.42 mmol/L (0.02-0.27)
[2021-04-12 17:11] LABS: Anion Gap 22 mmol/L (8-16); Blood Urea Nitrogen 15 mg/dL (9-20); Calcium 8.4 mg/dL (8.4-10.2); Carbon Dioxide 12 mmol/L (22-30); Chloride 102 mmol/L (98-107); Estimated CRCL calculation 95 ml/min; Estimated Glomerular Filt Rate > 60; Glucose 371 mg/dL (65-110); Magnesium 1.9 mg/dL (1.6-2.3); Phosphorus 3.9 mg/dL (2.5-4.5); Potassium 4.9 mmol/L (3.4-5.0); Sodium 136 mmol/L (137-145)
[2021-04-12 17:40] LABS: Anion Gap 21 mmol/L (8-16); Blood Urea Nitrogen 13 mg/dL (9-20); Calcium 8.5 mg/dL (8.4-10.2); Carbon Dioxide 13 mmol/L (22-30); Chloride 100 mmol/L (98-107); Estimated CRCL calculation 105 ml/min; Estimated Glomerular Filt Rate > 60; Glucose 340 mg/dL (65-110); Potassium 4.7 mmol/L (3.4-5.0); Sodium 134 mmol/L (137-145)
[2021-04-12 17:45] LABS: Hemoglobin A1C 9.5 % (<5.7)
[2021-04-12 17:57] LABS: Glucose Point of Care 291 mg/dl (65-105)
[2021-04-12] MEDS: SODIUM BICARBONATE 8.4% 50 MEQ/50 ML SYRINGE IV PUSH (18:39)
[2021-04-12 19:01] LABS: Glucose Point of Care 255 mg/dl (65-105)
[2021-04-12 19:13] VITALS: BP 126/59; PULSE 84; RESP 20; O2SAT 100
--- NOTE | 2021-04-12 20:11 | PM.IMHP ---
H&P: HPI History of Present Illness Date/Time: 04/12/21 20:11 Chief Complaint: Abdominal pain Narrative: This is a 18-year-old male with past medical history significant for ulcerative colitis, type 1 diabetes mellitus. Patient presents to the emergency room due to abdominal pain, tenesmus, bright red blood per rectum, nausea and vomiting. Patient denies any fevers any rigors any chills has been out of insurance and has not been able to get his infusion for his ulcerative colitis therefore has had a relapse for the last 2 weeks or so. Preliminary workup was significant for CT of abdomen and pelvis that shows pancolitis. Patient was also found to have a beta hydroxybutyrate of 7. Patient denies any cough, sputum production. Abdominal pain is diffusely localized, nonradiating. Patient has been admitted for further evaluation, management and treatment. Review of Systems Review of Systems: Abdominal pain, hematochezia, nausea vomiting. Constitutional: Constitutional: Denies chills, Denies fatigue, Denies fever(s), Denies malaise, Denies night sweats, Reports poor appetite and Denies weakness Eyes: Eyes: Denies change in vision ENT: Denies dysphagia, Denies vertigo, Denies dizziness, Denies mouth lesions, Denies mouth pain, Denies nasal congestion, Denies nasal discharge, Denies nasal obstruction and Denies odynophagia Cardiovascular: Cardiovascular: Denies pedal edema, Denies irregular heart rhythm, Denies claudication, Denies lightheadedness, Denies radiating jaw, neck or arm pain, Denies palpitations, Denies dyspnea on exertion and Denies orthopnea Respiratory: Respiratory: Denies cough, Denies excessive phlegm production and Denies dyspnea Gastrointestinal: Gastrointestinal: Reports abdominal pain, Reports hematochezia, Reports GI cramping, Reports nausea and Reports vomiting Genitourinary: Genitourinary: Reports no additional male genitourinary complaints and Reports as per HPI Musculoskeletal: Musculoskeletal: Denies arthralgias, Denies joint swelling and Denies muscle weakness Integumentary/Breasts: Skin/Breast: Denies rash Neurologic: Denies focal weakness and Denies Sensory deficit (Neuro) Psychiatric: Psychiatric: Reports no additional psychiatric complaints and Reports as per HPI Endocrine: Endocrine: Denies cold intolerance, Denies fatigue, Denies flushing, Denies heat intolerance, Reports polyphagia, Reports polydipsia, Reports polyuria and Denies palpitations Hematologic/Lymphatic: Hematologic/Lymphatic: Reports no additional hematologic/lymphatic complaints and Reports as per HPI Allergic/Immunologic: Allergic/Immunologic: Reports no additional allergic/immunologic complaints and Reports as per HPI [facility] Past Medical History Medical History Diabetes type 1 A1c 10.4 on 01/12/2020 Ulcerative colitis Surgical History Surgical History H/O eye surgery right eye H/O hand surgery on the right hand Family History Family History Father Acute myocardial infarction Sibling Asthma Diabetes mellitus Mother Family history of thyroid problem Grandparent Acute Crohn's disease Diabetes mellitus Social History Social History Social History: The patient lives with his girlfriend and they are expecting a child in about 4 months. He has no other children. 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 The patient is a full code and he would like for his mother to be the durable power research spec for healthcare. Smoking status: Never smoker Second hand tobacco smoke exposure: Yes Alcohol intake: never Substance use: never Substance use type: does not use Gender identity (if verbalized by the patient): Male Sexual Orientation (if Verbalized by the Patient): Straight or Heterosexua
[2021-04-12 20:13] LABS: Glucose Point of Care 219 mg/dl (65-105)
[2021-04-12 20:43] VITALS: BMI 19.9
[2021-04-12 20:53] VITALS: BP 123/72; PULSE 81; RESP 17; TEMP 36.7; O2SAT 97
[2021-04-12] MEDS: KCL 20 MEQ/D5/0.45% SOD CHL 1,000 ML 150 ML IV CONT (21:00)
[2021-04-12 21:11] LABS: Glucose Point of Care 191 mg/dl (65-105)
[2021-04-12 22:00] VITALS: BP 117/71; PULSE 82; PULSE 95; RESP 16; O2SAT 98
[2021-04-12 22:11] LABS: Glucose Point of Care 187 mg/dl (65-105)
[2021-04-12 22:45] LABS: Anion Gap 9 mmol/L (8-16); Blood Urea Nitrogen 11 mg/dL (9-20); Carbon Dioxide 22 mmol/L (22-30); Chloride 106 mmol/L (98-107); Estimated CRCL calculation 124 ml/min; Estimated Glomerular Filt Rate > 60; Glucose 178 mg/dL (65-110); Potassium 3.8 mmol/L (3.4-5.0); Sodium 137 mmol/L (137-145)
[2021-04-12 23:09] LABS: Glucose Point of Care 158 mg/dl (65-105)
[2021-04-13] VITALS (10 sets, daily range): BP systolic 102–130; BP diastolic 66–72; PULSE 68–89; RESP 14–19; TEMP 36.3–36.5; O2SAT 97–100
[2021-04-13] MEDS: INSULIN GLARGINE (*BKC) 100 UNITS/ML 40 UNITS SUB-Q ×2 (00:10→20:35)
[2021-04-13 00:50] LABS: Glucose Point of Care 173 mg/dl (65-105)
[2021-04-13 01:30] LABS: Glucose Point of Care 135 mg/dl (65-105)
[2021-04-13 04:25] LABS: Basophils Percent Auto 0.4 % (0.2-1.2); Eosinophils Absolute Auto 0.4 K/mm3 (0-0.3); Hematocrit 37.2 % (42.0-52.0); Hemoglobin 12.2 g/dL (14.0-18.0); Immature Granulocyte Absolute 0.03 K/mm3 (0.00-0.031); Immature Granulocyte Percent A 0.3 % (0-0.5); Lymphocytes Absolute Auto 1.38 K/mm3 (0.9-3.2); Lymphocytes Percent Auto 13.5 % (18.3-44.2); Mean Corpuscular HGB Conc 32.8 g/dl (32-36); Mean Corpuscular Hemoglobin 29.1 pg (26-34); Mean Corpuscular Volume 88.8 fl (80-100); Mean Platelet Volume 9.4 fl (7.4-10.4); Monocytes Absolute Auto 1.1 K/mm3 (0.1-0.6); Monocytes Percent Auto 10.9 % (2.6-8.5); Neutrophils Absolute Auto 7.3 K/mm3 (1.3-6.7); Neutrophils Percent Auto 70.9 % (45.5-73.1); Platelet Count Result 385 k/mm3 (150-375); Red Blood Count 4.19 M/mm3 (4.6-6.20); Red Cell Distribution Width 13.2 % (11.5-14.5); White Blood Count 10.2 K/mm3 (4.5-10.0)
[2021-04-13] MEDS: metroNIDAZOLE 500 MG/ISO 100ML 500 MG/100 ML BAG 100 MG IVPB ×3 (04:30→22:14)
[2021-04-13 04:32] LABS: Alanine Aminotransferase 11 U/L (4-50); Albumin Level 3.5 g/dL (3.5-5.1); Alkaline Phosphatase 84 U/L (38-126); Anion Gap 8 mmol/L (8-16); Aspartate Amino Transferase 24 U/L (17-59); Bilirubin,Total 0.5 mg/dL (0.2-1.3); Blood Urea Nitrogen 9 mg/dL (9-20); Carbon Dioxide 23 mmol/L (22-30); Chloride 106 mmol/L (98-107); Estimated CRCL calculation 110 ml/min; Estimated Glomerular Filt Rate > 60; Glucose 106 mg/dL (65-110); Potassium 3.9 mmol/L (3.4-5.0); Sodium 137 mmol/L (137-145)
[2021-04-13] MEDS: SODIUM CHLORIDE 0.9% IV 1,000 ML 75 ML IV CONT (04:32)
[2021-04-13 07:41] LABS: Glucose Point of Care 134 mg/dl (65-105)
[2021-04-13] MEDS: FLUoxetine HCL 20 MG CAPSULE 40 MG PO (07:47)
[2021-04-13] MEDS: ONDANSETRON INJ 4 MG/2 ML VIAL IV PUSH ×2 (07:47→11:53)
[2021-04-13] MEDS: MESALAMINE 400 MG DELAYED RELEASE CAPSULE 800 MG PO ×3 (07:48→16:41)
[2021-04-13 09:06] LABS: Partial Thromboplastin Time 25.3 SECONDS (22.3-36.8)
[2021-04-13] MEDS: INSULIN ASPART (*BKC) 100 UNITS/ML SUB-Q ×2 (12:08→16:41)
[2021-04-13 12:20] LABS: Glucose Point of Care 252 mg/dl (65-105)
--- NOTE | 2021-04-13 12:46 | WPDCNINT ---
Assessment and Plan Assessment and plan (1) DKA (diabetic ketoacidosis): Qualifiers: Diabetes mellitus complication detail: without coma Diabetes mellitus type: type 1 Qualified Code(s): E10.10 - Type 1 diabetes mellitus with ketoacidosis without coma Code(s): E11.10 - Type 2 diabetes mellitus with ketoacidosis without coma Status: Acute Assessment and Plan: Patient presented with nausea, vomiting, abdominal pain, rectal bleed, decreased appetite. He lost his job recently and is out of insurance so has not been taking his Lantus -patient was given adequate IV fluids, started on insulin infusion and transferred to the ICU. -overnight his anion gap had closed, blood sugars x2 were within normal limits, patient was transition to Lantus 40 units subQ HS and high-dose sliding scale. Patient was started on clear liquid diabetic diet, advanced as tolerated -patient's hemoglobin A1c is 9.5 this admission (2) Dehydration: Code(s): E86.0 - Dehydration Status: Acute Assessment and Plan: Decreased p.o. intake and appetite patient was adequately fluid-resuscitated (3) Ulcerative (chronic) pancolitis with rectal bleeding: Code(s): K51.011 - Ulcerative (chronic) pancolitis with rectal bleeding Status: Acute Assessment and Plan: Patient with ulcerative pancolitis with rectal bleeding -hemoglobin has been stable -PTT and INR normal -GI has been consulted and await their recommendations -Xeljanz was continued by hospitalist -he was also started on Flagyl and levofloxacin which will continue (4) DKA, type 1: Code(s): E10.10 - Type 1 diabetes mellitus with ketoacidosis without coma Status: Acute Assessment and Plan: Hemoglobin A1c is 9.5 this admission -will have certified lactation educator and nutrition evaluate the patient (5) DVT prophylaxis: Code(s): Z29.9 - Encounter for prophylactic measures, unspecified Status: Acute Assessment and Plan: SCDs Additional Plan Code status: Full code Critical care time spent: 41 minutes This dictation may have been done utilizing a voice recognition system. Attempts have been made to correct errors. However, there may be uncorrected grammatical, spelling, and recognition errors present. Due to a high probability of clinically significant, life threatening deterioration, the patient required my highest level of preparedness to intervene emergently and I personally spent this critical care time directly and personally managing the patient. This critical care time included obtaining a history; examining the patient; pulse oximetry; ordering and review of studies; arranging urgent treatment with development of a management plan; evaluation of patient's response to treatment; frequent reassessment; and discussions with other providers. It was exclusive of separately billable procedures and treating other patients and teaching time. Please see Assessment and Plan section and the rest of the note for further information on patient assessment and treatment Government Instructor Consult Note Consult date: 04/13/21 Time Seen: 07:04 Reason for consult: Diabetic ketoacidosis, colitis with nausea, vomiting and diarrhea HPI: Prosper Sosa III is a 26 year old male with past medical history of type 1 diabetes, ulcerative colitis presented the ED on 04/12/2021 with chief complaints of nausea, vomiting and diarrhea. Patient was also complaining of diffuse abdominal pain and tenesmus with bright red blood per rectum. He also had decreased appetite for approximately 2 weeks. Patient has not been taking his Lantus for 2-3 days as he lost his job and is been out of his insurance. According the records patient is on Xeljanz for his ulcerative colitis and follows with a doctor at [facility]. Patient found to be in diabetic ketoacidosis with elevated blood sugars, significant anion gap metabolic acidosis the pH of 6.9. Patient was given m
--- NOTE | 2021-04-13 13:22 | WPDGICN ---
Assessment and Plan Assessment and plan (1) DKA, type 1: Code(s): E10.10 - Type 1 diabetes mellitus with ketoacidosis without coma Status: Acute Assessment and Plan: due to lack of insulin for 2-3 days (had problem with insurance and could not refill lantus on time) treated in icu and acidosis resolved, doing better (2) Ulcerative (chronic) pancolitis with rectal bleeding: Code(s): K51.011 - Ulcerative (chronic) pancolitis with rectal bleeding Status: Acute Assessment and Plan: unfortunately he could not continue infusion with inflectra for over 2 months and has been symptomatic again for same period of time, he does not think that symptoms are worse now, just few days ago his new GI doctor at [facility] started xeljanz but too early to see any meaningful result. He is hoping in near future to be back on inflectra again continue in the meantime with mesalamine, antibiotics. Instead of iv steroids will use budesonide (less systemic absorption and interference with diabetes) get inflammatory markers advance diet as tolerated (3) Diabetes mellitus with hyperglycemia: Qualifiers: Diabetes mellitus type: type 1 Qualified Code(s): E10.65 - Type 1 diabetes mellitus with hyperglycemia Code(s): E11.65 - Type 2 diabetes mellitus with hyperglycemia Status: Chronic Assessment and Plan: back on insulin and better (4) Dehydration: Code(s): E86.0 - Dehydration Status: Acute Assessment and Plan: resolved after medical treatment GI Consult Note Consult date/time: 04/13/21 13:22 Reason for consult: pancolitis h/o UC HPI: Prosper Sosa III is a 26 year old male who was 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 Initially was on mesalamine and finally on inflectra that used for almost 6 months which controlled his symptoms, finally started having normal bowel movements without blood or pain, unfortunately lost his job and he did not get any treatment for more than 2 months, in the interim he established with GI at [facility] (it was more convenient for him) and less than a week ago was started on xeljanx which is the only medication that he is using for UC now, he says that has been symptomatic again for last few weeks after discontinued infusion with 5-6 loose stools with blood and abdominal discomfort and urgency. He also has h/o DM on insulin, he failed to refill his lantus and did not get any dose for almost 3 days. Last 2-3 days with nausea, vomiting and abdominal pain. He says that tenesmus and diarrhea similar for last few weeks. He was found to have metabolic acidosis with DKA, admitted to ICU for insulin gtt. CT scan a/p reviewed, showed pancolitis. Started on iv antibiotics, mesalamine. He is doing better, acidosis resolved. He did not get iv steroids since was admitted with uncontrolled DM. Review of Systems Constitutional: Constitutional: Denies chills Eyes: Eyes: Reports no additional eye complaints ENT: Reports Normal hearing present Cardiovascular: Cardiovascular: Denies chest pain Respiratory: Respiratory: Denies dyspnea Gastrointestinal: Gastrointestinal: Reports abdominal pain and Reports diarrhea Genitourinary: Genitourinary: Denies dysuria Musculoskeletal: Musculoskeletal: Denies neck pain Integumentary/Breasts: Skin/Breast: Denies dry skin Neurologic: Denies headache(s) Psychiatric: Psychiatric: Reports no additional psychiatric complaints [facility] Past Medical History Medical History Diabetes type 1 A1c 10.4 on 01/12/2020 Ulcerative colitis Surgical History Surgical History H/O eye surgery right eye H/O hand surgery on the right hand Family History Family History Fa
[2021-04-13 16:29] LABS: Glucose Point of Care 216 mg/dl (65-105)
--- NOTE | 2021-04-13 17:16 | PM.IMPN ---
Progress Note: A&P Assessment and Plan (1) DKA (diabetic ketoacidosis): Qualifiers: Diabetes mellitus complication detail: without coma Diabetes mellitus type: type 1 Qualified Code(s): E10.10 - Type 1 diabetes mellitus with ketoacidosis without coma Code(s): E11.10 - Type 2 diabetes mellitus with ketoacidosis without coma Status: Acute Assessment and Plan: Resolved diabetic ketoacidosis. Patient initially presented with nausea, vomiting, abdominal pain, rectal bleed, decreased appetite. He lost his job recently and is out of insurance so has not been taking his Lantus -patient was given adequate IV fluids, started on insulin infusion and transferred to the ICU. -overnight his anion gap had closed, blood sugars x2 were within normal limits, patient was transition to Lantus 40 units subQ HS and high-dose sliding scale. Patient was started on clear liquid diabetic diet, advanced as tolerated -patient's hemoglobin A1c is 9.5 this admission. -patient sees a primary care physician. He has an appointment with endocrine at [place] next month. (2) Dehydration: Code(s): E86.0 - Dehydration Status: Acute Assessment and Plan: RESOLVED Decreased p.o. intake and appetite patient was adequately fluid-resuscitated (3) Ulcerative (chronic) pancolitis with rectal bleeding: Code(s): K51.011 - Ulcerative (chronic) pancolitis with rectal bleeding Status: Acute Assessment and Plan: Patient with ulcerative pancolitis with rectal bleeding -hemoglobin has been stable -PTT and INR normal - appreciate GI evaluation and recommendations. Continue mesalamine, Levofloxacin,metronidazole. No systemic steroids because of uncontrolled diabetes. -Xeljanz was continued by hospitalist - GI also recommended that he follows with his regular GI doctor at [facility]. (4) DKA, type 1: Code(s): E10.10 - Type 1 diabetes mellitus with ketoacidosis without coma Status: Acute Assessment and Plan: Hemoglobin A1c is 9.5 this admission -will have museum educator and nutrition evaluate the patient (5) DVT prophylaxis: Code(s): Z29.9 - Encounter for prophylactic measures, unspecified Status: Acute Assessment and Plan: SCDs, no chemoprophylaxis secondary to bleeding per rectum Additional Plan discussed with patient updated with his condition and plan of care. I also updated him with his new hemoglobin A1c level. Code status: Full code Subjective Date/time seen: 04/13/21 17:16 Narrative: This is a 18-year-old male with past medical history significant for ulcerative colitis, type 1 diabetes mellitus. Patient presents to the emergency room due to abdominal pain, tenesmus, bright red blood per rectum, nausea and vomiting. Patient denies any fevers any rigors any chills has been out of insurance and has not been able to get his infusion for his ulcerative colitis therefore has had a relapse for the last 2 weeks or so. Preliminary workup was significant for CT of abdomen and pelvis that shows pancolitis. Patient was also found to have a beta hydroxybutyrate of 7. Patient denies any cough, sputum production. Abdominal pain is diffusely localized, nonradiating. Patient has been admitted for further evaluation, management and treatment. s: Patient was seen and examined at the bedside. He is feeling a lot better. He reports intermittent mild epigastric discomfort. Well intake is improving. He ate 50% of his meal. Exam Narrative: General: Patient is awake, alert in no distress at this time HEENT: Pupils equal and reactive, no thyromegaly or cervical lymphadenopathy Neck: Supple Respiratory: Clear to auscultation bilaterally Cardiac: S1-S2 normal, regular rate and rhythm Abdomen: Soft nontender, nondistended, normoactive bowel sounds Extremities: Pedal pulses palpable, no edema Neuro: Patient is awake, alert, oriented, nonfocal Skin: Warm and
[2021-04-13 20:32] LABS: Glucose Point of Care 209 mg/dl (65-105)
[2021-04-14 04:53] LABS: Alanine Aminotransferase 10 U/L (4-50); Albumin Level 3.4 g/dL (3.5-5.1); Alkaline Phosphatase 82 U/L (38-126); Anion Gap 7 mmol/L (8-16); Aspartate Amino Transferase 15 U/L (17-59); Bilirubin,Total 0.3 mg/dL (0.2-1.3); Blood Urea Nitrogen 4 mg/dL (9-20); CRP 2.8 mg/dL (<1.0); Calcium 8.2 mg/dL (8.4-10.2); Carbon Dioxide 27 mmol/L (22-30); Chloride 103 mmol/L (98-107); Estimated CRCL calculation 110 ml/min; Estimated Glomerular Filt Rate > 60; Glucose 275 mg/dL (65-110); Potassium 3.8 mmol/L (3.4-5.0); Sodium 137 mmol/L (137-145)
[2021-04-14] MEDS: metroNIDAZOLE 500 MG/ISO 100ML 500 MG/100 ML BAG 100 MG IVPB ×3 (06:00→21:18)
[2021-04-14 08:00] VITALS: BP 136/82; PULSE 68; RESP 16; TEMP 36.8; O2SAT 99
[2021-04-14 08:13] LABS: Erythrocyte Sedimentation Rate > 140 mm/hr (0-20)
[2021-04-14] MEDS: BUDESONIDE 3 MG CAP.SR.24H 6 MG PO (08:40)
[2021-04-14] MEDS: FLUoxetine HCL 20 MG CAPSULE 40 MG PO (08:41)
[2021-04-14] MEDS: MESALAMINE 400 MG DELAYED RELEASE CAPSULE 800 MG PO ×3 (08:41→17:06)
[2021-04-14] MEDS: INSULIN GLARGINE (*BKC) 100 UNITS/ML SUB-Q (08:43)
[2021-04-14] MEDS: INSULIN ASPART (*BKC) 100 UNITS/ML SUB-Q ×3 (08:44→16:52)
[2021-04-14 10:13] LABS: Glucose Point of Care 208 mg/dl (65-105)
--- NOTE | 2021-04-14 10:43 | WPDGIPROGNO ---
Progress Note: A&P Assessment and Plan (1) DKA, type 1: Code(s): E10.10 - Type 1 diabetes mellitus with ketoacidosis without coma Status: Acute Assessment and Plan: resolved, no more acidosis and normalization of AG (cause was lack of insulin at home) tolerating diet and back on insulin (2) Ulcerative (chronic) pancolitis with rectal bleeding: Code(s): K51.011 - Ulcerative (chronic) pancolitis with rectal bleeding Status: Acute Assessment and Plan: on medical management, no more blood in stools and abdominal pain resolved, tolerating diet inflammatory markers abnormal c/w uncontrolled UC he will have follow-up with his GI doctor at [facility] soon, he was recently started on xeljanz he can go home with mesalamine, budesonide and short course of antibiotics (did not use systemic steroids because presentation with uncontrolled DM and DKA) (3) Dehydration: Code(s): E86.0 - Dehydration Status: Acute Assessment and Plan: resolved (4) Abdominal pain: Code(s): R10.9 - Unspecified abdominal pain Status: Acute Subjective Date/time seen: 04/14/21 10:43 Interval history: no more nausea today and able to have breakfast, overall feeling much better. Still with loose stools but no more blood. Review of Systems Review of Systems: All systems reviewed & are unremarkable except as noted in HPI and below Exam Const: General: comfortable and no acute distress HENMT: General nose exam: Normal nares present Eyes: General: appearance normal, both eyes and all related structures Neck: Neck: no JVD Resp: Auscultation: clear to auscultation bilaterally Cardio: Rate: regular rate Rhythm: regular rhythm GI: Inspection: non-distended GI Palp: Yes Soft to palpation and No Guarding due to palpation present (GI) Auscultation: normal bowel sounds Skin: General skin exam: normal color Neuro: General: gait normal Speech: normal speech Extrem: General: normal to inspection Psych: Mental Status: mental status grossly normal Objective Data Vital Signs Vital Signs: Vital Signs - 24 hr 04/13/21 14:24 04/13/21 16:00 04/13/21 20:00 Temperature 97.3 F L Pulse Rate 68 Respiratory Rate 16 Blood Pressure 102/68 Pulse Oximetry 100 100 100 04/13/21 23:19 04/14/21 08:00 Temperature 98.3 F Pulse Rate 76 68 Respiratory Rate 16 16 Blood Pressure 118/70 136/82 Pulse Oximetry 99 99 Intake/Output Intake/Output: Intake & Output 04/11/21 04/12/21 04/13/21 04/14/21 23:59 23:59 23:59 23:59 Intake Total 1000 1280 500 Output Total 600 Balance 1000 680 500 Meds/Results Medications: Active Medications Generic Name Dose Route Start Last Admin Trade Name Freq PRN Reason Stop Dose Admin Budesonide 6 mg 04/14/21 09:00 04/14/21 08:40 Budesonide 3 Mg Cap.Sr.24h PO 6 mg QAM RADHA Administration Dextrose 12.5 gm 04/12/21 23:58 Dextrose 50% 25 Gm/50 Ml Syringe IV PUSH PRN PRN Hypoglycemia Protocol Fluoxetine HCl 40 mg 04/13/21 09:00 04/14/21 08:41 Fluoxetine Hcl 20 Mg Capsule PO 40 mg DAILY RADHA Administration Glucagon 1 mg 04/12/21 23:58 Glucagon For Inj 1 Mg Vial IM PRN PRN Hypoglycemia Protocol Glucose 15 gm 04/12/21 23:58 Glucose Oral Gel 15 Gm Of Glucse In 37.5 Gm Tube PO PRN PRN Hypoglycemia Protocol Dextrose 1,000 mls @ 100 mls/hr 04/12/21 23:58 Dextrose 5% 1,000 Ml IVPB PRN PRN Hypoglycemia Protocol Metronidazole 500 mg in 100 mls @ 100 mls/hr 04/13/21 03:00 04/14/21 07:00 Flagyl 500 Mg/Iso Soln 100 Ml IVPB Infused Q8HR RADHA Infusion Levofloxacin/Dextrose 750 mg in 150 mls @ 100 mls/hr 04/13/21 02:00 04/14/21 00:46 Levaquin 750 Mg/D5w 150 Ml IVPB Infused DAILY@2200 RADHA Infusion Insulin Aspart 4 - 8 units 04/13/21 08:00 04/14/21 08:44 Insulin Aspart (*Bkc) 100 Units/Ml SUB-Q 4 units TIDWM [facility] Administrati
--- NOTE | 2021-04-14 11:45 | PM.IMPN ---
Progress Note: A&P Assessment and Plan (1) DKA (diabetic ketoacidosis): Qualifiers: Diabetes mellitus complication detail: without coma Diabetes mellitus type: type 1 Qualified Code(s): E10.10 - Type 1 diabetes mellitus with ketoacidosis without coma Code(s): E11.10 - Type 2 diabetes mellitus with ketoacidosis without coma Status: Acute Assessment and Plan: RESOLVED Patient presented with nausea, vomiting, abdominal pain, rectal bleed, decreased appetite. He lost his job recently and is out of insurance so has not been taking his Lantus -patient was given adequate IV fluids, started on insulin infusion and transferred to the ICU. -overnight his anion gap had closed, blood sugars x2 were within normal limits, patient was transition to Lantus 40 units subQ HS and high-dose sliding scale. Patient was started on clear liquid diabetic diet, advanced as tolerated -patient's hemoglobin A1c is 9.5 this admission (2) Dehydration: Code(s): E86.0 - Dehydration Status: Acute Assessment and Plan: RESOLVED Decreased p.o. intake and appetite patient was adequately fluid-resuscitated (3) Ulcerative (chronic) pancolitis with rectal bleeding: Code(s): K51.011 - Ulcerative (chronic) pancolitis with rectal bleeding Status: Acute Assessment and Plan: Patient with ulcerative pancolitis with rectal bleeding -hemoglobin has been stable -PTT and INR normal - appreciate GI evaluation and recommendations. Continue mesalamine, Levofloxacin,metronidazole. No systemic steroids because of uncontrolled diabetes. -Xeljanz was continued by hospitalist - GI also recommended that he follows with his regular GI doctor at [facility]. (4) DKA, type 1: Code(s): E10.10 - Type 1 diabetes mellitus with ketoacidosis without coma Status: Acute Assessment and Plan: Hemoglobin A1c is 9.5 this admission -will have community health educator and nutrition evaluate the patient (5) DVT prophylaxis: Code(s): Z29.9 - Encounter for prophylactic measures, unspecified Status: Acute Assessment and Plan: SCDs, no chemoprophylaxis secondary to bleeding per rectum Additional Plan discussed with patient updated with his condition and plan of care. I also updated him with his new hemoglobin A1c level. Code status: Full code This dictation may have been done utilizing a voice recognition system. Attempts have been made to correct errors. However, there may be uncorrected grammatical, spelling, and recognition errors present. Due to a high probability of clinically significant, life threatening deterioration, the patient required my highest level of preparedness to intervene emergently and I personally spent this critical care time directly and personally managing the patient. This critical care time included obtaining a history; examining the patient; pulse oximetry; ordering and review of studies; arranging urgent treatment with development of a management plan; evaluation of patient's response to treatment; frequent reassessment; and discussions with other providers. It was exclusive of separately billable procedures and treating other patients and teaching time. Please see Assessment and Plan section and the rest of the note for further information on patient assessment and treatment Subjective Date/time seen: 04/14/21 11:45 Interval history: 26 old gentleman with past medical history of ulcerative colitis and diabetes type 1 presented the ED on 04/12/2021 with nausea, vomiting, diarrhea, diffuse abdominal pain, bright red blood rectum and decreased appetite for approximately 2 weeks. He was found to be in DKA which was treated with insulin infusion and resolved, patient was transition to long-acting insulin Lantus and sliding scale insulin with Accu-Cheks. He also had diarrhea with bright blood per rectum which was thought to be secondary to flare of ulcerative colitis.
[2021-04-14 12:34] LABS: Glucose Point of Care 202 mg/dl (65-105)
[2021-04-14 16:48] LABS: Glucose Point of Care 221 mg/dl (65-105)
[2021-04-14 17:43] VITALS: BP 123/68; PULSE 74; RESP 14; TEMP 36.1; O2SAT 100
[2021-04-14] MEDS: INSULIN GLARGINE (*BKC) 100 UNITS/ML 45 UNITS SUB-Q (20:00)
[2021-04-14 20:14] VITALS: BP 119/75; PULSE 69; RESP 17; TEMP 36.2; O2SAT 100
[2021-04-14 21:28] LABS: Glucose Point of Care 232 mg/dl (65-105)
[2021-04-15 03:40] VITALS: BP 129/79; PULSE 74; RESP 16; TEMP 36.4; O2SAT 99
[2021-04-15] MEDS: metroNIDAZOLE 500 MG/ISO 100ML 500 MG/100 ML BAG 100 MG IVPB ×2 (05:25→13:39)
[2021-04-15 07:49] LABS: Glucose Point of Care 66 mg/dl (65-105)
[2021-04-15] MEDS: MESALAMINE 400 MG DELAYED RELEASE CAPSULE 800 MG PO ×2 (08:42→12:42)
[2021-04-15] MEDS: BUDESONIDE 3 MG CAP.SR.24H 6 MG PO (08:42)
[2021-04-15] MEDS: FLUoxetine HCL 20 MG CAPSULE 40 MG PO (09:35)
--- NOTE | 2021-04-15 10:42 | WPDGIPROGNO ---
Progress Note: A&P Assessment and Plan (1) Ulcerative (chronic) pancolitis with rectal bleeding: Code(s): K51.011 - Ulcerative (chronic) pancolitis with rectal bleeding Status: Acute Assessment and Plan: on medical management, no more blood in stools and abdominal pain resolved, tolerating diet inflammatory markers abnormal c/w uncontrolled UC he can go home today with mesalamine, budesonide and short course of antibiotics (did not use systemic steroids because presentation with uncontrolled DM and DKA) he will follow-up with his GI doctor at [facility] (he is on biologic now- xeljanx) (2) DKA, type 1: Code(s): E10.10 - Type 1 diabetes mellitus with ketoacidosis without coma Status: Acute Assessment and Plan: resolved glucose better continue with insulin (3) Dehydration: Code(s): E86.0 - Dehydration Status: Acute Assessment and Plan: resolved (4) Abdominal pain: Code(s): R10.9 - Unspecified abdominal pain Status: Acute Subjective Date/time seen: 04/15/21 10:42 Interval history: he moved to regular floor, doing much better and tolerating diet, still diarrhea but near baseline, no abdominal pain and denies blood in stool Review of Systems Review of Systems: All systems reviewed & are unremarkable except as noted in HPI and below Exam Const: General: comfortable and no acute distress HENMT: General nose exam: Normal nares present Eyes: General: appearance normal, both eyes and all related structures Neck: Neck: no JVD Resp: Auscultation: clear to auscultation bilaterally Cardio: Rate: regular rate Rhythm: regular rhythm GI: Inspection: non-distended GI Palp: Yes Soft to palpation Skin: General skin exam: normal color Neuro: General: gait normal Speech: normal speech Extrem: General: normal to inspection Psych: Mental Status: mental status grossly normal Objective Data Vital Signs Vital Signs: Vital Signs - 24 hr 04/14/21 17:43 04/14/21 20:14 04/15/21 03:40 Temperature 97.0 F L 97.2 F L 97.6 F Pulse Rate 74 69 74 Respiratory Rate 14 17 16 Blood Pressure 123/68 119/75 129/79 Pulse Oximetry 100 100 99 Intake/Output Intake/Output: Intake & Output 04/12/21 04/13/21 04/14/2104/15/22 23:59 23:59 23:59 23:59 Intake Total 1000 1280 1800 640 Output Total 600 Balance 7122 879 7343 640 Meds/Results Medications: Active Medications Generic Name Dose Route Start Last Admin Trade Name Freq PRN Reason Stop Dose Admin Budesonide 6 mg 04/14/21 09:00 04/15/21 08:42 Budesonide 3 Mg Cap.Sr.24h PO 6 mg QAM RADHA Administration Dextrose 12.5 gm 04/12/21 23:58 Dextrose 50% 25 Gm/50 Ml Syringe IV PUSH PRN PRN Hypoglycemia Protocol Fluoxetine HCl 40 mg 04/13/21 09:00 04/15/21 09:35 Fluoxetine Hcl 20 Mg Capsule PO 40 mg DAILY RADHA Administration Glucagon 1 mg 04/12/21 23:58 Glucagon For Inj 1 Mg Vial IM PRN PRN Hypoglycemia Protocol Glucose 15 gm 04/12/21 23:58 Glucose Oral Gel 15 Gm Of Glucse In 37.5 Gm Tube PO PRN PRN Hypoglycemia Protocol Dextrose 1,000 mls @ 100 mls/hr 04/12/21 23:58 Dextrose 5% 1,000 Ml IVPB PRN PRN Hypoglycemia Protocol Metronidazole 500 mg in 100 mls @ 100 mls/hr 04/13/21 03:00 04/15/21 06:25 Flagyl 500 Mg/Iso Soln 100 Ml IVPB Infused Q8HR RADHA Infusion Levofloxacin/Dextrose 750 mg in 150 mls @ 100 mls/hr 04/13/21 02:00 04/14/21 22:48 Levaquin 750 Mg/D5w 150 Ml IVPB Infused DAILY@2200 RADHA Infusion Insulin Aspart 4 - 8 units 04/13/21 08:00 04/15/21 07:52 Insulin Aspart (*Bkc) 100 Units/Ml SUB-Q Not Given TIDWM [facility] Protocol Insulin Glargine 45 units 04/14/21 21:00 04/14/21 20:00 Insulin Glargine (*Bkc) 100 Units/Ml SUB-Q 45 units HS RADHA Administration Mesalamine 800 mg 04/13/21 09:00 04/15/21 08:42 Mesalamine 400 Mg Delayed Re
--- NOTE | 2021-04-15 10:44 | PM.DS ---
DS: Admitting Diagnosis Discharge Date 04/15/2021 Admitting Diagnosis (1) DKA, type 1: (2) Acute ulcerative pancolitis: (3) Diabetes: DS: Discharge Diagnosis Discharge Diagnosis (1) DKA (diabetic ketoacidosis): Qualifiers: Diabetes mellitus complication detail: without coma Diabetes mellitus type: type 1 Qualified Code(s): E10.10 - Type 1 diabetes mellitus with ketoacidosis without coma Code(s): E11.10 - Type 2 diabetes mellitus with ketoacidosis without coma Status: Acute Assessment and Plan: Resolved diabetic ketoacidosis. Patient initially presented with nausea, vomiting, abdominal pain, rectal bleed, decreased appetite. He lost his job recently and is out of insurance so has not been taking his Lantus -patient was given adequate IV fluids, started on insulin infusion and transferred to the ICU. -overnight his anion gap had closed, blood sugars x2 were within normal limits, patient was transition to Lantus 40 units subQ HS and high-dose sliding scale. Patient was started on clear liquid diabetic diet, advanced as tolerated -patient's hemoglobin A1c is 9.5 this admission. -patient sees a primary care physician. He has an appointment with endocrine at [facility] next month. (2) Dehydration: Code(s): E86.0 - Dehydration Status: Acute Assessment and Plan: RESOLVED Decreased p.o. intake and appetite patient was adequately fluid-resuscitated (3) Ulcerative (chronic) pancolitis with rectal bleeding: Code(s): K51.011 - Ulcerative (chronic) pancolitis with rectal bleeding Status: Acute Assessment and Plan: Patient with ulcerative pancolitis with rectal bleeding -hemoglobin has been stable -PTT and INR normal - appreciate GI evaluation and recommendations. Continue mesalamine, Levofloxacin,metronidazole. No systemic steroids because of uncontrolled diabetes. -Xeljanz was continued by hospitalist - GI also recommended that he follows with his regular GI doctor at [facility]. (4) DKA, type 1: Code(s): E10.10 - Type 1 diabetes mellitus with ketoacidosis without coma Status: Acute Assessment and Plan: Hemoglobin A1c is 9.5 this admission -will have patient educator and nutrition evaluate the patient (5) DVT prophylaxis: Code(s): Z29.9 - Encounter for prophylactic measures, unspecified Status: Acute Assessment and Plan: SCDs, no chemoprophylaxis secondary to bleeding per rectum DS: Summary Hospital Course Hospital Course: Please refer to admission H and P. Briefly, this is a 18-year-old male with past medical history significant for ulcerative colitis, type 1 diabetes mellitus, who presents to the emergency room due to abdominal pain, tenesmus, bright red blood per rectum, nausea and vomiting. Patient denies any fevers any rigors any chills has been out of insurance and has not been able to get his infusion for his ulcerative colitis therefore has had a relapse for the last 2 weeks or so. Preliminary workup was significant for CT of abdomen and pelvis that shows pancolitis. Patient was also found to have a beta hydroxybutyrate of 7. Patient denies any cough, sputum production. Abdominal pain is diffusely localized, nonradiating. Patient has been admitted for further evaluation, management and treatment. (1) DKA (diabetic ketoacidosis): Patient presented with nausea, vomiting, abdominal pain, rectal bleed, decreased appetite. He lost his job recently and is out of insurance so has not been taking his Lantus -patient was given adequate IV fluids, started on insulin infusion and transferred to the ICU. -overnight his anion gap had closed, blood sugars x2 were within normal limits, patient was transition to Lantus 40 units subQ HS and high-dose sliding scale. Patient was started on clear liquid diabetic diet, advanced as tolerated. Patient's hemoglobin A1c is 9.5 this admission. Patient Accu-Cheks were within acceptable
[2021-04-15 11:26] LABS: Glucose Point of Care 85 mg/dl (65-105)
[2021-04-15 11:41] LABS: Glucose Point of Care 154 mg/dl (65-105)
[2021-04-15 14:15] VITALS: BMI 19.6
--- NOTE | 2021-04-15 15:32 | PC.NURSE ---
This patient, Prosper Sosa III, was transferred to PACU overflow on 04/15/21 at 1532. Personal belongings sent with patient. Report given to Myranda WHITE. Appropriate documentation sent with patient.
[2021-04-15 15:41] VITALS: BP 124/82; PULSE 68; RESP 16; TEMP 36.9; O2SAT 99
--- NOTE | 2021-04-15 15:42 | PC.NURSE ---
This patient, Prosper Sosa III, was received from [CHRISTOPHER Amaral. ] on 04/15/21 at 1019. Patient/family oriented to unit policies and routines
[2021-04-15 16:35] LABS: Glucose Point of Care 161 mg/dl (65-105)
--- NOTE | 2021-04-15 16:41 | PC.NURSE ---
Called Dr. Cross about patient's BG and she is going to put in discharge orders.
--- NOTE | 2021-05-02 15:48 | PM.EVENT ---
Event Note Event Note Event Note: DIABETES TYPE 1
== END 2021-04-15 17:30 | disposition home or self-care (01) | DRG 420 ==
LOC: ANHED 16:51 → ANHICU 18:32 → ANH2MED 04-14 14:18 → ANHSUROVER 04-15 14:51
PROVIDERS: Internal Medicine; Internal Medicine Gastroenterology; Physician Assistant; Admitting Provider Internal Medicine; Emergency Provider Emergency Medicine; PCP Physician Assistant; Visit Provider Internal Medicine
DX: E10.10 Type 1 diabetes mellitus with ketoacidosis without coma (principal); K51.011 Ulcerative (chronic) pancolitis with rectal bleeding; E86.0 Dehydration; Z91.14 Patient's other noncompliance with medication regimen
CPT/HCPCS: 36415; 74177; 80048; 80053; 81001; 82010; 82803; 82948; 83036; 83690; 83735; 84100; 85025; 85610; 85652; 85730; 86140; 96361; 96365; 96375; 99285; A9270; J1815; J1956; J2405; J3480; J7030; Q9967

== ENCOUNTER 2021-05-09 14:18 | Emergency (ER) | payer MEDICAID, SELFPAY ==
--- NOTE | ~2021-05-09 | CT_ITS ---
EXAMINATION: CT abdomen pelvis w con EXAM DATE: 05/09/2021 15:24 INDICATION: colitis, abd pain, sent in to r/o perf . TECHNIQUE: Spiral CT of the abdomen and pelvis was performed following intravenous injection of 100 m L Omnipaque 350. Axial, coronal and sagittal images of the abdomen and pelvis were reviewed. The do se-length product (DLP) for this examination was 214.06 mGy-cm. The exposure was tailored according to patient size (auto mA exposure control), and iterative reconstruction (ASIR) was used as additiona l dose reduction technique. Comparison is made to prior examination from 04/12/2021. FINDINGS: There is severe cobb colitis, diarrhea, differential diagnosis includes ulcerative colitis, inflammatory bowel disease. Bowel wall appears more inflamed and thickened than on prior study. No pn eumatosis, perforation or free intraperitoneal air. Mesenteric lymph nodes are upper limits of normal in size, with interval increase. The liver, spleen, adrenal glands and pancreas are unremarkable. Gallbladder is unremarkable. No bi liary obstruction. Portal and splenic veins are patent. Kidneys enhance symmetrically. There is no hydronephrosis. The prostate is unremarkable. The bladder is unremarkable. There are no findings to suggest appendicitis. The stomach and small bowel are unremarkable. The heart is normal in size. There are no pericardial or pleural effusions. The lung bases are unremark able. The bones are unremarkable. IMPRESSION: Progression of cobb colitis and development of reactive mesenteric lymph nodes. Diarrhea. Consider infectious etiology or inflammatory bowel disease. Reviewed, dictated and finalized at location G. L SHEET ROLLER OPERATOR IMPRESSION: Progression of cobb colitis and development of reactive mesenteric l ymph nodes. Diarrhea. Consider infectious etiology or inflammatory bowel diseas e.
[2021-05-09 14:23] VITALS: BP 141/94; PULSE 127; RESP 20; TEMP 36.9; O2SAT 99
[2021-05-09 14:50] LABS: Hematocrit 41.3 % (42.0-52.0); Hemoglobin 13.4 g/dL (14.0-18.0); Mean Corpuscular HGB Conc 32.4 g/dl (32-36); Mean Corpuscular Hemoglobin 28.4 pg (26-34); Mean Corpuscular Volume 87.5 fl (80-100); Mean Platelet Volume 9.4 fl (7.4-10.4); Platelet Count Result 373 k/mm3 (150-375); Red Blood Count 4.72 M/mm3 (4.6-6.20); Red Cell Distribution Width 13.5 % (11.5-14.5); White Blood Count 11.7 K/mm3 (4.5-10.0)
[2021-05-09 14:59] LABS: Add Urine Microscopic? YES; Alanine Aminotransferase 12 U/L (4-50); Albumin Level 4.2 g/dL (3.5-5.1); Alkaline Phosphatase 98 U/L (38-126); Anion Gap 8 mmol/L (8-16); Appearance Urine Clear (Clear); Aspartate Amino Transferase 20 U/L (17-59); Bilirubin Urine Negative (Negative); Bilirubin,Total 0.5 mg/dL (0.2-1.3); Blood Urea Nitrogen 7 mg/dL (9-20); Calcium 9.3 mg/dL (8.4-10.2); Carbon Dioxide 29 mmol/L (22-30); Chloride 97 mmol/L (98-107); Color Urine Yellow (Yellow); Estimated CRCL calculation 112 ml/min; Estimated Glomerular Filt Rate > 60; Glucose 168 mg/dL (65-110); Glucose Urine UA Negative (Negative); Ketones Urine Trace mg/dL (Negative); Leukocyte Esterase Ur Trace LEU/UL (Negative); Lipase 17 U/L (23-300); Mucus Urine Heavy /lpf; Nitrate Urine Negative (Negative); Potassium 3.9 mmol/L (3.4-5.0); Protein Urine 1+ mg/dL (Negative); RBC Urine 0-2 /hpf (0-2); Sodium 134 mmol/L (137-145); Specific Grav Ur 1.019 (1.001-1.035); Squamous Epithelial Cell Urine Rare /hpf (Few); Urobilinogen Urine Negative mg/dL (<2.0)
[2021-05-09 15:08] LABS: Blood Urine Negative (Negative)
[2021-05-09 15:24] LABS: Band Neutrophils Percent 21 % (0-6); Eosinophils Absolute Manual 0.35 K/mm3 (0.02-0.5); Eosinophils Percent Manual 3 % (0-4); Lymphocytes Absolute Manual 1.75 K/mm3 (1.1-4.5); Monocytes Absolute Manual 1.17 K/mm3 (0.1-0.90); Monocytes Percent Manual 10 % (3-9); Neutrophils Absolute Manual 8.42 K/mm3 (1.3-6.7); Neutrophils Percent Manual 51 % (46-73); Platelet Estimate Adequate (Adequate); Total Cells Counted 100
--- NOTE | 2021-05-09 15:44 | ED.ABDPAIN ---
HPI - Abdominal Pain General Chief Complaint: Abdominal Pain Stated Complaint: abd pain Time Seen by Provider: 05/09/21 14:31 Source: patient, RN notes reviewed and old records reviewed Mode of arrival: ambulatory Limitations: no limitations History of Present Illness HPI narrative: 26-year-old male with history of colitis presents to the emergency department complaining of increased left-sided abdominal pain and increased bloody diarrhea. Patient had completed his Xeljanz approximately 1 week ago. Patient had a Remicade infusion approximately 4 weeks ago. Patient states last week he began developing increased pain and had blood in his stool. Patient states over the last 2 days the symptoms have continued to worsen. Patient does report decreased p.o. intake. Patient is diabetic but states this his blood sugars have been better controlled than his last visit. Patient did have contact with his GI physician and [facility], Dr. Orantes, and was referred to the emergency department for evaluation. Related Data Home Medications Medication Instructions Recorded Confirmed fluoxetine 40 mg PO DAILY 01/05/21 04/12/21 Lantus U-100 Insulin 40 units SUBCUT HS 04/12/21 04/12/21 tofacitinib 20 mg PO DAILY 04/12/21 04/12/21 Allergies Allergy/AdvReac Type Severity Reaction Status Date / Time No Known Allergies Allergy Verified 04/12/21 14:13 Review of Systems Review of Systems: CONSTITUTIONAL: Denies fever, chills, or sweats. EYES: Denies visual changes, redness, or discharge. ENT: Denies rhinorrhea, congestion, sore throat, or otalgia. CARDIOVASCULAR: Denies chest pain, palpitations, or edema. RESPIRATORY: Denies cough or dyspnea. GASTROINTESTINAL: Abdominal pain with associated nausea and decreased p.o. intake. Does report rectal bleeding GENITOURINARY: Denies dysuria or hematuria. SKIN: Denies rash or itching. MUSCULOSKELETAL: Denies back pain, joint pain, or myalgia. NEUROLOGIC: Denies headache, numbness, or weakness. PSYCHIATRIC: Denies anxiety or depression. [facility] Past Medical History Medical History (Updated 05/09/21 @ 17:16 by Toan Gomes MD) Abdominal pain Diabetes type 1 A1c 10.4 on 01/12/2020 Ulcerative colitis Surgical History Surgical History H/O eye surgery right eye H/O hand surgery on the right hand Family History Family History Father Acute myocardial infarction Sibling Asthma Diabetes mellitus Mother Family history of thyroid problem Grandparent Acute Crohn's disease Diabetes mellitus Social History Social History Social History: The patient lives with his girlfriend and they are expecting a child in about 4 months. He has no other children. 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 The patient is a full code and he would like for his mother to be the durable power contract attorney for healthcare. Smoking status: Never smoker Second hand tobacco smoke exposure: Yes Alcohol intake: never Substance use: never Substance use type: does not use Gender identity (if verbalized by the patient): Male Sexual Orientation (if Verbalized by the Patient): Straight or Heterosexual Spiritual care concerns: No Exam Narrative: APPEARANCE: Well appearing, no pain, no distress, well-nourished. HEAD: normocephalic, atraumatic. EYES: PERRLA/EOMI, conjunctivae clear. RESPIRATORY: Airway patent, respirations nonlabored. Clear to auscultation bilaterally, no rales, rhonchi, wheezing. CARDIOVASCULAR: Regular rate and rhythm without murmurs rubs or gallops. ABDOMINAL: Soft, mild tenderness, normal bowel sounds, MUSCULOSKELETAL: Moves all extremities. Strength/ROM intact, No edema, No calf tenderness. Course Course Emergency Course: Patient was updated on the results of his labs and CTs. Patient does feel improved with treatm
[2021-05-09] MEDS: HYDROmorphone HCL INJ (*CRX) 1 MG/ML SYR 0.5 MG IV PUSH (16:14)
[2021-05-09] MEDS: ONDANSETRON INJ 4 MG/2 ML VIAL IV PUSH (16:16)
[2021-05-09] MEDS: SODIUM CHLORIDE 0.9% IV 1,000 ML 999 ML IV CONT (16:19)
[2021-05-09 17:32] VITALS: BP 132/79; PULSE 64; RESP 18; O2SAT 97
== END 2021-05-09 17:35 | disposition home or self-care (01) ==
PROVIDERS: Emergency Provider Emergency Medicine; PCP Physician Assistant
DX: K51.00 Ulcerative (chronic) pancolitis without complications (principal); E11.9 Type 2 diabetes mellitus without complications; Z79.4 Long term (current) use of insulin
CPT/HCPCS: 36415; 74177; 80053; 81001; 83690; 85025; 87086; 87088; 96361; 96374; 96375; 99284; J1170; J2405; J7030; Q9967

== ENCOUNTER 2021-06-14 08:26 | Emergency (ER) | payer OTHER, SELFPAY ==
[2021-06-14] VITALS (60 sets, daily range): BP systolic 98–134; BP diastolic 60–86; PULSE 91–132; RESP 11–26; TEMP 36.4; O2SAT 96–100
--- NOTE | ~2021-06-14 | CT_ITS ---
EXAMINATION: CT abdomen pelvis w con INDICATION: Postoperative nausea, vomiting, and abdominal pain TECHNIQUE: Computed tomographic images of the abdomen and pelvis were obtained after the administrati on of 100 cc of Omnipaque 350 intravenous contrast. The dose-length product (DLP) was 395.53 mGy-cm. Automated exposure control and iterative reconstruction technique were employed. COMPARISON: 05/09/2021 FINDINGS: The lung bases are clear. The heart size is normal. The liver, spleen, pancreas, gallbladde r, and adrenal glands are normal. Nonobstructing stones of the left kidney measure up to 4 mm. There is patchy perfusion of the kidneys. No pathologically enlarged abdominal or pelvic lymph nodes are id entified. There are changes of interval colectomy with ileostomy formation in the right lower quadran t. The rectum is still present and demonstrates circumferential wall thickening, consistent with hist ory of ulcerative colitis. There is a large volume of free intraperitoneal gas. There are markedly di lated loops of proximal small bowel in the left abdomen. There is a relative transition point in righ t lower quadrant beyond which most of the small bowel loops are decompressed. There is a moderate vol ume of pelvic ascites. A small amount of fluid and gas are seen insinuating into the musculature of t he right anterior abdominal wall. IMPRESSION: 1. Dilated small bowel, consistent with ileus versus partial obstruction. 2. Greater than expected volume of postoperative free intraperitoneal gas and pelvic ascites, etiolog y unclear 3. Patchy perfusion of the kidneys which could reflect pyelonephritis.. Reviewed, dictated and finalized at location B. IMPRESSION: 1. Dilated small bowel, consistent with ileus versus partial obstruction. 2. Greater than expected volume of postoperative free intraperitoneal gas and p elvic ascites, etiology unclear 3. Patchy perfusion of the kidneys which could reflect pyelonephritis..
--- NOTE | ~2021-06-14 | XR_ITS ---
XR chest 2V DATE: 06/14/2021 08:50 INDICATION: Diaphoresis. Weakness, left-sided abdominal pain, nausea, vomiting. Recent colon surgery. TECHNIQUE: AP and lateral views COMPARISON: None FINDINGS: There is a moderate amount of free air under both leaves of the diaphragm. Pneumoperitoneum might be due to recent abdominal surgery. Ruptured hollow abdominal viscus is not excluded. Clinical correlation is advised. Normal heart size. No hilar or mediastinal enlargement. No pulmonary infiltrate or consolidation, ple ural effusion or pulmonary vascular congestion or pneumothorax. Included skeletal structures are unremarkable. IMPRESSION: Moderate pneumoperitoneum; differential diagnosis includes postoperative pneumoperitoneum versus ruptured hollow abdominal viscus No active cardiopulmonary disease Reviewed, dictated and finalized at location A. IMPRESSION: Moderate pneumoperitoneum; differential diagnosis includes postoper ative pneumoperitoneum versus ruptured hollow abdominal viscus No active cardiopulmonary disease
--- NOTE | 2021-06-14 08:22 | ECG_ITS ---
Measurements Intervals [place] Rate: 88 P: 69 [place]: 116 QRS: 90 QRSD: 104 T: 73 QT: 375 QTc: 456 Interpretive Statements SINUS RHYTHM WITH SHORT [place] INTERVAL NONSPECIFIC T-WAVE ABNORMALITY ST-ELEVATION, CONSIDER PERICARDITIS, EARLY REPOLARIZATION ABNORMAL ECG NO PREVIOUS ECG AVAILABLE FOR COMPARISON Electronically Signed On 06-14-2021 16:21:14 CDT by Jason Mensah M.D.
[2021-06-14 08:31] LABS: Glucose Point of Care 204 mg/dl (65-105)
[2021-06-14] MEDS: SODIUM CHLORIDE 0.9% IV 1,000 ML 999 ML IV CONT ×2 (08:39→09:33)
--- NOTE | 2021-06-14 08:41 | PC.NURSE ---
pt to xray at this time.
[2021-06-14 08:49] LABS: Basophils Percent Auto 0.2 % (0.2-1.2); Eosinophils Absolute Auto 0.1 K/mm3 (0-0.3); Eosinophils Percent Auto 0.6 % (0-4.4); Hematocrit 33.3 % (42.0-52.0); Hemoglobin 10.1 g/dL (14.0-18.0); Immature Granulocyte Percent A 0.6 % (0-0.5); Lymphocytes Absolute Auto 0.34 K/mm3 (0.9-3.2); Mean Corpuscular HGB Conc 30.3 g/dl (32-36); Mean Corpuscular Hemoglobin 25.9 pg (26-34); Mean Corpuscular Volume 85.4 fl (80-100); Mean Platelet Volume 8.4 fl (7.4-10.4); Monocytes Absolute Auto 0.8 K/mm3 (0.1-0.6); Monocytes Percent Auto 4.6 % (2.6-8.5); Neutrophils Absolute Auto 15.4 K/mm3 (1.3-6.7); Platelet Count Result 791 k/mm3 (150-375); Red Cell Distribution Width 15.2 % (11.5-14.5); White Blood Count 16.7 K/mm3 (4.5-10.0)
[2021-06-14 09:07] LABS: Lactic Acid Reflex 2.7 mmol/L (0.7-2.1)
[2021-06-14 09:08] LABS: Alanine Aminotransferase 15 U/L (4-50); Albumin Level 3.7 g/dL (3.5-5.1); Alkaline Phosphatase 94 U/L (38-126); Anion Gap 9 mmol/L (8-16); Aspartate Amino Transferase 20 U/L (17-59); Bilirubin,Total 0.3 mg/dL (0.2-1.3); Blood Urea Nitrogen 12 mg/dL (9-20); Calcium 8.7 mg/dL (8.4-10.2); Carbon Dioxide 27 mmol/L (22-30); Chloride 102 mmol/L (98-107); Estimated CRCL calculation 100 ml/min; Estimated Glomerular Filt Rate > 60; Glucose 221 mg/dL (65-110); Potassium 3.8 mmol/L (3.4-5.0); Sodium 138 mmol/L (137-145)
--- NOTE | 2021-06-14 09:35 | PC.NURSE ---
pt unable to urinate. pt declining straight cath at this time.
[2021-06-14] MEDS: MORPHINE SULFATE (*CRX) 4 MG/ML INJ IV PUSH (09:46)
[2021-06-14 10:10] LABS: Lipase 66 U/L (23-300)
[2021-06-14 10:42] LABS: Add Urine Microscopic? YES; Appearance Urine Clear (Clear); Bacteria Urine Trace /hpf; Bilirubin Urine Negative (Negative); Blood Urine Negative (Negative); Color Urine Yellow (Yellow); Glucose Urine UA 2+ mg/dL (Negative); Ketones Urine Negative (Negative); Leukocyte Esterase Ur Negative LEU/UL (Negative); Mucus Urine Rare /lpf; Nitrate Urine Negative (Negative); Protein Urine Negative (Negative); RBC Urine 0-2 /hpf (0-2); Urobilinogen Urine Negative mg/dL (<2.0); WBC Urine 0-3 /hpf
[2021-06-14 10:45] LABS: Specific Grav Ur 1.057 (1.001-1.035)
--- NOTE | 2021-06-14 10:54 | ED.WEAKNESS ---
HPI - Weakness General Chief complaint: Weakness Stated complaint: weakness Time Seen by Provider: 06/14/21 08:55 History of Present Illness HPI Narrative: Patient is a 26-year-old male who presents to the ER with feeling of weakness and nausea. Patient recently underwent colectomy at [facility]. Has history of ulcerative colitis. He has a stoma present in the right lower quadrant that has liquid stool and a large quantity present. He reports he was discharged 2 days ago. He had a prolonged course because he could not keep down food or water. Reports he is not having fevers. Reports he is having some abdominal cramping. It is hard to eat because of nausea and vomiting. No abdominal distention. Denies drainage or breakdown of surgical incisions. Related Data Home Medications Medication Instructions Recorded Confirmed fluoxetine 40 mg PO DAILY 01/05/21 04/12/21 Lantus U-100 Insulin 40 units SUBCUT HS 04/12/21 04/12/21 tofacitinib 20 mg PO DAILY 04/12/21 04/12/21 Allergies Allergy/AdvReac Type Severity Reaction Status Date / Time No Known Allergies Allergy Verified 06/14/21 08:36 Review of Systems Review of Systems: All systems reviewed & are unremarkable except as noted in HPI and below Constitutional: Constitutional: Denies chills, Denies fever(s) and Reports weakness ENT: Denies nasal congestion and Denies sore throat Cardiovascular: Cardiovascular: Denies chest pain, Denies rapid heart rate and Denies radiating jaw, neck or arm pain Respiratory: Respiratory: Denies cough, Denies dyspnea and Denies wheezing Gastrointestinal: Gastrointestinal: Reports abdominal pain, Reports diarrhea, Reports nausea and Reports vomiting Genitourinary: Genitourinary: Denies dysuria and Denies urinary frequency [facility] Past Medical History Medical History (Updated 06/14/21 @ 11:34 by Damir Vanessa MD) Abdominal pain Diabetes type 1 A1c 10.4 on 01/12/2020 Ulcerative colitis Surgical History Surgical History (Updated 06/14/21 @ 10:56 by Damir Vanessa MD) H/O eye surgery right eye H/O hand surgery on the right hand History of colectomy Family History Family History Father Acute myocardial infarction Sibling Asthma Diabetes mellitus Mother Family history of thyroid problem Grandparent Acute Crohn's disease Diabetes mellitus Social History Social History Social History: The patient lives with his girlfriend and they are expecting a child in about 4 months. He has no other children. 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 The patient is a full code and he would like for his mother to be the durable power health care attorney for healthcare. Smoking status: Never smoker Second hand tobacco smoke exposure: Yes Alcohol intake: never Substance use: never Substance use type: does not use Gender identity (if verbalized by the patient): Male Sexual Orientation (if Verbalized by the Patient): Straight or Heterosexual Spiritual care concerns: No Exam Narrative: GENERAL: Chronically ill-appearing and underweight, no acute distress. HEAD: Normocephalic, atraumatic. EYES: PERRL and EOMI. ENT: Mucous membranes moist. CHEST: Clear to auscultation. No respiratory distress. HEART: Regular rate and rhythm. Normal peripheral pulses. ABDOMEN: Soft, mild epigastric discomfort, well-healing surgical wounds, large amount liquid stool in ostomy bag, nondistended. EXTREMITIES: Normal range of motion. No edema. SKIN: Warm, dry, no rash. NEURO: Alert and oriented x3. PSYCH: Normal mood and affect. Course Course Emergency Course: Discussed with Dr. Palm with surgery at [facility]. Recommends transfer to [facility], continuous fluids, ertapenem 1g IV, and NPO. No NG recommended at this time. Patient aware of dx and tx plan. Vital Signs Vital signs: Vital Signs Temperature 97.6 F 06/14/21 08:2
[2021-06-14 11:45] LABS: Reflex Lactic Acid Yes or No Add Lactic
[2021-06-14] MEDS: ONDANSETRON INJ 4 MG/2 ML VIAL IV PUSH (12:08)
[2021-06-14] MEDS: ERTAPENEM 1 GM/NS 50 ML 1 GM/50 ML BAG IVPB (12:08)
[2021-06-14] MEDS: SODIUM CHLORIDE 0.9% IV 1,000 ML 150 ML IV CONT (12:19)
[2021-06-14 13:03] LABS: SARS-CoV-2 RNA PCR Negative
[2021-06-14 14:04] LABS: Lactic Acid 0.8 mmol/L (0.7-2.1)
--- NOTE | 2021-06-14 19:44 | PC.NURSE ---
pt has Bed at [place]. Bed number is [id number]. Report called to Maren WHITE.
--- NOTE | 2021-06-14 21:19 | PC.NURSE ---
pts costomy bag emptied. Pt tolerated well.
--- NOTE | 2021-06-14 21:37 | PC.NURSE ---
TRANSFER: [facility]: DECLINED [facility]: DECLINED [facility]: ACCEPTED ETA [id number]
== END 2021-06-14 22:03 | disposition short-term general hospital (02) ==
PROVIDERS: Emergency Provider Emergency Medicine; PCP Physician Assistant
DX: K56.609 Unspecified intestinal obstruction, unspecified as to partial versus complete obstruction (principal); Z20.822 Contact with and (suspected) exposure to COVID-19; E10.9 Type 1 diabetes mellitus without complications; Z90.49 Acquired absence of other specified parts of digestive tract; Z93.3 Colostomy status; Z79.4 Long term (current) use of insulin; R94.31 Abnormal electrocardiogram [ECG] [EKG]
CPT/HCPCS: 36415; 71046; 74177; 80053; 81001; 82948; 83605; 83690; 85025; 93005; 96361; 96365; 96375; 99285; C9803; J1335; J2270; J2405; J7030; Q9967; U0003; U0005

== ENCOUNTER 2022-08-01 04:00 | Emergency (ER) | payer OTHER, SELFPAY ==
[2022-08-01] VITALS (33 sets, daily range): BP systolic 99–134; BP diastolic 52–116; PULSE 100–125; RESP 11–28; TEMP 36.4–36.5; O2SAT 97–100
--- NOTE | ~2022-08-01 | XR_ITS ---
Portable chest x-ray Comparison: 06/14/2021 Clinical History: Diabetic ketoacidosis Findings: Lungs are clear, without focal consolidation or pleural effusion. Cardiomediastinal silho uette is stable. Bones and soft tissues are unremarkable. Impression: Normal chest. Reviewed, dictated and finalized at location . Impression: Normal chest.
--- NOTE | ~2022-08-01 | CT_ITS ---
CT of the Abdomen and Pelvis: Indication: Abdominal pain Technique: 2.5 mm axial scans were obtained through the abdomen and pelvis following intravenous adm inistration of 100 cc of Omnipaque 350. Dose reduction technique was used on this scan by utilizing a utomated exposure control and iterative reconstruction technique. The dose-length product (DLP) was 2 45.42 mGy-cm. COMPARISON: 06/14/2021 Findings: Scans through the lung bases are unremarkable. The liver, spleen, pancreas, gallbladder, and adrenal glands are within normal limits. There are smal l bilateral nonobstructing renal stones versus renal vascular calcifications. No evidence of aortic a neurysm. No lymphadenopathy. Right lower quadrant ostomy present. Patient is status post probable total colectomy. There is a flui d collection in the posterior low pelvis measuring approximately 4.7 x 3.2 cm (axial image 141) for e xample. There is adjacent presumed suture line in this region. Images through the pelvis were performed. Urinary bladder unremarkable. No ascites. Impression: 4.7 x 3.2 cm fluid collection in the posterior pelvis, probably adjacent to the rectal stump. This is suspicious for abscess. Probable total prior colectomy with right lower quadrant ostomy in place. Small bilateral renal stones versus renal vascular calcifications. Reviewed, dictated and finalized at location . Impression: 4.7 x 3.2 cm fluid collection in the posterior pelvis, probably adjacent to the rectal stump. This is suspicious for abscess. Probable total prior colectomy with right lower quadrant ostomy in place. Small bilateral renal stones versus renal vascular calcifications.
--- NOTE | 2022-08-01 04:28 | ECG_ITS ---
Measurements Intervals [place] Rate: 102 P: 68 ME: 131 QRS: 93 QRSD: 105 T: 62 QT: 356 QTc: 465 Interpretive Statements SINUS TACHYCARDIA RIGHT AXIS DEVIATION MINIMAL Q WAVES- INFERIOR LEADS BORDERLINE ECG COMPARED TO ECG 06/14/2021 08:31:18 SINUS TACHYCARDIA NOW PRESENT Electronically Signed On 08-01-2022 6:33:58 CDT by Albert Aguilar D.O.
[2022-08-01 04:51] LABS: Basophils Absolute Auto 0.1 K/mm3 (0.0-0.1); Basophils Percent Auto 0.7 % (0.2-1.2); Eosinophils Percent Auto 0.4 % (0-4.4); Hematocrit 42.1 % (42.0-52.0); Hemoglobin 13.8 g/dL (14.0-18.0); Immature Granulocyte Absolute 0.04 K/mm3 (0.00-0.031); Immature Granulocyte Percent A 0.4 % (0-0.5); Lymphocytes Percent Auto 12.3 % (18.3-44.2); Mean Corpuscular HGB Conc 32.8 g/dl (32-36); Mean Corpuscular Hemoglobin 29.1 pg (26-34); Mean Corpuscular Volume 88.8 fl (80-100); Mean Platelet Volume 10.3 fl (7.4-10.4); Monocytes Percent Auto 10.7 % (2.6-8.5); Neutrophils Absolute Auto 7.3 K/mm3 (1.3-6.7); Neutrophils Percent Auto 75.5 % (45.5-73.1); Platelet Count Result 297 k/mm3 (150-375); Red Blood Count 4.74 M/mm3 (4.6-6.20); White Blood Count 9.7 K/mm3 (4.5-10.0)
[2022-08-01] MEDS: SODIUM CHLORIDE 0.9% IV 3,000 ML 999 ML IV CONT (04:55)
[2022-08-01] MEDS: ONDANSETRON INJ 4 MG/2 ML VIAL IV PUSH ×2 (04:55→08:27)
[2022-08-01 04:56] LABS: Alanine Aminotransferase 30 U/L (6-50); Albumin Level 4.7 g/dL (3.5-5.1); Alkaline Phosphatase 130 U/L (38-126); Anion Gap 19 mmol/L (8-16); Aspartate Amino Transferase 28 U/L (17-59); Bilirubin,Total 1.4 mg/dL (0.2-1.3); Blood Urea Nitrogen 26 mg/dL (9-20); Carbon Dioxide 17 mmol/L (22-30); Chloride 96 mmol/L (98-107); Estimated Glomerular Filt Rate > 60; Glucose 470 mg/dL (65-110); Lactic Acid Reflex 4.1 mmol/L (0.7-2.0); Lipase 39 U/L (23-300); Magnesium 1.9 mg/dL (1.6-2.3); Phosphorus 2.5 mg/dL (2.5-4.5); Sodium 132 mmol/L (137-145)
[2022-08-01 05:04] LABS: Ethanol < 10 mg/dL (<10)
[2022-08-01 05:51] LABS: Influenza A QL RT-PCR Negative (Negative); Influenza B QL RT-PCR Negative (Negative); RSV RNA, RT-PCR Negative (Negative); SARS-CoV-2 RNA PCR Negative (Negative)
--- NOTE | 2022-08-01 05:59 | ED.GENADULT ---
HPI - General Adult General Chief complaint: Abdominal Pain <Adam Waters MD - Last Filed: 08/06/22 03:24> Stated complaint: DKA <Adam Waters MD - Last Filed: 08/06/22 03:24> Time Seen by Provider: 08/01/22 04:27 <Adam Waters MD - Last Filed: 08/06/22 03:24> History of Present Illness HPI narrative: this is a 27-year-old male presenting ED with chief complaint of nausea and vomiting x2 days. Patient believes he is in DKA. His nausea and vomiting has been associated with an achy abdominal pain that is diffuse throughout his abdomen, 8 out 10 intensity and improve after he vomits. The patient uses insulin pump that he believes operating appropriately. Patient also has ulcerative colitis and recently had a colectomy/ileostomy with a recent reversal. Patient denies Fevers, URI symptoms, chest pain difficulty breathing or urinary symptoms. Patient's niece is sick with a viral illness with nausea vomiting. Patient has been drinking nothing but red Crystal Light which has colored his vomit and ileostomy contents. <Adam Waters MD - Last Filed: 08/06/22 03:24> Related Data Home medications: Home Medications Medication Instructions Recorded Confirmed fluoxetine 20 mg capsule 40 mg PO DAILY 01/05/21 04/12/21 insulin glargine 100 unit/mL 40 units subcut HS 04/12/21 04/12/21 subcutaneous solution (Lantus U-100 Insulin) tofacitinib 10 mg tablet 20 mg PO DAILY 04/12/21 04/12/21 <Adam Waters MD - Last Filed: 08/06/22 03:24> Allergies/adverse reactions: Allergies Allergy/AdvReac Type Severity Reaction Status Date / Time No Known Allergies Allergy Verified 08/01/22 04:01 <Adam Waters MD - Last Filed: 08/06/22 03:24> [facility] Past Medical History Medical History: Medical History Abdominal pain Diabetes type 1 A1c 10.4 on 01/12/2020 Ulcerative colitis <Adam Waters MD - Last Filed: 05/17/23 03:24> Surgical History Surgical History: Surgical History H/O eye surgery right eye H/O hand surgery on the right hand History of colectomy <Adam Waters MD - Last Filed: 08/06/22 03:24> Family History Family History: Family History Father Acute myocardial infarction Sibling Asthma Diabetes mellitus Mother Family history of thyroid problem Grandparent Acute Crohn's disease Diabetes mellitus <Adam Waters MD - Last Filed: 08/06/22 03:24> Social History Social History: Social History Social History: The patient lives with his girlfriend and they are expecting a child in about 4 months. He has no other children. 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 The patient is a full code and he would like for his mother to be the durable power state attorney for healthcare. Smoking status: Never smoker Second hand tobacco smoke exposure: Yes Alcohol intake: never Substance use: never Substance use type: does not use Living arrangements: with friend(s) Occupation/Education: occupation Gender identity (if verbalized by the patient): Male Sexual Orientation (if Verbalized by the Patient): Straight or Heterosexual Spiritual care concerns: No <Adam Waters MD - Last Filed: 08/06/22 03:24> Exam Narrative: APPEARANCE: patient is actively vomiting red crystal light covered vomit Head: atraumatic. EYES: EOMI, NOSE: Atraumatic NECK: Trachea midline RESPIRATORY: No increased rate of breathing, clear to auscultation CARDIOVASCULAR: RRR, ABDOMINAL: ileostomy in place, insulin pump in place, rest the abdomen is mildly tender but no guarding or rebound. MUSCULOSKELETAl: No obvious deformities NEURO: Alert. Moving 4/4 extremities SKIN:: Warm, dry. Normal color PSYCHIATRIC: Normal a
[2022-08-01 06:13] LABS: Glucose Point of Care 465 mg/dl (65-105)
[2022-08-01 06:48] LABS: Appearance Urine Clear (Clear); Bilirubin Urine Negative (Negative); Blood Urine Negative (Negative); Color Urine Yellow (Yellow); Glucose Urine UA 3+ mg/dL (Negative); Ketones Urine 4+ mg/dL (Negative); Leukocyte Esterase Ur Negative LEU/UL (Negative); Nitrate Urine Negative (Negative); Protein Urine Negative (Negative); Specific Grav Ur 1.028 (1.001-1.035); Urobilinogen Urine 0.2 mg/dL (<2.0)
[2022-08-01 06:59] LABS: Add Urine Microscopic? NO
[2022-08-01 07:02] LABS: Barbiturate Screen Urine Negative (Negative); Benzodiazepines Screen Urine Negative (Negative)
[2022-08-01 07:05] LABS: Fractional Inspired Oxygen 21 %; HCO3 VBG 12.7 mEq/l (24.0-30.0); PO2 VBG 66.1 mmHg (35.0-45.0); pH VBG 7.268 (7.300-7.400)
[2022-08-01 07:07] LABS: Device ROOM AIR; PCO2 VBG 28.5 mmHg (42.0-48.0)
[2022-08-01 07:08] LABS: Amphetamine Screen Urine Negative (Negative); Cannabinoid Screen Urine Negative (Negative); Methadone Screen Urine Negative (Negative); Opiate Screen Urine Negative (Negative); Phencyclidine Screen Urine Negative (Negative)
[2022-08-01 07:10] LABS: Cocaine Screen Urine Negative (Negative)
[2022-08-01 07:11] LABS: Lactic Acid Reflex 1.5 mmol/L (0.7-2.0)
[2022-08-01 07:12] LABS: Anion Gap 18 mmol/L (8-16); Blood Urea Nitrogen 25 mg/dL (9-20); Calcium 8.1 mg/dL (8.4-10.2); Carbon Dioxide 12 mmol/L (22-30); Chloride 102 mmol/L (98-107); Estimated Glomerular Filt Rate > 60; Glucose 416 mg/dL (65-110); Potassium 4.1 mmol/L (3.4-5.0); Sodium 132 mmol/L (137-145)
[2022-08-01] MEDS: FAMOTIDINE 20 MG/2 ML VIAL IV PUSH (07:43)
[2022-08-01 07:44] LABS: Reflex Lactic Acid Yes or No Add Lactic
[2022-08-01 08:08] LABS: Glucose Point of Care 418 mg/dl (65-105)
[2022-08-01] MEDS: INSULIN HUMAN REGULAR (*BKC) 100 UNITS/ML IV PUSH (08:27)
[2022-08-01] MEDS: HYDROmorphone HCL INJ (*CRX) 1 MG/ML SYR IV PUSH (08:27)
[2022-08-01] MEDS: METOCLOPRAMIDE HCL INJ 10 MG/2 ML VIAL IV PUSH (08:29)
--- NOTE | 2022-08-01 08:30 | PC.NURSE ---
pt accepted at [facility] as direct admit - placed on bed wait list
[2022-08-01] MEDS: PIPERACILLN/TAZ 3.375GM/NS50ML 3.375 GM/50 ML BAG IVPB (09:17)
[2022-08-01] MEDS: SODIUM CHLORIDE 0.9% IV 1,000 ML 125 ML IV CONT (09:17)
[2022-08-01 09:35] LABS: Glucose Point of Care 387 mg/dl (65-105)
== END 2022-08-01 10:59 | disposition short-term general hospital (02) ==
LOC: ANHED 05:59
PROVIDERS: Emergency Provider Emergency Medicine; PCP Physician Assistant
DX: T81.43XA Infection following a procedure, organ and space surgical site, initial encounter (principal); K65.1 Peritoneal abscess; Z20.822 Contact with and (suspected) exposure to COVID-19; E10.65 Type 1 diabetes mellitus with hyperglycemia; K51.90 Ulcerative colitis, unspecified, without complications; Z79.4 Long term (current) use of insulin; Z96.41 Presence of insulin pump (external) (internal); R00.0 Tachycardia, unspecified
CPT/HCPCS: 36415; 71045; 74177; 80048; 80053; 80307; 81003; 82803; 82948; 83605; 83690; 83735; 84100; 85025; 87040; 87637; 93005; 96361; 96365; 96375; 99285; J1170; J1815; J2405; J2543; J2765; J7030; Q9967

== ENCOUNTER 2022-08-11 10:19 | Observation (INO) | payer OTHER, MEDICAID, SELFPAY ==
[2022-08-11] VITALS (40 sets, daily range): BP systolic 97–135; BP diastolic 68–96; PULSE 80–131; RESP 12–28; TEMP 36.3–36.6; O2SAT 98–100; BMI 19.2
[2022-08-11 10:34] LABS: Glucose Point of Care 406 mg/dl (65-105)
[2022-08-11] MEDS: SODIUM CHLORIDE 0.9% IV 1,000 ML 999 ML IV CONT ×2 (10:43)
[2022-08-11 11:06] LABS: Basophils Percent Auto 0.4 % (0.2-1.2); Eosinophils Percent Auto 0.6 % (0-4.4); Hematocrit 47.9 % (42.0-52.0); Hemoglobin 16.6 g/dL (14.0-18.0); Immature Granulocyte Absolute 0.01 K/mm3 (0.00-0.031); Immature Granulocyte Percent A 0.2 % (0-0.5); Lymphocytes Absolute Auto 0.93 K/mm3 (0.9-3.2); Lymphocytes Percent Auto 17.7 % (18.3-44.2); Mean Corpuscular HGB Conc 34.7 g/dl (32-36); Mean Corpuscular Hemoglobin 28.6 pg (26-34); Mean Corpuscular Volume 82.6 fl (80-100); Monocytes Percent Auto 18.7 % (2.6-8.5); Neutrophils Absolute Auto 3.3 K/mm3 (1.3-6.7); Neutrophils Percent Auto 62.4 % (45.5-73.1); Platelet Count Result 422 k/mm3 (150-375); Red Cell Distribution Width 12.9 % (11.5-14.5); White Blood Count 5.3 K/mm3 (4.5-10.0)
[2022-08-11 11:23] LABS: Appearance Urine Clear (Clear); Bacteria Urine None Seen /hpf; Bilirubin Urine Negative (Negative); Blood Urine Trace (Negative); Color Urine Yellow (Yellow); Glucose Urine UA 3+ mg/dL (Negative); Hyaline Casts Urine Present /lpf; Ketones Urine 1+ mg/dL (Negative); Leukocyte Esterase Ur Negative LEU/UL (Negative); Nitrate Urine Negative (Negative); Non Pathogenic Casts >20; Protein Urine 2+ mg/dL (Negative); RBC Urine 0-2 /hpf (0-2); Squamous Epithelial Cell Urine None seen /hpf (Few); Urobilinogen Urine 0.2 mg/dL (<2.0); WBC Urine 0-5 /hpf
[2022-08-11 11:24] LABS: Alanine Aminotransferase 50 U/L (6-50); Albumin Level 4.9 g/dL (3.5-5.1); Alkaline Phosphatase 156 U/L (38-126); Anion Gap 19 mmol/L (8-16); Aspartate Amino Transferase 35 U/L (17-59); Bilirubin,Total 0.9 mg/dL (0.2-1.3); Blood Urea Nitrogen 29 mg/dL (9-20); Carbon Dioxide 15 mmol/L (22-30); Chloride 95 mmol/L (98-107); Estimated CRCL calculation 71 ml/min; Estimated Glomerular Filt Rate > 60; Glucose 396 mg/dL (65-110); Magnesium 2.3 mg/dL (1.6-2.3); Phosphorus 2.6 mg/dL (2.5-4.5); Sodium 129 mmol/L (137-145)
[2022-08-11 11:25] LABS: Add Urine Microscopic? YES
[2022-08-11 11:47] LABS: Alveolar/Arterial O2 Gradient 6.6 mmHg; Base Excess ABG -5.9 mEq/l (+/-2.0); Carboxyhemoglobin 0.8 % THb (0-2.0); Fractional Inspired Oxygen 21 %; HCO3 ABG 18.9 mEq/l (22.0-26.0); Methemoglobin ABG 0.4 %THb (0-1.5); Oxygen Content ABG 18.6 %vol (16.0-22.0); Oxygen Saturation ABG 97.4 % (95.0-100.0); Oxyhemoglobin 96.1 % THb (90.0-100.0); PCO2 ABG 35.3 mmHg (35.0-45.0); PO2 ABG 100.9 mmHg (80.0-100.0); Reduced Hemoglobin 2.7 %THb (0-5.0); Total Hemoglobin 13.7 g/dL (12.0-18.0); pH ABG 7.347 (7.350-7.450)
[2022-08-11 11:48] LABS: Site Drawn RIGHT BRACHIAL
[2022-08-11 12:15] LABS: Glucose Point of Care 317 mg/dl (65-105)
--- NOTE | 2022-08-11 12:17 | ED.GENADULT ---
HPI - General Adult General Chief complaint: Weakness Stated complaint: weakness Time Seen by Provider: 08/11/22 10:29 History of Present Illness HPI narrative: Patient is a 27-year-old male who presents ER with weakness. He has been feeling dizzy when he stands up. He is noted that his blood sugars been running high at home despite trying to control it with his insulin. Patient was recently hospitalized last week at [facility]. He has history of ulcerative colitis and required colectomy and recently had ileostomy. He has a small abscess in the lower part of his abdomen that is being treated with oral antibiotics. He is currently on Augmentin. He did not require any surgical drainage or drain placements. Said normal output from his ostomy. Of note his insulin pump was not working last week and he has been trying to manage his diabetes without it. Related Data Home Medications Medication Instructions Recorded Confirmed fluoxetine 20 mg capsule 40 mg PO DAILY 01/05/21 04/12/21 insulin glargine 100 unit/mL 40 units subcut HS 04/12/21 04/12/21 subcutaneous solution (Lantus U-100 Insulin) tofacitinib 10 mg tablet 20 mg PO DAILY 04/12/21 04/12/21 Allergies Allergy/AdvReac Type Severity Reaction Status Date / Time No Known Allergies Allergy Verified 08/11/22 10:40 Review of Systems Review of Systems: All systems reviewed & are unremarkable except as noted in HPI and below Constitutional: Constitutional: Denies chills, Reports fatigue, Denies fever(s) and Reports weakness ENT: Denies nasal congestion and Denies sore throat Cardiovascular: Cardiovascular: Denies chest pain and Denies radiating jaw, neck or arm pain Respiratory: Respiratory: Denies cough, Denies dyspnea and Denies wheezing Gastrointestinal: Gastrointestinal: Denies abdominal pain, Denies diarrhea, Reports nausea and Denies vomiting Musculoskeletal: Musculoskeletal: Denies back pain and Denies myalgias Neurologic: Reports dizziness, Denies syncope, Denies headache(s) and Denies focal weakness PMFSH Past Medical History Medical History Abdominal pain Diabetes type 1 A1c 10.4 on 01/12/2020 Ulcerative colitis Surgical History Surgical History H/O eye surgery right eye H/O hand surgery on the right hand History of colectomy Family History Family History Father Acute myocardial infarction Sibling Asthma Diabetes mellitus Mother Family history of thyroid problem Grandparent Acute Crohn's disease Diabetes mellitus Social History Social History Social History: The patient lives with his girlfriend and they are expecting a child in about 4 months. He has no other children. 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 The patient is a full code and he would like for his mother to be the durable power energy attorney for healthcare. Smoking status: Never smoker Second hand tobacco smoke exposure: Yes Alcohol intake: never Substance use: never Substance use type: does not use Living arrangements: with friend(s) Occupation/Education: occupation Gender identity (if verbalized by the patient): Male Sexual Orientation (if Verbalized by the Patient): Straight or Heterosexual Spiritual care concerns: No Exam Narrative: GENERAL: Well-appearing, thin, and in no acute distress. HEAD: Normocephalic, atraumatic. EYES: PERRL and EOMI. ENT: Mucous membranes moist. CHEST: Clear to auscultation. No respiratory distress. HEART: Tachycardic and regular. Normal peripheral pulses. ABDOMEN: Soft, nontender, nondistended. Right lower quadrant ileostomy, well-healing surgical scars EXTREMITIES: Normal range of motion. No edema. SKIN: Warm, dry, no rash. NEURO: Alert and oriented x3. PSYCH: Normal mood and affect.
[2022-08-11] MEDS: INSULIN HUMAN REGULAR (*BKC) 100 UNITS/ML 6 UNITS IV PUSH (12:51)
[2022-08-11 14:04] LABS: Glucose Point of Care 197 mg/dl (65-105)
[2022-08-11 15:18] LABS: Anion Gap 10 mmol/L (8-16); Blood Urea Nitrogen 23 mg/dL (9-20); Calcium 8.6 mg/dL (8.4-10.2); Carbon Dioxide 23 mmol/L (22-30); Chloride 102 mmol/L (98-107); Estimated CRCL calculation 86 ml/min; Estimated Glomerular Filt Rate > 60; Glucose 199 mg/dL (65-110); Potassium 4.3 mmol/L (3.4-5.0); Sodium 135 mmol/L (137-145)
[2022-08-11 17:50] LABS: Glucose Point of Care 197 mg/dl (65-105)
--- NOTE | 2022-08-11 17:53 | ADMGEN ---
This patient, Prosper Sosa III, was admitted to Medical Room 257-01. Patient/family oriented to hospital policies and general routines including ID bracelet, bed and alarms, visiting hours, pain management, procedures, bathroom and other care routines, personal items, smoking policy, room service/diet, and visiting hours. Information on how to activate the Rapid Response Team has been discussed. Patient/Family are encouraged to report perceived risks to care and to ask questions if they do not understand what they are told or what they should do.
--- NOTE | 2022-08-11 18:31 | PC.NURSE ---
While going over patients home meds the patient was unable to tell RN dosage of long and short acting insulin d/t patient using insulin pump. The insulin pump is not with him at this time and is to be brought in tomorrow. Patient also utilizes a continuous glucose monitor but patient states reading has been off in comparison to finger sticks.
--- NOTE | 2022-08-11 18:42 | PC.NURSE ---
NAIF Denny notified of patient not knowing insulin dosages. Will try to contact significant other for dosages.
--- NOTE | 2022-08-11 18:45 | PM.IMHP ---
H&P: HPI History of Present Illness Date/Time: 08/11/22 16:00 Chief Complaint: Weakness, high glucose. Narrative: This is a 27-year-old male with type 1 diabetes and ulcerative colitis who presented to the emergency department via private vehicle from home for evaluation of weakness and high glucose. He had a J-pouch done at [facility] in June and he was readmitted there on 08/01/2022 with a fluid collection suspicious for abscess. He had no further procedures while there and was started on antibiotics. He has been doing well since discharge however over the last couple of days he has had difficulties getting his glucose under 400 and 2 days ago he woke up with nausea and vomiting which has persisted. He believes his diabetes is going uncontrolled as his previous insulin pump broke and he has yet to get new onset up. He has been taking Lantus 20 units each day and he thinks this is just not keeping up with his needs. He denies fever, chills, sweats, hematemesis, abdominal pain, pelvic pain, been blood in mucus in the stool. Initial BMP on arrival to the emergency department was significant for sodium of 129, potassium 5.0, chloride 95, carbon dioxide 15, anion gap 19, glucose 396. He was aggressively hydrated and was given 6 units IV insulin with improvement repeat labs including culture of anion gap. He is being admitted in this setting for further hydration and to ensure that his glucose remained stable. At the time my evaluation he has no current complaints. Review of Systems Review of Systems: Twelve systems were reviewed and are negative except for as per HPI. [facility] Past Medical History Medical History (Updated 08/12/22 @ 20:50 by Denisha Paez PA-C) Type 1 diabetes mellitus Ulcerative colitis Surgical History Surgical History (Updated 08/12/22 @ 20:50 by Denisha Paez PA-C) History of colectomy History of open reduction and internal fixation (ORIF) procedure Repair of right hand fracture. History of strabismus surgery History of total colectomy Family History Family History Father Acute myocardial infarction Sibling Asthma Diabetes mellitus Mother Family history of thyroid problem Grandparent Acute Crohn's disease Diabetes mellitus Social History Social History (Updated 08/12/22 @ 20:50 by Denisha Paez PA-C) Social History: Surrogate medical decision maker: Junior Rizvi, mother. Code status: Full code. Smoking status: Never smoker Second hand tobacco smoke exposure: Yes Alcohol intake: never Substance use: never Substance use type: does not use Lack of Transportation: No Lack of Food: Never True Current Housing: I Have Housing Concerned About Future Housing: No Difficulty Paying Gas/Electric Bills: No Difficulty Paying for Meds: No Currently Unemployed: No Education: High School Diploma/GED Difficulty w/ Childcare or Family Care: No Living arrangements: with friend(s) Additional living arrangements comments: Lives with girlfriend and their child. 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 Spiritual care concerns: No Meds Home Medications and Allergies Home Medications Medication Instructions Recorded Confirmed Type insulin lispro 100 unit/mL 6 unit (0.06 mL) subcut TID #10 mL 01/14/20 08/11/22 Rx subcutaneous solution (Humalog U-100 Insulin) fluoxetine 20 mg capsule 40 mg PO DAILY 01/05/21 08/11/22 History insulin glargine 100 unit/mL 20 units subcut HS 04/12/21 08/11/22 History subcutaneous solution (Lantus U-100 Insulin) amoxicillin 875 mg-potassium 1 tablet PO BID 08/11/22 08/11/22 History clavulanate 125 mg tablet loperamide 2 mg capsule 2 mg PO DAILY 08/11/22 08/11/22 History Allergies Allergy/AdvReac Type Severity Reaction Status Date / Time No Known Allergies Allergy Verified 08/11/22 10:
[2022-08-11 19:41] LABS: Glucose Point of Care 279 mg/dl (65-105)
[2022-08-11] MEDS: ONDANSETRON INJ 4 MG/2 ML VIAL IV PUSH (21:38)
[2022-08-12] MEDS: INSULIN GLARGINE (*BKC) 100 UNITS/ML 20 UNITS SUB-Q (00:02)
[2022-08-12] MEDS: AMOXICILLIN/CLAVULANATE K 875-125 MG TAB 1 TABLET PO ×2 (00:04→08:52)
[2022-08-12 00:11] LABS: Glucose Point of Care 382 mg/dl (65-105)
[2022-08-12] MEDS: INSULIN ASPART (*BKC) 100 UNITS/ML SUB-Q (00:39)
[2022-08-12] MEDS: LACTATED RINGERS 1,000 ML 100 ML IV CONT (00:42)
[2022-08-12 01:46] LABS: Glucose Point of Care 311 mg/dl (65-105)
[2022-08-12 04:16] VITALS: BP 117/83; PULSE 76; RESP 18; TEMP 36.4; O2SAT 98
--- NOTE | 2022-08-12 05:22 | PC.NURSE ---
Pt has RLQ colostomy bag. Pt manages bag by himself. Emptied bag once this shift.
[2022-08-12 06:03] LABS: Anion Gap 5 mmol/L (8-16); Blood Urea Nitrogen 17 mg/dL (9-20); Calcium 8.7 mg/dL (8.4-10.2); Carbon Dioxide 27 mmol/L (22-30); Chloride 102 mmol/L (98-107); Estimated CRCL calculation 102 ml/min; Estimated Glomerular Filt Rate > 60; Glucose 184 mg/dL (65-110); Magnesium 2.1 mg/dL (1.6-2.3); Potassium 3.9 mmol/L (3.4-5.0); Sodium 134 mmol/L (137-145)
[2022-08-12 06:11] LABS: Hemoglobin A1C 7.2 % (<5.7)
[2022-08-12 08:28] LABS: Glucose Point of Care 160 mg/dl (65-105)
[2022-08-12] MEDS: FLUoxetine HCL 20 MG CAPSULE 40 MG PO (08:52)
[2022-08-12] MEDS: INSULIN ASPART (*BKC) 100 UNITS/ML 6 UNITS SUB-Q (08:53)
--- NOTE | 2022-08-12 10:46 | PM.DS ---
DS: Admitting Diagnosis Discharge Date August 12, 2022 Admitting Diagnosis diabetic ketoacidosi DS: Discharge Diagnosis Discharge Diagnosis (1) Diabetic ketoacidosis: Code(s): E11.10 - Type 2 diabetes mellitus with ketoacidosis without coma Status: Acute Assessment and Plan: Patient presented in mild DKA with hyperglycemia, elevated beta hydroxybutyrate, increased anion gap, and mild ketonuria. He received 6 units IV insulin and was aggressively hydrated with gap closure. Resume basal insulin. Patient's significant other is to bring up his new insulin pump and he is hoping that the ems educator will be able to set that up for him tomorrow before discharge. A call will need to be placed to his batch tester, Dr. Sanchez at [place], as she will have the appropriate settings. (2) Dehydration: Code(s): E86.0 - Dehydration Status: Acute Assessment and Plan: He is dehydrated from vomiting the last couple of days. Continue IV fluid rehydration overnight. (3) Ulcerative colitis: Code(s): K51.90 - Ulcerative colitis, unspecified, without complications Status: Chronic Assessment and Plan: No acute issues. Status post J-pouch at [place] in June. Currently on antibiotics for fluid collection as detailed in HPI. Abdominal exam is benign today. He has no systemic signs to suggest acute illness. DS: Summary Hospital Course Hospital Course: patient has an insulin pump at home was nonfunctional. Worsening metabolic picture and diabetic ketoacidosis on admission. Patient's blood sugars are now under control as acid-base status is under control as well. He is eating and doing his normal activities. He feels otherwise back to his baseline. We Will get his pump set up prior to discharge. Time Spent with Patient Time attestation: Total time spent providing and/or coordinating discharge services: Exam Narrative: General: Nontoxic-appearing male in the semi-Curtis position in bed. Weight: 62.5 kg. BMI: 19.2. HEENT: PERRL, EOMI. Sclera anicteric. Tacky mucous membranes. Neck: Supple. Respiratory: Lungs are clear to auscultation bilaterally. Cardiovascular: Regular rate and rhythm with S1-S2. Gastrointestinal: Abdomen is soft and nondistended with positive bowel sounds. Soft brownish stool in ostomy bag. Lower abdomen midline incision is well approximated and healing. No evidence of dehiscence or infection. No guarding or rebound tenderness. Skin: Warm and dry. No rash or lesions on limited exam. Extremities: No cyanosis, clubbing, or edema. Radial and pedal pulses intact. Neurological: Alert. Cranial nerves 2-12 are grossly intact. No gross focal deficits to casual conversation. Psychiatric: Pleasant and cooperative with normal mood and affect. DS: Data Data Completed and Pending Labs on day of discharge: Labs from last 24 hours 08/12/22 08/12/22 08/12/22 08:25 05:25 01:41 WBC RBC Hgb Hct MCV MCH MCHC RDW Plt Count MPV Immature Gran % (Auto) Neut % (Auto) Lymph % (Auto) Hunt % (Auto) Eos % (Auto) Baso % (Auto) Lymph # (Auto) Hunt # (Auto) Eos # (Auto) Baso # (Auto) Abs Immat Gran (auto) Absolute Neuts (auto) Absolute Nucleated RBC Nucleated RBC % Puncture Site ABG pH ABG pCO2 ABG pO2 ABG PO2/FiO2 Ratio ABG HCO3 ABG O2 Saturation ABG O2 Content ABG Base Excess A-a Gradient Oxyhemoglobin Carboxyhemoglobin Methemoglobin Reduced Hemoglobin Total Hemoglobin O2 Delivery Device O2 Liters/Min FiO2 Sodium 134 L Potassium 3.9 Chloride 102 Carbon Dioxide 27 Anion Gap 5 L BUN 17 Creatinine 0.80 Estim Creat Clear Calc 102 Estimated GFR > 60 Glucose 184 H POC Capillary Glucose 160 H 311 H Hemoglobin A1c 7.2 H Calcium 8.7 Phosphorus Magnesium 2.1 Total Bilirubin
--- NOTE | 2022-08-12 11:15 | PCCDE ---
Received call from patients nurse. Pt has a new insulin pump to start and needs help entering the settings however we do not have the settings and per the RN, they have not been able to get a hold of the aws consultant. Pt's old meter failed and he had a new pump sent to him around 08/01/22 but he has not started using it yet. I contacted the [employer] pump rep and obtained the settings; settings were emailed to the nurse along with the number for tech support to assist pt in entering the settings if needed. Will be available per request.
[2022-08-12 11:56] LABS: Glucose Point of Care 143 mg/dl (65-105)
[2022-08-12 12:11] VITALS: BMI 18.6
== END 2022-08-12 13:12 | disposition home or self-care (01) ==
LOC: ANHED 14:21 → ANH2MED 08-12 10:46
PROVIDERS: Physician Assistant; Admitting Provider Student in an Organized Health Care Education/Training Program; Emergency Provider Emergency Medicine; PCP Physician Assistant; Visit Provider Chiropractor
DX: E11.10 Type 2 diabetes mellitus with ketoacidosis without coma (principal); E11.65 Type 2 diabetes mellitus with hyperglycemia; E86.0 Dehydration; K51.90 Ulcerative colitis, unspecified, without complications; R53.1 Weakness; R42 Dizziness and giddiness; Z93.2 Ileostomy status; Z90.49 Acquired absence of other specified parts of digestive tract; Z96.41 Presence of insulin pump (external) (internal); Z79.4 Long term (current) use of insulin; Z79.899 Other long term (current) drug therapy; Z83.3 Family history of diabetes mellitus
CPT/HCPCS: 36415; 36600; 80048; 80053; 81001; 82010; 82375; 82805; 82948; 83036; 83050; 83735; 84100; 85025; 96361; 96374; 96375; 99285; A9270; G0378; J1815; J2405; J7030; J7120

== ENCOUNTER 2023-02-27 06:28 | Emergency (ER) | payer OTHER, MEDICAID, SELFPAY ==
[2023-02-27 06:30] VITALS: BP 129/71; PULSE 86; RESP 15; TEMP 36.1; O2SAT 99
--- NOTE | 2023-02-27 07:05 | ED.EYEPROB ---
HPI - Eye Problem General Chief complaint: Eye Problems Stated complaint: Can't left see out of left eye Time Seen by Provider: 02/27/23 06:51 History of Present Illness HPI Narrative: 27 year male presented to the ED for evaluation of blurred vision in his left eye. Patient reports this started yesterday. Patient states he does have intermittent floaters in his left eye. Patient reports he has had this previously. Patient denies any pain or injury. Related Data Home Medications Medication Instructions Recorded Confirmed fluoxetine 20 mg capsule 40 mg PO DAILY 01/05/21 08/11/22 insulin glargine 100 unit/mL 20 units subcut HS 04/12/21 08/11/22 subcutaneous solution (Lantus U-100 Insulin) amoxicillin 875 mg-potassium 1 tablet PO BID 08/11/22 08/11/22 clavulanate 125 mg tablet loperamide 2 mg capsule 2 mg PO DAILY 08/11/22 08/11/22 Allergies Allergy/AdvReac Type Severity Reaction Status Date / Time No Known Allergies Allergy Verified 02/27/23 06:43 Review of Systems Review of Systems: All systems reviewed & are unremarkable except as noted in HPI and below PMFSH Past Medical History Medical History (Updated 02/27/23 @ 07:53 by Toan Gomes MD) Type 1 diabetes mellitus Ulcerative colitis Surgical History Surgical History (Updated 08/12/22 @ 20:50 by Denisha Paez PA-C) History of colectomy History of open reduction and internal fixation (ORIF) procedure Repair of right hand fracture. History of strabismus surgery History of total colectomy Family History Family History Father Acute myocardial infarction Sibling Asthma Diabetes mellitus Mother Family history of thyroid problem Grandparent Acute Crohn's disease Diabetes mellitus Social History Social History (Updated 08/12/22 @ 20:50 by Denisha Paez PA-C) Social History: Surrogate medical decision maker: Junior Rizvi, mother. Code status: Full code. Smoking status: Never smoker Second hand tobacco smoke exposure: Yes Alcohol intake: never Substance use: never Substance use type: does not use Lack of Transportation: No Lack of Food: Never True Current Housing: I Have Housing Concerned About Future Housing: No Difficulty Paying Gas/Electric Bills: No Difficulty Paying for Meds: No Currently Unemployed: No Education: High School Diploma/GED Difficulty w/ Childcare or Family Care: No Living arrangements: with friend(s) Additional living arrangements comments: Lives with girlfriend and their child. 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 Spiritual care concerns: No Exam Narrative: APPEARANCE: Well appearing, no pain, no distress, well-nourished. HEAD: normocephalic, atraumatic. EYES: PERRLA/EOMI, conjunctivae clear. no fluorescein uptake. Normal fundus exam. Eye pressures left eye are 11, 12 had eye pressures on right eye were 12, 12. NOSE: Normal no drainage EARS:TMS clear with good light reflex. THROAT: Pharynx clear, no exudate. NECK: Supple. No adenopathy, no masses. RESPIRATORY: Airway patent, respirations nonlabored. Clear to auscultation bilaterally, no rales, rhonchi, wheezing. CARDIOVASCULAR: Regular rate and rhythm without murmurs rubs or gallops. ABDOMINAL: Soft, nontender, nondistended, normal bowel sounds MUSCULOSKELETAL: Moves all extremities. Strength/ROM intact, No edema, No calf tenderness. NEURO: Alert. Cranial nerves II through XII intact. Grossly intact SKIN: Warm, dry. Normal Color Course Course Emergency Course: 27-year-old male present to the ED for evaluation of blurred vision in his left eye. Patient does were glasses. Patient describes looking through a dirty lense for his vision. Patient has worsening visual acuity in the left eye but no evidence of corneal abrasion and normal fundus exam bedside. Patient was encour
== END 2023-02-27 08:00 | disposition home or self-care (01) ==
PROVIDERS: Emergency Provider Emergency Medicine; PCP Physician Assistant
DX: H53.8 Other visual disturbances (principal); E10.9 Type 1 diabetes mellitus without complications; K51.90 Ulcerative colitis, unspecified, without complications; Z90.49 Acquired absence of other specified parts of digestive tract; Z77.22 Contact with and (suspected) exposure to environmental tobacco smoke (acute) (chronic); Z79.4 Long term (current) use of insulin
CPT/HCPCS: 99283

== ENCOUNTER 2024-08-12 00:23 | Emergency (ER) | payer OTHER, SELFPAY ==
--- NOTE | ~2024-08-12 | CT_ITS ---
CT of the Abdomen and Pelvis: Indication: Abdominal pain Technique: 2.5 mm axial scans were obtained through the abdomen and pelvis following intravenous adm inistration of 100 cc of Omnipaque 350. Dose reduction technique was used on this scan by utilizing a utomated exposure control and iterative reconstruction technique. The dose-length product (DLP) was 2 63.03 mGy-cm. COMPARISON: 08/01/2022 Findings: Scans through the lung bases are unremarkable. The liver, spleen, pancreas, gallbladder, and adrenal glands are within normal limits. 5 mm distal ri ght ureteral stone present, with mild right hydroureteronephrosis. There are numerous additional bila teral nonobstructing renal stones, measuring up to approximately 9 mm in greatest diameter. No eviden ce of aortic aneurysm. No lymphadenopathy. No bowel obstruction or bowel wall thickening. Probable extensive prior colectomy with possible Hartm an pouch in the pelvis.. Images through the pelvis were performed. Urinary bladder unremarkable. No pelvic mass evident. No as cites. Impression: 5 mm distal right ureteral stone, with mild right hydroureteronephrosis. Numerous additional bilateral nonobstructing renal stones. Reviewed, dictated and finalized at location . Impression: 5 mm distal right ureteral stone, with mild right hydroureteronephrosis. Numerous additional bilateral nonobstructing renal stones.
--- OUTSIDE RECORDS SUMMARY | 2024-08-12 00:25 | XMS_ITS | Encounter Summary ---
Author Organization [facility] Address [address] [place] [address] Phone Care Team Providers Care Geological Sample Tester Name Role Phone Gabriela Ramirez Primary Care Provider [phone] Charley Walters Unavailable [phone] Jason Montiel MD Unavailable [phone] Gema Angel NP Primary Care Provider [phone] Encounter Details Date Type Department Care Team (Late st Contact Info) Description 10/29/2021 Orders Only [facility] Scanning, Provider Social History Tobacco Use Types Packs/Day Years Used Date Smoking Tobacco: Never Smokeless Tobacco: Never Alcohol Use Standard Drinks/Week Comments Not Currently 0 (1 standard drink = 0.6 oz pur e alcohol) Social Connection and Isolation Panel [NHANES] A nswer Date Recorded In a typical week, how many times do you talk on the phone with family, friends, or neighbors? Three times a week 06/18/19 How often do you get togethe r with friends or relatives? Three times a week 06/17/2021 How often do you attend chur ch or restorationist services? 1 to 4 times per year 06/17/2021 Do you belong to any clubs o r organizations such as hinduism groups, unions, fraternal or athletic groups, or school groups? No 06/17/2021 How often do you attend meet ings of the clubs or organizations you belong to? Never 06/17/2021 Are you , , di vorced, , never , or living with a partner? Never 06/17/2021 AUDIT-C Answer Date Recorded Q1: How often do you have a drink containing alc ohol? Never 06/04/2021 Average Number of Drinks Not on file 022 Q3: How often do you have si x or more drinks on one occasion? Never 06/04/2021 Overall Financial Resource Strain (CARDIA) Answe r Date Recorded How hard is it for you to pa y for the very basics like food, housing, medical care, and heating? Not very hard 06/17/2021 Hunger Vital Sign Answer Date Recorded Within the past 12 months, y ou worried that your food would run out before you got the money to buy more. Never true 06/18/19 22 Within the past 12 months, t he food you bought just didn't last and you didn't have money to get more. Never true 06/17/2021 PRAPARE - Transportation Answer Date Re corded In the past 12 months, has l ack of transportation kept you from medical appointments or from getting medications? No 05/22 In the past 12 months, has l ack of transportation kept you from meetings, work, or from getting things needed for daily living? 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 difficile Comment:Contact Precautions until patient has completed at least 7 -day course of therapy and has been diarhea-free for at least 48 hours (whichever is longer) CHRISTOPHER Hernandez 06/14/21 06/17/2021 IP Review: patient continuing to have diarrhea, will reevaluate discontinuing C.dif precautions at a later time. Kaylee Hernandez RN 05/27/2021 05/27/2021 07/02/2022 10:54 AM CDT documented as of this encounter Care Teams Geological Sample Tester Relationship Specialty Start Date End Date Gabriela Ramirez PA PCP - General Physician Merchandising Stock Associate 05/03/20 12/22/23 [place] [id number] [facility], [address] [place] [address] PCP - General Family Medicine 12/23/23 Charley Walters PA Physician Merchandising Stock Associate Physician Merchandising Stock Associate 06/21/21 Jason Montiel MD Surgeon Colon and Rectal Surgery 07/03/21 documented as of this encounter
--- OUTSIDE RECORDS SUMMARY | 2024-08-12 00:25 | XMS_ITS | Clinical Summary ---
Author Organization [facility] Address [address] [address] Care Team Providers Care Occupational Physician Name Role Phone Charley Walters Unavailable [phone] Jason Montiel MD Unavailable [phone] Gema Angel NP Primary Care Provider [phone] Allergies No known active allergies Medications insulin syringe-needle U-100 1 mL 31 gauge x 15/64 syringe 1 Active pen needle, diabetic 32 gauge x 5/32 needleIndications :Uncontrolled type 1 diabetes mellitus with hyperglycemia (HCC) Use 6 a day with lantus and humalog 150 each 11 2 Active Additional Information Patient not taking.Reported on 07/05/2024 blood-glucose meter,continuous (Dexcom G6 Truss Designer) [facility] saw operator 1 each 2 Active ostomy supplies misc Ileostomy in place. Coloplast pouch 39299, [place] ring 21758, stoma powder, cavillon skin prep spray, adhesive remover, belt 4237 20 each 3 Active Additional Information Patient not taking.Reported on 07/05/2024 ostomy supply (OSTOMY SUPPLIES MISC) Ileostomy in place. Coloplast pouch 66047, [place] ring 84121, stoma powder, cavillon skin prep spray, adhesive remover, belt 4237 3 Active oxyCODONE (ROXICODONE) 5 mg immediate release tabletIndications :Pain Take 1 tablet (5 mg total) by mouth every 4 (four) hours as needed for pain 5 tablet 3 Active Additional Information Patient not taking.Reported on 07/05/2024 acetaminophen 500 mg capsuleIndication s:Pain Take 2 capsules (1,000 mg total) by mouth every 6 (six) hours 30 tablet 3 Active Additional Information Patient not taking.Reported on 07/05/2024 ibuprofen (ADVIL,MOTRIN) 600 mg tabletIndications :Pain Take 1 tablet (600 mg total) by mouth every 8 (eight) hours 21 tablet 3 Active Additional Information Patient not taking.Reported on 07/05/2024 HumaLOG 100 unit/mL vial for injectionIndicati ons:Type 1 diabetes mellitus with hyperglycemia (HCC) USE VIA PUMP MAX DAILY DOSE OF 80 UNITS 80 mL 1 4 Active blood-glucose sensor (Qteroscom G7 Sensor) deviceIndications :Type 1 diabetes mellitus with hyperglycemia (HCC) Use for continuous glucose monitor. Change sensor every 10 days. 9 each 3 4 Active insulin glargine (LANTUS) 100 unit/mL vial for injectionIndicati ons:Type 1 diabetes mellitus with hyperglycemia (HCC) 20 units once daily when off pump 10 mL 2 4 Active Additional Information Patient not taking.Reported on 07/05/2024 losartan (COZAAR) 25 mg tabletIndications :Primary hypertension Take 1 tablet (25 mg total) by mouth daily 30 tablet 11 5 026 Active glucagon (BAQSIMI) 3 mg/actuation spray,non-aerosol Indications:Type 1 diabetes mellitus with hyperglycemia (HCC) Administer 1 spray into one nostril as needed (severe hypoglycemia) 2 each 3 5 Active Active Problems Problem Noted Date Diagnosed Date Primary hypertension 07/05/2024 Left flank pain, chronic 12/23/2023 Assessment & Plan (12/23/2023 2:03 PM CDT): The patient reports intermittent left flank pain when he bends down. Given how quickly this goes away and the fact that it is only triggered by bending down seems suspicious for a musculoskeletal or adhesive origin. No alarm symptoms so likely benign. If he develops any obstructive symptoms however we would recommend ER or follow-up with Colorectal surgery Type 1 diabetes mellitus with other specified co mplication 06/08/2023 Abscess of anal or rectal region 08/01/2022 Ulcerative pancolitis 06/27/[address] 01/01/2022 sock mender associated with adverse incidents 09/24/2021 Iron (Fe) deficiency anemia 08/06/2021 termination clerk current use of insulin 06/19/2021 Vitamin D deficiency 06/07/2021 Assessment & Plan (06/07/2021 4:44 PM CDT): Needs long-term vitamin-D supplementation, particularly in the setting of glucocorticoid use. Recommendation: - ergocalciferol 04300 units weekly and indefinitely - recheck vitamin-D level in a couple of months Cachexia 06/03/2021 Assessment & Plan (06/04/2021 12:06 PM CDT): See problem severe malnutrition . Assessment & Plan (06/03/2021 7:00 AM CDT): See problem severe malnutrition . Hematochezia 05/28/2021 Assessment & Plan (06/04/2021 12:06 PM CDT): Due to uncontrolled ulcerative colitis. Hgb remains stable. Remains hemodynamically stable. -CTM Assessment & Plan (06/03/2021 7:00 AM CDT): Due to uncontrolled ulcerative colitis. Hgb remains stable. Remains hemodynamically stable. -CTM Assessment & Plan (06/02/2021 10:12 AM CDT): Due to uncontrolled ulcerative colitis. hgb remains stable. Remains hemodynamically stable. -CTM Assessment & Plan (06/01/2021 2:19 PM PROCESS SAFETY MANAGER): Due to uncontrolled ulcerative colitis. hgb remains stable. Remains hemodynamically stable. -CTM Assessment & Plan (05/31/2021 3:12 PM PROCESS SAFETY MANAGER): Due to uncontrolled ulcerative colitis. hgb remains stable. Remains hemodynamically stable. -CTM Assessment & Plan (05/30/2021 2:29 PM PROCESS SAFETY MANAGER): Due to uncontrolled ulcerative colitis. hgb remains stable. Remains hemodynamically stable. -CTM Assessment & Plan (05/30/2021 2:27 PM PROCESS SAFETY MANAGER): Due to uncontrolled ulcerative colitis. hgb remains stable. Remains hemodynamically stable. -CTM Assessment & Plan (05/29/2021 3:12 PM PROCESS SAFETY MANAGER): Due to uncontrolled ulcerative colitis. hgb remains stable. -CTM Assessment & Plan (05/28/2021 6:39 PM PROCESS SAFETY MANAGER): Due to uncontrolled ulcerative colitis. hgb remains stable. -CTM Acute ulcerative pancolitis 04/26/2020 Assessment & Plan (06/07/2021 4:41 PM CDT): Requires budesonide therapy, resulting in insulin resistance and hyperglycemia. Also affects nutrient intake Assessment & Plan (06/04/2021 12:07 PM CDT): Likely acute flare of poorly controlled ulcerative colitis with multiple episodes of hematochezia. Stable hgb. Received methylprednisolone 40mg in the ED. Continued home budesonide -CRS consulted -05/30 s/p flex sig w severe UC; started on xeljanz. -CRS planning colectomy on 06/04 and will go on surgical floor afterwards. Assessment & Plan (06/03/2021 11:00 AM CDT): Likely acute flare of poorly controlled ulcerative colitis with multiple episodes of hematochezia. Stable hgb. Received methylprednisolone 40mg in the ED. Continued home budesonide -CRS wants to do outpatient elective colectomy, to give patient time to improve nutritional status as currently severely malnourished. Might need TPN if not tolerating enough PO. -05/30 s/p flex sig w severe UC; started on xeljanz. -CRS to do colectomy on 06/04 and will go on surgical floor afterwards. Assessment & Plan (06/02/2021 10:12 AM CDT): Likely acute flare of poorly controlled ulcerative colitis with multiple episodes of hematochezia. Stable hgb. Received methylprednisolone 40mg in the ED. Continued home budesonide -CRS wants to do outpatient elective colectomy, to give patient time to improve nutritional status as currently severely malnourished. Might need TPN if not tolerating enough PO. -3/10 s/p flex sig w severe UC; started on xeljanz. - GI and CRS in discussion about timing of colectomy. Assessment & Plan (06/01/2021 2:20 PM PROCESS SAFETY MANAGER): Likely acute flare of poorly controlled ulcerative colitis with multiple episodes of hematochezia. Stable hgb. Received methylprednisolone 40mg in the ED. Continued home budesonide -CRS wants to do outpatient elective colectomy, to give patient time to improve nutritional status as currently severely malnourished. Might need TPN if not tolerating enough PO. -3/10 s/p flex sig w severe UC; started on xeljanz. - GI and CRS in discussion about timing of colectomy. Assessment & Plan (05/31/2021 3:11 PM PROCESS SAFETY MANAGER): Likely acute flare of poorly controlled ulcerative colitis with multiple episodes of hematochezia. Stable hgb. Received methylprednisolone 40mg in the ED. Continued home budesonide -CRS wants to do outpatient elective colectomy, to give patient time to improve nutritional status as currently severely malnourished. Might need TPN if not tolerating enough PO. -3/10 pt did not tolerate PO, worsened abdominal pain -3/10 s/p flex sig w severe UC; started on xeljanz. Assessment & Plan (05/30/2021 2:29 PM PROCESS SAFETY MANAGER): Likely acute flare of poorly controlled ulcerative colitis with multiple episodes of hematochezia. Stable hgb. Received methylprednisolone 40mg in the ED. Continued home budesonide -CRS wants to do outpatient elective colectomy, to give patient time to improve nutritional status as currently severely malnourished. Might need TPN if not tolerating enough PO. -3/10 pt did not tolerate PO, worsened abdominal pain, GI to do flex sig, started on xeljanz. Assessment & Plan (05/30/2021 2:26 PM PROCESS SAFETY MANAGER): Likely acute flare of poorly controlled ulcerative colitis with multiple episodes of hematochezia. Stable hgb. Received methylprednisolone 40mg in the ED. Continued home budesonide -CRS wants to do outpatient elective colectomy, to give patient time to improve nutritional status as currently severely malnourished. Might need TPN if not tolerating enough PO. -3 pt did not tolerate PO, worsened abdominal pain, GI to do flex sig, started on xeljanz. Assessment & Plan (05/29/2021 3:14 PM PROCESS SAFETY MANAGER): -Likely acute flare of poorly controlled ulcerative colitis with multiple episodes of hematochezia. Stable hgb. -Obtained C diff and stool cultures to r/o infection, received methylprednisolone 40mg in the ED. -currently on budesonide which is home med. -CRS wants to do outpatient elective colectomy, to give patient time to improve nutritional status as currently severely malnourished. Might need TPN if not tolerating enough PO. -GI agrees with CRS. No procedures planned. Assessment & Plan (05/28/2021 6:38 PM PROCESS SAFETY MANAGER): -Likely acute flare of poorly controlled ulcerative colitis with multiple episodes of hematochezia. Stable hgb. -Obtained C diff and stool cultures to r/o infection, received methylprednisolone 40mg in the ED. -currently on budesonide and clears. -GI and CRS consulted, awaiting final recs. Assessment & Plan (05/27/2021 6:40 PM PROCESS SAFETY MANAGER): -Likely acute flare of poorly controlled ulcerative colitis. -Obtain C diff and stool cultures to r/o infection, received methylprednisolone 40mg in the ED. -GI and CRS consult in AM. Assessment & Plan (04/29/2020 10:57 AM PROCESS SAFETY MANAGER): 2/2 UC. Pt diagnosed with UC about a year ago. Follows with Dr. Jara, [place], [place]. Hospitalized multiple times since then with multiple prednisone tapers. Currently prescribed azathioprine 100mg every day and mesalamine 1200mg BID. Symptoms include weight loss, abd pain, nausea, malnutrition, poor po intake, intermittent diarrhea. CT with pancolitis and proctitis. -pred 40mg every day per GI --> now 30 daily -ESR/CRP trend -GI c/s - s/p flex sig on 04/27, added budesonide 9 daily; appreciate recommendations -hold mesalamine and azathioprine -c diff neg Severe malnutrition (CMS/HCC) 04/26/2020 Assessment & Plan (06/04/2021 12:08 PM CDT): Secondary to inflammatory bowel disease. Nutrition consulted, agree with assessment. Will do calorie counts, nutritional supplements. -on and off poor PO intake, depending on abdominal pain. Assessment & Plan (06/03/2021 10:57 AM CDT): Secondary to inflammatory bowel disease. Nutrition consulted, agree with assessment. Will do calorie counts, nutritional supplements. -on and off poor PO intake, depending on abdominal pain. -D5 PRN poor intake to avoid hypoglycemia. -liberalized diet to maximize calories and nutrition, will spot insulin as needed. Assessment & Plan (06/02/2021 10:12 AM CDT): Secondary to inflammatory bowel disease. Nutrition consulted, agree with assessment. Will do calorie counts, nutritional supplements. -3/9 attempted oral intake. Had worsened pain overnight. -3/10 Currently dependent on D5LR to avoid hypoglycemia. -3/11 eating better. Off D5. Assessment & Plan (06/01/2021 2:19 PM PROCESS SAFETY MANAGER): Secondary to inflammatory bowel disease. Nutrition consulted, agree with assessment. Will do calorie counts, nutritional supplements. -3/9 attempted oral intake. Had worsened pain overnight. -3/10 Currently dependent on D5LR to avoid hypoglycemia. -311 eating better. Assessment & Plan (05/31/2021 3:12 PM PROCESS SAFETY MANAGER): Secondary to inflammatory bowel disease. Nutrition consulted, agree with assessment. Will do calorie counts, nutritional supplements. -3/9 attempted oral intake. Had worsened pain overnight. -3/10 Currently dependent on D5LR to avoid hypoglycemia. Assessment & Plan (05/30/2021 2:29 PM PROCESS SAFETY MANAGER): -Secondary to inflammatory bowel disease. -nutrition consulted, agree with assessment. Will do calorie counts, nutritional supplements. -3/9 attempted oral intake. Had worsened pain overnight. Assessment & Plan (05/30/2021 2:26 PM PROCESS SAFETY MANAGER): -Secondary to inflammatory bowel disease. -nutrition consulted, agree with assessment. Will do calorie counts, nutritional supplements. -3/ attempted oral intake. Had worsened pain overnight. Assessment & Plan (05/29/2021 3:12 PM PROCESS SAFETY MANAGER): -Secondary to inflammatory bowel disease. -nutrition consulted, agree with assessment. Will do calorie counts, nutritional supplements. Assessment & Plan (05/28/2021 6:37 PM PROCESS SAFETY MANAGER): -Secondary to inflammatory bowel disease. -nutrition consult. Assessment & Plan (05/27/2021 6:43 PM PROCESS SAFETY MANAGER): -Secondary to inflammatory bowel disease. Assessment & Plan (04/26/2020 3:55 PM PROCESS SAFETY MANAGER): 2/2 UC and DMI -IVF -RD c/s Anemia 04/26/2020 Assessment & Plan (12/23/2023 1:59 PM CDT): The patient is encouraged to get repeat blood work today as planned including a CBC and B12 Assessment & Plan (06/04/2021 12:06 PM CDT): Baseline 9-10. Likely in the setting of chronic disease, hematochezia, poor nutrition. -CTM, transfuse to keep hgb >7. -blood consent on file Assessment & Plan (06/03/2021 10:57 AM CDT): Baseline 9-10. Likely in the setting of chronic disease, hematochezia, poor nutrition. -CTM, transfuse to keep hgb >7. -blood consent on file Assessment & Plan (04/26/2020 4:05 PM PROCESS SAFETY MANAGER): Hgb 9.3 likely anemia of chronic disease. -transfuse Hgb<7 -iron panel Ulcerative colitis without complications 020 Overview (12/23/2023): Year of diagnosis: 2019. Year symptoms began: 2019. Distribution: Extensive (E3). Extraintestinal manifestations: None. Complications: TAC for refractory colitis. Prior surgeries: TAC w EI 05/2021, 2nd stage jpouch 06/2022, ostomy takedown 10/2022. Prior treatments: mesalamine, prednisone, infliximab, tofacitinib. Current treatment: None. TPMT: Normal. 2019 diagnosed with cobb UC Treated with mesalamine and azathioprine and multiple prednisone tapers. Multiple admissions for DKA in setting of steroid use. 04/2020 admitted with acute severe UC. 04/27/2020 flex sig severe inflammation in rectosigmoid Treated with prednisone. Started infliximab 10 mg/kg Improved Infliximab level 3.3 on 10 mg/kd q 8 02/2021 lost insurance and couldn't get infliximab. Also out of insulin. Developed bloody diarrhea, BG 400s in clinic. Sent to ED. Left without being seen. Unable to reach patient. Spoke with patient. Recommend admission for IV steroids with endocrine c/s. Pt refused. Started tofacitinib and restarted infliximab. Temporary subjective improvement but then worsened. 05/27/2021 admitted from clinic with acute severe UC. C diff positive. 05/30/2021 [place] 3 No response to C diff treatment or tofacitinib 06/04/2021 Lap TAC w EI ([place]) Path: Large bowel, total abdominal colectomy - Chronic active colitis with diffuse serosal inflammation and adhesions (see comment) - Fibrous obliteration of the appendix - 13 lymph nodes with benign reactive features - No evidence of dysplasia or malignancy The typical histology of ulcerative colitis is accompanied by serosal inflammation with scattered lymphoid aggregates in the serosa, where extensive adhesions are also present. The inflammatory process on the mucosal side shows patchy extension into the muscularis propria. Transmural inflammation in the setting of ulcerative colitis may be seen in toxic megacolon, which apparently is not an explanation in this case. However, the history of Clostridium difficile infection is noted 06/27/2022 completion proctectomy, IPAA, diverting loop ileostomy Path: A. Small intestine, ileostomy, take-down - Portion of ileum with polypoid normal mucosa and reactive epithelial changes, consistent with ostomy site changes - Negative for features of chronicity, dysplasia, or granulomas B. 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 His initial CT showed a presacral fluid collection that was too small for IR to drain. He was treated with antibiotics and repeat CT showed no abscess. 11/12/2022 Ostomy takedown Assessment & Plan (12/23/2023 1:58 PM CDT): Overall the patient seems to be doing quite well since his ostomy takedown. He has not have any significant symptoms to suggest trouble with pouchitis or cuffitis. As long as he remains stable, we would plan for pouchoscopy for surveillance in about 3 years. Assessment & Plan (10/13/2022 9:46 AM CDT): Doing well after first 2 stages of IPAA. Schedule for ileostomy takedown. Reinforced that he will likely have diarrhea at the beginning. I will see him back in 1 year. Assessment & Plan (07/06/2022 9:29 AM CDT): S/p total abdominal colectomy with end ileostomy (05/2021). Now admitted for exploratory laparotomy with proctectomy completion with J -pouch & ileostomy loop. S/p cystoscopy with ureteral stent placement by urology. - POD 9 - 07/06/22 - Tolerating PO. Adequate ostomy output. - Management per surgery Assessment & Plan (02/10/2022 12:04 PM PROCESS SAFETY MANAGER): Recovering well after colectomy. Wound is healed. Diabetes under better control. I think he is a candidate for a J pouch if he wants. He should have a proctectomy at some point regardless to minimize the risk of colon cancer. I explained that keeping his BG under control is essential to minimize surgical complications. -Recheck CBC, Fe Assessment & Plan (08/06/2021 10:51 AM CDT): Recovering well from his surgery aside from incisional wound. Poorly controlled diabetes and severe malnutrition likely contributed to this. I think once he recovers he is a candidate for a J pouch. I think the pathology reflects the severity of his UC rather than Crohn's. There is always a risk of pouchitis or Crohn's of the pouch but that is the case even if the path looks 100% like UC. He wants to get a pouch at some point and I think that is reasonable. We will recheck his CBC to make sure his anemia has resolved given his fatigue. Assessment & Plan (05/27/2021 7:52 PM PROCESS SAFETY MANAGER): Severe UC who initially was able to be rescued with steroids and infliximab then flared when he lost insurance. He has refused admissions in the past for IV steroids. We tried tofacitinib while infliximab was getting restarted but he has not responded. He is having bloody stools, abdominal pain and is tachycardic. I think he is heading towards a colectomy. We will send to the ER for a CT and colorectal surgery consult. Assessment & Plan (05/10/2021 6:16 PM PROCESS SAFETY MANAGER): The patient condition appears tenuous. He is able to keep foods down and has access to Zofran which is helpful. As the CT scan and blood work from yesterday were not so deranged that he was offered admission and the patient is hopeful that he will respond quickly to Xeljanz, we will give him more time. He is scheduled for his infliximab on Thursday, he should continue his budesonide and start Xeljanz 10 mg b.i.d. today. We will see if we can get IV fluids added to his infusion order for Thursday. We would also recommend that he try incorporating Pedialyte in between his water to stay more hydrated. He will need to continue to watch his blood sugar. If he he feels worse he should present to the emergency room. He may have a better chance of admission at [facility] but given his diabetes may benefit from Endocrinology input. Patient needs to follow up closely with Dr. Orantes. We will try to get records from his recent ER visit Assessment & Plan (03/11/2021 1:36 PM PROCESS SAFETY MANAGER): Cobb UC currently flaring with severe hyperglycemia in type 1 diabetic. Will send to ED for IVF, insulin. For UC he had been doing well on infliximab though no objective documentation of remission. Goal would be to get back on infliximab and increase to 10 mg/kg q 4. For his current flare steroids risk putting him into DKA if he isn't there already. Tofacitinib is an option bc it should work quickly and avoid BG issues. Given his poorly controlled diabetes and CV risk with tofa would prefer infliximab termination clerk. Elevated liver enzymes 04/21/2019 Anxiety 12/08/2018 Seasonal allergies 11/30/2017 Microalbuminuria 01/12/2015 Non compliance with medical treatment 01/12/2015 Attention deficit hyperactiv ity disorder (ADHD), combined type 02/07/2009 Mood disorder (CMS/HCC) 02/07/2009 Assessment & Plan (06/04/2021 12:06 PM CDT): Slightly dysthymic. -Continue home fluoxetine. Assessment & Plan (06/03/2021 7:00 AM CDT): Slightly dysthymic. -Continue home fluoxetine. Assessment & Plan (06/02/2021 10:13 AM CDT): Slightly dysthymic. -Continue home fluoxetine. Assessment & Plan (06/01/2021 2:19 PM PROCESS SAFETY MANAGER): Slightly dysthymic. -Continue home fluoxetine. Assessment & Plan (05/31/2021 3:12 PM PROCESS SAFETY MANAGER): Slightly dysthymic. -Continue home fluoxetine. Assessment & Plan (05/30/2021 2:30 PM PROCESS SAFETY MANAGER): Slightly dysthymic. -Continue home fluoxetine. Assessment & Plan (05/30/2021 2:26 PM PROCESS SAFETY MANAGER): Slightly dysthymic. -Continue home fluoxetine. Assessment & Plan (05/29/2021 3:12 PM PROCESS SAFETY MANAGER): Slightly dysthymic. -Continue home fluoxetine. Assessment & Plan (05/28/2021 6:36 PM PROCESS SAFETY MANAGER): Slightly dysthymic. -Continue home fluoxetine. Assessment & Plan (05/27/2021 6:40 PM PROCESS SAFETY MANAGER): -Continue home fluoxetine. Type 1 diabetes mellitus with hyperglycemia 07/22 Assessment & Plan (12/23/2023 2:01 PM CDT): The patient will continue to work with Endocrinology and is encouraged to speak with the dietitian as she likely can recommend diet modifications that will help regulate his blood sugar but she may also have some guidance on foods that can help thicken his ostomy output. We generally like a soluble fibers and proteins. He is encouraged to also stay well hydrated. Assessment & Plan (07/06/2022 9:29 AM CDT): On CGM with pump. Dexcom and Tandem with Control IQ. Pump disconnected before surgery & now on lantus + humalog regimen. Total insulin requirement is 45 - 55 units/day. On average, basal requirement is around 30 units and bolus requirement is around 15- 25 units. Last Hba1c on 04/28/22 was 7. - 06/28: On admission, started on lantus 24 units with meal time humalog 2 TID with HDSSI. - 06/29: Regimen now uptitrated to lantus 30 units qpm, 5 units lispro with meals + HDSSI. BGs better controlled since up titrating his regimen. - 06/30: had hypoglycemia with BG of 62 - likely I/s/o not having good dinner and not eating bed time snack. Will continue same dose of lantus & will try to go down on meal time humalog depending on his BGs trend today. Already cut down to LDSSI from HDSSI. - 07/01: ongoing nausea/vomiting and poor PO intake. BSG in acceptable range. Will continue lantus 20, lispro 2 TIDAC, and LDSSI - 07/02: Will increase lantus to 24 for tonight. Increase lispro 4 TIDAC. Pt is NPO so if BSG remain high will increase to HDSSI for dinner. - 07/03: Diet ordered. Continue lantus 24 nightly. Resume lispro 4 TIDAC. Changed back to prandial slide - 07/05: Increase lantus to 28 nightly, continue lispro 4 TIDAC, inc to high dose slide - 07/06 planned dc. Pt states has his home supplies and feels comfortable resuming home pump and prior settings. - Will continue to monitor and make necessary changes while admitted. Assessment & Plan (06/21/2021 10:53 AM CDT): Hemoglobin A1c decreased to 8.9%, during recent hospitalization. Recommend getting Dexcom, for continuous monitoring and low BG alarms, and restarting Tandem insulin pump for integrated technology. He has been taking Lantus PM daily, consistently. In the meantime, recommend increasing Lantus to prevent hyperglycemia. He has been taking Humalog with meals and using sliding scale. Diabetes education is beneficial for him as he is intelligent and motivated to manage his diabetes. Assessment & Plan (06/08/2021 4:42 PM CDT): Glucoses very high yesterday, but have improved with adjustments in his insulin. Need to be cautious with mealtime insulin since he is not being able to eat consistently Recommendations: - continue glargine 22 units daily at bedtime - continue mealtime lispro 9 units plus sensitive sliding scale Discharge considerations: - basal bolus insulin, doses to be determined Follow-up: - follow up with NAIF Bain on 06/21/21 at 9:00 am - follow up with Veronica Moya RN/Night Assistant on 06/21/21 at 10:00 am - New patient visit with Marina Sanchez MD on 08/23/21 at 10:00 am Assessment & Plan (06/04/2021 12:09 PM CDT): Patient with type I diabetes with history of DKA on steroids. Patient reports home regimen of Lantus 30u qhs with SSI with meals. - monitor BMP due to high risk of DKA - endo following - current regimen: glargine 15 units qHS, lispro 5 units TID post meals (hold while NPO), SSI - Carb consistent diet - consult diabetes nurse educator Assessment & Plan (06/03/2021 10:52 AM CDT): Patient with type I diabetes with history of DKA on steroids. Patient reports home regimen of Lantus 30u qhs with SSI with meals. - Started off with Lantus 30u qhs, Lispro 5 tid ac and SSI. After initial hyperglycemia from steroids in ED, pt developed hypoglycemia. Reduced insulin regimen but still getting hypoglycemic. - D5 IVF PRN PO intolerance - monitor BMP due to high risk of DKA. - consider endo consult if pt gets put on high dose steroids Plan for colectomy on 06/04: continue nightly lantus. D5LR while NPO. q4h BG checks with low dose SSI. Assessment & Plan (06/02/2021 10:12 AM CDT): Patient with type I diabetes with history of DKA on steroids. Patient reports home regimen of Lantus 30u qhs with SSI with meals. - Started off with Lantus 30u qhs, Lispro 5 tid ac and SSI. After initial hyperglycemia from steroids in ED, pt developed hypoglycemia. Reduced insulin regimen but still getting hypoglycemic. - D5 IVF PRN PO intolerance - monitor BMP due to high risk of DKA. -considering endo consult if pt gets put on high dose steroids or TPN Note: instead of reducing insulin some more to avoid hypoglycemia, or restricting him from sugary drinks/foods to avoid DKA, I rather let him eat and then provide insulin. Because he needs the calories for surgical optimization. Assessment & Plan (06/01/2021 2:18 PM PROCESS SAFETY MANAGER): Patient with type I diabetes with history of DKA on steroids. Patient reports home regimen of Lantus 30u qhs with SSI with meals. -Started off with Lantus 30u qhs, Lispro 5 tid ac and SSI. After initial hyperglycemia from steroids in ED, pt developed hypoglycemia. Reduced insulin regimen but still getting hypoglycemic. -D5 IVF PRN PO intolerance - monitor BMP due to high risk of DKA. -considering endo consult if pt gets put on high dose steroids or TPN Note: instead of reducing insulin some more to avoid hypoglycemia, or restricting him from sugary drinks/foods to avoid DKA, I rather let him eat and then provide insulin. Because he needs the calories for surgical optimization. Assessment & Plan (05/31/2021 3:11 PM PROCESS SAFETY MANAGER): Patient with type I diabetes with history of DKA on steroids. Patient reports home regimen of Lantus 30u qhs with SSI with meals. -Started off with Lantus 30u qhs, Lispro tid ac and SSI. After initial hyperglycemia from steroids in ED, pt developed hypoglycemia. Reduced insulin regimen but still getting hypoglycemic. -D5 IVF as not tolerating sufficient PO and getting frequent hypoglycemia episodes. - monitor BMP due to high risk of DKA. -considering endo consult if pt gets put on high dose steroids or TPN Assessment & Plan (05/30/2021 2:29 PM PROCESS SAFETY MANAGER): Patient with type I diabetes with history of DKA on steroids. Patient reports home regimen of Lantus 30u qhs with SSI with meals. -Started off with Lantus 30u qhs, Lispro tid ac and SSI. After initial hyperglycemia from steroids in ED, pt developed hypoglycemia. Will reduce insulin regimen. -D5 IVF when NPO due to frequent hypoglycemia episodes. - monitor BMP due to high risk of DKA. -considering endo consult if pt gets put on high dose steroids or TPN Assessment & Plan (05/30/2021 2:25 PM PROCESS SAFETY MANAGER): Patient with type I diabetes with history of DKA on steroids. Patient reports home regimen of Lantus 30u qhs with SSI with meals. -Started off with Lantus 30u qhs, Lispro tid ac and SSI. After initial hyperglycemia from steroids in ED, pt developed hypoglycemia. Will reduce insulin regimen. -D5 IVF when NPO due to frequent hypoglycemia episodes. - monitor BMP due to high risk of DKA. -considering endo consult if pt gets put on high dose steroids or TPN Assessment & Plan (05/29/2021 3:12 PM PROCESS SAFETY MANAGER): -Patient with type I diabetes with history of DKA on steroids. Patient reports home regimen of Lantus 30u qhs with SSI with meals. -Started off with Lantus 30u qhs, Lispro tid ac and SSI. After initial hyperglycemia from steroids in ED, pt developed hypoglycemia. Will reduce insulin. - monitor BMP due to high risk of DKA. -considering endo consult if pt gets put on high dose steroids or TPN Assessment & Plan (05/28/2021 6:36 PM PROCESS SAFETY MANAGER): -Patient with type I diabetes with history of DKA on steroids. Patient reports home regimen of Lantus 30u qhs with SSI with meals. -Start Lantus 30u qhs, Lispro tid ac and SSI. - monitor BMP due to high risk of DKA. Assessment & Plan (05/27/2021 6:41 PM PROCESS SAFETY MANAGER): -Patient with type I diabetes with history of DKA on steroids. Patient reports home regimen of Lantus 30u qhs with SSI with meals. -Start Lantus 30u qhs, Lispro tid ac and SSI. Assessment & Plan (05/10/2021 6:15 PM PROCESS SAFETY MANAGER): The patient indicates that he has been able to manage his diabetes slightly better by monitoring his sugars closer and administering his insulin when he should. He has been scheduled several times with an fishery division chief here but has either canceled or no showed these visits. He is strongly encouraged to show up for his 06/03 visit as his diabetes control is very important for his overall health and management of his colitis. Assessment & Plan (03/11/2021 1:36 PM PROCESS SAFETY MANAGER): Poorly controlled. BG 495 in type 1. Risk of DKA. Will send to ED. Assessment & Plan (04/29/2020 10:56 AM PROCESS SAFETY MANAGER): DMI with multiple episodes of DKA in the past. -lantus 15U qhs for now (on 35U at home but intermittently compliant) -high dose sliding scale Resolved Problems Problem Noted Date Diagnosed Date Resolved Date Ileostomy in place 09/29/2022 Clostridium difficile infection 05/30/2021 12/23/2023 Assessment & Plan (06/04/2021 12:06 PM CDT): Patient came in with abdominal pain, diarrhea, hematochezia. Cdiff toxin negative, DNA positive. Due to clinical presentation, started PO vanc on 05/28. Assessment & Plan (06/03/2021 7:00 AM CDT): Patient came in with abdominal pain, diarrhea, hematochezia. Cdiff toxin negative, DNA positive. Due to clinical presentation, started PO vanc on 05/28. Assessment & Plan (06/02/2021 10:13 AM CDT): Patient came in with abdominal pain, diarrhea, hematochezia. Cdiff toxin negative, DNA positive. Due to clinical presentation, started PO vanc on 05/28. Assessment & Plan (06/01/2021 2:19 PM PROCESS SAFETY MANAGER): Patient came in with abdominal pain, diarrhea, hematochezia. Cdiff toxin negative, DNA positive. Due to clinical presentation, started PO vanc. Assessment & Plan (05/31/2021 3:12 PM PROCESS SAFETY MANAGER): Patient came in with abdominal pain, diarrhea, hematochezia. Cdiff toxin negative, DNA positive. Due to clinical presentation, started PO vanc. Assessment & Plan (05/30/2021 2:29 PM PROCESS SAFETY MANAGER): Patient came in with abdominal pain, diarrhea, hematochezia. Cdiff toxin negative, DNA positive. Due to clinical presentation, started PO vanc. Ulcerative pancolitis without complication 05/27/2021 05/28/2021 Assessment & Plan (05/28/2021 6:37 PM PROCESS SAFETY MANAGER): -Poorly controlled on biologics due to insurance coverage. -GI consult. Assessment & Plan (05/27/2021 6:42 PM PROCESS SAFETY MANAGER): -Poorly controlled on biologics due to insurance coverage. -GI consult. Encounters Date Type Department Care Team Description 07/05/2024 3:00 PM CDT Office Visit [facility] Endocrinology Metabolism and Lipid [address] 13[address] [place] [address] [place] [address] Preeti Coates PA Type 1 diabetes mellitus with hyperglycemia (HCC) (Primary Dx); Primary hypertension; Ulcerative colitis with complication, unspecified location (HCC); longterm current use of insulin (HCC); Insulin pump titration from Last 3 Months Immunizations Immunization Administration Dates Next Due Pneumococcal Conjugate PCV 13 05/03/2020 Surgical History Surgery Date Site/Laterality Comments HAND SURGERY COLONOSCOPY SIGMOIDOSCOPY EYE SURGERY COLON SURGERY 06/04/2021 Laparoscopic total abdominal colectomy with end ileostomy COLON SURGERY 06/27/2022 Completion proctectomy, ileal pouch anal anastomosis, diverting loop ileostomy w/stents ILEOSTOMY CLOSURE 11/12/2022 Takedown of loop ileostomy with stapled [id number] small bowel anastomosis Medical History Medical History Date Comments Ulcerative colitis (HCC) Type 1 diabetes mellitus with hyperglycemia (HCC ) Family History Medical History Relation Name Comments Heart disease Father Crohn's disease Maternal Grandfather Diabetes type II Mother Anesthesia problems Neg Hx Relation Name Status Comments Father Maternal Grandfather Mother Social History Tobacco Use Types Packs/Day Years Used Date Smoking Tobacco: Never Smokeless Tobacco: Never Tobacco Cessation:Counseling Given: Not Answered Alcohol Use Standard Drinks/Week Comments Not Currently 0 (1 standard drink = 0.6 oz pur e alcohol) OASIS D0700: Social Isolation Answer Da te Recorded Frequency of experiencing loneliness or isolatio n Never 07/07/2022 Social Connection and Isolation Panel [NHANES] A nswer Date Recorded In a typical week, how many times do you talk on the phone with family, friends, or neighbors? Three times a week 08/05/19 How often do you get togethe r with friends or relatives? Three times a week 08/04/2022 How often do you attend chur ch or lutheran services? 1 to 4 times per year 08/04/2022 Do you belong to any clubs o r organizations such as quaker groups, unions, fraternal or athletic groups, or school groups? No 08/04/2022 Attends Club or Organization Meetings Not on monroe e 08/04/2022 Are you , , di vorced, , never , or living with a partner? Never 08/04/2022 AUDIT-C Answer Date Recorded Q1: How often do you have a drink containing alcohol? Never 11/12/2022 Q2: How many drinks containi ng alcohol do you have on a typical day when you are drinking? Patient does not drink Q3: How often do you have si x or more drinks on one occasion? Never 11/12/2022 Overall Financial Resource Strain (CARDIA) Answe r Date Recorded How hard is it for you to pa y for the very basics like food, housing, medical care, and heating? Not very hard 08/04/2022 Hunger Vital Sign Answer Date Recorded Within the past 12 months, y ou worried that your food would run out before you got the money to buy more. Never true 08/05/19 Within the past 12 months, t he food you bought just didn't last and you didn't have money to get more. Never true 08/04/2022 PRAPARE - Transportation Answer Date Re corded In the past 12 months, has l ack of transportation kept you from medical appointments or from getting medications? No 07/21 In the past 12 months, has l ack of transportation kept you from meetings, work, or from getting things needed for daily living? No 08/04/2022 Housing Stability Vital Sign Answer Cole e Recorded In the last 12 months, was t here a time when you were not able to pay the mortgage or rent on time? No 08/04/2022 In the last 12 months, how many places have you lived? 1 08/04/2022 In the last 12 months, was t here a time when you did not have a steady place to sleep or slept in a senior living (including now)? No 08/04/2022 Personal Safety Answer Date Recorded Have you ever been in or are you currently in a harmful physical or emotional relationship or is someone making you feel afraid or unsafe? Denies 11/12/2022 Sex and Gender Information Value Date Recorded Sex Assigned at Not on file Legal Sex Male 5:23 PM PROCESS SAFETY MANAGER Gender Identity Male 11/15/2020 1:40 PM CDT Sexual Orientation Straight 11/15/2020 1: 40 PM CDT Obstetrics History Last Filed Vital Signs Vital Sign Reading Time Taken Comments Blood Pressure 142/90 07/05/2024 3:34 PM CDT manual retake Pulse 87 07/05/2024 3:03 PM CDT Temperature 37.3 C (99.1 F) 07/05/2024 3:03 PM CDT Respiratory Rate 18 11/14/2022 8:39 AM CDT Oxygen Saturation 95% 12/23/2023 9:1 2 AM CDT Inhaled Oxygen Concentration - - Weight 67.9 kg (149 lb 12.8 oz) 07/05/2024 3:03 PM CDT Height 180.3 cm (5' 11 ) 07/05/2024 3:0 3 PM CDT Body Mass Index 20.89 07/05/2024 3:03 PM CDT Plan of Treatment Health Maintenance Due Date Last Done Comments Depression Screening 1993 Foot Exam 1993 Varicella Vaccines (2 of 2 - 2-dose childhood series) 1997 01/19/1995 Dilated Eye Exam 2003 Regular Well Visit/Exam 18-64 2011 Pneumococcal vaccine <65 (2 of 2 - PPSV23) 06/28/2020 05/03/2020 Covid-19 Vaccine ( season) 2023 05/17/2021 Influenza Vaccine (Season Ended) 2024 03/13/2016, 02/06/2014 Albumin Creatinine Ratio, Urine 12/22/2024 12/23/2023, 12/08/2022 Lipid Panel 12/22/2024 12/23/2023, 11/21, 08/01/2022, Additional history exists TSH Level 12/22/2024 12/23/2023, 11/21, 05/03/2020 eGFR 12/22/2024 12/23/2023, 11/21, 11/13/2022, Additional history exists Hemoglobin A1C 01/04/2025 07/05/2024, 12/21, 06/08/2023, Additional history exists DTaP/Tdap/Td Vaccine (6 - Td or Tdap) 09/12/2030 09/12/2020, 06/04/2012, 1993, Additional history exists Hepatitis B Screening Completed 1993, 994 Hepatitis C Screening Completed 04/29/2020 HPV Vaccines Aged Out No longer eligi ble based on patient's age to complete this topic Procedures Procedure Name Priority Date/Time Associated Diagnosis Comments POCT HEMOGLOBIN A1C Routine 07/05/2024 3 :08 PM CDT Type 1 diabetes mellitus with hyperglycemia (HCC) POCT GLUCOSE 11291 Routine 07/05/2024 3: 08 PM CDT Type 1 diabetes mellitus with hyperglycemia (HCC) ALBUMIN CREATININE RATIO, URINE Routine 12/23/2023 10:34 AM CDT Type 1 diabetes mellitus with hyperglycemia (HCC) Vitamin D deficiency Insulin pump in place Ulcerative pancolitis without complication (HCC) EGFR Routine 12/23/2023 10:25 AM CDT Type 1 diabetes mellitus with hyperglycemia (HCC) Vitamin D deficiency Insulin pump in place Ulcerative pancolitis without complication (HCC) LIPID PANEL Routine 12/23/2023 10:25 AM CDT Type 1 diabetes mellitus with hyperglycemia (HCC) Vitamin D deficiency Insulin pump in place Ulcerative pancolitis without complication (HCC) THYROID FUNCTION CASCADE Routine 12/23/2023 10:25 AM CDT Type 1 diabetes mellitus with hyperglycemia (HCC) Vitamin D deficiency Insulin pump in place Ulcerative pancolitis without complication (HCC) HEPATITIS PANEL, ACUTE Add-On 04/29/2020 8:36 AM PROCESS SAFETY MANAGER from Last 3 Months or Most Recently Relevant to Health Maintenance Results * POCT glucose (07/05/2024 3:08 PM CDT) Glucose Blood, POC 252 mg/dL Blood 07/05/2024 3:08 PM CDT Preeti DISLA POINT OF CARE TEST ORDERA BLES Final Result * POCT hemoglobin A1c (07/05/2024 3:08 PM CDT) Hemoglobin A1C, POC 6.6 4.0 - 5.6 % Blood 07/05/2024 3:08 PM CDT Preeti DISLA POINT OF CARE TEST ORDERA BLES Final Result * Albumin Creatinine Ratio, Urine (12/23/2023 10:34 AM CDT) Pathologist [facility] Albumin Ur <12.0 mg/L Comment: Interpretive Data No reference range established. Current interpretive data was last revised 2018. Testing performed by: [facility], [address] [place] [address]., [id number] Creatinine Ur 113.8 mg/dL NHAN LUIS Comment: Interpretive Data No reference range established. Current interpretive data was last revised 2018. Testing performed by: [facility], [address] [place] [address]., [id number] Albumin Creatinine Ratio, Ur <11 1 - 29 mg/g NHAN LUIS Comment:Testing performed by : [facility], [address] [place] [address]., [id number] Urine 12/23/2023 10:3 4 AM CDT 12/23/2023 1:54 PM CDT Marina Sanchez MD LAB URINE ORDERABLES Final Result NHAN [facility]ERT[facility] [address] [facility] Department [place] [address] * eGFR (12/23/2023 10:25 AM CDT) eGFR >90 >=60 mL/min/1. 73 m2 Comment: Interpretive Data Reference Interval Normal >/= 90 mL/min/1.73m2 Mildly decreased* 60 - 89 mL/min/1.73m2 Mildly to moderately decreased 45 - 59 mL/min/1.73m2 Moderately to severely decreased 30 - 44 mL/min/1.73m2 Severely decreased 15 - 29 mL/min/1.73m2 Kidney Failure < 15 mL/min/1.73m2 *Relative to young adult level Estimated glomerular filtration rate is determined by the 2020 CKD-EPI equation recommended by the National Kidney Foundation (A Unifying Approach to GFR Estimation: Recommendations of the NKF-ASK Task Force on Reassessing the Inclusion of Race in Diagnosing Kidney Disease, JASN 2020). The CKD-EPI equation should not be used for patients with unstable renal function and has not been validated in children and those over 70. Current interpretive data was last reviewed 2021. Blood 12/23/2023 10:2 5 AM CDT 12/23/2023 10:36 AM CDT Marina Sanchez MD LAB BLOOD ORDERABLES Final Result Performing Organization Address [facility] Co de Phone Number NHAN BJCH [phone] [employer] [employer] [place], [place] [id number] * Thyroid Function [place] (12/23/2023 10:25 AM CDT) TSH 1.07 0.30 - 4.20 mcIUnit/mL Blood 12/23/2023 10:2 5 AM CDT 12/23/2023 10:36 AM CDT Marina Sanchez MD LAB BLOOD ORDERABLES Final Result Performing Organization Address [facility] Co de Phone Number NHAN BJWCH [phone] [employer] [place] [address] * Lipid panel (12/23/2023 10:25 AM CDT) Cholesterol 150 30 - 199 mg/dL Comment: Interpretive Data Ages < or = 19 years Acceptable: <170 mg/dL Borderline high: 170-199 mg/dL High: >or= 200 mg/dL Ages > or = 20 years Desirable: <200 mg/dL Borderline high: 200-239 mg/dL High: >or= 240 mg/dL Literature References: 1. Expert Panel on Integrated Guidelines for Cardiovascular Health and Risk Reduction in Children and Adolescents. Pediatrics 2011;128:S213 2. NCEP Expert Panel. Circulation 2004;110:227 Current Interpretive Data was last revised on 2017. Triglycerides 54 <=149 mg/dL NHAN LUIS Comment: Interpretive Data Ages < or = 9 years Acceptable: <75 mg/dL Borderline high: 75-99 mg/dL High: >or= 100 mg/dL Ages 10 to 20 years Acceptable: <90 mg/dL Borderline high: 90-129 mg/dL High: >or= 130 mg/dL Ages > or = 20 years Desirable: <150 mg/dL Borderline high: 150-199 mg/dL High: 200-499 mg/dL Very high: >or= 499 mg/dL Literature References: 1. Expert Panel on Integrated Guidelines for Cardiovascular Health and Risk Reduction in Children and Adolescents. Pediatrics 2011;128:S213 2. NCEP Expert Panel. Circulation 2004;110:227 Current Interpretive Data was last revised on 2017. HDL 56 >=40 mg/dL NHAN LUIS Comment: Interpretive Data Ages < or = 19 years Acceptable: >45 mg/dL Borderline low: 40-45 mg/dL Low: <40 mg/dL Ages > or = 20 years Desirable: >or= 60 mg/dL Low: <40 mg/dL Literature References: 1. Expert Panel on Integrated Guidelines for Cardiovascular Health and Risk Reduction in Children and Adolescents. Pediatrics 2011;128:S213 2. NCEP Expert Panel. Circulation 2004;110:227 Current Interpretive Data was last revised on 2017. LDL, calculated 83 <=129 mg/dL CERJOSLYN LUIS Comment: Interpretive Data Ages < or = 19 years Acceptable: <110 mg/dL Borderline high: 110-129 mg/dL High: >or= 130 mg/dL Ages > or = 20 years Optimal: <100 mg/dL Near optimal: 100-129 mg/dL Borderline high: 130-159 mg/dL High: >160 mg/dL Calculated using the Gómez LDL-C estimating equation. This equation was implemented on 2023. Prior to this date LDL-C was estimated using the Friedewald equation. Literature References: 1. Expert Panel on Integrated Guidelines for Cardiovascular Health and Risk Reduction in Children and Adolescents. Pediatrics 2011;128:S213 2. NCEP Expert Panel. Circulation 2004;110:227 3. Gómez Briggs et al. JACOB Cardiol. 2019July 21;5(5):540-548. doi: 10.1001/[email or web address].2020.0013 Current Interpretive Data was last revised on 2023. Non-HDL Cholesterol 94 mg/dL NHAN LUIS Comment: Interpretive Data Ages < or = 19 years Acceptable: <120 mg/dL Borderline high: 120-144 mg/dL High: >145 mg/dL Ages > or = 20 years When triglycerides are >200 mg/dL, Non-HDL cholesterol is a secondary target of therapy with treatment goals that are 30 mg/dL greater than the LDL cholesterol target. Literature References: 1. Expert Panel on Integrated Guidelines for Cardiovascular Health and Risk Reduction in Children and Adolescents. Pediatrics 2011;128:S213 2. NCEP Expert Panel. Circulation 2004;110:227 Current Interpretive Data was last revised on 2017. Chol/HDL ratio 3 NHAN LUIS Blood 12/23/2023 10:2 5 AM CDT 12/23/2023 10:36 AM CDT Marina Sanchez MD LAB BLOOD ORDERABLES Final Result [facility] [address] [facility]. Department [place] [address] * Hepatitis panel, acute (04/29/2020 8:36 AM PROCESS SAFETY MANAGER) Hep A IgM Nonreactive Nonreactive NHAN LUIS Comment: Interpretive Data: If Hep A IgM Ab is reported as Equivocal, a new sample should be drawn in two weeks for testing. Current interpretive data was last revised on 19. Testing performed by: [facility], [address] [place] [address]., [id number] Hep B core IgM Nonreactive Nonreactive NHAN [facility] Comment: Interpretive Data If HepB Core IgM Ab is reported as Equivocal, a new sample should be drawn in two weeks for testing. Current interpretive data was last revised on 19. Testing performed by: [facility], [address] [place] [address]., [id number] Hep C Ab Nonreactive Nonreactive [facility] Comment: Interpretive Data Nonreactive: Antibodies to HCV not detected. Does NOT exclude the possibility of recent exposure to HCV. Equivocal: Equivocal for HCV antibodies. Supplemental molecular testing will be automatically performed to determine infection status in accordance with current CDC screening recommendations. Reactive: Positive for HCV antibodies. This may represent current or past HCV infection. Supplemental molecular testing will be automatically performed to determine current infection status in accordance with current CDC screening recommendations. Interpretive data was last revised on 2019. Testing performed by: [facility], [address] [place] [address]., [id number] HepBsAg Nonreactive Nonreactive NHAN [facility] Comment:Testing performed by : [facility], [address] [place] [address]., [id number] Blood specimen (specimen) 04/29/2020 8:36 AM PROCESS SAFETY MANAGER 04/29/2020 9:33 AM PROCESS SAFETY MANAGER Titus Caban MD LAB MICROBIOLOGY - GENERAL ORDERABLES Final Result Performing Organization Address City/State/[facility] [place] Phone Number [facility] [address] [facility] Department [place] [address] from Last 3 Months or Most Recently Relevant to Health Maintenance Insurance [facility] OPEN ACCESS Advance Directives For more information, please contact: [phone] * Full Code (Latest Code Status on File) Date Activated Date Inactivated Comments 11/12/2022 4:52 PM 11/14/2022 4:23 PM * Full Code Date Activated Date Inactivated Comments 06/27/2022 3:29 PM 07/06/2022 5:17 PM * Full Code Date Activated Date Inactivated Comments 06/15/2021 12:16 AM 06/17/2021 10:43 PM * Full Code Date Activated Date Inactivated Comments 05/27/2021 9:43 PM 06/12/2021 8:32 PM * Full Code Date Activated Date Inactivated Comments 04/26/2020 10:03 PM 04/30/2020 8:11 PM Care Teams Occupational Physician Relationship Specialty [place] [address] [address], [address] [place] [address] PCP - General Family Medicine 12/23/23 Charley Walters PA Physician Folded Towel Machine Operator Physician Folded Towel Machine Operator 06/21/21 Jason Montiel MD Surgeon Colon and Rectal Surgery 07/03/21
--- OUTSIDE RECORDS SUMMARY | 2024-08-12 00:25 | XMS_ITS | Referral Summary ---
Author Organization [facility] Address [address] [facility] [place] [address] Care Team Providers Care Rip Saw Operator Name Role Phone Charley Walters Unavailable [phone] Jason Montiel MD Unavailable [phone] Gema Angel NP Primary Care Provider [phone] Encounters Date Type Department Care Team Description 07/05/2024 3:00 PM CDT Office Visit [facility] Endocrinology Metabolism and Lipid [address] [facility] Advanced Medicine 13th [place] [address] [place] [address] Preeti Coates PA Type 1 diabetes mellitus with hyperglycemia (HCC) (Primary Dx); Primary hypertension; Ulcerative colitis with complication, unspecified location (HCC); terminal manager current use of insulin (HCC); Insulin pump titration from Last 3 Months Allergies No known active allergies Medications insulin syringe-needle U-100 1 mL 31 gauge x 15/64 syringe 1 Active pen needle, diabetic 32 gauge x 5/32 needleIndications :Uncontrolled type 1 diabetes mellitus with hyperglycemia (HCC) Use 6 a day with lantus and humalog 150 each 11 2 Active Additional Information Patient not taking.Reported on 07/05/2024 blood-glucose meter,continuous (Dexcom G6 Industrial Gas Servicer) misc One clothing presser 1 each 2 Active ostomy supplies misc Ileostomy in place. Coloplast pouch 14483, Carolina ring 40963, stoma powder, cavillon skin prep spray, adhesive remover, belt 4237 20 each 11 3 Active Additional Information Patient not taking.Reported on 07/05/2024 ostomy supply (OSTOMY SUPPLIES [facility]) Ileostomy in place. Coloplast pouch 62044, Carolina ring 94931, stoma powder, cavillon skin prep spray, adhesive [...] 80 mL 1 4 Active blood-glucose sensor (Dexcom G7 Sensor) deviceIndications :Type 1 diabetes mellitus [...] pancolitis 06/27/[address] 01/01/2022 senior analyst developer associated with adverse incidents 09/24/2021 Iron (Fe) deficiency anemia 08/06/2021 group home current use of insulin 06/19/2021 Vitamin D deficiency 06/07/2021 Assessment & Plan (06/07/2021 4:44 PM CDT): Needs long-term vitamin-D supplementation, particularly in the setting of glucocorticoid use. Recommendation: - ergocalciferol 85855 units weekly and indefinitely - recheck vitamin-D [...] -CTM Assessment & Plan (06/01/2021 2:19 PM DEVELOPER TRADING SYSTEMS): Due to uncontrolled ulcerative colitis. hgb remains stable. Remains hemodynamically stable. -CTM Assessment & Plan (05/31/2021 3:12 PM DEVELOPER TRADING SYSTEMS): Due to uncontrolled ulcerative colitis. hgb remains stable. Remains hemodynamically stable. -CTM Assessment & Plan (05/30/2021 2:29 PM DEVELOPER TRADING SYSTEMS): Due to uncontrolled ulcerative colitis. hgb remains stable. Remains hemodynamically stable. -CTM Assessment & Plan (05/30/2021 2:27 PM DEVELOPER TRADING SYSTEMS): Due to uncontrolled ulcerative colitis. hgb remains stable. Remains hemodynamically stable. -CTM Assessment & Plan (05/29/2021 3:12 PM DEVELOPER TRADING SYSTEMS): Due to uncontrolled ulcerative colitis. hgb remains stable. -CTM Assessment & Plan (05/28/2021 6:39 PM DEVELOPER TRADING SYSTEMS): Due to uncontrolled ulcerative colitis. hgb remains [...] colectomy. Assessment & Plan (06/01/2021 2:20 PM DEVELOPER TRADING SYSTEMS): Likely acute flare of poorly controlled ulcerative [...] colectomy. Assessment & Plan (05/31/2021 3:11 PM DEVELOPER TRADING SYSTEMS): Likely acute flare of poorly controlled ulcerative colitis with multiple episodes of hematochezia. Stable hgb. Received methylprednisolone 40mg in the ED. Continued home budesonide -CRS wants to do outpatient elective colectomy, to give patient time to improve nutritional status as currently severely malnourished. Might need TPN if not tolerating enough PO. -3/10 pt did not tolerate PO, worsened abdominal pain -05/30 s/p flex sig w severe UC; started on xeljanz. Assessment & Plan (05/30/2021 2:29 PM DEVELOPER TRADING SYSTEMS): Likely acute flare of poorly controlled ulcerative colitis with multiple episodes of hematochezia. Stable hgb. Received methylprednisolone 40mg in the ED. Continued home budesonide -CRS wants to do outpatient elective colectomy, to give patient time to improve nutritional status as currently severely malnourished. Might need TPN if not tolerating enough PO. -05/30 pt did not tolerate PO, worsened abdominal pain, GI to do flex sig, started on xeljanz. Assessment & Plan (05/30/2021 2:26 PM DEVELOPER TRADING SYSTEMS): Likely acute flare of poorly controlled ulcerative colitis with multiple episodes of hematochezia. Stable hgb. Received methylprednisolone 40mg in the ED. Continued home budesonide -CRS wants to do outpatient elective colectomy, to give patient time to improve nutritional status as currently severely malnourished. Might need TPN if not tolerating enough PO. -05/30 pt did not tolerate PO, worsened abdominal pain, GI to do flex sig, started on xeljanz. Assessment & Plan (05/29/2021 3:14 PM DEVELOPER TRADING SYSTEMS): -Likely acute flare of poorly controlled ulcerative [...] planned. Assessment & Plan (05/28/2021 6:38 PM DEVELOPER TRADING SYSTEMS): -Likely acute flare of poorly controlled ulcerative colitis with multiple episodes of hematochezia. Stable hgb. -Obtained C diff and stool cultures to r/o infection, received methylprednisolone 40mg in the ED. -currently on budesonide and clears. -GI and CRS consulted, awaiting final recs. Assessment & Plan (05/27/2021 6:40 PM DEVELOPER TRADING SYSTEMS): -Likely acute flare of poorly controlled ulcerative colitis. -Obtain C diff and stool cultures to r/o infection, received methylprednisolone 40mg in the ED. -GI and CRS consult in AM. Assessment & Plan (04/29/2020 10:57 AM DEVELOPER TRADING SYSTEMS): 04/24 UC. Pt diagnosed with UC about a year ago. Follows with Dr. Jara, [place], [place]. Hospitalized multiple times since then with [...] assessment. Will do calorie counts, nutritional supplements. -39 attempted oral intake. Had worsened pain overnight. -3 Currently dependent on D5LR to avoid hypoglycemia. -05/31 eating better. Off D5. Assessment & Plan (06/01/2021 2:19 PM DEVELOPER TRADING SYSTEMS): Secondary to inflammatory bowel disease. Nutrition consulted, agree with assessment. Will do calorie counts, nutritional supplements. -3/9 attempted oral intake. Had worsened pain overnight. -3 Currently dependent on D5LR to avoid hypoglycemia. -05/31 eating better. Assessment & Plan (05/31/2021 3:12 PM DEVELOPER TRADING SYSTEMS): Secondary to inflammatory bowel disease. Nutrition consulted, agree with assessment. Will do calorie counts, nutritional supplements. -3/9 attempted oral intake. Had worsened pain overnight. -3/10 Currently dependent on D5LR to avoid hypoglycemia. Assessment & Plan (05/30/2021 2:29 PM DEVELOPER TRADING SYSTEMS): -Secondary to inflammatory bowel disease. -nutrition consulted, agree with assessment. Will do calorie counts, nutritional supplements. -3/9 attempted oral intake. Had worsened pain overnight. Assessment & Plan (05/30/2021 2:26 PM DEVELOPER TRADING SYSTEMS): -Secondary to inflammatory bowel disease. -nutrition consulted, agree with assessment. Will do calorie counts, nutritional supplements. -3/9 attempted oral intake. Had worsened pain overnight. Assessment & Plan (05/29/2021 3:12 PM DEVELOPER TRADING SYSTEMS): -Secondary to inflammatory bowel disease. -nutrition consulted, agree with assessment. Will do calorie counts, nutritional supplements. Assessment & Plan (05/28/2021 6:37 PM DEVELOPER TRADING SYSTEMS): -Secondary to inflammatory bowel disease. -nutrition consult. Assessment & Plan (05/27/2021 6:43 PM DEVELOPER TRADING SYSTEMS): -Secondary to inflammatory bowel disease. Assessment & Plan (04/26/2020 3:55 PM DEVELOPER TRADING SYSTEMS): 2/2 UC and DMI -IVF -RD c/s [...] file Assessment & Plan (04/26/2020 4:05 PM DEVELOPER TRADING SYSTEMS): Hgb 9.3 likely anemia of chronic disease. [...] surgery Assessment & Plan (02/10/2022 12:04 PM DEVELOPER TRADING SYSTEMS): Recovering well after colectomy. Wound is healed. [...] fatigue. Assessment & Plan (05/27/2021 7:52 PM DEVELOPER TRADING SYSTEMS): Severe UC who initially was able to [...] consult. Assessment & Plan (05/10/2021 6:16 PM DEVELOPER TRADING SYSTEMS): The patient condition appears tenuous. He is [...] have a better chance of admission at [facility] but given his diabetes may benefit from Endocrinology input. Patient needs to follow up closely with Dr. Orantes. We will try to get records from his recent ER visit Assessment & Plan (03/11/2021 1:36 PM DEVELOPER TRADING SYSTEMS): [facility] UC currently flaring with severe hyperglycemia [...] CV risk with tofa would prefer infliximab tank terminal gauger. Elevated liver enzymes 04/21/2019 Anxiety 12/08/2018 Seasonal [...] fluoxetine. Assessment & Plan (06/01/2021 2:19 PM DEVELOPER TRADING SYSTEMS): Slightly dysthymic. -Continue home fluoxetine. Assessment & Plan (05/31/2021 3:12 PM DEVELOPER TRADING SYSTEMS): Slightly dysthymic. -Continue home fluoxetine. Assessment & Plan (05/30/2021 2:30 PM DEVELOPER TRADING SYSTEMS): Slightly dysthymic. -Continue home fluoxetine. Assessment & Plan (05/30/2021 2:26 PM DEVELOPER TRADING SYSTEMS): Slightly dysthymic. -Continue home fluoxetine. Assessment & Plan (05/29/2021 3:12 PM DEVELOPER TRADING SYSTEMS): Slightly dysthymic. -Continue home fluoxetine. Assessment & Plan (05/28/2021 6:36 PM DEVELOPER TRADING SYSTEMS): Slightly dysthymic. -Continue home fluoxetine. Assessment & Plan (05/27/2021 6:40 PM DEVELOPER TRADING SYSTEMS): -Continue home fluoxetine. Type 1 diabetes mellitus [...] around 15- 25 units. Last Hba1c on 2/6/23 was 7. - 4/8: On admission, started on lantus 24 units [...] am - follow up with Veronica Moya RN/Price Clerk on 06/21/21 at 10:00 am - New [...] optimization. Assessment & Plan (06/01/2021 2:18 PM DEVELOPER TRADING SYSTEMS): Patient with type I diabetes with history [...] optimization. Assessment & Plan (05/31/2021 3:11 PM DEVELOPER TRADING SYSTEMS): Patient with type I diabetes with history [...] TPN Assessment & Plan (05/30/2021 2:29 PM DEVELOPER TRADING SYSTEMS): Patient with type I diabetes with history [...] TPN Assessment & Plan (05/30/2021 2:25 PM DEVELOPER TRADING SYSTEMS): Patient with type I diabetes with history [...] TPN Assessment & Plan (05/29/2021 3:12 PM DEVELOPER TRADING SYSTEMS): -Patient with type I diabetes with history [...] TPN Assessment & Plan (05/28/2021 6:36 PM DEVELOPER TRADING SYSTEMS): -Patient with type I diabetes with history of DKA on steroids. Patient reports home regimen of Lantus 30u qhs with SSI with meals. -Start Lantus 30u qhs, Lispro tid ac and SSI. - monitor BMP due to high risk of DKA. Assessment & Plan (05/27/2021 6:41 PM DEVELOPER TRADING SYSTEMS): -Patient with type I diabetes with history of DKA on steroids. Patient reports home regimen of Lantus 30u qhs with SSI with meals. -Start Lantus 30u qhs, Lispro tid ac and SSI. Assessment & Plan (05/10/2021 6:15 PM DEVELOPER TRADING SYSTEMS): The patient indicates that he has been able to manage his diabetes slightly better by monitoring his sugars closer and administering his insulin when he should. He has been scheduled several times with an powder monkey here but has either canceled or no showed these visits. He is strongly encouraged to show up for his 06/03 visit as his diabetes control is very important for his overall health and management of his colitis. Assessment & Plan (03/11/2021 1:36 PM DEVELOPER TRADING SYSTEMS): Poorly controlled. BG 495 in type 1. Risk of DKA. Will send to ED. Assessment & Plan (04/29/2020 10:56 AM DEVELOPER TRADING SYSTEMS): DMI with multiple episodes of DKA in the past. -lantus 15U qhs for now (on 35U at home but intermittently compliant) -high dose sliding scale Resolved Problems Problem Noted Date Diagnosed Date Resolved Date Ileostomy in place 09/29/2022 4 Clostridium difficile infection 05/30/2021 12/23/2023 Assessment & [...] 05/28. Assessment & Plan (06/01/2021 2:19 PM DEVELOPER TRADING SYSTEMS): Patient came in with abdominal pain, diarrhea, hematochezia. Cdiff toxin negative, DNA positive. Due to clinical presentation, started PO vanc. Assessment & Plan (05/31/2021 3:12 PM DEVELOPER TRADING SYSTEMS): Patient came in with abdominal pain, diarrhea, hematochezia. Cdiff toxin negative, DNA positive. Due to clinical presentation, started PO vanc. Assessment & Plan (05/30/2021 2:29 PM DEVELOPER TRADING SYSTEMS): Patient came in with abdominal pain, diarrhea, hematochezia. Cdiff toxin negative, DNA positive. Due to clinical presentation, started PO vanc. 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 -GI consult. Assessment & Plan (05/27/2021 6:42 PM DEVELOPER TRADING SYSTEMS): -Poorly controlled on biologics due to insurance coverage. -GI consult. Immunizations Immunization Administration Dates Next Due Pneumococcal Conjugate PCV 13 05/03/2020 Social History Tobacco Use Types Packs/Day Years [...] 08/04/2022 How often do you attend chur or zoroastrianism services? 1 to 4 times per year 08/04/2022 Do you belong to any clubs o r organizations such as restorationism groups, unions, fraternal or athletic groups, or [...] place to sleep or slept in a mcfp (including now)? No 08/04/2022 Personal Safety Answer Date Recorded Have you ever been in or are you currently in a harmful physical or emotional relationship or is someone making you feel afraid or unsafe? Denies 11/12/2022 Sex and Gender Information Value Date Recorded Sex Assigned at Not on file Legal Sex Male 5:23 PM DEVELOPER TRADING SYSTEMS Gender Identity Male 11/15/2020 1:40 PM CDT Sexual Orientation Straight 11/15/2020 1: 40 PM CDT Last Filed Vital Signs Vital Sign Reading [...] 07/05/2024 3:03 PM CDT Plan of Treatment Not on file Procedures Procedure Name Priority Date/Time Associated Diagnosis Comments POCT HEMOGLOBIN A1C Routine 07/05/2024 3 :08 PM CDT Type 1 diabetes mellitus with hyperglycemia (HCC) POCT GLUCOSE 43869 Routine 07/05/2024 3: 08 PM CDT Type [...] HEPATITIS PANEL, ACUTE Add-On 04/29/2020 8:36 AM DEVELOPER TRADING SYSTEMS from Last 3 Months or Most Recently Relevant to Health Maintenance Results * POCT glucose (07/05/2024 3:08 PM CDT) Glucose Blood, POC 252 mg/dL Blood 07/05/2024 3:08 PM CDT Preeti DISLA POINT OF CARE TEST ORDERA BLES Final Result * POCT hemoglobin A1c (07/05/2024 3:08 PM CDT) Hemoglobin A1C, POC 6.6 4.0 - 5.6 % Blood 07/05/2024 3:08 PM CDT us Preeti DISLA POINT OF CARE TEST ORDERA BLES Final Result * Albumin Creatinine Ratio, Urine (12/23/2023 10:34 AM CDT) Pathologist [facility] Albumin Ur <12.0 mg/L Comment: Interpretive Data No reference range established. Current interpretive data was last revised 2018. Testing performed by: [facility], [address] [place] [address]., [id number] Creatinine Ur 113.8 mg/dL [facility] Comment: Interpretive Data No reference range established. Current interpretive data was last revised 2018. Testing performed by: [facility], [address] [place] [address]., [id number] Albumin Creatinine Ratio, Ur <11 1 - 29 mg/g [facility] Comment:Testing performed by : [facility], [address] [place] [address]., [id number] Urine 12/23/2023 10:3 4 AM CDT 12/23/2023 1:54 PM CDT Marina Sanchez MD LAB URINE ORDERABLES Final Result [facility] [address] [facility]. [place] [address] * eGFR (12/23/2023 10:25 AM CDT) Pathologist [facility] eGFR >90 >=60 mL/min/1. 73 m2 Comment: [...] BLOOD ORDERABLES Final Result Performing Organization Address [facility] de Phone Number [facility] [address] [facility] [address] [place], [place] [id number] * Thyroid Function [place] (12/23/2023 10:25 AM CDT) TSH 1.07 0.30 - 4.20 mcIUnit/mL Blood 12/23/2023 10:2 5 AM CDT 12/23/2023 10:36 AM CDT Marina Sanchez MD LAB BLOOD ORDERABLES Final Result Performing Organization Address [facility] de Phone Number [facility] [address] [address] [facility] [place] [address] * Lipid panel (12/23/2023 10:25 AM CDT) [...] on 2017. LDL, calculated 83 <=129 mg/dL [facility] Comment: Interpretive Data Ages < or = 19 years Acceptable: <110 mg/dL Borderline high: 110-129 mg/dL High: >or= 130 mg/dL Ages > or = 20 years Optimal: <100 mg/dL Near optimal: 100-129 mg/dL Borderline high: 130-159 mg/dL High: >160 mg/dL Calculated using the [place] LDL-C estimating equation. This equation was implemented [...] BLOOD ORDERABLES Final Result Performing Organization Address City/State/[facility] Co nd Phone Number [facility] [address] [facility]. [place] [address] * Hepatitis panel, acute (04/29/2020 8:36 AM DEVELOPER TRADING SYSTEMS) Hep A IgM Nonreactive Nonreactive [facility] Comment: Interpretive Data: If Hep A IgM Ab is reported as Equivocal, a new sample should be drawn in two weeks for testing. Current interpretive data was last revised on 19. Testing performed by: [facility], [facility] [facility], [place]., [address] Hep B core IgM Nonreactive Nonreactive [facility] Comment: Interpretive Data If HepB Core IgM Ab is reported as Equivocal, a new sample should be drawn in two weeks for testing. Current interpretive data was last revised on 19. Testing performed by: [facility], [address] [place] [address]., [id number] Hep C Ab Nonreactive Nonreactive [facility] Comment: Interpretive Data Nonreactive: Antibodies to HCV [...] last revised on 2019. Testing performed by: [facility], [address] [place] [address]., [id number] HepBsAg Nonreactive Nonreactive [facility] Comment:Testing performed by : [facility], [address] [place] [address]., [id number] Blood specimen (specimen) 04/29/2020 8:36 AM DEVELOPER TRADING SYSTEMS 04/29/2020 9:33 AM DEVELOPER TRADING SYSTEMS Titus Caban MD LAB MICROBIOLOGY - GENERAL ORDERABLES Final Result Performing Organization Address City/State/[facility] Phone Number [facility] [address] [facility] [place] [address] from Last 3 Months or Most Recently Relevant to Health Maintenance Insurance [facility]ESS [facility] HMO/PPO Address: [address] [address] [place] [address] [facility] HMO/PPO Address: [address] [address] [place] [address] Advance Directives For more information, please contact: [phone] * Full Code (Latest Code Status on [...] 10:03 PM 04/30/2020 8:11 PM Care Teams Rip Saw Operator Relationship Specialty [place] [address] [address], [address] [place] [address] PCP - General Family Medicine 12/23/23 Charley Walters PA Physician Trailers And Motor Homes Salesperson Physician [employer]ers [employer] Salesperson 06/21/21 Jason Montiel MD Surgeon Colon and Rectal Surgery 07/03/21
[2024-08-12 00:28] VITALS: BP 143/81; PULSE 70; RESP 17; TEMP 36.7; O2SAT 99
[2024-08-12 01:24] LABS: Basophils Absolute Auto 0.1 K/mm3 (0.0-0.1); Basophils Percent Auto 0.6 % (0.2-1.2); Eosinophils Absolute Auto 0.2 K/mm3 (0-0.3); Eosinophils Percent Auto 1.4 % (0-4.4); Hematocrit 45.7 % (42.0-52.0); Hemoglobin 14.9 g/dL (14.0-18.0); Immature Granulocyte Absolute 0.02 K/mm3 (0.00-0.031); Immature Granulocyte Percent A 0.2 % (0-0.5); Lymphocytes Absolute Auto 0.99 K/mm3 (0.9-3.2); Lymphocytes Percent Auto 9.3 % (18.3-44.2); Mean Corpuscular HGB Conc 32.6 g/dl (32-36); Mean Corpuscular Hemoglobin 29.6 pg (26-34); Mean Corpuscular Volume 90.7 fl (80-100); Mean Platelet Volume 9.8 fl (7.4-10.4); Monocytes Absolute Auto 0.9 K/mm3 (0.1-0.6); Monocytes Percent Auto 8.5 % (2.6-8.5); Neutrophils Absolute Auto 8.6 K/mm3 (1.3-6.7); Platelet Count Result 184 k/mm3 (150-375); Red Blood Count 5.04 M/mm3 (4.6-6.20); Red Cell Distribution Width 12.5 % (11.5-14.5); White Blood Count 10.7 K/mm3 (4.5-10.0)
--- NOTE | 2024-08-12 01:31 | ED_ITS ---
HPI - Back Pain/Injury General Chief Complaint: Abdominal Pain Stated Complaint: right sided back pain Time Seen by Provider: 08/12/24 01:25 Source: patient Mode of arrival: ambulatory Limitations: no limitations History of Present Illness HPI Narrative: Patient presents with right back/flank pain and right-sided abdominal pain/pressure. He had this pain yesterday and took Tylenol and it got better but then started again today. He was nauseated earlier. He thought perhaps she was constipated and so he took MiraLax and this improved. His pain and nausea are actually better at this time however he did present because he has risk factors which include a history of ulcerative colitis status post colectomy status post reversal as well as a J-pouch and complications throughout, all over the past 4 years. 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 He also has a history of insulin-dependent diabetes mellitus for which he has a continuous glucometer/insulin pump. His last A1c was 6.7%. Last oral intake was scant, at dinner. He states his appetite is coming back. He has not been vomiting. No dysuria hematuria although he does state his urine been dark. Not currently on any opiate therapy. No history of cancer. No recent incontinence of bowel or bladder. He states he was having some paresthesias in his legs earlier while he was driving but these resolved but he was not driving. No saddle anesthesia. No trauma. No anticoagulation. Related Data Home Medications ?Medication ?Instructions ?Recorded ?Confirmed ?Last Taken ?Type fluoxetine 20 mg capsule 40 mg PO DAILY 01/05/21 08/11/22 04/10/21 History insulin glargine 100 unit/mL 20 units subcut HS 04/12/21 08/11/22 04/09/21 History subcutaneous solution (Lantus U-100 Insulin) amoxicillin 875 mg-potassium 1 tablet PO BID 08/11/22 08/11/22 Unknown History clavulanate 125 mg tablet loperamide 2 mg capsule 2 mg PO DAILY 08/11/22 08/11/22 Unknown History Allergies Allergy/AdvReac Type Severity Reaction Status Date / Time No Known Allergies Allergy Verified 08/12/24 00:23 [facility] Past Medical History Medical History (Updated 08/13/24 @ 17:19 by Bijal Moss MD) Type 1 diabetes mellitus HA1c 6.7% 2024 Ulcerative colitis diagnosis managed s/p surgery Surgical History Surgical History (Updated 08/13/24 @ 17:18 by Bijal Moss MD) History of strabismus surgery History of open reduction and internal fixation (ORIF) procedure Repair of right hand fracture. History of colectomy s/p J pouch reversal; Prem Family History Family History Father Acute myocardial infarction Sibling Asthma Diabetes mellitus Mother Family history of thyroid problem Grandparent Acute Crohn's disease Diabetes mellitus Social History Social History (Updated 08/12/22 @ 20:50 by Denisha Paez PA-C) Social History: Surrogate medical decision maker: Junior Rizvi, mother. Code status: Full code. Smoking status: Never smoker Second hand tobacco smoke exposure: Yes Alcohol intake: never Substance use: never Substance use type: does not use Lack of Transportation: No Lack of Food: Never True Current Housing: I Have Housing Concerned About Future Housing: No Difficulty Paying Gas/Electric Bills: No Difficulty Paying for Meds: No Currently Unemployed: No Education: High School Diploma/GED Difficulty w/ Childcare or Family Care: No Living arrangements: with friend(s) Additional living arrangements comments: Lives with girlfriend and their child. 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 Spiritual care concerns: No Exam 2 Narrative: GENERAL: Well-appearing, well-nourished, and in no acute distress. HEAD: Normocephalic, atraumatic. EYES: Non injected, non icteric ENT: Nares clear, no rhinorrhea or epistaxis. Gross auditory acuity intact. NECK: Supple. No meningismus. CHEST: Speaking in full sentences. No respiratory distress. HEART: Regular rate and rhythm. . ABDOMEN: Soft, nondistended. No rigidity or guarding. Not peritoneal. Well healing scars. Continuous insulin pump at RLQ. No abdominal ecchymosis EXTREMITIES: Normal range of motion. No lower extremity edema. SKIN: Warm, dry, no rash. NEURO: No focal deficits. Alert and oriented. Answering questions. Following commands. Normal speech without aphasia or dysarthria. PSYCH: Normal mood and affect. Course Vital Signs Vital signs: Vital Signs Temperature 98.0 F 08/12/24 00:28 Pulse Rate 70 08/12/24 00:28 Respiratory Rate 17 08/12/24 00:28 Blood Pressure 143/81 H 08/12/24 00:28 Pulse Oximetry 99 08/12/24 00:28 Oxygen Delivery Room Air 08/12/24 00:28 Temperature 98.9 F 08/12/24 05:23 Pulse Rate 88 08/12/24 06:58 Respiratory Rate 19 08/12/24 06:58 Blood Pressure 130/78 08/12/24 06:58 Pulse Oximetry 98 08/12/24 06:58 Oxygen Delivery Room Air 08/12/24 00:28 MDM - Back Pain/Injury MDM Narrative Medical decision making narrative: Patient presents with report of right back flank pain /right-sided abdominal pain. History of ulcerative colitis though managed after surgical resection. In the emergency department he is afebrile acceptable vital signs, mild hypertension. Patient initially without symptoms. He notes his symptoms had come and gone and he was feeling better however given his underlying risk factors wanted to be sure. Mild leukocytosis. Isolated AST elevation. Hematuria. Patient had denied any gross hematuria but given this degree of hematuria in his location of symptoms my primary concern is for kidney stone. Patient does experience pain while awaiting CT result. Analgesic medication given. CT shows stone. Discussed findings with patient. He is feeling better. Discussed expulsion therapy and he is amenable to this. He has never previously had a kidney stone. Patient given dose of medication in the emergency department the rest of the course prescribed. Discussed straining urine and following up with Urology. Also discussed strict emergency return precautions that would indicate failure of outpatient therapy and he verifies understanding. Stable for discharge Differential Diagnosis Differential diagnosis: Likely renal colic, pyelonephritis and other (abdominal pain, constipation, kidney calculus, small bowel obstruction, perforation) Lab Data Attestation: I reviewed the patient's lab results. Lab results narrative: ESR, CRP, lipase normal. Viral swab negative 08/12/24 01:19 08/12/24 01:19 Labs: Lab Results 08/12/24 08/12/24 08/12/24 Range/Units 01:18 01:19 02:05 WBC 10.7 H (4.5-10.0) K/mm3 RBC 5.04 (4.6-6.20) M/mm3 Hgb 14.9 (14.0-18.0) g/dL Hct 45.7 (42.0-52.0) % MCV 90.7 (80-100) fl MCH 29.6 (26-34) pg MCHC 32.6 (32-36) g/dl RDW 12.5 (11.5-14.5) % Plt Count 184 D (150-375) k/mm3 MPV 9.8 (7.4-10.4) fl Immature Gran % (Auto) 0.2 (0-0.5) % Neut % (Auto) 80.0 H (45.5-73.1) % Lymph % (Auto) 9.3 L (18.3-44.2) % [place] % (Auto) 8.5 (2.6-8.5) % Eos % (Auto) 1.4 (0-4.4) % Baso % (Auto) 0.6 (0.2-1.2) % Lymph # (Auto) 0.99 (0.9-3.2) K/mm3 [place] # (Auto) 0.9 H (0.1-0.6) K/mm3 Eos # (Auto) 0.2 (0-0.3) K/mm3 Baso # (Auto) 0.1 (0.0-0.1) K/mm3 Abs Immat Gran (auto) 0.02 (0.00-0.031) K/mm3 Absolute Neuts (auto) 8.6 H (1.3-6.7) K/mm3 Absolute Nucleated RBC 0.000 (0.0-0.012) K/mm3 Nucleated RBC % 0.0 (0.0-0.2) % ESR 18 (0-20) mm/hr Sodium 140 (137-145) mmol/L Potassium 3.8 (3.4-5.0) mmol/L Chloride 102 (98-107) mmol/L Carbon Dioxide 31 H (22-30) mmol/L Anion Gap 7 (4-12) mmol/L BUN 11 D (9-20) mg/dL Creatinine 1.12 (0.7-1.3) mg/dL Estim Creat Clear Calc 78 ml/min Estimated GFR > 60 (59 - ) Glucose 102 (65-110) mg/dL Calcium 9.6 (8.4-10.2) mg/dL Total Bilirubin 0.5 (0.2-1.3) mg/dL AST 105 H (17-59) U/L ALT 50 (6-50) U/L Alkaline Phosphatase 71 (38-126) U/L C-Reactive Protein < 0.5 (<1.0) mg/dL Total Protein 7.0 (6.3-8.2) g/dL Albumin 4.3 (3.5-5.1) g/dL Lipase 55 (23-300) U/L Urine Color Yellow (Yellow) Urine Appearance Clear (Clear) Urine pH 5.5 (5.0-9.0) Ur Specific [place] 1.021 (1.001-1.035) Urine Protein 1+ H (Negative) mg/dL Urine Glucose (UA) 3+ H (Negative) mg/dL Urine Ketones Negative (Negative) mg/dL Ur Blood (Man) 3+ H (Negative) Urine Nitrate Negative (Negative) Urine Bilirubin Negative (Negative) Urine Urobilinogen 0.2 (<2.0) mg/dL Leukocyte Esterase Rfl Negative (Negative) SEPIDEH/UL Urine RBC >100 H (0-2) /hpf Urine WBC 0-5 (0-3) /hpf Ur Squamous Epith Cells None seen (Few) /hpf Urine Bacteria None seen /hpf Urine Casts 3-5 Influenza A (RT-PCR) Negative (Negative) Influenza B (RT-PCR) Negative (Negative) SARS-CoV-2 RNA (RT-PCR) Negative (Negative) Imaging Data Attestation: I personally reviewed and interpreted this imaging study as follows: My impression: Kidney stone on my independent interpretation CT scan Radiologist's impression: Impressions Abdomen/Pelvis CT 08/12/24 06:16 Impression: 5 mm distal right ureteral stone, with mild right hydroureteronephrosis. Numerous additional bilateral nonobstructing renal stones. Discharge Plan Discharge Clinical Impression: Elevated AST (SGOT), Calculus of right ureter, Hydroureteronephrosis Patient Disposition: Home Condition: Stable Instructions: Antibiotic Form, Narcotic Safety (ED), How to Strain Your Urine (ED), Flank Pain (ED), Ureteral Stones (ED) Additional Instructions: Take the combination of medications as prescribed as expulsion therapy. YOu can collect the stone if it passes to take with you to urology follow up (urologist listed below). For breakthrough pain, a short course of opiate medication has been prescribed. Return to the emergency department with any intractable pain, nausea, vomiting, or you develop a fever >100.4F. Patient Language: Syriac Prescriptions: New ketorolac 10 mg tablet 10 mg PO Q8H PRN (Reason: pain) Qty: 14 0RF Rx Instructions: maximum total duration of 5 days from all oral, intranasal, or parenteral formulations tamsulosin 0.4 mg capsule 0.4 mg PO DAILY Qty: 12 0RF Rx Instructions: start 08/13 (received first dose in ED 08/12) ondansetron 4 mg tablet,disintegrating 4 mg PO Q8H PRN (Reason: nausea and vomiting) Qty: 7 0RF oxycodone 5 mg capsule 5 mg PO Q8H PRN (Reason: pain) 3 Days Qty: 7 0RF No Action insulin lispro [Humalog U-100 Insulin] 100 unit/mL solution 6 unit subcut TID Qty: 10 5RF Rx Instructions: sliding scale 2 units per 15 carbs fluoxetine 20 mg capsule 40 mg PO DAILY loperamide 2 mg Capsule 2 mg PO DAILY Rx Instructions: Take one capsule daily in analysis mgr before breakfast amoxicillin-pot clavulanate 875-125 mg Tablet 1 tablet PO BID Rx Instructions: Take one tablet twice a day for 7 days. insulin glargine [Lantus U-100 Insulin] 100 unit/mL solution 20 units subcut HS Follow-up/Referrals: Ashley,NAIF New [Primary Care Provider] - Jase Dennis MD [Physician] - Stand Alone Forms: Work/School Release IP Time of Disposition: 06:38
[2024-08-12 01:34] LABS: Alanine Aminotransferase 50 U/L (6-50); Albumin Level 4.3 g/dL (3.5-5.1); Alkaline Phosphatase 71 U/L (38-126); Anion Gap 7 mmol/L (4-12); Aspartate Amino Transferase 105 U/L (17-59); Bilirubin,Total 0.5 mg/dL (0.2-1.3); Blood Urea Nitrogen 11 mg/dL (9-20); Calcium 9.6 mg/dL (8.4-10.2); Carbon Dioxide 31 mmol/L (22-30); Chloride 102 mmol/L (98-107); Estimated CRCL calculation 78 ml/min; Estimated Glomerular Filt Rate > 60; Glucose 102 mg/dL (65-110); Lipase 55 U/L (23-300); Potassium 3.8 mmol/L (3.4-5.0); Sodium 140 mmol/L (137-145)
[2024-08-12 01:36] VITALS: BP 157/92; PULSE 70; RESP 18; O2SAT 100
--- OUTSIDE RECORDS SUMMARY | 2024-08-12 01:47 | XMS_ITS | Encounter Summary ---
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
--- OUTSIDE RECORDS SUMMARY | 2024-08-12 01:47 | XMS_ITS | Clinical Summary ---
Author Organization [facility] Address [address] [address] Care Team Providers Care Lead Consultant Name Role Phone Charley Walters Unavailable [phone] Jason Montiel MD Unavailable [phone] Gema Angel NP Primary Care Provider [phone] Allergies No known active allergies Medications insulin syringe-needle U-100 1 mL 31 gauge x 15/64 syringe 1 Active pen needle, diabetic 32 gauge x 5/32 needleIndications :Uncontrolled type 1 diabetes mellitus with hyperglycemia (HCC) Use 6 a day with lantus and humalog 150 each 11 2 Active Additional Information Patient not taking.Reported on 07/05/2024 blood-glucose meter,continuous (Dexcom G6 Director Of Category Management) [facility] One oven stripper 1 each 2 Active ostomy supplies misc Ileostomy in place. Coloplast pouch 46831, [place] ring 47365, stoma powder, cavillon skin prep spray, adhesive remover, belt 4237 20 each 3 Active Additional Information Patient not taking.Reported on 07/05/2024 ostomy supply (OSTOMY SUPPLIES MISC) Ileostomy in place. 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 Recommendation: - ergocalciferol 56196 units weekly and indefinitely - recheck vitamin-D [...] -CTM Assessment & Plan (06/01/2021 2:19 PM PACK ROOM OPERATOR): Due to uncontrolled ulcerative colitis. hgb remains stable. Remains hemodynamically stable. -CTM Assessment & Plan (05/31/2021 3:12 PM PACK ROOM OPERATOR): Due to uncontrolled ulcerative colitis. hgb remains stable. Remains hemodynamically stable. -CTM Assessment & Plan (05/30/2021 2:29 PM PACK ROOM OPERATOR): Due to uncontrolled ulcerative colitis. hgb remains stable. Remains hemodynamically stable. -CTM Assessment & Plan (05/30/2021 2:27 PM PACK ROOM OPERATOR): Due to uncontrolled ulcerative colitis. hgb remains stable. Remains hemodynamically stable. -CTM Assessment & Plan (05/29/2021 3:12 PM PACK ROOM OPERATOR): Due to uncontrolled ulcerative colitis. hgb remains stable. -CTM Assessment & Plan (05/28/2021 6:39 PM PACK ROOM OPERATOR): Due to uncontrolled ulcerative colitis. hgb remains [...] colectomy. Assessment & Plan (06/01/2021 2:20 PM PACK ROOM OPERATOR): Likely acute flare of poorly controlled ulcerative [...] colectomy. Assessment & Plan (05/31/2021 3:11 PM PACK ROOM OPERATOR): Likely acute flare of poorly controlled ulcerative [...] xeljanz. Assessment & Plan (05/30/2021 2:29 PM PACK ROOM OPERATOR): Likely acute flare of poorly controlled ulcerative [...] xeljanz. Assessment & Plan (05/30/2021 2:26 PM PACK ROOM OPERATOR): Likely acute flare of poorly controlled ulcerative [...] xeljanz. Assessment & Plan (05/29/2021 3:14 PM PACK ROOM OPERATOR): -Likely acute flare of poorly controlled ulcerative [...] planned. Assessment & Plan (05/28/2021 6:38 PM PACK ROOM OPERATOR): -Likely acute flare of poorly controlled ulcerative colitis with multiple episodes of hematochezia. Stable hgb. -Obtained C diff and stool cultures to r/o infection, received methylprednisolone 40mg in the ED. -currently on budesonide and clears. -GI and CRS consulted, awaiting final recs. Assessment & Plan (05/27/2021 6:40 PM PACK ROOM OPERATOR): -Likely acute flare of poorly controlled ulcerative colitis. -Obtain C diff and stool cultures to r/o infection, received methylprednisolone 40mg in the ED. -GI and CRS consult in AM. Assessment & Plan (04/29/2020 10:57 AM PACK ROOM OPERATOR): 2/2 UC. Pt diagnosed with UC about a year ago. Follows with Dr. Jara, [place], [place]. Hospitalized multiple times since then with [...] D5. Assessment & Plan (06/01/2021 2:19 PM PACK ROOM OPERATOR): Secondary to inflammatory bowel disease. Nutrition consulted, agree with assessment. Will do calorie counts, nutritional supplements. -3/9 attempted oral intake. Had worsened pain overnight. -3/10 Currently dependent on D5LR to avoid hypoglycemia. -311 eating better. Assessment & Plan (05/31/2021 3:12 PM PACK ROOM OPERATOR): Secondary to inflammatory bowel disease. Nutrition consulted, agree with assessment. Will do calorie counts, nutritional supplements. -3/9 attempted oral intake. Had worsened pain overnight. -3/10 Currently dependent on D5LR to avoid hypoglycemia. Assessment & Plan (05/30/2021 2:29 PM PACK ROOM OPERATOR): -Secondary to inflammatory bowel disease. -nutrition consulted, agree with assessment. Will do calorie counts, nutritional supplements. -3/9 attempted oral intake. Had worsened pain overnight. Assessment & Plan (05/30/2021 2:26 PM PACK ROOM OPERATOR): -Secondary to inflammatory bowel disease. -nutrition consulted, agree with assessment. Will do calorie counts, nutritional supplements. -3/ attempted oral intake. Had worsened pain overnight. Assessment & Plan (05/29/2021 3:12 PM PACK ROOM OPERATOR): -Secondary to inflammatory bowel disease. -nutrition consulted, agree with assessment. Will do calorie counts, nutritional supplements. Assessment & Plan (05/28/2021 6:37 PM PACK ROOM OPERATOR): -Secondary to inflammatory bowel disease. -nutrition consult. Assessment & Plan (05/27/2021 6:43 PM PACK ROOM OPERATOR): -Secondary to inflammatory bowel disease. Assessment & Plan (04/26/2020 3:55 PM PACK ROOM OPERATOR): 2/2 UC and DMI -IVF -RD c/s [...] file Assessment & Plan (04/26/2020 4:05 PM PACK ROOM OPERATOR): Hgb 9.3 likely anemia of chronic disease. [...] surgery Assessment & Plan (02/10/2022 12:04 PM PACK ROOM OPERATOR): Recovering well after colectomy. Wound is healed. [...] fatigue. Assessment & Plan (05/27/2021 7:52 PM PACK ROOM OPERATOR): Severe UC who initially was able to [...] consult. Assessment & Plan (05/10/2021 6:16 PM PACK ROOM OPERATOR): The patient condition appears tenuous. He is [...] have a better chance of admission at [facility] but given his diabetes may benefit from Endocrinology input. Patient needs to follow up closely with Dr. Orantes. We will try to get records from his recent ER visit Assessment & Plan (03/11/2021 1:36 PM PACK ROOM OPERATOR): [facility] currently flaring with severe hyperglycemia [...] CV risk with tofa would prefer infliximab medical terminologist. Elevated liver enzymes 04/21/2019 Anxiety 12/08/2018 Seasonal [...] fluoxetine. Assessment & Plan (06/01/2021 2:19 PM PACK ROOM OPERATOR): Slightly dysthymic. -Continue home fluoxetine. Assessment & Plan (05/31/2021 3:12 PM PACK ROOM OPERATOR): Slightly dysthymic. -Continue home fluoxetine. Assessment & Plan (05/30/2021 2:30 PM PACK ROOM OPERATOR): Slightly dysthymic. -Continue home fluoxetine. Assessment & Plan (05/30/2021 2:26 PM PACK ROOM OPERATOR): Slightly dysthymic. -Continue home fluoxetine. Assessment & Plan (05/29/2021 3:12 PM PACK ROOM OPERATOR): Slightly dysthymic. -Continue home fluoxetine. Assessment & Plan (05/28/2021 6:36 PM PACK ROOM OPERATOR): Slightly dysthymic. -Continue home fluoxetine. Assessment & Plan (05/27/2021 6:40 PM PACK ROOM OPERATOR): -Continue home fluoxetine. Type 1 diabetes mellitus [...] am - follow up with Veronica Moya RN/Dope And Fabric Worker on 06/21/21 at 10:00 am - New [...] optimization. Assessment & Plan (06/01/2021 2:18 PM PACK ROOM OPERATOR): Patient with type I diabetes with history [...] optimization. Assessment & Plan (05/31/2021 3:11 PM PACK ROOM OPERATOR): Patient with type I diabetes with history [...] TPN Assessment & Plan (05/30/2021 2:29 PM PACK ROOM OPERATOR): Patient with type I diabetes with history [...] TPN Assessment & Plan (05/30/2021 2:25 PM PACK ROOM OPERATOR): Patient with type I diabetes with history [...] TPN Assessment & Plan (05/29/2021 3:12 PM PACK ROOM OPERATOR): -Patient with type I diabetes with history [...] TPN Assessment & Plan (05/28/2021 6:36 PM PACK ROOM OPERATOR): -Patient with type I diabetes with history of DKA on steroids. Patient reports home regimen of Lantus 30u qhs with SSI with meals. -Start Lantus 30u qhs, Lispro tid ac and SSI. - monitor BMP due to high risk of DKA. Assessment & Plan (05/27/2021 6:41 PM PACK ROOM OPERATOR): -Patient with type I diabetes with history of DKA on steroids. Patient reports home regimen of Lantus 30u qhs with SSI with meals. -Start Lantus 30u qhs, Lispro tid ac and SSI. Assessment & Plan (05/10/2021 6:15 PM PACK ROOM OPERATOR): The patient indicates that he has been able to manage his diabetes slightly better by monitoring his sugars closer and administering his insulin when he should. He has been scheduled several times with an leadership intern here but has either canceled or no showed these visits. He is strongly encouraged to show up for his 06/03 visit as his diabetes control is very important for his overall health and management of his colitis. Assessment & Plan (03/11/2021 1:36 PM PACK ROOM OPERATOR): Poorly controlled. BG 495 in type 1. Risk of DKA. Will send to ED. Assessment & Plan (04/29/2020 10:56 AM PACK ROOM OPERATOR): DMI with multiple episodes of DKA in [...] 05/28. Assessment & Plan (06/01/2021 2:19 PM PACK ROOM OPERATOR): Patient came in with abdominal pain, diarrhea, hematochezia. Cdiff toxin negative, DNA positive. Due to clinical presentation, started PO vanc. Assessment & Plan (05/31/2021 3:12 PM PACK ROOM OPERATOR): Patient came in with abdominal pain, diarrhea, hematochezia. Cdiff toxin negative, DNA positive. Due to clinical presentation, started PO vanc. Assessment & Plan (05/30/2021 2:29 PM PACK ROOM OPERATOR): Patient came in with abdominal pain, diarrhea, hematochezia. Cdiff toxin negative, DNA positive. Due to clinical presentation, started PO vanc. Ulcerative pancolitis without complication 05/27/2021 05/28/2021 Assessment & Plan (05/28/2021 6:37 PM PACK ROOM OPERATOR): -Poorly controlled on biologics due to insurance coverage. -GI consult. Assessment & Plan (05/27/2021 6:42 PM PACK ROOM OPERATOR): -Poorly controlled on biologics due to insurance coverage. -GI consult. Encounters Date Type Department Care Team Description 07/05/2024 3:00 PM CDT Office Visit [facility] Endocrinology Metabolism and Lipid [address] [place] [address] [place] [address] Preeti Coates PA Type 1 diabetes mellitus with hyperglycemia (HCC) (Primary Dx); Primary hypertension; Ulcerative colitis with complication, unspecified location (HCC); [facility] current use of insulin (HCC); Insulin pump [...] 11/12/2022 Takedown of loop ileostomy with stapled bowa-fe-kdun small bowel anastomosis Medical History Medical History [...] often do you attend chur ch or advent services? 1 to 4 times per year 08/04/2022 Do you belong to any clubs o r organizations such as judaism groups, unions, fraternal or athletic groups, or [...] place to sleep or slept in a fci (including now)? No 08/04/2022 Personal Safety Answer Date Recorded Have you ever been in or are you currently in a harmful physical or emotional relationship or is someone making you feel afraid or unsafe? Denies 11/12/2022 Sex and Gender Information Value Date Recorded Sex Assigned at Not on file Legal Sex Male 5:23 PM PACK ROOM OPERATOR Gender Identity Male 11/15/2020 1:40 PM CDT [...] diabetes mellitus with hyperglycemia (HCC) POCT GLUCOSE 73185 Routine 07/05/2024 3: 08 PM CDT Type [...] HEPATITIS PANEL, ACUTE Add-On 04/29/2020 8:36 AM PACK ROOM OPERATOR from Last 3 Months or Most Recently [...] Ratio, Urine (12/23/2023 10:34 AM CDT) Pathologist [facility] Albumin Ur <12.0 mg/L Comment: Interpretive Data No reference range established. Current interpretive data was last revised 2018. Testing performed by: [facility], [address] [place] [address]., [id number] Creatinine Ur 113.8 mg/dL [facility]AN [facility] Comment: Interpretive Data No reference range established. Current interpretive data was last revised 2018. Testing performed by: [facility], [address] [place] [address]., [id number] Albumin Creatinine Ratio, Ur <11 1 - 29 mg/g NHAN [facility] Comment:Testing performed by : [facility], [address] [place] [address]., [id number] Urine 12/23/2023 10:3 4 AM CDT 12/23/2023 1:54 PM CDT Marina Sanchez MD LAB URINE ORDERABLES Final Result [facility] [address] [facility] Department [place] [address] * eGFR (12/23/2023 10:25 AM CDT) eGFR [...] BLOOD ORDERABLES Final Result Performing Organization Address [facility] Co de Phone Number [facility]AN [facility] [address] [facility] [address] [place], [place] [id number] * Thyroid Function [place] (12/23/2023 10:25 AM CDT) TSH 1.07 0.30 - 4.20 mcIUnit/mL Blood 12/23/2023 10:2 5 AM CDT 12/23/2023 10:36 AM CDT Marina Sanchez MD LAB BLOOD ORDERABLES Final Result Performing Organization Address [facility] Co de Phone Number [facility]AN [facility] [address] [facility] [place] [address] [address] * Lipid panel (12/23/2023 10:25 AM CDT) [...] MD LAB BLOOD ORDERABLES Final Result [facility] [address] [facility]. Department [place] [address] * Hepatitis panel, acute (04/29/2020 8:36 AM PACK ROOM OPERATOR) Hep A IgM Nonreactive Nonreactive [facility]AN [facility] Comment: Interpretive Data: If Hep A IgM Ab is reported as Equivocal, a new sample should be drawn in two weeks for testing. Current interpretive data was last revised on 19. Testing performed by: [facility], [address] [place] [address]., [address] Hep B core IgM Nonreactive Nonreactive [facility] Comment: Interpretive Data If HepB Core IgM Ab is reported as Equivocal, a new sample should be drawn in two weeks for testing. Current interpretive data was last revised on 19. Testing performed by: [facility], [address] [place] [address]., [id number] Hep C Ab Nonreactive Nonreactive [facility] Comment: Interpretive Data Nonreactive: Antibodies to [...] last revised on 2019. Testing performed by: [facility], [address] [place] [address]., [id number] HepBsAg Nonreactive Nonreactive [facility] Comment:Testing performed by : [facility], [address] [place] [address]., [id number] Blood specimen (specimen) 04/29/2020 8:36 AM PACK ROOM OPERATOR 04/29/2020 9:33 AM PACK ROOM OPERATOR Titus Caban MD LAB MICROBIOLOGY - GENERAL ORDERABLES Final Result Performing Organization Address City/State/[facility] Co il Phone Number [facility]AN [facility] [address] [facility] Department [place] [address] from Last 3 Months or Most Recently Relevant to Health Maintenance Insurance [facility] HMO/PPO Address: [address] [address] [place] [address] [facility] H[facility]/PPO Address: [address] [address] [place] [address] Advance Directives For more information, please contact: [phone] * Full Code (Latest Code Status on [...] 10:03 PM 04/30/2020 8:11 PM Care Teams Lead Consultant Relationship Specialty [place] [address] [address], [address] [place] [id number] PCP - General Family Medicine 12/23/23 Charley Walters PA Physician Brand Marketing Manager Physician Brand Marketing Manager 06/21/21 Jason Montiel MD Surgeon Colon and Rectal Surgery 07/03/21
--- OUTSIDE RECORDS SUMMARY | 2024-08-12 01:48 | XMS_ITS | Referral Summary ---
Author Organization [facility] Address [address] [facility] [place] [address] Care Team Providers Care Stenciling Machine Tender Name Role Phone Charley Walters Unavailable [phone] Jason Montiel MD Unavailable [phone] Gema Angel NP Primary Care Provider [phone] Encounters Date Type Department Care Team Description 07/05/2024 3:00 PM CDT Office Visit [facility] Endocrinology Metabolism and Lipid [address] [facility] [place] [facility] 13[address] [place] [address] [place] [address] Preeti Coates PA Type 1 diabetes mellitus with hyperglycemia (HCC) (Primary Dx); Primary hypertension; Ulcerative colitis with complication, unspecified location (HCC); 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 Coloplast pouch 29880, Carolina ring 30548, stoma powder, cavillon skin prep spray, adhesive remover, belt 4237 20 each 11 3 Active Additional Information Patient not taking.Reported on 07/05/2024 ostomy supply (OSTOMY SUPPLIES [facility]) Ileostomy in place. Coloplast pouch 28455, Carolina ring 58921, stoma powder, cavillon skin prep spray, adhesive [...] pancolitis 06/27/[address] 01/01/2022 product manager medical device associated with adverse incidents 09/24/2021 Iron (Fe) deficiency anemia 08/06/2021 [facility] current use of insulin 06/19/2021 Vitamin D deficiency 06/07/2021 Assessment & Plan (06/07/2021 4:44 PM CDT): Needs long-term vitamin-D supplementation, particularly in the setting of glucocorticoid use. Recommendation: - ergocalciferol 01744 units weekly and indefinitely - recheck vitamin-D [...] -CTM Assessment & Plan (06/01/2021 2:19 PM BOWLING ALLEY ATTENDANT): Due to uncontrolled ulcerative colitis. hgb remains stable. Remains hemodynamically stable. -CTM Assessment & Plan (05/31/2021 3:12 PM BOWLING ALLEY ATTENDANT): Due to uncontrolled ulcerative colitis. hgb remains stable. Remains hemodynamically stable. -CTM Assessment & Plan (05/30/2021 2:29 PM BOWLING ALLEY ATTENDANT): Due to uncontrolled ulcerative colitis. hgb remains stable. Remains hemodynamically stable. -CTM Assessment & Plan (05/30/2021 2:27 PM BOWLING ALLEY ATTENDANT): Due to uncontrolled ulcerative colitis. hgb remains stable. Remains hemodynamically stable. -CTM Assessment & Plan (05/29/2021 3:12 PM BOWLING ALLEY ATTENDANT): Due to uncontrolled ulcerative colitis. hgb remains stable. -CTM Assessment & Plan (05/28/2021 6:39 PM BOWLING ALLEY ATTENDANT): Due to uncontrolled ulcerative colitis. hgb remains [...] colectomy. Assessment & Plan (06/01/2021 2:20 PM BOWLING ALLEY ATTENDANT): Likely acute flare of poorly controlled ulcerative [...] colectomy. Assessment & Plan (05/31/2021 3:11 PM BOWLING ALLEY ATTENDANT): Likely acute flare of poorly controlled ulcerative [...] xeljanz. Assessment & Plan (05/30/2021 2:29 PM BOWLING ALLEY ATTENDANT): Likely acute flare of poorly controlled ulcerative [...] xeljanz. Assessment & Plan (05/30/2021 2:26 PM BOWLING ALLEY ATTENDANT): Likely acute flare of poorly controlled ulcerative [...] xeljanz. Assessment & Plan (05/29/2021 3:14 PM BOWLING ALLEY ATTENDANT): -Likely acute flare of poorly controlled ulcerative [...] planned. Assessment & Plan (05/28/2021 6:38 PM BOWLING ALLEY ATTENDANT): -Likely acute flare of poorly controlled ulcerative colitis with multiple episodes of hematochezia. Stable hgb. -Obtained C diff and stool cultures to r/o infection, received methylprednisolone 40mg in the ED. -currently on budesonide and clears. -GI and CRS consulted, awaiting final recs. Assessment & Plan (05/27/2021 6:40 PM BOWLING ALLEY ATTENDANT): -Likely acute flare of poorly controlled ulcerative colitis. -Obtain C diff and stool cultures to r/o infection, received methylprednisolone 40mg in the ED. -GI and CRS consult in AM. Assessment & Plan (04/29/2020 10:57 AM BOWLING ALLEY ATTENDANT): 04/24 UC. Pt diagnosed with UC about a year ago. Follows with Dr. Jara, [place], [place]. Hospitalized multiple times since then with [...] D5. Assessment & Plan (06/01/2021 2:19 PM BOWLING ALLEY ATTENDANT): Secondary to inflammatory bowel disease. Nutrition consulted, agree with assessment. Will do calorie counts, nutritional supplements. -3/9 attempted oral intake. Had worsened pain overnight. -3 Currently dependent on D5LR to avoid hypoglycemia. -05/31 eating better. Assessment & Plan (05/31/2021 3:12 PM BOWLING ALLEY ATTENDANT): Secondary to inflammatory bowel disease. Nutrition consulted, agree with assessment. Will do calorie counts, nutritional supplements. -3/9 attempted oral intake. Had worsened pain overnight. -3/10 Currently dependent on D5LR to avoid hypoglycemia. Assessment & Plan (05/30/2021 2:29 PM BOWLING ALLEY ATTENDANT): -Secondary to inflammatory bowel disease. -nutrition consulted, agree with assessment. Will do calorie counts, nutritional supplements. -3/9 attempted oral intake. Had worsened pain overnight. Assessment & Plan (05/30/2021 2:26 PM BOWLING ALLEY ATTENDANT): -Secondary to inflammatory bowel disease. -nutrition consulted, agree with assessment. Will do calorie counts, nutritional supplements. -3/9 attempted oral intake. Had worsened pain overnight. Assessment & Plan (05/29/2021 3:12 PM BOWLING ALLEY ATTENDANT): -Secondary to inflammatory bowel disease. -nutrition consulted, agree with assessment. Will do calorie counts, nutritional supplements. Assessment & Plan (05/28/2021 6:37 PM BOWLING ALLEY ATTENDANT): -Secondary to inflammatory bowel disease. -nutrition consult. Assessment & Plan (05/27/2021 6:43 PM BOWLING ALLEY ATTENDANT): -Secondary to inflammatory bowel disease. Assessment & Plan (04/26/2020 3:55 PM BOWLING ALLEY ATTENDANT): 2/2 UC and DMI -IVF -RD c/s [...] file Assessment & Plan (04/26/2020 4:05 PM BOWLING ALLEY ATTENDANT): Hgb 9.3 likely anemia of chronic disease. [...] surgery Assessment & Plan (02/10/2022 12:04 PM BOWLING ALLEY ATTENDANT): Recovering well after colectomy. Wound is healed. [...] fatigue. Assessment & Plan (05/27/2021 7:52 PM BOWLING ALLEY ATTENDANT): Severe UC who initially was able to [...] consult. Assessment & Plan (05/10/2021 6:16 PM BOWLING ALLEY ATTENDANT): The patient condition appears tenuous. He is [...] have a better chance of admission at [facility] but given his diabetes may benefit from Endocrinology input. Patient needs to follow up closely with Dr. Orantes. 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 Elevated liver enzymes 04/21/2019 Anxiety 12/08/2018 Seasonal [...] fluoxetine. Assessment & Plan (06/01/2021 2:19 PM BOWLING ALLEY ATTENDANT): Slightly dysthymic. -Continue home fluoxetine. Assessment & Plan (05/31/2021 3:12 PM BOWLING ALLEY ATTENDANT): Slightly dysthymic. -Continue home fluoxetine. Assessment & Plan (05/30/2021 2:30 PM BOWLING ALLEY ATTENDANT): Slightly dysthymic. -Continue home fluoxetine. Assessment & Plan (05/30/2021 2:26 PM BOWLING ALLEY ATTENDANT): Slightly dysthymic. -Continue home fluoxetine. Assessment & Plan (05/29/2021 3:12 PM BOWLING ALLEY ATTENDANT): Slightly dysthymic. -Continue home fluoxetine. Assessment & Plan (05/28/2021 6:36 PM BOWLING ALLEY ATTENDANT): Slightly dysthymic. -Continue home fluoxetine. Assessment & Plan (05/27/2021 6:40 PM BOWLING ALLEY ATTENDANT): -Continue home fluoxetine. Type 1 diabetes mellitus [...] am - follow up with Veronica Moya RN/Tacker Off on 06/21/21 at 10:00 am - New [...] optimization. Assessment & Plan (06/01/2021 2:18 PM BOWLING ALLEY ATTENDANT): Patient with type I diabetes with history [...] optimization. Assessment & Plan (05/31/2021 3:11 PM BOWLING ALLEY ATTENDANT): Patient with type I diabetes with history [...] TPN Assessment & Plan (05/30/2021 2:29 PM BOWLING ALLEY ATTENDANT): Patient with type I diabetes with history [...] TPN Assessment & Plan (05/30/2021 2:25 PM BOWLING ALLEY ATTENDANT): Patient with type I diabetes with history [...] TPN Assessment & Plan (05/29/2021 3:12 PM BOWLING ALLEY ATTENDANT): -Patient with type I diabetes with history [...] TPN Assessment & Plan (05/28/2021 6:36 PM BOWLING ALLEY ATTENDANT): -Patient with type I diabetes with history of DKA on steroids. Patient reports home regimen of Lantus 30u qhs with SSI with meals. -Start Lantus 30u qhs, Lispro tid ac and SSI. - monitor BMP due to high risk of DKA. Assessment & Plan (05/27/2021 6:41 PM BOWLING ALLEY ATTENDANT): -Patient with type I diabetes with history of DKA on steroids. Patient reports home regimen of Lantus 30u qhs with SSI with meals. -Start Lantus 30u qhs, Lispro tid ac and SSI. Assessment & Plan (05/10/2021 6:15 PM BOWLING ALLEY ATTENDANT): The patient indicates that he has been able to manage his diabetes slightly better by monitoring his sugars closer and administering his insulin when he should. He has been scheduled several times with an vice president pharmacy here but has either canceled or no showed these visits. He is strongly encouraged to show up for his 06/03 visit as his diabetes control is very important for his overall health and management of his colitis. Assessment & Plan (03/11/2021 1:36 PM BOWLING ALLEY ATTENDANT): Poorly controlled. BG 495 in type 1. Risk of DKA. Will send to ED. Assessment & Plan (04/29/2020 10:56 AM BOWLING ALLEY ATTENDANT): DMI with multiple episodes of DKA in [...] 05/28. Assessment & Plan (06/01/2021 2:19 PM BOWLING ALLEY ATTENDANT): Patient came in with abdominal pain, diarrhea, hematochezia. Cdiff toxin negative, DNA positive. Due to clinical presentation, started PO vanc. Assessment & Plan (05/31/2021 3:12 PM BOWLING ALLEY ATTENDANT): Patient came in with abdominal pain, diarrhea, hematochezia. Cdiff toxin negative, DNA positive. Due to clinical presentation, started PO vanc. Assessment & Plan (05/30/2021 2:29 PM BOWLING ALLEY ATTENDANT): Patient came in with abdominal pain, diarrhea, hematochezia. Cdiff toxin negative, DNA positive. Due to clinical presentation, started PO vanc. 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 -GI consult. Assessment & Plan (05/27/2021 6:42 PM BOWLING ALLEY ATTENDANT): -Poorly controlled on biologics due to insurance [...] How often do you attend chur or sabianism services? 1 to 4 times per year 08/04/2022 Do you belong to any clubs o r organizations such as moravian groups, unions, fraternal or athletic groups, or [...] place to sleep or slept in a group home (including now)? No 08/04/2022 Personal Safety Answer Date Recorded Have you ever been in or are you currently in a harmful physical or emotional relationship or is someone making you feel afraid or unsafe? Denies 11/12/2022 Sex and Gender Information Value Date Recorded Sex Assigned at Not on file Legal Sex Male 5:23 PM BOWLING ALLEY ATTENDANT Gender Identity Male 11/15/2020 1:40 PM CDT [...] diabetes mellitus with hyperglycemia (HCC) POCT GLUCOSE [id number] Routine 07/05/2024 3: 08 PM CDT Type [...] HEPATITIS PANEL, ACUTE Add-On 04/29/2020 8:36 AM BOWLING ALLEY ATTENDANT from Last 3 Months or Most Recently [...] Ratio, Urine (12/23/2023 10:34 AM CDT) Pathologist [facility] Albumin Ur <12.0 mg/L Comment: Interpretive Data No reference range established. Current interpretive data was last revised 2018. Testing performed by: [facility], [address] [place] [address]., [id number] Creatinine Ur 113.8 mg/dL NHAN LUIS Comment: Interpretive Data No reference range established. Current interpretive data was last revised 2018. Testing performed by: [facility], [address] [place] [address]., [id number] Albumin Creatinine Ratio, Ur <11 1 - 29 mg/g NHAN LUIS Comment:Testing performed by : [facility], [address] [place] [address]., [id number] Urine 12/23/2023 10:3 4 AM CDT 12/23/2023 1:54 PM CDT Marina Sanchez MD LAB URINE ORDERABLES Final Result [facility]AN [facility] [address] [facility]. Department [place] [address] * eGFR (12/23/2023 10:25 AM CDT) Pathologist [facility] eGFR >90 >=60 mL/min/1. 73 m2 Comment: [...] BLOOD ORDERABLES Final Result Performing Organization Address [facility] de Phone Number NHAN [facility] [id number] [employer]. [facility] [employer] [place], [place] [id number] * Thyroid Function [place] (12/23/2023 10:25 AM CDT) TSH 1.07 0.30 - 4.20 mcIUnit/mL Blood 12/23/2023 10:2 5 AM CDT 12/23/2023 10:36 AM CDT Marina Sanchez MD LAB BLOOD ORDERABLES Final Result Performing Organization Address [facility] de Phone Number NHAN [facility] [phone] [employer]. [facility] [place] [address] * Lipid panel (12/23/2023 10:25 AM CDT) [...] BLOOD ORDERABLES Final Result Performing Organization Address City/State/[facility] pa Phone Number [facility] [address] [facility]. Department [place] [address] * Hepatitis panel, acute (04/29/2020 8:36 AM BOWLING ALLEY ATTENDANT) Hep A IgM Nonreactive Nonreactive NHAN LUIS Comment: Interpretive Data: If Hep A IgM Ab is reported as Equivocal, a new sample should be drawn in two weeks for testing. Current interpretive data was last revised on 19. Testing performed by: [facility], [facility], [place]., [address] Hep B core IgM Nonreactive Nonreactive [facility]AN [facility] Comment: Interpretive Data If HepB Core IgM Ab is reported as Equivocal, a new sample should be drawn in two weeks for testing. Current interpretive data was last revised on 19. Testing performed by: [facility], [address] [place] [address]., [address] Hep C Ab Nonreactive Nonreactive NHAN [facility] Comment: Interpretive Data Nonreactive: Antibodies to [...] last revised on 2019. Testing performed by: [facility], [address] [place] [address]., [id number] HepBsAg Nonreactive Nonreactive NHAN [facility] Comment:Testing performed by : [facility], [address] [place] [address]., [id number] Blood specimen (specimen) 04/29/2020 8:36 AM BOWLING ALLEY ATTENDANT 04/29/2020 9:33 AM BOWLING ALLEY ATTENDANT Titus Caban MD LAB MICROBIOLOGY - GENERAL ORDERABLES Final Result Performing Organization Address City/State/[facility] Phone Number NHAN [facility] [phone] [facility] Department [place] [address] from Last 3 Months or Most Recently Relevant to Health Maintenance [facility] HMO/PPO Address: [address] [address] [place] [address] [facility] HMO/PPO Address: [address] [address] [place] [address] Advance Directives For more information, please contact: [phone] * Full Code (Latest Code Status on [...] 10:03 PM 04/30/2020 8:11 PM Care Teams Stenciling Machine Tender Relationship Specialty [place] [address] [address], [address] [place] [id number] PCP - General Family Medicine 12/23/23 Charley Walters PA Physician Adult Caregiver Physician Adult Caregiver 06/21/21 Jason Montiel MD Surgeon Colon and Rectal Surgery 07/03/21
[2024-08-12 02:04] LABS: CRP < 0.5 mg/dL (<1.0)
[2024-08-12 02:17] LABS: Add Urine Microscopic? YES; Appearance Urine Clear (Clear); Bacteria Urine None Seen /hpf; Bilirubin Urine Negative (Negative); Blood Urine 3+ (Negative); Color Urine Yellow (Yellow); Glucose Urine UA 3+ mg/dL (Negative); Ketones Urine Negative (Negative); Leukocyte Esterase Ur Negative LEU/UL (Negative); Nitrate Urine Negative (Negative); Protein Urine 1+ mg/dL (Negative); RBC Urine >100 /hpf (0-2); Specific Grav Ur 1.021 (1.001-1.035); Squamous Epithelial Cell Urine None Seen /hpf (Few); Urobilinogen Urine 0.2 mg/dL (<2.0); WBC Urine 0-5 /hpf (0-3); pH Urine 5.5 (5.0-9.0)
[2024-08-12 02:19] LABS: Erythrocyte Sedimentation Rate 18 mm/hr (0-20)
[2024-08-12] MEDS: SODIUM CHLORIDE 0.9% IV 500 ML 999 ML IV CONT (02:33)
[2024-08-12 02:47] LABS: Influenza A QL RT-PCR Negative (Negative); Influenza B QL RT-PCR Negative (Negative); SARS-CoV-2 RNA PCR Negative (Negative)
[2024-08-12] MEDS: MORPHINE SULFATE (*CRX) 2 MG/ML INJ 3 MG IV PUSH (02:58)
[2024-08-12 04:10] VITALS: BP 118/75; PULSE 68; RESP 20; O2SAT 98
[2024-08-12 05:19] VITALS: BP 123/75; PULSE 74; RESP 19; O2SAT 98
[2024-08-12 05:23] VITALS: TEMP 37.2
[2024-08-12] MEDS: KETOROLAC 15 MG/ML VIAL (*BKC) IV PUSH (06:40)
[2024-08-12] MEDS: TAMSULOSIN HCL 0.4 MG CAPSULE PO (06:40)
[2024-08-12 06:58] VITALS: BP 130/78; PULSE 88; RESP 19; O2SAT 98
== END 2024-08-12 06:59 | disposition home or self-care (01) ==
PROVIDERS: Emergency Provider Student in an Organized Health Care Education/Training Program; PCP Physician Assistant
DX: N13.2 Hydronephrosis with renal and ureteral calculous obstruction (principal); R74.01 Elevation of levels of liver transaminase levels; Z20.822 Contact with and (suspected) exposure to COVID-19; E10.9 Type 1 diabetes mellitus without complications; Z96.41 Presence of insulin pump (external) (internal); Z90.49 Acquired absence of other specified parts of digestive tract; Z77.22 Contact with and (suspected) exposure to environmental tobacco smoke (acute) (chronic); Z79.4 Long term (current) use of insulin; Z79.899 Other long term (current) drug therapy
CPT/HCPCS: 36415; 74177; 80053; 81001; 83690; 85025; 85652; 86140; 87636; 96361; 96374; 96375; 99284; A9270; J1885; J2270; J7040; Q9967

== ENCOUNTER 2024-09-14 10:15 | Outpatient (CLI) | payer OTHER, SELFPAY ==
--- NOTE | ~2024-09-14 | XR_ITS ---
EXAM/PROCEDURE: XR abdomen/kub 1V - 09/14/2024 10:30 CDT HISTORY: 29 years old Male with CALCIUM KIDNEY STONE, RT side COMPARISON: None available. TECHNIQUE: AP view(s) of the abdomen. FINDINGS/ IMPRESSION: A foreign body containing battery in the right lower quadrant of the abdomen, likely in the cecum. La teral view radiograph is recommended. The bowel gas pattern is normal. There is no evidence for obstruction. No free intraperitoneal air is identified on this supine radiograph. The visualized soft tissue shadows are unremarkable. No gross bony abnormalities are seen. Visualized portions of lung bases are clear. Reviewed, dictated and finalized at location A.
== END 2024-09-14 10:16 | disposition home or self-care (01) ==
LOC: ANHIMG 10:17
PROVIDERS: PCP Nurse Practitioner Family; Visit Provider Urology
DX: N20.0 Calculus of kidney (principal)
CPT/HCPCS: 74018